=== PATIENT | female | born 1975 | race Caucasian/White ===

== ENCOUNTER → 2017-11-01 14:02 | Outpatient (CLI) | payer MEDICAID, SELFPAY ==
--- NOTE | 2017-11-01 14:05 | ECHOD_ITS ---
Reason For Study: SOB Procedure This was a 2D Doppler, Color Flow transthoracic echocardiogram. Exam performed in department. Left Ventricle Normal LV size. Left ventricular systolic function is normal. The estimated ejection fraction is 55 %. No evidence for diastolic dysfunction. No regional wall motion abnormalities noted. Right Ventricle Normal RV size. Normal systolic function. Atria Normal left atrium. Normal right atrium. Mitral Valve Normal mitral valve. Tricuspid Valve Normal tricuspid valve. Aortic Valve Normal aortic valve. Trisinus/trileaflet aortic valve. Pulmonic Valve Normal pulmonic valve. Great Vessels Normal aortic root. The pulmonary artery is normal size. Inferior vena cava collapse with respiration. Pericardium/Pleural No pericardial effusion. MMode/2D Measurements & Calculations LVIDd: 4.5 cm IVSd: 0.84 cm Ao root diam: 2.8 cm LVIDs: 3.0 cm LVPWd: 1.1 cm LA dimension: 3.2 cm RVDd: 2.9 cm FS: 32.4 % LAV(MOD-bp): 33.2 ml LA A4 area: 14.0 cm2 RA A4 area: 11.8 cm2 LAV(MOD-bp) Indexed: 18.4 ml/m2 LAV(MOD-sp2): 32.4 ml LAV(MOD-sp4): 33.9 ml Time Measurements MV dec time: 0.17 sec Doppler Measurements & Calculations MV E max chandra: 95.0 cm/sec Lat Peak E' Chandra: 13.7 cm/sec Med Peak E' Chandra: 9.2 cm/sec MV A max chandra: 74.3 cm/sec E/E' lat: 6.9 E/E' med: 10.4 MV E/A: 1.3 Ao V2 max: 130.1 cm/sec LV V1 max: 102.1 cm/sec PA V2 max: 76.1 cm/sec Ao max P.8 mmHg LV V1 max P.2 mmHg Interpretation Summary Normal LV size. Left ventricular systolic function is normal. The estimated ejection fraction is 55 %. No evidence for diastolic dysfunction. Structurally normal valves. Ordering Physician: JOHN Cross Referring Physician: JOHN Cross Performed By: Madison Christine, ACE, RVT
--- NOTE | 2017-11-01 14:47 | RAD_ITS ---
STUDY: X-RAY CHEST REASON FOR EXAM: Female, 41 years old. Cough, increased shortness of breath, right-sided chest pain. TECHNIQUE: PA and lateral views of the chest. COMPARISON: PA and lateral chest x-ray as well as CTA chest/thorax May 15, 2017. FINDINGS: The lungs are clear and expanded. Nodular density in the left midlung and stranding/hazy bibasilar densities on prior study have cleared. There is no demonstrated pleural abnormality. Normal size heart. Normal mediastinum and geneva. Normal visualized pulmonary arteries. Normal visualized aortic arch and descending thoracic aorta. There are stable minor degenerative changes of the lower thoracic spine. Normal visualized ribs, clavicles, and shoulders. Surgical clips of prior cholecystectomy again seen in the right upper quadrant of the abdomen. RAD/Chest PA and Lateral IMPRESSION: No acute pulmonary disease. Electronically Signed: Rick Price MD at 19:19 EST , Service support ,
[2017-11-01 16:16] LABS: Absolute Lymphocyte Count 2.39 X10^3/ul (0.83-4.51); Basophil# 0.04 X10^3/uL; Basophil% 0.5 % (0-1); Eosinophil# 0.47 X10^3/uL; Eosinophils% 5.5 % (0-5); Hematocrit 40.8 % (37-47); Hemoglobin 13.5 g/dl (12.0-15.0); Lymphocyte # 2.39 X10^3/ul (4.0); Lymphocyte % 27.9 % (19-41); Mean Corp Hgb Conc 33.1 g/gl (32-36); Mean Corpuscular Hgb 31.8 pg (27.0-32.0); Mean Platelet Vol. 9.7 fl (6.2-12.0); Monocyte# 0.64 X10^3/uL; Monocyte% 7.5 % (0-10); Neutrophil # 5.02 X10^3/uL (2.7-7.7); Neutrophil % 58.4 % (47-70); Platelet Count 330 K/mm3 (150-450); RBC Distribution Width CV 12.3 % (11.6-14.6); RBC Distribution Width SD 42.3 fl (35.1-43.9); Red Blood Count 4.25 M/mm3 (4.2-5.4); White Blood Count 8.6 K/mm3 (4.4-11.0)
[2017-11-01 16:17] LABS: POSITIVE COUNT NO; POSITIVE DIFFERENTIAL NO; POSITIVE MORPHOLOGY NO
[2017-11-01 16:39] LABS: Erythrocyte Sedimentation Rate 6 mm/hr (0-20)
[2017-11-01 17:14] LABS: ALB/GLOB Ratio 0.9 RATIO (0.9-2.4); AST(SGOT) 38 U/L (15-37); Alanine Aminotransfer ALT/SGPT 80 U/L (13-56); Albumin, Serum 3.1 g/dL (3.2-5.0); Alkaline Phosphatase 61 U/L (45-117); Anion Gap 9 (5-15); BUN 6 mg/dL (7-18); BUN/Creat Ratio 8.5 RATIO (10-20); CRP < 2.90 mg/L (0.0-3.0); Chloride 105 mmol/L (98-107); EST Glomerular Filtration Rate 97 mL/min (>60); Est Glom Filt Rate - Afr Amer 118 mL/min (>60); Globulin 3.5 g/dL (2.2-4.2); Glucose 93 mg/dL (74-106); Potassium 3.5 mmol/L (3.5-5.1); Protein, Total 6.6 g/dL (6.4-8.2); Rheumatoid Factor < 10.0 IU/mL (<15); Sodium Level 141 mmol/L (136-145); T4 Free Direct 0.92 ng/dL (0.76-1.46); Thyroid Stim Hormone (TSH) 1.77 uIU/mL (0.358-3.74)
== END ==
PROVIDERS: Family Provider Nurse Practitioner Family; PCP Nurse Practitioner Family; Visit Provider Nurse Practitioner Family
DX: R06.02 Shortness of breath (principal); M32.9 Systemic lupus erythematosus, unspecified; E04.9 Nontoxic goiter, unspecified
CPT/HCPCS: 36415; 71046; 80053; 84439; 84443; 85025; 85652; 86140; 86431; 93306

== ENCOUNTER → 2017-11-03 12:04 | Outpatient (CLI) | payer MEDICAID, SELFPAY ==
--- NOTE | 2017-11-03 12:07 | HPBI_ITS ---
MAMMOGRAPHY - BILATERAL SCREENING REASON FOR EXAM: Female, 41 years old. Routine annual screening examination. PERTINENT HISTORY: Non-contributory. TECHNIQUE: Digital bilateral breast britton (3D mammographic acquisition) in the CC and MLO projections. 2-D mediolateral oblique (MLO) and craniocaudad (CC) views of both breasts were obtained. CAD: Full Field Digital Mammography with Computer Added Detection was performed. COMPARISON: Comparison is made with prior outside examination dated October 17, 2012. FINDINGS: Breast Composition: There are scattered areas of fibroglandular density. There are no dominant masses or suspicious calcifications. No other significant abnormalities are identified. There has been no significant change since the prior study. HPBI/SCREENING MAMM (CAD), BILAT IMPRESSION: Stable bilateral screening mammogram. Yearly follow-up mammogram recommended. (A) ASSESSMENT CATEGORY: BIRADS Category 1: Negative. A letter regarding these results will be sent to the patient by the facility within 30 days. Approximately 10% of breast cancers are not detected by mammography. A normal mammogram should not delay biopsy of a clinically suspicious abnormality. [id number] Electronically Signed: Norman Vance MD at 9:53 EDT Tel [phone], Service support ,
== END ==
PROVIDERS: Family Provider Nurse Practitioner Family; PCP Nurse Practitioner Family; Visit Provider Nurse Practitioner Family
DX: Z12.31 Encounter for screening mammogram for malignant neoplasm of breast (principal)
CPT/HCPCS: 77063; 77067

== ENCOUNTER → 2017-12-07 08:29 | Outpatient (CLI) | payer MEDICAID, SELFPAY ==
--- NOTE | 2017-12-07 08:32 | RAD_ITS ---
STUDY: AIR-CONTRAST UPPER GI SERIES. REASON FOR EXAM: Female, 41 years old. Vomiting. History of gastroesophageal reflux. FLUOROSCOPY TIME (if supplied): (0:56) minutes/seconds TECHNIQUE: The patient ingested barium. Multiple image of the esophagus stomach and duodenum were obtained. COMPARISON: None. FINDINGS: The esophagus is unremarkable. There is no evidence of obstruction. There is no evidence of gastroesophageal reflux. The stomach and duodenum are unremarkable. RAD/Upper GI Series Only IMPRESSION: Unremarkable examination. Electronically Signed: Norman Vance MD at 7:47 EDT Tel [phone], Service support ,
== END ==
PROVIDERS: Family Provider Nurse Practitioner Family; PCP Nurse Practitioner Family; Visit Provider Nurse Practitioner Family
DX: K44.9 Diaphragmatic hernia without obstruction or gangrene (principal)
CPT/HCPCS: 74246

== ENCOUNTER → 2018-02-20 12:40 | Outpatient (CLI) | payer MEDICAID, SELFPAY ==
[2018-02-20 12:57] VITALS: PULSE 87; PULSE 88; PULSE 92; PULSE 93; PULSE 95; PULSE 96; PULSE 97; O2SAT 98; O2SAT 99
--- NOTE | 2018-02-21 11:31 | WT_ITS ---
PSN 6 Minute Walk Test - 6 Minute Walk Test 6 Minute Walk Test: 6 Minute Walk Test PSN:6-Minute Walk Test Start: 02/20/18 12: 57 Freq: Status: Active Protocol: RESP.6MINW Document 02/20/18 12:57 HG (Rec: 02/20/18 12:59 HG [id number]) 6 Minute Walk Test Date Performed 02/20/18 Time Performed 12:45 Height 5 ft 2 in Weight: 72.575 kg Weight in Pounds 160.[address]: Jaxson Bui Assistive device used: None Pre-test Oxygen Delivery Method Room Air Pulse Ox (%) 98 Pulse Rate (60-100 beats/min) 87 Dyspnea Nicole Scale (0-10) 2 Exertion Nicole Scale (6-20) 8 1st minute Oxygen Delivery Method Room Air Pulse Ox (%) 99 Pulse Rate (60-100 beats/min) 97 2nd minute Oxygen Delivery Method Room Air Pulse Ox (%) 99 Pulse Rate (60-100 beats/min) 92 3rd minute Oxygen Delivery Method Room Air Pulse Ox (%) 98 Pulse Rate (60-100 beats/min) 88 4th minute Oxygen Delivery Method Room Air Pulse Ox (%) 99 Pulse Rate (60-100 beats/min) 95 Number of Rests Taken 1 Reported Symptoms Increased Work of Breathing 5th minute Oxygen Delivery Method Room Air Pulse Ox (%) 99 Pulse Rate (60-100 beats/min) 93 6th minute Oxygen Delivery Method Room Air Pulse Ox (%) 98 Pulse Rate (60-100 beats/min) 96 Post-test Oxygen Delivery Method Room Air Pulse Ox (%) 99 Pulse Rate (60-100 beats/min) 87 Dyspnea Nicole Scale (0-10) 4 Exertion Nicole Scale (6-20) 13 Full Laps Walked 14 Partial Lap, Number of Tiles Walked 20 Total Distance Walked (ft) 846 - Interpretation Interpretation: The patient was able to ambulate 846 feet over the course of 6 minutes on room air with no assistive devices and one break. No significant desaturation or tachycardia was noted during this testing. These findings are consistent with a musculoskeletal limitation exercise tolerance. - Recommendations Recommendations: No supplemental oxygen is indicated at this time.
== END ==
PROVIDERS: Family Provider Nurse Practitioner Family; PCP Nurse Practitioner Family; Visit Provider Internal Medicine Critical Care Medicine
DX: J44.9 Chronic obstructive pulmonary disease, unspecified (principal); Z72.0 Tobacco use
CPT/HCPCS: 94618

== ENCOUNTER 2018-03-02 15:22 | Emergency (ER) | payer MEDICAID, SELFPAY ==
[2018-03-02 15:23] VITALS: BP 118/87; PULSE 90; RESP 16; TEMP 36.6; O2SAT 100; BMI 28.1
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
[2018-03-02] MEDS: Ondansetron ODT 4 MG Tablet PO (16:02)
[2018-03-02] MEDS: HYDROcodone Bitartrate/Apap 5/325 Tablet PO (16:02)
--- NOTE | 2018-03-02 16:20 | RAD_ITS ---
STUDY: X-RAY - RIGHT RADIUS AND ULNA REASON FOR EXAM: Female, 42 years old. Fall. TECHNIQUE: 2 view(s) of the forearm. COMPARISON: None. FINDINGS: There is no demonstrated soft tissue swelling. Normal visualized radius. Normal visualized ulna. There is no demonstrated acute fracture. RAD/Forearm 2 Views IMPRESSION: Normal x-ray examination of the radius and ulna. Electronically Signed: Wyatt Sterling MD at 16:33 EDT , Service support ,
[2018-03-02 17:34] VITALS: BP 121/81; PULSE 87; RESP 16; O2SAT 98
== END 2018-03-02 17:40 | disposition home or self-care (01) ==
PROVIDERS: Emergency Provider Emergency Medicine; Family Provider Nurse Practitioner Family; PCP Nurse Practitioner Family
DX: S06.0X1A Concussion with loss of consciousness of 30 minutes or less, initial encounter (principal); S60.221A Contusion of right hand, initial encounter; S80.01XA Contusion of right knee, initial encounter; V86.66XA Passenger of dirt bike or motor/cross bike injured in nontraffic accident, initial encounter; Y93.9 Activity, unspecified; Y92.9 Unspecified place or not applicable; Y99.9 Unspecified external cause status; R11.2 Nausea with vomiting, unspecified; Z79.899 Other long term (current) drug therapy
CPT/HCPCS: 70450; 73090; 73130; 73564; 99283

== ENCOUNTER → 2018-06-04 11:04 | Outpatient (CLI) | payer MEDICAID, SELFPAY ==
--- NOTE | 2018-06-04 14:16 | PFT ---
INTRODUCTION: The patient is a 42-year-old female that presents for pulmonary function studies secondary to a diagnosis of COPD. Respiratory therapy reports that the patient was unable to exhale for the full 6 seconds due to coughing. Bronchodilators were used during testing. INTERPRETATION: Forced expiration spirometry demonstrates the presence of a moderate large airways obstructive ventilatory defect. There was no significant response to aerosolized bronchodilators. Spirograms terminate prior to 6 seconds, likely underestimating FVC. Body plethysmography was performed and reveals a decreased TLC to 3.6 L, 81% of predicted, indicative of a mild restrictive ventilatory defect. The remainder of the lung volumes are symmetrically reduced. Diffusing capacity by single breath CO is mildly reduced at 63% of predicted. IMPRESSION: These pulmonary function studies demonstrate the presence of an irreversible moderate mixed ventilatory defect with an associated mild reduction in diffusing capacity. Results of pulmonary function testing should be viewed with caution, as the patient was unable to exhale for the full 6 seconds and experienced a great deal of coughing during testing, likely negatively influencing test results.
--- NOTE | 2018-06-04 14:20 | PFT_ITS ---
INTRODUCTION: The patient is a 42-year-old female that presents for pulmonary function studies secondary to a diagnosis of COPD. Respiratory therapy reports that the patient was unable to exhale for the full 6 seconds due to coughing. Bronchodilators were used during testing. INTERPRETATION: Forced expiration spirometry demonstrates the presence of a moderate large airw ays obstructive ventilatory defect. There was no significant response to aerosolized bronchodilators. Spirograms terminate prior to 6 seconds, likely underestimating FVC. Body plethysmography was performed and reveals a decreased TLC to 3.6 L, 81% of predicted, indicative of a mild restrictive ventilatory defect. The remainder of the lung volumes are symmetrically reduced. Diffusing capacity by single breath CO is mildly reduced at 63% of predicted. IMPRESSION: These pulmonary function studies demonstrate the presence of an irreversible moderate mixed ventilatory defect with an associated mild reduction in diffusing capacity. Results of pulmonary function testing should be viewed with caution, as the patient was unable to exhale for the full 6 seconds and experienced a great deal of coughing during testing, likely negatively influencing test results.
== END ==
PROVIDERS: Family Provider Nurse Practitioner Family; PCP Nurse Practitioner Family; Visit Provider Internal Medicine Critical Care Medicine
DX: J44.9 Chronic obstructive pulmonary disease, unspecified (principal); Z72.0 Tobacco use
CPT/HCPCS: 94060; 94726; 94729

== ENCOUNTER 2018-06-13 12:15 | Emergency (ER) | payer MEDICAID, SELFPAY ==
[2018-06-13 12:17] VITALS: BP 113/98; PULSE 90; RESP 18; TEMP 36.6; O2SAT 100; BMI 30.2
--- NOTE | 2018-06-13 12:35 | EKG12_ITS ---
Test Reason : CP Blood Pressure : / mmHG Vent. Rate : 083 BPM Atrial Rate : 083 BPM P-R Int : 122 ms QRS Dur : 086 ms QT Int : 406 ms P-R-T Axes : 061 060 035 degrees QTc Int : 477 ms Normal sinus rhythm Minimal voltage criteria for LVH, may be normal variant Borderline ECG Confirmed by IRIS VILLA, JELANI ([id number]), photo editor GUADALUPE GALINDO ([id number]) on 06/17/2018 12:41:13 PM Referred By: Jaxson Bui Confirmed By:JELANI SIMMONS MD
--- NOTE | 2018-06-13 12:35 | RAD_ITS ---
STUDY: X-RAY CHEST REASON FOR EXAM: Female, 42 years old. Chest tightness, COPD. TECHNIQUE: Single AP portable view of the chest. COMPARISON: PA and lateral chest x-ray November 01, 2017. FINDINGS: The lungs are clear and expanded. There is no demonstrated pleural abnormality. Normal size heart. Normal mediastinum and geneva. Normal visualized pulmonary arteries. Normal visualized aortic arch and descending thoracic aorta. Normal visualized thoracic spine. Normal visualized ribs, clavicles, and shoulders. Surgical clips consistent with prior cholecystectomy again seen in the medial right upper quadrant of the abdomen. RAD/Chest 1 View (Portable) IMPRESSION: No acute cardiopulmonary disease. Electronically Signed: Rick Price MD at 13:34 EDT , Service support ,
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
--- NOTE | 2018-06-13 12:36 | RAD_ITS ---
STUDY: X-RAY - RIGHT ANKLE REASON FOR EXAM: Female, 42 years old. Pain after fall last night. TECHNIQUE: 3 view(s) of the ankle. # of Images: 3 COMPARISON: 3 views of the right ankle October 03, 2014 FINDINGS: Normal visualized distal tibia. Previously noted transverse fracture of the distal fibular metaphysis is nonunited with mildly corticated margins and slight lateral displacement of the distal fracture fragment. Normal medial malleolus. Normal tibiotalar articulation and ankle mortise. Normal visualized talus and calcaneus. The visualized subtalar, talonavicular, calcaneocuboid and tarsal articulations are normal. There is no demonstrated fracture. The soft tissue structures are unremarkable. RAD/Ankle min 3 Views IMPRESSION: Chronic, incompletely united transverse fracture of the lateral malleolus, as noted. No demonstrated acute fracture. Electronically Signed: Rick Price MD at 13:33 EDT , Service support ,
--- NOTE | 2018-06-13 12:37 | ED.VISSUMM ---
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 She recently moved to the [facility] 3 months ago she is currently being seen the [facility] system by primary care services, she has not yet been referred to [facility] specialty care. She reports for the last 2 or 3 days she has had a constant sense of chest pressure that is not unusual for her last night as she was going up the stairs she tripped twisted her ankle and fell injuring her right ankle and hitting her left head she had no LOC she did not strike her chest. She has no history again of RI PE or DVT she is on no medications other than aspirin and the use of some type of powdered inhaler Physical Examination: [] Times are within normal range see those were salts she is resting comforting the bed she has a very mild discomfort to palpation of the left head the pupils are equal reactive the nose and throat cranial nerves and HEENT exam are otherwise unremarkable without trauma the neck is nontender the lungs are clear the heart tones are normal the abdomen is soft nontender upper lower extremity exam is unremarkable except for the right ankle with some very mild pain to palpation diffusely over the right ankle, right ankle shows no bony deformity or instability she is able dorsi and plantarflex the foot unremarkable skin is completely intact her back is unremarkable neurologically she is awake moving all 4 pulses are symmetric Test Results: [] Emergency Department Course and Treatment: [] The patient's EKG CBC chemistry chest x-ray are all unremarkable, head CT unremarkable, the right ankle x-ray shows what appears to be per radiology old fracture with some nonunion no acute injury, her d-dimer returned at 0.52 normal is 0.50 the d-dimer and all of her results with her we discussed the potential for PE the need for CTA to rule that out the life-threatening nature of DVT PE however she indicates she does not wish to have the CTA done as she feels this chest pain is very similar to what she has had in the past, we could not find her past cardiac stress test we did find a cardiac echo from 11/11, but again she indicates she remembers having a cardiac stress test recently possibly [place] or somewhere else she is not sure with IV medicine that showed no signs of ischemic heart disease Discussed inpatient versus outpatient management with her she does not wish to be admitted she is comfortable with discharge home, I have cautioned her one to follow-up with her [facility] physicians and subspecialists related to her chest pain to to consider seeing somebody from orthopedics at [facility] related to her ankle injury and to return for change in symptoms she agrees, she will continue use her asthma meds, she will be given Hulbert No. 4 tablets to use as a rescue med and return for change in symptoms Treatment Plan: [] Disposition: [] Home stable, patient declined admission Impression: [] Acute recurrent chest pain etiology unclear, right ankle injury with prior fracture, head injury This note was generated with mPortico dictation software. It may contain incorrect words, spelling, and punctuation that were not noted in review of the chart prior to signing ED Disposition - Plan for ED Patient: Chief Complaint: Chest Pain
[2018-06-13] MEDS: 0.9% Normal Saline 1,000 ML 150 ML IV (12:45)
[2018-06-13] MEDS: Morphine 4 MG/ML Syringe IV (12:45)
[2018-06-13] MEDS: Ondansetron 4 MG/2 ML Vial IV (12:45)
[2018-06-13] MEDS: Aspirin 81 MG TAB.CHEW 324 MG PO (12:45)
[2018-06-13 12:47] LABS: Absolute Lymphocyte Count 2.97 X10^3/ul (0.83-4.51); Absolute Neutrophil Count 5.2 X10^3/uL (2.0-7.7); Basophil# 0.06 X10^3/uL; Basophil% 0.6 % (0-1); Eosinophil# 0.32 X10^3/uL; Eosinophils% 3.5 % (0-5); Hematocrit 44.8 % (37-47); Hemoglobin 15.1 g/dl (12.0-15.0); Lymphocyte # 2.97 X10^3/ul (4.0); Lymphocyte % 32.1 % (19-41); Mean Corp Hgb Conc 33.7 g/gl (32-36); Mean Corpuscular Hgb 32.1 pg (27.0-32.0); Mean Corpuscular Volume 95.3 fL (81-99); Mean Platelet Vol. 9.7 fl (6.2-12.0); Monocyte# 0.71 X10^3/uL; Monocyte% 7.7 % (0-10); Neutrophil # 5.17 X10^3/uL (2.7-7.7); Neutrophil % 55.9 % (47-70); Platelet Count 399 K/mm3 (150-450); RBC Distribution Width CV 12.4 % (11.6-14.6); RBC Distribution Width SD 42.3 fl (35.1-43.9); White Blood Count 9.3 K/mm3 (4.4-11.0)
[2018-06-13 12:48] LABS: POSITIVE COUNT NO; POSITIVE DIFFERENTIAL NO; POSITIVE MORPHOLOGY NO
[2018-06-13 12:59] LABS: Anion Gap 6 (5-15); BUN 5 mg/dL (7-18); BUN/Creat Ratio 5.3 RATIO (10-20); Calcium,Total 8.7 mg/dL (8.5-10.1); Chloride 104 mmol/L (98-107); Creatinine, Serum 0.94 mg/dL (0.55-1.02); EST Glomerular Filtration Rate 70 mL/min (>60); Est Glom Filt Rate - Afr Amer 84 mL/min (>60); Estimated Creatinine Clearance 61.66 ml/min; Glucose 95 mg/dL (74-106); Potassium 3.4 mmol/L (3.5-5.1); Sodium Level 139 mmol/L (136-145)
[2018-06-13 13:02] LABS: D-Dimer Quantitative (DVT/PE) 0.52 FEU/ug/m (0.27-0.49)
--- NOTE | 2018-06-13 13:04 | ED.RN ---
received critical D-dimer 0.[address] June notified, no new orders.
[2018-06-13 13:23] LABS: BNP,B-Type NATRIURETIC PEPTIDE 6.2 pg/mL (0-100)
[2018-06-13 14:25] VITALS: BP 131/88; PULSE 82; RESP 18; O2SAT 100
--- NOTE | 2018-06-13 14:37 | ED.DEP ---
ED Disposition - Plan for ED Patient: Chief Complaint: Chest Pain Instructions: ED Chest Pain Atypical Unkn Cause, ED Fx Ankle Lateral Malleolus, ED Head Injury Closed Prescriptions: Hydrocodone Bitart/Apap 5-325 [Roxana 5MG-325MG] 1 tab PO Q4H PRN PRN 2 Days #4 tab PRN Reason: Pain Referrals: Preston Harper DO [Primary Care Provider] - Additional Instructions: Please follow-up with [facility] subspecialty for your chest pain, and other symptoms, consider seeing [facility] orthopedics for your right ankle injury
[2018-06-13 14:58] VITALS: BP 130/90; PULSE 80; RESP 18; O2SAT 99
== END 2018-06-13 14:59 | disposition home or self-care (01) ==
LOC: ED 12:48
PROVIDERS: Emergency Provider Emergency Medicine; Family Provider Pediatrics; PCP Pediatrics
DX: R07.9 Chest pain, unspecified (principal); S99.911A Unspecified injury of right ankle, initial encounter; S09.90XA Unspecified injury of head, initial encounter; G89.29 Other chronic pain; W01.10XA Fall on same level from slipping, tripping and stumbling with subsequent striking against unspecified object, initial encounter; X50.1XXA Overexertion from prolonged static or awkward postures, initial encounter; Y93.9 Activity, unspecified; Y92.9 Unspecified place or not applicable; Y99.9 Unspecified external cause status; M32.9 Systemic lupus erythematosus, unspecified; J44.9 Chronic obstructive pulmonary disease, unspecified; Z79.899 Other long term (current) drug therapy
CPT/HCPCS: 70450; 71045; 73610; 80048; 83880; 84484; 85025; 85379; 93005; 96361; 96374; 96375; 99285; J7030; A4216; J2405

== ENCOUNTER 2018-07-25 14:19 | Emergency (ER) | payer MEDICAID, SELFPAY ==
[2018-07-25 14:21] VITALS: BP 135/90; PULSE 93; RESP 18; TEMP 36.4; O2SAT 100; BMI 28.3
--- NOTE | 2018-07-25 14:51 | ED.DCSUM_ITS ---
- ER Visit Summary Date of Service: 07/25/18 Chief Complaint: Ear pain History of Present Illness: The patient is a 42 F with left ear pain. Patient says she has decreased hearing and drainage from the ear. Pain is severe. Never had this before. No other symptoms or complaints. Physical Examination: Afebrile and vital signs unremarkable. Patient has clear fluid from her left. I do not appreciate a perforation but there appears to be an effusion. No bleeding. Tragus nontender. No lymphadenopathy. HEENT exam otherwise normal. Skin normal. Test Results: None indicated Emergency Department Course and Treatment: She will be treated with azithromycin and a short course of [place]. I did review her prescription report. Follow-up with primary care. Treatment Plan: As above Disposition: Discharged Impression: 1. Left ear pain This note was generated with [employer] dictation software. It may contain incorrect words, spelling, and punctuation that were not noted in review of the chart prior to signing ED Disposition - Plan for ED Patient: Chief Complaint: Ear Problem Referrals: Isra Waldrop MD [Primary Care Provider] -
--- NOTE | 2018-07-25 14:53 | DCINST.ED_ITS ---
ED Disposition - Plan for ED Patient: Chief Complaint: Ear Problem Instructions: ED Rupture Eardrum Infec Prescriptions: Hydrocodone Bitart/Apap 5-325 [[place] 5MG-325MG] 1 tab PO Q6H PRN PRN 3 Days #10 tab PRN Reason: Pain Azithromycin [Zithromax Z-Geoff] 250 mg PO UD #1 box Referrals: Isra Waldrop MD [Primary Care Provider] -
[2018-07-25 15:25] VITALS: PULSE 89; RESP 16; O2SAT 96
--- OUTSIDE RECORDS SUMMARY | 2018-09-19 20:22 | XMS RPT_ITS ---
:1975 Author Organization OHIP Support Name Relationship Address Phone JENNIFER FRY Unavailable [address] + [place] [address] UE Unavailable Unavailable Unavailable JENNIFER FRY Unavailable [address] + [place] [address] UE Unavailable Unavailable Unavailable JENNIFER FRY Unavailable [address] + [place] [address] UE Unavailable Unavailable Unavailable FORTESSENCE JENNIFER Unavailable [address] + [place] [address] UE Unavailable Unavailable Unavailable UE Unavailable Unavailable Unavailable UE Unavailable Unavailable Unavailable MEENU MOTT Unavailable Unavailable + MEENU MOTT Unavailable Unavailable + MEENU MOTT Unavailable Unavailable + UE Unavailable Unavailable Unavailable S Unavailable Unavailable Unavailable S Unavailable Unavailable Unavailable MEENU MOTT Unavailable Unavailable + MEENU MOTT Unavailable Unavailable + MEENU MOTT Unavailable Unavailable + S Unavailable Unavailable Unavailable S Unavailable Unavailable Unavailable S Unavailable Unavailable Unavailable S Unavailable Unavailable Unavailable MEENU MOTT Unavailable [address] + [place] [address] S Unavailable Unavailable Unavailable MEENU MOTT Unavailable [address] + [place] [address] S Unavailable Unavailable Unavailable MEENU MOTT Unavailable [address] + [place] [address] S Unavailable Unavailable Unavailable MEENU MOTT Unavailable [address] + [place] [address] S Unavailable Unavailable Unavailable MEENU MOTT Unavailable Unavailable + MEENU MOTT Unavailable Unavailable + MEENU MOTT Unavailable Unavailable + Care Team Providers Name Role Phone JUANIS BELLA Attending Unavailable HELIO ROBIN Referring Unavailable HELIO ROBIN Attending Unavailable JUANIS BELLA Referring Unavailable CATHERINE SETH (ROB) Attending Unavailable CATHERINE SETH (ROB) Referring Unavailable FEDERICO ROCKY JIANG Attending Unavailable ROCKY CABALLERO CNP Primary Care Unavailable KEI FANG MD Attending Unavailable FEDERICOROCKY QUISPE CNP Primary Care Unavailable KEI FANG MD Attending Unavailable FEDERICOROCKY QUISPE CNP Primary Care Unavailable ROCKY CABALLERO Attending Unavailable Rocky Caballero LITHARGE SUPERVISOR-C Primary Care Unavailable Rocky Caballero LITHARGE SUPERVISOR-C Attending Unavailable Rocky Caballero LITHARGE SUPERVISOR-C Referring Unavailable Rocky Caballero LITHARGE SUPERVISOR-C Primary Care Unavailable Rocky Caballero LITHARGE SUPERVISOR-C Primary Care Unavailable Rocky Caballero LITHARGE SUPERVISOR-C Attending Unavailable ROCKY CABALLERO Referring Unavailable Rocky Caballero LITHARGE SUPERVISOR-C Attending Unavailable Rocky Caballero LITHARGE SUPERVISOR-C Referring Unavailable Rocky Caballero LITHARGE SUPERVISOR-C Primary Care Unavailable Omar Mi Attending Unavailable Rocky Caballero LITHARGE SUPERVISOR-C Referring Unavailable Jaxson Bui, D.OMassimo Attending Unavailable Rocky Caballero LITHARGE SUPERVISOR-C Referring Unavailable Jaxson Bui, D.OMassimo Attending Unavailable Jaxson Bui, D.OMassimo Referring Unavailable FedericoRocky frederick LITHARGE SUPERVISOR-C Primary Care Unavailable Jaxson Bui, D.OMassimo Attending Unavailable Jaxson Bui, D.OMassimo Referring Unavailable Rocky Caballero LITHARGE SUPERVISOR-C Primary Care Unavailable Jaxson Brown, D.OMassimo Attending Unavailable FedericoRocky frederick LITHARGE SUPERVISOR-C Primary Care Unavailable Negin Diaz Attending Unavailable Rocky Caballero LITHARGE SUPERVISOR-C Referring Unavailable Rocky Caballero LITHARGE SUPERVISOR-C Primary Care Unavailable Saad Zacarias Attending Unavailable Luis Fernando Pineda Attending Unavailable Jaxson Brown, D.O. Referring Unavailable Neptali June Attending Unavailable Preston Harper Primary Care Unavailable Jaxson Bui D.O. Attending Unavailable Jaxson uBi D.O. Referring Unavailable Max Barker Attending Unavailable Juanis Bella Primary Care Unavailable PROBLEMS PROBLEMS DATE TYPE CONDITION / CODE ATTENDING STATUS SOURCE 07/25/2018 Unknown H92.02 - OtalgiaMj Daniel Active [place] left ear / Community H92.02(ICD-10) Hospital Repository 07/04/2018 Active Contracture, right NA Active [facility] Main M24.541(ICD-10) [place] Repository 06/17/2018 Active Unknown / VETOVITZ, Active [facility] UNK(Unknown) CATHERINE (ROB) Clinic Main [place] Repository 06/13/2018 Unknown R52 - Pain, Concepciónмарина, Active [place] unspecified / [place] [facility] R52(ICD-10) Hospital Repository 06/18/2018 Unknown J44.9 - Chronic Jaxson Bui Active [place] obstructive D.O. Community pulmonary disease, Hospital unspecified / Repository J44.9(ICD-10) 04/26/2018 Active Pain in right hand NA Active [facility] / M79.641(ICD-10) Clinic Main [place] Repository 12/07/2017 Unknown K44.9 - Federico, Active [place] Diaphragmatic Rocky Monzon LITHARGE SUPERVISOR-C Community hernia without Hospital obstruction or Repository gangrene / K44.9(ICD-10) 11/29/2017 Unknown Z72.0 - Tobacco use Jaxson Bui Active [place] / Z72.0(ICD-10) D[facility] Community Hospital Repository 11/29/2017 Unknown G47.10 - Jaxson Bui, Active [place] Hypersomnia, D.O. Community unspecified / Hospital G47.10(ICD-10) Repository 11/29/2017 Unknown R93.8 - Abnormal Jaxson Bui Active [place] findings on D.O. Community diagnostic imaging Hospital of other specified Repository body structures / R93.8(ICD-10) 11/03/2017 Unknown Z12.31 - Encounter Federico, Active [place] for screening Rocky Monzon LITHARGE SUPERVISOR-C [facility] mammogram for Hospital malignant neoplasm Repository of breast / Z12.31(ICD-10) 11/03/2017 Unknown R06.02 - Shortness Federico, Active [place] of breath / Rocky Monzon LITHARGE SUPERVISOR-C [facility] R06.02(ICD-10) Hospital Repository 08/31/2017 Admitting Unspecified FEDERICO CABLEMAN, Active [facility] Diagnosis abdominal pain / ROCKY Monzon [facility] [place] R10.9(ICD-10) Repository PROCEDURES PROCEDURES No Procedure Records FoundRESULTS RESULTS EMERGENCY DEPARTMENT Observed: 07/25/2018 Status: F Source: [place] SUMMARY 3:55 PM [facility] REPOSITORY [facility] Medical Records Department [address] [place] [address] Emergency Department Summary 07/25/18 1449 MR#: [id number] Acct: [id number] Name: MEREDITH [place] Rep #: [id number] : 1975 42 From: Max Barker MD PCP: Juanis Bella MD Status: DEP ER - ER Visit Summary Date of Service: 07/25/18 Chief Complaint: Ear pain History of Present Illness: The patient is a 42 F with left ear pain. Patient says she has decreased hearing and drainage from the ear. Pain is severe. Never had this before. No other symptoms or complaints. Physical Examination: Afebrile and vital signs unremarkable. Patient has clear fluid from her left. I do not appreciate a perforation but there appears to be an effusion. No bleeding. Tragus nontender. No lymphadenopathy. HEENT exam otherwise normal. Skin normal. Test Results: None indicated Emergency Department Course and Treatment: She will be treated with azithromycin and a short course of [place]. I did review her prescription report. Follow- up with primary care. Treatment Plan: As above Disposition: Discharged Impression: 1. Left ear pain This note was generated with Innovega dictation software. It may contain incorrect words, spelling, and punctuation that were not noted in review of the chart prior to signing ED Disposition - Plan for ED Patient: Chief Complaint: Ear Problem Referrals: Juanis Bella MD [Primary Care Provider] - What to do if you have Problems For any increased pain, shortness of breath, bleeding, nausea or vomiting, chest pain, or any unexpected problems, contact your Primary Care Provider. Call [facility] ([phone]) or report to the closest Emergency Room. Call 911 if necessary. 07/25/18 6093 <Electronically signed by Max Barker MD> Date Max Bakrer MD Cosigner Signature (If Indicated): Date CC: Juanis Bella MD DISCHARGE INSTRUCTION Observed: 07/25/2018 Status: F Source: [place] 3:55 PM [facility] RE[facility]ITORY [facility] Medical Records Department [address] [place] [address] Discharge Instruction 07/25/18 1451 MR#: [id number] Acct: [id number] Name: MEREDITH [place] Rep #: [id number] : 1975 42 From: Max Barker MD PCP: Juanis Bella MD Status: DEP ER ED Disposition - Plan for ED Patient: Chief Complaint: Ear Problem Instructions: ED Rupture Eardrum Infec Prescriptions: Hydrocodone Bitart/Apap 5-325 [[place] 5MG-325MG] 1 tab PO Q6H PRN PRN 3 Days #10 tab PRN Reason: Pain Azithromycin [Zithromax Z-Geoff] 250 mg PO UD #1 box Referrals: Juanis Bella MD [Primary Care Provider] - What to do if you have Problems For any increased pain, shortness of breath, bleeding, nausea or vomiting, chest pain, or any unexpected problems, contact your Primary Care Provider. Call [facility] ([phone]) or report to the closest Emergency Room. Call 911 if necessary. 07/25/18 8264 <Electronically signed by Max Barker MD> Date Max Barker MD Cosigner Signature (If Indicated): Date CC: Juanis Bella MD MRI HAND WO MAAME Observed: 07/04/2018 Status: F Source: [facility] 10:40 AM [facility] [place] REPOSITORY * * *Final Report* * * DATE OF EXAM: Jul 04 2018 10:40AM [facility] 0201 - MRI HAND WO MAAME RT / PROCEDURE REASON: Contracture of joint of right hand * * * * Physician Interpretation * * * * MRI Right and without contrast INDICATION: Fall down the stairs in February with subsequent injury of the small finger. Since the injury she has not been able to fully extend the small finger at the PIP joint COMPARISON: Radiograph dated 04/26/2018 TECHNIQUE: Multiplanar PD, T1 and T2 weighted images. RESULT: The central slip of the extensor tendon appears thickened at the level of the MCP joint and not well seen at the level of the PIP joint related to tearing. The radial sided slip appears intact. Possible tearing involving the ulnar tendon slip. The flexor tendon appears intact. There is increased edema like marrow signal at the base of the PIP joint of the little finger, bone contusion. The remainder the muscles of the hand are normal in signal intensity and bulk. No other marrow signal abnormality. Fracture deformity of the fifth metacarpal. IMPRESSION: 1. Tearing of the central slip of the extensor mechanism of the little finger. 2. Bone contusion versus minimally impacted fracture at the base of the fifth proximal phalanx. Art Glass Setter: RILEY Transcribe Date/Time: Jul 04 2018 11:13A Dictated by : MAX BANDA MD This examination was interpreted and the report reviewed and electronically signed by: SAAD ESCOTO MD on Jul 04 2018 1:40PM EST [id number] PROGRESS Observed: 07/04/2018 Status: COMPLETED Source: [place] 10:21 AM [facility] REPOSITORY HNO ID: [id number] Author: Constanza () Harpal Morales Service: (none) Author Type: Vice President Of Operations Type: Progress Notes Filed: 07/04/2018 10:21 AM Note Text: Radiology Service Progress Note PATIENT NAME: Meredith [place] DATE OF SERVICE: July 04, 2018 TIME: 10:21 AM PATIENT IDENTITY VERIFICATION COMPLETED USING TWO (2) METHODS: Patient confirmed name verbally and Date of . PATIENT GENDER DATA: Female. status: : No status: NO. PATIENT RELEVANT IMPLANT DATA REVIEWED: Yes RADIOLOGY DEPARTMENT: MR; Exam(s) Completed: Upper MSK: Hand, right PERIPHERAL IV DATA: Not applicable SIGNED BY: RT Gabrielle July 04, 2018 10:21 AM PROGRESS Observed: 06/17/2018 Status: COMPLETED Source: [facility] 4:06 PM [facility] [place] REPOSITORY HNO ID: [id number] Author: Catherine Seth (Pa) Service: (none) Author Type: Physician Fuel Technician Type: Progress Notes Filed: 06/17/2018 4:15 PM Note Text: Catherine Seth PA-C Department of Orthopaedics Orthopaedics [address] [facility] [address] Dept: [phone] Dept June 17, 2018 CHIEF COMPLAINT: New Patient (right hand pain, xray [facility] 03-02-18, contracture right 5th finger) HPI: Ms. Meredith [place] is a 42 year old female. Patient presents with pain and deformity of her right pinky finger. The patient tells me that she fell down the stairs in February, she injured finger at that time but cannot recall the mechanism of injury. Since then she notes that the right pinky PIP joint has been very swollen and painful to the touch. Pain today is a 5 out of 10 sharp aching. Patient is unable to fully extend the finger at the PIP joint. The patient tells me that she had a right fifth metacarpal fracture about a year ago and had to have a subsequent surgery to remove a bone spur. The patient cannot recall the name of her surgeon. The patient was referred to occupational therapy who provided her with a splint, they did not feel comfortable proceeding with range of motion program advised her to follow up with orthopedics. She has been wearing the splint intermittently and taking 400 mg ibuprofen every 4 hours without relief. The patient is right-hand dominant, she is not currently working. 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 She is unable to flex or extend her DIP joint. We'll and order an MRI to assess her extensor tendons. In the meantime she was advised to continue splinting for comfort and also to continue with the ibuprofen as well as icing. FOLLOW UP INSTRUCTIONS: Discuss MRI results. Ms. Meredith [place] was advised as to contrast therapies and/or to take analgesics/anti-inflammatories as needed and all contraindications were reviewed. OBJECTIVE: Ms. Meredith [place] is a pleasant 42 year old in no apparent distress. Gen:BP 145/96[auto[ Pulse 87 Ht 5' 3 (1.60m) Wt 152 lb 6.4 oz (69.1kg) LMP 12/25/1993 BMI 27.00 kg/(m2). nl development, non obese, no deformities ENT: Normocephalic, normal hearing, moist mucosa CV: Pulses:Radial= 2+ and symmetric, capillary refill < 2 secs, no peripheral edema/varicosities Skin: no rash, bruising or lesions. Good turgor. Psych: cooperative and appropriate, alert and oriented x 3, good mood and affect. Musculoskeletal: Right pinky finger with swelling over the dorsum of the PIP joint. The MCP joint is held in extension, the PIP is held in flexion. The patient is able to gently flex at the MCP joint as well as extension at the PIP. The patient has no flexion or extension of the DIP joint. She has a palpable bony prominence at the fifth metacarpal. There are no palpable cords or nodules of the palm. There is no locking or catching at the A1 jono site. The patient is neurologically intact. IMAGING: IMPRESSION: 2 radiopaque densities in or on the soft tissues dorsal to the distal end of the proximal phalanx of fifth digit. ?There is also moderate soft tissue swelling in this area.. Art Glass Setter: RILEY ? Transcribe Date/Time: Apr ?2017 ?9:06A Dictated by : THA GRANADOS, DO This examination was interpreted and the report reviewed and electronically signed by: THA GRANADOS, DO on Apr ?9:08AM ?EST Results-Findings * * *Final Report* * * DATE OF EXAM: Apr 26 2018 ?1:21PM ? WRX ? 5346 ?- ?XR HAND 3V PA/LAT/OBL RT ?/ PROCEDURE REASON: Pain in right hand ?? ? * * * * Physician Interpretation * * * * ?Right hand HISTORY: ?42 years old Clinical information: Pain in right hand pain and swelling in right pinky for a couple weeks/no injuries TECHNIQUE: Images: ?XR HAND 3V PA/LAT/OBL RT Comparison: ?None. RESULT: Findings: There is moderate soft tissue swelling over the PIP joint of the fifth digit. ?2 radiopaque densities are noted and are on the soft tissues dorsal to the distal end of the proximal phalanx of the fifth digit. ?There is soft tissue swelling over the fifth digit most pronounced over the PIP joint. ?There is deformity of the distal end of the fifth metacarpal which appears to be due to an old healed fracture No fractures or dislocations are seen. Supporting Subjective Information Below: Past Medical History: PAST MEDICAL HISTORY Diagnosis Date - Bipolar disease, chronic (HCC) - COPD (chronic obstructive pulmonary disease) (HCC) - Fibromyalgia - Hiatal hernia - Lupus - Sleep apnea Past Surgical History: PAST SURGICAL HISTORY Procedure Laterality Date - LAPAROSCOPIC CHOLEYCYSTECTOMY 2003 Cholecystectomy, lap - LIGATE FALLOPIAN TUBE - PAST SURGICAL HISTORY OF Right 2017 ORIF right 5th [facility] fx, done in [place], [place] - REMOVAL OF OVARY(S) 1993 Oophorectomy- right for cancer - REMOVAL OF TONSILS,<12 Y/O Tonsillectomy Family History: FAMILY HISTORY Problem Relation Age of Onset - Arthritis Mother - Hypertension Mother - Diabetes Father - Hypertension Father - Cancer Father stomach - Ischemic Heart Disease Father - Cancer Sister unsure of site - Cancer Sister unsure of site - Ischemic Heart Disease Maternal Grandfather - Ischemic Heart Disease Paternal Grandfather - Breast Cancer Maternal Grandmother 40 Social History:Social History Marital status: Single Spouse name: Years of education: Number of children: Social History Main Topics Smoking status: Current Every Day Smoker Packs/day: 0.25 Years: 2.00 Types: Cigarettes Last attempt to quit: 04/27/2010 Smokeless tobacco: Never Used Comment: Down to 4 cigarettes per day Alcohol use: Yes Comment: occ wine, states has not drank for over a year on 04-26-18 Drug use: No Sexual activity: Yes Partners with: Male control/protection: Tubal Ligation Medications: Current Outpatient Prescriptions: aspirin, enteric coated (ASPIRIN, ENTERIC COATED) 81 mg EC tablet Take 81 mg by mouth once daily. ibuprofen (MOTRIN) 400 mg tablet Take 400 mg by mouth. risperiDONE (RISPERDAL) 1 mg tablet Take 1 mg by mouth three times daily. tiotropium-olodaterol 2.5-2.5 mcg/actuation mist Inhale 2 Puffs as instructed as needed. SPIRIVA RESPIMAT 2.5 mcg/actuation inhaler INHALE 2 (TWO) puffs BY MOUTH EVERY DAY albuterol HFA (VENTOLIN HFA) 90 mcg/actuation inhaler Inhale 2 Puffs as instructed every 4 hours as needed for Wheezing/Shortness of Breath. cyclobenzaprine (FLEXERIL) 10 mg tablet Take 10 mg by mouth three times daily as needed. No current facility-administered medications for this visit. Allergies: Naproxen; [place] [Hydrocodone-Acetaminophen]; Gabapentin; Morphine; Penicillin G; Tramadol ROS: General (negative for fatigue, malaise, weight loss/gain) HEENT (negative for headache, earache, recent vision changes, sinus pain, sore throat) Respiratory (no recent shortness of breath, hemoptysis) CV (negative for chest tightness, palpitations) Musculoskeletal (see HPI) Psych (no depression, anxiety) This note was partially generated using Innovega voice recognition system, and there may be some incorrect words, spellings, and punctuation that were not noted in checking the note before saving. Catherine Seth PA-C PROGRESS Observed: 06/17/2018 Status: COMPLETED Source: [facility] 2:23 PM [facility] [place] REPOSITORY HNO ID: [id number] Author: Joann Cain RN Service: (none) Author Type: (none) Type: Progress Notes Filed: 06/17/2018 4:15 PM Note Text: AMB ROOMING INTAKE FLOWSHEET DATA Risk Screening Do you have concerns about personal safety or safety in the home?: No Pain Pain Score: 5/10 Pain Location: (right 5th finger) Description: Aching, Sharp Duration Amount of Time: 3 Duration Units: Months Frequency: Continuous Intervention: Heat, Cold, Splinting, Therapeutic techniques-CPRP Patient presents with: New Patient: right hand pain, xray [facility] 03-02-18, contracture right 5th finger Pt. presents with friend, Jennifer. She states she fell down stairs in February and was seen in [facility] ER. She was told no fx. She f/u with DD. He sent her to OT. She is still painful. She has been taking ibuprofen 400 mg every 4 hours without relief. She is right hand dominant. She is not employed outside the home. Pt. has elevated BP after recheck and instructed to have recheck within next few weeks with PCP, since she has no dx. Instructed that she really needs to stop smoking and effect it has on O2 levels and vessel constriction. Pt. verbalizes understanding. CNOV Observed: 06/17/2018 Status: COMPLETED Source: [facility] 2:10 PM [facility] REPOSITORY Office Visit (ORTHWS) MEREDITH [place] ([id number]) 1975 F Date Time Provider Department 06/17/18 2:10 PM CATHERINE SETH) DOC During your visit today, we recorded the following information about you: Pulse Blood pressure Weight Height 87/minute 145/96 69.1 kg 1.6 m Last Period 12/25/1993 Joann Cain RN 06/17/2018 4:15 PM Signed AMB ROOMING INTAKE FLOWSHEET DATA Risk Screening Do you have concerns about personal safety or safety in the home?: No Pain Pain Score: 5/10 Pain Location: (right 5th finger) Description: Aching, Sharp Duration Amount of Time: 3 Duration Units: Months Frequency: Continuous Intervention: Heat, Cold, Splinting, Therapeutic techniques-CPRP Patient presents with: New Patient: right hand pain, xray [facility] 03-02-18, contracture right 5th finger Pt. presents with friend, Jennifer. She states she fell down stairs in February and was seen in [facility] ER. She was told no fx. She f/u with DD. He sent her to OT. She is still painful. She has been taking ibuprofen 400 mg every 4 hours without relief. She is right hand dominant. She is not employed outside the home. Pt. has elevated BP after recheck and instructed to have recheck within next few weeks with PCP, since she has no dx. Instructed that she really needs to stop smoking and effect it has on O2 levels and vessel constriction. Pt. verbalizes understanding. Catherine Seth PA-C 06/17/2018 4:15 PM Signed Catherine Seth PA-C Department of Orthopaedics Orthopaedics [address] [place] [address] Dept: [phone] Dept June 17, 2018 CHIEF COMPLAINT: New Patient (right hand pain, xray [facility] 03-02-18, contracture right 5th finger) HPI: Ms. Meredith [place] is a 42 year old female. Patient presents with pain and deformity of her right pinky finger. The patient tells me that she fell down the stairs in February, she injured finger at that time but cannot recall the mechanism of injury. Since then she notes that the right pinky PIP joint has been very swollen and painful to the touch. Pain today is a 5 out of 10 sharp aching. Patient is unable to fully extend the finger at the PIP joint. The patient tells me that she had a right fifth metacarpal fracture about a year ago and had to have a subsequent surgery to remove a bone spur. The patient cannot recall the name of her surgeon. The patient was referred to occupational therapy who provided her with a splint, they did not feel comfortable proceeding with range of motion program advised her to follow up with orthopedics. She has been wearing the splint intermittently and taking 400 mg ibuprofen every 4 hours without relief. The patient is right-hand dominant, she is not currently working. 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 She is unable to flex or extend her DIP joint. We'll and order an MRI to assess her extensor tendons. In the meantime she was advised to continue splinting for comfort and also to continue with the ibuprofen as well as icing. FOLLOW UP INSTRUCTIONS: Discuss MRI results. Ms. Meredith Crum was advised as to contrast therapies and/or to take analgesics/anti-inflammatories as needed and all contraindications were reviewed. OBJECTIVE: Ms. Meredith Crum is a pleasant 42 year old in no apparent distress. Gen:BP 145/96[auto[ Pulse 87 Ht 5' 3 (1.60m) Wt 152 lb 6.4 oz (69.1kg) LMP 12/25/1993 BMI 27.00 kg/(m2). nl development, non obese, no deformities ENT: Normocephalic, normal hearing, moist mucosa CV: Pulses:Radial= 2+ and symmetric, capillary refill < 2 secs, no peripheral edema/varicosities Skin: no rash, bruising or lesions. Good turgor. Psych: cooperative and appropriate, alert and oriented x 3, good mood and affect. Musculoskeletal: Right pinky finger with swelling over the dorsum of the PIP joint. The MCP joint is held in extension, the PIP is held in flexion. The patient is able to gently flex at the MCP joint as well as extension at the PIP. The patient has no flexion or extension of the DIP joint. She has a palpable bony prominence at the fifth metacarpal. There are no palpable cords or nodules of the palm. There is no locking or catching at the A1 jono site. The patient is neurologically intact. IMAGING: IMPRESSION: 2 radiopaque densities in or on the soft tissues dorsal to the distal end of the proximal phalanx of fifth digit. ?There is also moderate soft tissue swelling in this area.. Art Glass Setter: RILEY ? Transcribe Date/Time: Apr ?9:06A Dictated by : THA GRANADOS, DO This examination was interpreted and the report reviewed and electronically signed by: THA GRANADOS, DO on Apr ?9:08AM ?EST Results-Findings * * *Final Report* * * DATE OF EXAM: Apr 26 2018 ?1:21PM ? WRX ? 5346 ?- ?XR HAND 3V PA/LAT/OBL RT ?/ PROCEDURE REASON: Pain in right hand ?? ? * * * * Physician Interpretation * * * * ?Right hand HISTORY: ?42 years old Clinical information: Pain in right hand pain and swelling in right pinky for a couple weeks/no injuries TECHNIQUE: Images: ?XR HAND 3V PA/LAT/OBL RT Comparison: ?None. RESULT: Findings: There is moderate soft tissue swelling over the PIP joint of the fifth digit. ?2 radiopaque densities are noted and are on the soft tissues dorsal to the distal end of the proximal phalanx of the fifth digit. ?There is soft tissue swelling over the fifth digit most pronounced over the PIP joint. ?There is deformity of the distal end of the fifth metacarpal which appears to be due to an old healed fracture No fractures or dislocations are seen. Supporting Subjective Information Below: Past Medical History: PAST MEDICAL HISTORY Diagnosis Date - Bipolar disease, chronic (HCC) - COPD (chronic obstructive pulmonary disease) (HCC) - Fibromyalgia - Hiatal hernia - Lupus - Sleep apnea Past Surgical History: PAST SURGICAL HISTORY Procedure Laterality Date - LAPAROSCOPIC CHOLEYCYSTECTOMY 2003 Cholecystectomy, lap - LIGATE FALLOPIAN TUBE - PAST SURGICAL HISTORY OF Right 2017 ORIF right 5th MC fx, done in [place], [place] - REMOVAL OF OVARY(S) 1993 Oophorectomy- right for cancer - REMOVAL OF TONSILS,<12 Y/O Tonsillectomy Family History: FAMILY HISTORY Problem Relation Age of Onset - Arthritis Mother - Hypertension Mother - Diabetes Father - Hypertension Father - Cancer Father stomach - Ischemic Heart Disease Father - Cancer Sister unsure of site - Cancer Sister unsure of site - Ischemic Heart Disease Maternal Grandfather - Ischemic Heart Disease Paternal Grandfather - Breast Cancer Maternal Grandmother 40 Social History:Social History Marital status: Single Spouse name: Years of education: Number of children: Social History Main Topics Smoking status: Current Every Day Smoker Packs/day: 0.25 Years: 2.00 Types: Cigarettes Last attempt to quit: 04/27/2010 Smokeless tobacco: Never Used Comment: Down to 4 cigarettes per day Alcohol use: Yes Comment: occ wine, states has not drank for over a year on 04-26-18 Drug use: No Sexual activity: Yes Partners with: Male control/protection: Tubal Ligation Medications: Current Outpatient Prescriptions: aspirin, enteric coated (ASPIRIN, ENTERIC COATED) 81 mg EC tablet Take 81 mg by mouth once daily. ibuprofen (MOTRIN) 400 mg tablet Take 400 mg by mouth. risperiDONE (RISPERDAL) 1 mg tablet Take 1 mg by mouth three times daily. tiotropium-olodaterol 2.5-2.5 mcg/actuation mist Inhale 2 Puffs as instructed as needed. SPIRIVA RESPIMAT 2.5 mcg/actuation inhaler INHALE 2 (TWO) puffs BY MOUTH EVERY DAY albuterol HFA (VENTOLIN HFA) 90 mcg/actuation inhaler Inhale 2 Puffs as instructed every 4 hours as needed for Wheezing/Shortness of Breath. cyclobenzaprine (FLEXERIL) 10 mg tablet Take 10 mg by mouth three times daily as needed. No current facility-administered medications for this visit. Allergies: Naproxen; [place] [Hydrocodone-Acetaminophen]; Gabapentin; Morphine; Penicillin G; Tramadol ROS: General (negative for fatigue, malaise, weight loss/gain) HEENT (negative for headache, earache, recent vision changes, sinus pain, sore throat) Respiratory (no recent shortness of breath, hemoptysis) CV (negative for chest tightness, palpitations) Musculoskeletal (see HPI) Psych (no depression, anxiety) This note was partially generated using Innovega voice recognition system, and there may be some incorrect words, spellings, and punctuation that were not noted in checking the note before saving. Catherine Seth PA-C Referring Provider: SELF [[id number]] Allergies As of Date: 06/17/2018 Noted Allergy Reaction NAPROXEN 04/08/2018 8 - GI Upset NORCO (HYDROCODONE-ACETAMINOPHEN) 04/08/2018 8 - GI Upset GABAPENTIN 03/02/2018 12 - Shortness of Breath MORPHINE 05/06/2013 14 - Other: See Comments Comments: Chest pain PENICILLIN G 09/12/2010 2 - Rash TRAMADOL 01/31/2017 2 - Rash Date Reviewed: 06/17/2018 Reviewed by: Catherine Seth (Pa) - Fully Assessed Reason for Visit: New Patient [172] Cmt: right hand pain, xray [facility] 7-7-18, contracture right 5th finger Primary Visit Diagnosis:Pain of finger of right hand [M79.644] Other Visit Diagnosis: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 RISPERIDONE 1 MG TABLET Take 1 mg by mouth three time* TIOTROPIUM 2.5 MCG-OLODATEROL* Inhale 2 Puffs as instructed * SPIRIVA RESPIMAT 2.5 MCG/ACTU* INHALE 2 (TWO) puffs BY MOUTH* ALBUTEROL SULFATE HFA 90 MCG/* Inhale 2 Puffs as instructed * CYCLOBENZAPRINE 10 MG TABLET Take 10 mg by mouth three jaleel* Problem List As Of Date 06/17/2018 Noted Resolved Lupus [L93.0] Fibromyalgia [M79.7] Abnormal weight gain [R63.5] INVALID FOR* Lumbago [M54.5] INVALID FOR* Cervicalgia [M54.2] INVALID FOR* Glucose found in urine on examination [R81] INVALID FOR* Acute right-sided low back pain [M54.5] INVALID FOR* History of kidney stones [Z87.442] INVALID FOR* Encounter Status:Closed by CATHERINE SETH PA-C on 06/17/18 12 LEAD ELECTROCARDIOGRAM Observed: 06/17/2018 Status: F Source: [place] 12:41 PM [facility] RE[facility] Cardiovascular Services [address] [place] [address] 12 Lead EKG 06/13/18 1227 MR#: [id number] Acct: [id number] Name: MEREDITH CRUM Rep #: [id number] : 1975 42 From: Candelario Simmons MD Attending Dr: Status: DEP ER Ordering Dr: Neptali June MD Date: 06/13/18 Location: ED Sex: F C Admitted: Test Reason : CP Blood Pressure : / mmHG Vent. Rate : 083 BPM Atrial Rate : 083 BPM P-R Int : 122 ms QRS Dur : 086 ms QT Int : 406 ms P-R-T Axes : 061 060 035 degrees QTc Int : 477 ms Normal sinus rhythm Minimal voltage criteria for LVH, may be normal variant Borderline ECG Confirmed by IRIS VILLA, CANDELARIO ([id number]), editor farm journal GUADALUPE GALINDO ([id number]) on 06/17/2018 12:41:13 PM Referred By: Jaxson Bui Confirmed By:CANDELARIO SIMMONS MD 06/17/18 1241 Date Candelario Simmons MD CC: MD Nely June; Preston Harper DO Signed EMERGENCY DEPARTMENT Observed: 06/13/2018 Status: F Source: [place] SUMMARY 5:02 PM [facility] Medical Records Department [address] [place] [address] Emergency Department Summary 06/13/18 1237 MR#: [id number] Acct: [id number] Name: MEREDITH CRUM Rep #: [id number] : 1975 42 From: Neptali June MD PCP: Preston Harper DO Status: DEP ER - ER Visit Summary Date of Service: 06/13/18 Chief Complaint: [] Chest pain for days, fall left head right ankle pain History of Present Illness: The patient is a 42 F [] she is a long history of chronic chest pain she had exact evaluation by what sounds like multiple pipe fitter soft copper including some and [place] possibly some in [place], she also indicates she has COPD and lupus that all these are stable, she indicates she has a history of prior cardiac testing and stress testing somewhere that was negative she has had cardiac echoes that were negative except showing some of the blood vessels that go to her lungs are narrow she is never been told she has CAD [place] PE or DVT. She recently moved to the [facility] 3 months ago she is currently being seen the [facility] system by primary care services, she has not yet been referred to [facility] specialty care. She reports for the last 2 or 3 days she has had a constant sense of chest pressure that is not unusual for her last night as she was going up the stairs she tripped twisted her ankle and fell injuring her right ankle and hitting her left head she had no LOC she did not strike her chest. She has no history again of [place] PE or DVT she is on no medications other than aspirin and the use of some type of powdered inhaler Physical Examination: [] Times are within normal range see those were salts she is resting comforting the bed she has a very mild discomfort to palpation of the left head the pupils are equal reactive the nose and throat cranial nerves and HEENT exam are otherwise unremarkable without trauma the neck is nontender the lungs are clear the heart tones are normal the abdomen is soft nontender upper lower extremity exam is unremarkable except for the right ankle with some very mild pain to palpation diffusely over the right ankle, right ankle shows no bony deformity or instability she is able dorsi and plantarflex the foot unremarkable skin is completely intact her back is unremarkable neurologically she is awake moving all 4 pulses are symmetric Test Results: [] Emergency Department Course and Treatment: [] The patient's EKG CBC chemistry chest x-ray are all unremarkable, head CT unremarkable, the right ankle x- ray shows what appears to be per radiology old fracture with some nonunion no acute injury, her d-dimer returned at 0.52 normal is 0.50 the d-dimer and all of her results with her we discussed the potential for PE the need for CTA to rule that out the life-threatening nature of DVT PE however she indicates she does not wish to have the CTA done as she feels this chest pain is very similar to what she has had in the past, we could not find her past cardiac stress test we did find a cardiac echo from 11/11, but again she indicates she remembers having a cardiac stress test recently possibly [place] or somewhere else she is not sure with IV medicine that showed no signs of ischemic heart disease Discussed inpatient versus outpatient management with her she does not wish to be admitted she is comfortable with discharge home, I have cautioned her one to follow-up with her [facility] physicians and subspecialists related to her chest pain to to consider seeing somebody from orthopedics at [facility] related to her ankle injury and to return for change in symptoms she agrees, she will continue use her asthma meds, she will be given [place] No. 4 tablets to use as a rescue med and return for change in symptoms Treatment Plan: [] Disposition: [] Home stable, patient declined admission Impression: [] Acute recurrent chest pain etiology unclear, right ankle injury with prior fracture, head injury This note was generated with Innovega dictation software. It may contain incorrect words, spelling, and punctuation that were not noted in review of the chart prior to signing ED Disposition - Plan for ED Patient: Chief Complaint: Chest Pain What to do if you have Problems For any increased pain, shortness of breath, bleeding, nausea or vomiting, chest pain, or any unexpected problems, contact your Primary Care Provider. Call [facility] ([phone]) or report to the closest Emergency Room. Call 911 if necessary. 06/13/18 6892 <Electronically signed by Neptali June MD> Date Neptali June MD Cosigner Signature (If Indicated): Date _ CC: Preston Harper DO DISCHARGE INSTRUCTION Observed: 06/13/2018 Status: F Source: [place] 2:39 PM [facility] Medical Records Department [address] [place] [address] Discharge Instruction 06/13/18 1437 MR#: [id number] Acct: [id number] Name: MEREDITH CRUM Rep #: [id number] : 1975 42 From: Neptali June MD PCP: Preston Harper DO Status: REG ER ED Disposition - Plan for ED Patient: Chief Complaint: Chest Pain Instructions: ED Chest Pain Atypical Unkn Cause, ED Fx Ankle Lateral Malleolus, ED Head Injury Closed Prescriptions: Hydrocodone Bitart/Apap 5-325 [[place] 5MG-325MG] 1 tab PO Q4H PRN PRN 2 Days #4 tab PRN Reason: Pain Referrals: Preston Harper DO [Primary Care Provider] - Additional Instructions: Please follow-up with [facility] subspecialty for your chest pain, and other symptoms, consider seeing [facility] orthopedics for your right ankle injury What to do if you have Problems For any increased pain, shortness of breath, bleeding, nausea or vomiting, chest pain, or any unexpected problems, contact your Primary Care Provider. Call [facility] ([phone]) or report to the closest Emergency Room. Call 911 if necessary. 06/13/18 1439 <Electronically signed by Neptali June MD> Date Neptali Fuchsigner Signature (If Indicated): Date CC: Preston Harper DO ANKLE MIN 3 VIEWS Observed: 06/13/2018 Status: F Source: [place] 12:37 PM [facility] Imaging Services [address] [place] [address] Ankle min 3 Views MR#: [id number] Acct: [id number] Name: MEREDITH [place] Rep #: [id number] : 1975 F 42 From: Elijah Price MD PCP: Preston Harper DO Status: REG ER Study: Ankle min 3 Views Date of Exam: 06/13/18 Exam# [id number] Ordering Dr: Neptali June MD STUDY: X-RAY - RIGHT ANKLE REASON FOR EXAM: Female, 42 years old. Pain after fall last night. TECHNIQUE: 3 view(s) of the ankle. # of Images: 3 COMPARISON: 3 views of the right ankle October 03, 2014 FINDINGS: Normal visualized distal tibia. Previously noted transverse fracture of the distal fibular metaphysis is nonunited with mildly corticated margins and slight lateral displacement of the distal fracture fragment. Normal medial malleolus. Normal tibiotalar articulation and ankle mortise. Normal visualized talus and calcaneus. The visualized subtalar, talonavicular, calcaneocuboid and tarsal articulations are normal. There is no demonstrated fracture. The soft tissue structures are unremarkable. RAD/Ankle min 3 Views IMPRESSION: Chronic, incompletely united transverse fracture of the lateral malleolus, as noted. No demonstrated acute fracture. Electronically Signed: Rick Price MD at 13:33 EDT , Service support , CC: MD Nely June; Preston Harper DO Art Glass Setter: Signed CHEST 1 VIEW Observed: 06/13/2018 Status: F Source: [place] (PORTABLE) 12:37 PM [facility] REPOSITORY [facility] Imaging Services [address] [place] [address] Chest 1 View (Portable) MR#: [id number] Acct: [id number] Name: MEREDITH CRUM Rep #: [id number] : 1975 F 42 From: Elijah Price MD PCP: Preston Harper DO Status: REG ER Study: Chest 1 View (Portable) Date of Exam: 06/13/18 Exam# [id number] Ordering Dr: Neptali June MD STUDY: X-RAY CHEST REASON FOR EXAM: Female, 42 years old. Chest tightness, COPD. TECHNIQUE: Single AP portable view of the chest. COMPARISON: PA and lateral chest x-ray November 01, 2017. FINDINGS: The lungs are clear and expanded. There is no demonstrated pleural abnormality. Normal size heart. Normal mediastinum and geneva. Normal visualized pulmonary arteries. Normal visualized aortic arch and descending thoracic aorta. Normal visualized thoracic spine. Normal visualized ribs, clavicles, and shoulders. Surgical clips consistent with prior cholecystectomy again seen in the medial right upper quadrant of the abdomen. RAD/Chest 1 View (Portable) IMPRESSION: No acute cardiopulmonary disease. Electronically Signed: Rick Price MD at 13:34 EDT , Service support , CC: MD Nely June; Preston Harper DO Art Glass Setter: Signed BRAIN/HEAD WITHOUT Observed: 06/13/2018 Status: F Source: [place] CONTRAST 12:37 PM [facility] REPOSITORY [facility] Imaging Services [address] [place] [address] Brain/Head without Contrast MR#: [id number] Acct: [id number] Name: MEREDITH CRUM Rep #: [id number] : 1975 F 42 From: Elijah Price MD PCP: Preston Harper DO Status: REG ER Study: Brain/Head without Contrast Date of Exam: 06/13/18 Exam# [id number] Ordering Dr: Neptali June MD STUDY: CT BRAIN WITHOUT CONTRAST REASON FOR EXAM: Female, 42 years old. Trauma. RADIATION DOSAGE (If Supplied By Facility): CTDIvol = ( 44.99 ) mGy, DLP = ( 748.30 ) mGycm TECHNIQUE: Transaxial CT imaging of the brain was performed without administration of intravenous contrast material. # of Images: 225 Individualized dose optimization techniques were used for this CT. COMPARISON: Noncontrast CT brain March 02, 2018. FINDINGS: Normal soft tissue structures. Normal calvarium. Normal size ventricles and extra-axial spaces for the patient's age. Normal white matter tracts of the cerebral hemispheres. Normal basal ganglia and thalami. Normal brainstem. Normal cerebellum. There is no intracranial hemorrhage. There are no findings of an acute ischemic infarction. Normal visualized paranasal sinuses. CT/Brain/Head without Contrast IMPRESSION: Normal unenhanced CT scan of the brain. Electronically Signed: Rick Price MD at 13:36 EDT , Service support , CC: MD Nely June; Preston Harper DO Art Glass Setter: Signed CBC W/DIFF, AUTOMATED Collected: 06/13/2018 Status: F Source: [place] 12:28 PM [facility] TYPE CODE TESTS RESULT OUT OF RANGE REFERENCE UNITS LAB L100.1000 4.4-11.0 K/mm3 Normal WBC 9.3 LAB L100.1200 4.2-5.4 M/mm3 Normal RBC 4.70 LAB L100.1300 12.0-15.0 g/dl High HGB 15.1 LAB L100.1400 37-47 % Normal HCT 44.8 LAB L100.1500 81-99 fL Normal MCV 95.3 LAB L100.1600 27.0-32.0 pg High MCH 32.1 LAB L100.1700 32-36 g/gl Normal MCHC 33.7 LAB L100.1810 11.6-14.6 % Normal RDW CV 12.4 LAB L100.1820 35.1-43.9 fl Normal RDW SD 42.3 LAB L100.1900 150-450 K/mm3 Normal PLT 399 LAB L100.2000 6.2-12.0 fl Normal MPV 9.7 LAB L100.2100 47-70 % Normal NEUT% 55.9 LAB L100.2200 19-41 % Normal LY% 32.1 LAB L100.2300 0-10 % Normal MONO% 7.7 LAB L100.2400 0-5 % Normal EO% 3.5 LAB L100.2500 0-1 % Normal BASO% 0.6 LAB L100.2550 0.0-0.9 % Normal IM GRAN % 0.200 Result Comment: IG% - Immature Granulocytes (promyelocytes, myelocytes and metamyelocytes) > 1% indicates that a LEFT SHIFT is Present. LAB L100.2620 2.0-7.7 X10 3/uL Normal Absolute Neut 5.2 LAB L100.2720 0.83-4.51 X10 3/ul Normal Absolute Lymph 2.97 Performed By: #### L100.0100 #### [facility] [address] [place], [place], [address] BASIC METABOLIC Collected: 06/13/2018 Status: F Source: [place] PROFILE ([facility]) 12:28 PM [facility] TYPE CODE TESTS RESULT OUT OF RANGE REFERENCE UNITS LAB L501.0100 74-106 mg/dL Normal GLU 95 Result Comment: Please note revised GLUCOSE reference range effective 2017. LAB L501.1000 7-18 mg/dL Low BUN 5 LAB L501.1100 0.55-1.02 mg/dL Normal CREAT,SERUM 0.94 Result Comment: The validity of the calculated GFR AND GFRAA in patients over 70 years has not been determined. Clinical correlation is essential. LAB L501.1110 >60 mL/min Normal EST GFR 70 Result Comment: Non- GFR Calc LAB L501.1115 >60 mL/min Normal EST GFR - AA 84 Result Comment: GFR Calc LAB L501.1255 ml/min Normal Estimated CRCL 61.66 LAB L501.1300 10-20 RATIO Low BUN/CRE 5.3 LAB L501.2200 8.5-10 mg/dL Normal .1 CA 8.7 LAB L501.5300 136-14 mmol/L Normal 5 NA 139 LAB L501.5600 3.5-5. mmol/L Low 1 K 3.4 Result Comment: Slight Hemolysis, Result may be falsely increased. LAB L501.5900 98-107 mmol/L Normal CL 104 LAB L501.6100 21.0-32.0 mmol/L Normal CO2 29.0 LAB L501.6200 5-15 Normal 6 GAP Performed By: #### L500.2500, L501.4010 #### [facility] [address] [facility] [place], [place], [id number] TROPONIN-I Collected: 06/13/2018 Status: F Source: [place] 12:28 PM [facility] TYPE CODE TESTS RESULT OUT OF RANGE REFERENCE UNITS LAB L501.4010 <0.045 ng/mL Normal < 0.015 TROPONIN-I Result Comment: TROPONIN-I EXPECTED VALUES <0.045 Negative 0.045 - 0.590 Consistent with Cardiac Damage > OR = 0.600 Critical Value Not every elevated troponin is indicative of [place]. These values should be used with clinical judgement in examining the patient's clinical picture for diagnosis. To establish a diagnosis of [place] versus myocardial injury, there must be a demonstrated rise and/or fall in the troponin values, in addition to ischemic symptoms, EKG changes, new regional wall motion abnormality, and/or angiographical evidence. PLEASE NOTE: REFERENCE RANGES EDITED 18 Performed By: #### L500.2500, L501.4010 #### [facility] [address] [place], [address] D-DIMER QUANTITATIVE Collected: 06/13/2018 Status: F Source: [place] (DVT/PE) 12:28 PM [facility] TYPE CODE TESTS RESULT OUT OF RANGE REFERENCE UNITS LAB L300.8000 0.27-0.49 FEU/ug/m High alert D-DIMER 0.52 QUANT Result Comment: D-Dimer ELEVATED (>0.49): Additional studies and clinical assessments are indicated to conclude diagnosis of: Deep Vein Thrombosis (DVT) or Pulmonary Embolism (PE) CRITICAL VALUE VERIFIED. CALLED TO JOSE ANTONIO SZYMANSKI 06/13/18 1302 Tha Rao. RESULTS READ BACK BY JOSE ANTONIO . Performed By: #### L300.8000 #### [facility] [address] [place], [address] BNP,B-TYPE NATRIURETIC Collected: 06/13/2018 Status: F Source: [place] PEPTIDE 12:28 PM [facility] TYPE CODE TESTS RESULT OUT OF RANGE REFERENCE UNITS LAB L503.6620 0-100 pg/mL Normal B-TYPE 6.2 PROSPER PEP Performed By: #### L503.6620 #### [facility] [address] [facility], [address] PULMONARY FUNCTION Observed: 06/04/2018 Status: F Source: [place] TEST 2:20 PM [facility] Pulmonary Services/Neurology [address] [place] [address] MR#: [id number] Acct: [id number] Name: GREGORYMEREDITH Portillo Debi Rep #: [id number] : 1975 42 From: Jaxson Bui DO Referring Dr: Jaxson Bui D.O. Status: REG CLI Ordering Dr: Date: Location: [facility] Sex: F C INTRODUCTION: The patient is a 42-year-old female that presents for pulmonary function studies secondary to a diagnosis of COPD. Respiratory therapy reports that the patient was unable to exhale for the full 6 seconds due to coughing. Bronchodilators were used during testing. INTERPRETATION: Forced expiration spirometry demonstrates the presence of a moderate large airways obstructive ventilatory defect. There was no significant response to aerosolized bronchodilators. Spirograms terminate prior to 6 seconds, likely underestimating FVC. Body plethysmography was performed and reveals a decreased TLC to 3.6 L, 81% of predicted, indicative of a mild restrictive ventilatory defect. The remainder of the lung volumes are symmetrically reduced. Diffusing capacity by single breath CO is mildly reduced at 63% of predicted. IMPRESSION: These pulmonary function studies demonstrate the presence of an irreversible moderate mixed ventilatory defect with an associated mild reduction in diffusing capacity. Results of pulmonary function testing should be viewed with caution, as the patient was unable to exhale for the full 6 seconds and experienced a great deal of coughing during testing, likely negatively influencing test results. 06/04/181419 <Electronically signed by Jaxson Bui DO> Date Jaxson Bui DO CC: JOHN Caballero; Jaxson Bui D.O. Date Dictated: 06/04/181415 Date Transcribed: 06/04/181415 Art Glass Setter: JOHNNY Signed CNCO Observed: 05/30/2018 Status: COMPLETED Source: [facility] 12:00 AM [facility] REPOSITORY Letter Text Department of Family Medicine [address] [address] 05/30/[address] [facility] [address] [phone] Dear Meredith, According to our records, you have missed a scheduled appointment with Juanis Bella MD on 05/30/18 at 10:40 am. In the future, if you find that you will not be able to keep a scheduled appointment, please call at least 24 hours in advance to cancel the appointment. The time can then be scheduled with another patient. This is your second notice. If you have questions about the [facility]'s Appointment Cancellation Policy, please call me at [phone]. We appreciate your confidence in choosing the [facility] [place] Family Medicine Department for your medical care and we look forward to seeing you at your next appointment. CC #: [id number] Sincerely, Department of Family Medicine [facility] PROGRESS Observed: 05/28/2018 Status: COMPLETED Source: [facility] 2:22 PM [facility] [place] REPOSITORY HNO ID: [id number] Author: Mariaa Arcos Ma Service: (none) Author Type: (none) Type: Progress Notes Filed: 05/29/2018 1:52 PM Note Text: Patient was a no show for appointment today. [facility] letter # 1 mailed to patient. LEAH Observed: 05/27/2018 Status: COMPLETED Source: [facility] 2:10 PM [facility] REPOSITORY Office Visit (ORTHWS) MEREDITH CRUM ([id number]) 1975 F Date Time Provider Department 05/27/18 2:10 PM CATHERINE SETH (ROB) ORTHWS During your visit today, we recorded the following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 Pulses Pulse: Yes Pedal pulses present: Extremities Extremities: No clubbing, No cyanosis, No edema Neuro Neurologic: Yes conversant, Yes no focal neuro deficits, Yes cooperative Lymph Lymphatic: No lymphadenopathy Psych Appearance: Positive grossly normal Mental Status: Positive mental status grossly normal Mood: Positive congruent mood Affect: Positive normal affect Pulmonary Procedure Smoking Cessation Education: Yes 3-10 minutes Coding Level of Care Code Off vis,new,level 4 Diagnoses COPD (chronic obstructive pulmonary disease) J44.9 Continuous tobacco abuse Z72.[address] R93.8 Hypersomnia G47.10 11/29/17 1352 <Electronically signed by Jaxson Bui DO> Date Jaxson Bui DO Cosigner Signature: Date (if applicable) CC: LITHARGE SUPERVISOR-C Rocky Caballero SCREENING MAMM (CAD), Observed: 11/03/2017 Status: F Source: [facility] 12:07 PM [facility] Imaging Services [address] [place] [address] SCREENING MAMM (CAD), [facility] MR#: [id number] Acct: [id number] Name: MEREDITH CRUM Debi Rep #: [id number] : 1975 F 41 From: Norman Vance MD PCP: JOHN Cross Status: REG CLI Study: SCREENING MAMM (CAD), BIL Date of Exam: 11/03/17 Exam# [id number] Ordering Dr: Rocky Caballero NP-Larry MAMMOGRAPHY - BILATERAL SCREENING REASON FOR EXAM: Female, 41 years old. Routine annual screening examination. PERTINENT HISTORY: Non-contributory. TECHNIQUE: Digital bilateral breast britton (3D mammographic acquisition) in the CC and MLO projections. 2-D mediolateral oblique (MLO) and craniocaudad (CC) views of both breasts were obtained. CAD: Full Field Digital Mammography with Computer Added Detection was performed. COMPARISON: Comparison is made with prior outside examination dated October 17, 2012. FINDINGS: Breast Composition: There are scattered areas of fibroglandular density. There are no dominant masses or suspicious calcifications. No other significant abnormalities are identified. There has been no significant change since the prior study. HPBI/SCREENING MAMM (CAD), BILAT IMPRESSION: Stable bilateral screening mammogram. Yearly follow-up mammogram recommended. (A) ASSESSMENT CATEGORY: BIRADS Category 1: Negative. A letter regarding these results will be sent to the patient by the facility within 30 days. Approximately 10% of breast cancers are not detected by mammography. A normal mammogram should not delay biopsy of a clinically suspicious abnormality. [id number] Electronically Signed: Norman Vance MD at 9:53 EDT Tel [phone], Service support , CC: JOHN Caballero Art Glass Setter: Signed ECHOCARDIOGRAM COMPLETE Observed: 11/01/2017 Status: F Source: [place] 3:48 PM [facility] RE[facility] Cardiovascular Services [address] [place] [address] Echo Complete 11/01/17 1410 MR#: [id number] Acct: [id number] Name: MEREDITH CRUM Rep #: [id number] : 1975 41 From: Omar Mi MD Attending Dr: JOHN Cross Status: REG CLI Ordering Dr: Rocky Caballero Date: 11/01/17 Location: [facility] Sex: F C Admitted: Reason For Study: SOB Procedure This was a 2D Doppler, Color Flow transthoracic echocardiogram. Exam performed in department. Left Ventricle Normal LV size. Left ventricular systolic function is normal. The estimated ejection fraction is 55 %. No evidence for diastolic dysfunction. No regional wall motion abnormalities noted. Right Ventricle Normal RV size. Normal systolic function. Atria Normal left atrium. Normal right atrium. Mitral Valve Normal mitral valve. Tricuspid Valve Normal tricuspid valve. Aortic Valve Normal aortic valve. Trisinus/trileaflet aortic valve. Pulmonic Valve Normal pulmonic valve. Great Vessels Normal aortic root. The pulmonary artery is normal size. Inferior vena cava collapse with respiration. Pericardium/Pleural No pericardial effusion. MMode/2D Measurements AND Calculations LVIDd: 4.5 cm IVSd: 0.84 cm Ao root diam: 2.8 cm LVIDs: 3.0 cm LVPWd: 1.1 cm LA dimension: 3.2 cm RVDd: 2.9 cm FS: 32.4 % LAV(MOD-bp): 33.2 ml LA A4 area: 14.0 cm2 RA A4 area: 11.8 cm2 LAV(MOD-bp) Indexed: 18.4 ml/m2 LAV(MOD-sp2): 32.4 ml LAV(MOD-sp4): 33.9 ml Time Measurements MV dec time: 0.17 sec Doppler Measurements AND Calculations MV E max wilber: 95.0 cm/sec Lat Peak E' Wilber: 13.7 cm/sec Med Peak E' Wilber: 9.2 cm/sec MV A max wilber: 74.3 cm/sec E/E' lat: 6.9 E/E' med: 10.4 MV E/A: 1.3 Ao V2 max: 130.1 cm/sec LV V1 max: 102.1 cm/sec PA V2 max: 76.1 cm/sec Ao max P.8 mmHg LV V1 max P.2 mmHg Interpretation Summary Normal LV size. Left ventricular systolic function is normal. The estimated ejection fraction is 55 %. No evidence for diastolic dysfunction. Structurally normal valves. Ordering Physician: JOHN Cross Referring Physician: JOHN Cross Performed By: Madison Christine, ACE, RVT 11/01/17 1548 Date Omar Mi MD CC: JOHN Caballero Date Dictated: 11/01/17 1410 Date Transcribed: 11/01/17 1548 Art Glass Setter: Signed CBC W/DIFF, AUTOMATED Collected: 11/01/2017 Status: F Source: [place] 3:21 PM [facility] Order Comment: FAX RESULTS TO [id number] [place] TYPE CODE TESTS RESULT OUT OF RANGE REFERENCE UNITS LAB L100.1000 4.4-11.0 K/mm3 Normal WBC 8.6 LAB L100.1200 4.2-5.4 M/mm3 Normal RBC 4.25 LAB L100.1300 12.0-15.0 g/dl Normal HGB 13.5 LAB L100.1400 37-47 % Normal HCT 40.8 LAB L100.1500 81-99 fL Normal MCV 96.0 LAB L100.1600 27.0-32.0 pg Normal MCH 31.8 LAB L100.1700 32-36 g/gl Normal MCHC 33.1 LAB L100.1810 11.6-14.6 % Normal RDW CV 12.3 LAB L100.1820 35.1-43.9 fl Normal RDW SD 42.3 LAB L100.1900 150-450 K/mm3 Normal PLT 330 LAB L100.2000 6.2-12.0 fl Normal MPV 9.7 LAB L100.2100 47-70 % Normal NEUT% 58.4 LAB L100.2200 19-41 % Normal LY% 27.9 LAB L100.2300 0-10 % Normal MONO% 7.5 LAB L100.2400 0-5 % High EO% 5.5 LAB L100.2500 0-1 % Normal BASO% 0.5 LAB L100.2550 0.0-0.9 % Normal IM GRAN % 0.200 Result Comment: IG% - Immature Granulocytes (promyelocytes, myelocytes and metamyelocytes) > 1% indicates that a LEFT SHIFT is Present. LAB L100.2620 2.0-7.7 X10 3/uL Normal Absolute Neut 5.0 LAB L100.2720 0.83-4.51 X10 3/ul Normal Absolute Lymph 2.39 Performed By: #### L100.0100, L101.9900 #### [facility] [address] [place], [place], [id number] ERYTHROCYTE SED RATE Collected: 11/01/2017 Status: F Source: [place] 3:21 PM [facility] Order Comment: FAX RESULTS TO [id number] [place] TYPE CODE TESTS RESULT OUT OF RANGE REFERENCE UNITS LAB L102.0000 0-20 mm/hr Normal SED RATE 6 Performed By: #### L100.0100, L101.9900 #### [facility] [address] [facility] [place], [place], [address] COMPREHENSIVE METABOLIC Collected: 11/01/2017 Status: F Source: [facility] 3:21 PM [facility] Order Comment: FAX RESULTS TO [id number] [place] TYPE CODE TESTS RESULT OUT OF RANGE REFERENCE UNITS LAB L501.0100 74-106 mg/dL Normal GLU 93 Result Comment: Please note revised GLUCOSE reference range effective 2017. LAB L501.1000 7-18 mg/dL Low BUN 6 LAB L501.1100 0.55-1.02 mg/dL Normal CREAT,SERUM 0.70 Result Comment: The validity of the calculated GFR AND GFRAA in patients over 70 years has not been determined. Clinical correlation is essential. LAB L501.1110 >60 mL/min Normal EST GFR 97 Result Comment: Non- GFR Calc LAB L501.1115 >60 mL/min Normal EST GFR - AA 118 Result Comment: GFR Calc LAB L501.1300 10-20 RATIO Low BUN/CRE 8.5 LAB L501.1500 6.4-8.2 g/dL Normal T PROT 6.6 LAB L501.1800 3.2-5.0 g/dL Low ALB 3.1 LAB L501.1950 2.2-4.2 g/dL Normal GLOB 3.5 LAB L501.2000 0.9-2.4 RATIO Normal A/G 0.9 LAB L501.2200 8.5-10.1 mg/dL Low CA 8.0 LAB L501.4100 15-37 U/L High AST 38 LAB L501.4305 45-117 U/L Normal ALK P 61 LAB L501.4405 13-56 U/L High ALT 80 Result Comment: Please note revised ALT reference range effective 2017. LAB L501.4600 0.20-1.00 mg/dL Normal T BILI 0.30 LAB L501.5300 136-145 mmol/L Normal NA 141 LAB L501.5600 3.5-5.1 mmol/L Normal K 3.5 LAB L501.5900 98-107 mmol/L Normal CL 105 LAB L501.6100 21.0-32.0 mmol/L Normal CO2 27.0 LAB L501.6200 5-15 Normal GAP 9 Performed By: #### L500.4050, L501.6710, L501.9520, L505.7010, L506.0400 #### [facility] [address] [place], [place], [address] CRP Collected: 11/01/2017 Status: F Source: [place] 3:21 PM [facility] Order Comment: FAX RESULTS TO [id number] [facility] TYPE CODE TESTS RESULT OUT OF RANGE REFERENCE UNITS LAB L501.6710 0.0-3.0 mg/L Normal < 2.90 C-REACTIVE PROT Result Comment: C-Reactive Protein (CRP) provides useful information for the diagnosis, therapy and monitoring of inflammatory processes and associated diseases. For the evaluation of Relative Risk for Cardiovascular Disease, a High Sensitivity CRP (HSCRP) should be ordered. Performed By: #### L500.4050, L501.6710, L501.9520, L505.7010, L506.0400 #### [facility] [address] [place], [place], [address] THYROID STIM HORMONE Collected: 11/01/2017 Status: F Source: [place] ([facility]) 3:21 PM [facility] Order Comment: FAX RESULTS TO [id number] [facility] TYPE CODE TESTS RESULT OUT OF RANGE REFERENCE UNITS LAB L501.9520 0.358-3.74 uIU/mL Normal TSH 1.77 Performed By: #### L500.4050, L501.6710, L501.9520, L505.7010, L506.0400 #### [facility] [address] [place], [place], [address] RHEUMATOID FACTOR Collected: 11/01/2017 Status: F Source: [place] 3:21 PM [facility] Order Comment: FAX RESULTS TO [id number] [facility] TYPE CODE TESTS RESULT OUT OF RANGE REFERENCE UNITS LAB L505.7010 <15 IU/mL Normal RHEUMATOID FAC < 10.0 Performed By: #### L500.4050, L501.6710, L501.9520, L505.7010, L506.0400 #### [facility] [address] [place], [place], [address] T4 FREE DIRECT Collected: 11/01/2017 Status: F Source: [place] 3:21 PM [facility] Order Comment: FAX RESULTS TO [id number] [place] TYPE CODE TESTS RESULT OUT OF RANGE REFERENCE UNITS LAB L506.0400 0.76-1.46 ng/dL Normal T4 FREE 0.92 DIRECT Performed By: #### L500.4050, L501.6710, L501.9520, L505.7010, L506.0400 #### [facility] [address] [place], [address] CHEST PA AND LATERAL Observed: 11/01/2017 Status: F Source: [place] 2:47 PM [facility] REPOSITORY [facility] Imaging Services [address] [place] [address] Chest PA and Lateral MR#: [id number] Acct: [id number] Name: MEREDITH CRUM Rep #: [id number] : 1975 F 41 From: Elijah Price MD PCP: JOHN Cross Status: REG CLI Study: Chest PA and Lateral Date of Exam: 11/01/17 Exam# [id number] Ordering Dr: Rocky Caballero STUDY: X-RAY CHEST REASON FOR EXAM: Female, 41 years old. Cough, increased shortness of breath, right-sided chest pain. TECHNIQUE: PA and lateral views of the chest. COMPARISON: PA and lateral chest x-ray as well as CTA chest/thorax May 15, 2017. FINDINGS: The lungs are clear and expanded. Nodular density in the left midlung and stranding/hazy bibasilar densities on prior study have cleared. There is no demonstrated pleural abnormality. Normal size heart. Normal mediastinum and geneva. Normal visualized pulmonary arteries. Normal visualized aortic arch and descending thoracic aorta. There are stable minor degenerative changes of the lower thoracic spine. Normal visualized ribs, clavicles, and shoulders. Surgical clips of prior cholecystectomy again seen in the right upper quadrant of the abdomen. RAD/Chest PA and Lateral IMPRESSION: No acute pulmonary disease. Electronically Signed: Rick Price MD at 19:19 EST , Service support , CC: LITHARGE SUPERVISOR-C Rocky Caballero Art Glass Setter: Signed Observed: 08/31/2017 Status: F Source: [facility] 2:15 PM FOUNDATION REPOSITORY . MICRO - Microbiology PROCEDURE: Urine Culture [*1] SOURCE: Urine BODY SITE: COLLECTED DATE/TIME: 08/31/2017 14:15 EST RECEIVED DATE/TIME: 09/01/2017 19:30 EST START DATE/TIME: 09/01/2017 19:30 EST FREE TEXT SOURCE: FINAL REPORTS Final Report [] Verified Date/Time/Personnel: 09/03/2017 07:39 EST 40,000 organisms per mL Mixed without predominant isolate(s). Sensitivity Testing not indicated. Probably contamination. Repeat culture suggested. PRELIMINARY REPORTS Preliminary Report [] Verified Date/Time/Personnel: 09/02/2017 07:33 EST No growth to date Performing Locations *1: This test was performed at: [facility], [address] [place] [address], [facility] , [facility] Performed By: #### CUR #### [place] [address] ALLERGIES ALLERGIES DATE TYPE / CODE NAME / CODE REACTION SEVERITY SOURCE 07/25/2018 Drug Penicillins/F0010 Hives Unknown [place] Allergy/416 [address]2730(RXNORM) Community 110417([facility] ED CT) Repository 07/25/2018 Drug tramadol/[id number] Itching Unknown [place] Allergy/416 80(RXNORM) Community 946954([facility] ED CT) Repository 07/25/2018 Drug gabapentin/M63106 Shortness of Unknown [place] Allergy/416 4415(RXNORM) breath Community 184920([facility] ED CT) Repository 04/08/2018 DRUG NAPROXEN GI UPSET High [facility] INGREDI/[address] [place] 649876(SNOM Repository ED CT) 04/08/2018 DRUG/798133 HYDROCODONE-ACETA GI UPSET High [facility] 003(SNOMED MINOPHEN [place] CT) Repository 03/02/2018 DRUG GABAPENTIN SHORTNESS OF [facility] INGREDI/[address] [place] 182113(SNOM Repository ED CT) 01/31/2017 DRUG TRAMADOL RASH Low [facility] INGREDI/[address] [place] 512207(SNOM Repository ED CT) 05/06/2013 DRUG MORPHINE OTHER: SEE C [address] 335074(SNOM Repository ED CT) 09/12/2010 DRUG PENICILLIN G RASH [address] 464254(SNOM Repository ED CT) ENCOUNTERS ENCOUNTERS ADMIT/DISCHARGE ACCOUNT NUMBER ADMITTING ENCOUNTER LOCATION SOURCE CLASS 07/25/2018/07/25/20 [id number] Emergency [address] ding:ED Repository 07/04/2018/07/04/20 [id number] Ambulatory [address] Repository 06/17/2018/06/18/20 [id number] Ambulatory [address] Repository 06/13/2018/06/13/20 [id number] Emergency [address] ding:ED Repository 06/04/[id number] [facility] ding:PSN Repository 06/04/2018 [id number] Ambulatory BMSBuilding: [facility] Repository 04/26/2018/04/26/20 [id number] Ambulatory [address] Repository 04/26/2018/04/26/20 [id number] Ambulatory [address] Repository 04/08/2018/04/10/20 [id number] Ambulatory [address] Repository 03/20/[id number] [facility] ding:SL Repository 03/02/2018/03/02/20 [id number] Emergency [address] ding:ED Repository 02/22/2018/02/23/20 [id number] Ambulatory [address] ding:[facility] Repository 02/21/2018 [id number] Ambulatory BMSBuilding: [facility] Repository 02/20/[id number] [facility] ding:PSN Repository 01/16/2018 [id number] Ambulatory BMSBuilding: [facility] Repository 01/07/2018 [id number] Ambulatory BBuilding:Critical access hospital Repository 12/07/[id number] [facility] ding:RAD Repository 11/29/2017/11/30/19 [id number] Ambulatory BMSBuilding: [place] 18 BMS.[facility] Repository 11/03/[id number] [facility] ding:BI Repository 11/01/[id number] [facility] ding:CVS Repository 11/01/2017 [id number] Ambulatory BMSBuilding: [facility] Repository 09/03/[id number] [facility] ding:LAB.FUT Repository URE 08/31/2017/09/04/19 [id number] Ambulatory [address] ding:DROP [facility] Repository PAYERS PAYERS ENCOUNTER GUARANTOR PAYER SUBSCRIBER SOURCE 07/25/2018 MEREDITH Carrera Primary MEREDITH Debi [place] [id number] Insurance:CARESOURCEP POLENDOB: [facility] Number: [id number], [place] [id number] Repository [address]Our: ([phone]) Date:2018-07-25P O [phone] () [address]ATTN: [place] [address]YS: 07/25/2018 Secondary NOT GIVENUNK [place] Insurance:SELF PAY [facility] Number: Effective Repository Date:2018-07-25 06/13/2018 MEREDITH Debi Primary MEREDITH [place] [id number] E Insurance:CARESOURCEP POLENDOB: [facility] Number: [id number], [place] [id number] Repository [address]Avj: ([phone]) Date:2018-06-13P O [phone] () [address]ATTN: [place] [address]RR: 06/13/2018 Secondary NOT GIVENUNK [place] Insurance:SELF PAY [facility] Number: Effective Repository Date:2018-06-13 06/04/2018 MEREDITH Carrera Primary MEREDITH Debi [place] [id number] E Insurance:CARESOURCEP [facility] Number: [id number], [place] [id number] Repository [address]Bij: (330) Date:2017-11-29 O [phone] () [address]ATTN: [place] [address]IV: 06/04/2018 Secondary NOT GIVENUNK [place] Insurance:SELF PAY [facility] Number: Effective Repository Date:2017-11-29 06/04/2018 MEREDITH Carrera Primary MEREDITH Arreagaoster [id number] E Insurance:CARESOURCEP POLENDOB: [facility] TRINY el[place] Number: [id number], [place] [id number] Repository [address]Jtk: (330) Date:2017-11-29 O [phone] () [address]ATTN: [place] [address]FK: 06/04/2018 Secondary NOT GIVENUNK [place] Insurance:SELF PAY [facility] Number: Effective Repository Date:2018-06-04 03/20/2018 MEREDITH Carrera Primary MEREDITH Arreagaoster [id number] E Insurance:CARESOURCEP POLENDOB: [facility] TRINY elena Number: [id number], [place] [id number] Repository [address]Jvq: (330) Date:2017-11-29 O [phone] () [address]ATTN: [place] [address]HO: 03/20/2018 Secondary NOT GIVENUNK [place] Insurance:SELF PAY [facility] Number: Effective Repository Date:2017-11-29 03/02/2018 MEREDITH Carrera Primary MEREDITH [place] [id number] E Insurance:CARESOURCEP POLENDOB: [facility] TRINY elena Number: [id number], [place] [id number] Repository [address]Dgm: (330) Date:2018-03-02 O [phone] () [address]ATTN: [place] [address]WM: 03/02/2018 Secondary NOT GIVENUNK [place] Insurance:SELF PAY [facility] Number: Effective Repository Date:2018-03-02 02/22/2018 MEREDITH Carrera Primary MEREDITH Carrera [facility] POLENDOB: Insurance:CARESOURCE POLENDOB: Foundation E MEDICAIDPolicy [id number] [facility] Number: [place], [place] [id number] [place], [place] [address]Nsg: ([phone]) Date:2018-01-10Tel: () [phone] Name:ROSALIOO Haley ()Tel: [phone], [place] [phone] () [address]BS: 02/21/2018 MEREDITH Carrera Primary MEREDITH Arreagaoster [id number] E Insurance:CARESOURCEP POLENDOB: [facility] Number: [id number], [place] [id number] Repository [address]Ace: (330) Date:2017-11-29 O [phone] () [address]ATTN: [place] [address]CP: 02/21/2018 Secondary NOT GIVENUNK [place] Insurance:SELF PAY [facility] Number: Effective Repository Date:2018-02-21 02/20/2018 MEREDITH Carrera Primary MEREDITH [place] [id number] E Insurance:CARESOURCEP POLENDOB: [facility] Number: [id number], [place] [id number] Repository [address]Atp: (330) Date:2017-11-29 O [phone] () [address]ATTN: [place] [address]IX: 02/20/2018 Secondary NOT GIVENUNK [place] Insurance:SELF PAY [facility] Number: Effective Repository Date:2017-11-29 01/16/2018 MEREDITH Carrera Primary MEREDITH Arreagaoster [id number] E Insurance:CARESOURCEP POLENDOB: Community [facility]Y [facility] Number: [id number], [place] [id number] Repository [address]Eqh: (330) Date:2017-11-29 O [phone] () [address]ATTN: [place] [address]FR: 01/16/2018 Secondary NOT GIVENUNK [place] Insurance:SELF PAY [facility] Number: Effective Repository Date:2017-12-27 01/07/2018 MEREDITH Carrera Primary MEREDITH Carrera [facility] POLENDOB: Insurance:CARESOURCE POLENDOB: [facility] E MEDICAIDPolicy [id number] [place] [address] Number: [place], [place] [id number] [place], [place] [address]Zhr: (330) Date:2018-01-02 [phone]: (HP) [phone] [phone] Name:[address] ()Tel: [phone], [place] [address] () [address]AD: 12/07/2017 MEREDITH Carrera Primary MEREDITH [place] [id number] Insurance:CARESOURCEP POLENDOB: Formerly [facility], [facility] Number: [id number], [place] [id number] Repository 686[address]Mfj: ([phone]) Date:2017-11-13 O [phone] () [address]ATTN: [place] [address]DX: 12/07/2017 Secondary NOT GIVENUNK [place] Insurance:SELF PAY [facility] Number: Effective Repository Date:2017-11-13 11/29/2017 MEREDITH Carrera Primary MEREDITH Mosqeuda [id number] E Insurance:CARESOURCEP POLENDOB: Formerly [facility], [facility] Number: [id number], [place] [id number] Repository 167[address]Rxv: [phone]) Date:2017-11-27P O [phone] () [address]ATTN: [place] [address]TF: 11/29/2017 Secondary NOT GIVENUNK [place] Insurance:SELF PAY [facility] Number: Effective Repository Date:2017-11-29 11/03/2017 MEREDITH Carrera Primary MEREDITH Mosqueda [id number] E Insurance:CARESOURCEP POLENDOB: Community TRINY [place] Number: [id number], [place] [id number] Repository 269[address]Ebl: [phone]) Date:2017-08-31P O [phone] () [address]ATTN: [place] [address]LC: 11/03/2017 Secondary NOT GIVENUNK [place] Insurance:SELF PAY [facility] Number: Effective Repository Date:2017-08-31 11/01/2017 MEREDITH Carrera Primary MEREDITH Mosqueda [id number] E Insurance:CARESOURCEP POLENDOB: Formerly [facility], [facility] TRINY [place] Number: [id number], [place] [id number] Repository [address]Chq: [phone]) Date:2017-09-28P O [phone] () [address]ATTN: [place] [address]UY: 11/01/2017 Secondary NOT GIVENUNK [place] Insurance:SELF PAY [facility] Number: Effective Repository Date:2017-09-28 11/01/2017 MEREDITH Carrera Primary MEREDITH Mosqueda [id number] E Insurance:CARESOURCEP POLENDOB: Formerly [facility], [facility] TRINY [place]ena Number: [id number], [place] [id number] Repository [address]Ngt: [phone]) Date:2017-09-28P O [phone] () [address]ATTN: [place] [address]MS: 11/01/2017 Secondary NOT GIVENUNK [place] Insurance:SELF PAY [facility] Number: Effective Repository Date:2017-11-01 09/03/2017 Meredith [id number] Primary NOT GIVENUNK [place] Insurance:CARESOURCEP [facility] Number: [facility] [id number]: [phone]) Effective Repository [phone] () Date:2017-09-03 Sasha SOTO 8730ATTN: [place] [address]KR: 09/03/2017 Secondary NOT GIVENUNK [place] Insurance:SELF PAY [facility] Number: Effective Repository Date:2017-09-03 08/31/2017 MEREDITH Carrera Primary MEREDITH Carrera [facility] POLENDOB: Insurance:CARESOURCE POLENDOB: [facility] [id number] E MEDICAIDPolicy [id number] Repository [place] Number: [place] [id number] [place], [place] [address]Ehw: [phone]) Date:2017-08-31 [phone]: () [id number] [phone] Name:KATINA Soto ()Tel: 000) [address], [place] [phone] () [address]ZA:
== END 2018-07-25 15:26 | disposition home or self-care (01) ==
LOC: ED 14:48
PROVIDERS: Emergency Provider Emergency Medicine; Family Provider Family Medicine; PCP Family Medicine
DX: H92.02 Otalgia, left ear (principal); H91.92 Unspecified hearing loss, left ear; M32.9 Systemic lupus erythematosus, unspecified; J44.9 Chronic obstructive pulmonary disease, unspecified; Z72.0 Tobacco use; Z79.899 Other long term (current) drug therapy
CPT/HCPCS: 99282

== ENCOUNTER 2018-09-08 16:47 | Emergency (ER) | payer MEDICAID, SELFPAY ==
[2018-09-08 16:49] VITALS: BP 132/95; PULSE 90; RESP 16; TEMP 36.2; O2SAT 100; BMI 27.4
--- NOTE | 2018-09-08 17:17 | CT_ITS ---
STUDY: CT BRAIN WITHOUT CONTRAST REASON FOR EXAM: Female, 42 years old. Trauma, fell up steps, small laceration to frontal area in hairline, dizziness and sleepy since fall. Hx ovarian cancer,. RADIATION DOSAGE (If Supplied By Facility): CTDIvol = ( 44.99 ) mGy, DLP = ( 728.62 ) mGycm TECHNIQUE: Transaxial CT imaging of the brain was performed without administration of intravenous contrast material. Individualized dose optimization techniques were used for this CT. COMPARISON: June 13, 2018 FINDINGS: Diffuse soft tissue air below the scalp. No fracture of the calvarium. Normal size ventricles and extra-axial spaces for the patient's age. Normal white matter tracts of the cerebral hemispheres. Normal basal ganglia and thalami. Normal brainstem. Normal cerebellum. There is no intracranial hemorrhage. There are no findings of an acute ischemic infarction. Normal visualized paranasal sinuses. CT/Brain/Head without Contrast IMPRESSION: Normal unenhanced CT scan of the brain. Diffuse soft tissue air below the scalp. No fracture of the calvarium. Electronically Signed: Roger Cota MD at 18:35 EST , Service support ,
--- NOTE | 2018-09-08 17:17 | CT_ITS ---
STUDY: CT CERVICAL SPINE WITHOUT CONTRAST REASON FOR EXAM: Female, 42 years old. Trauma, fell up steps, small laceration to frontal area in hairline, dizziness and sleepy since fall. Hx ovarian cancer,. RADIATION DOSAGE (If Supplied By Facility): CTDIvol = ( 17.18 ) mGy, DLP = ( 316.84 ) mGycm TECHNIQUE: High resolution transaxial imaging was performed without contrast material. Sagittal and coronal images were reconstructed. Individualized dose optimization techniques were used for this CT. COMPARISON: None FINDINGS: Normal craniovertebral junction. Normal anterior atlantoaxial articulation. There is either an os odontoideum or a nonunion fracture of the tip of the odontoid-this would be old. Normal cervical lordosis. Normal vertebral bodies and posterior osseous elements. C2-3: Normal endplates. Normal disc height and morphology. Normal central canal and intervertebral neuroforamina. C3-4: Normal endplates. Normal disc height and morphology. Normal central canal and intervertebral neuroforamina. C4-5: There is endplate spondylosis of the vertebral body. Loss of intervertebral disc height. No spinal stenosis or neural foraminal stenosis. C5-6: There is endplate spondylosis of the vertebral body. Loss of intervertebral disc height. No spinal stenosis or neural foraminal stenosis. C6-7: Normal endplates. Normal disc height and morphology. Normal central canal and intervertebral neuroforamina. C7-T1: Normal endplates. Normal disc height and morphology. Normal central canal and intervertebral neuroforamina. Normal visualized soft tissue structures. CT/Spine Cervical without Contras IMPRESSION: Degenerative findings at C4-5 and C5-6. Electronically Signed: Roger Cota MD at 18:37 EST , Service support ,
--- NOTE | 2018-09-08 17:21 | ED.DCSUM_ITS ---
- ER Visit Summary Date of Service: 09/08/18 Chief Complaint: Fall History of Present Illness: The patient is a 42 F presenting after fall. Patient states that she was walking up her steps when she tripped over her dog. She fell approximately 10 steps. She did not lose consciousness. She states she has been dizzy since the fall. She states she also feels sleepy but this is not unusual for her with her sleep apnea. Last tetanus is unknown. She has a laceration to her scalp. No other injuries. Physical Examination: Vitals are stable. Patient is afebrile. Alert no acute distress. HEENT exam 3 cm frontal scalp laceration Neck mild diffuse tenderness with no step-off Lungs are clear and equal bilaterally. Heart is regular rate and rhythm. Abdomen is soft nontender nondistended. Extremities left lateral foot abrasion with no tenderness Skin is warm and dry. No focal neurologic deficit. Remainder of exam is unremarkable. Emergency Department Course and Treatment: Patient was given tetanus IM. CT head shows normal unenhanced CT scan of the brain. Diffuse soft tissue air below the scalp. No fracture of the calvarium. CT cervical spine shows degenerative findings at C4-5 and C5-6. Laceration was repaired under sterile conditions. Irrigated with saline. Anesthetized with lidocaine. 4, 4-0 simple sutures were placed. Patient tolerated this well. Advised wound care instructions. Advised to follow-up with primary care physician. Advised return to ED if worsening complaints. Disposition: Discharge home Impression: Closed head injury, scalp laceration, laceration repair This note was generated with [employer] dictation software. It may contain incorrect words, spelling, and punctuation that were not noted in review of the chart prior to signing ED Disposition - Plan for ED Patient: Chief Complaint: Laceration Referrals: Isra Waldrop MD [Primary Care Provider] -
[2018-09-08] MEDS: Diphth,Pertuss(Acell),Tet Vac 0.5 ML Vial IM (17:23)
--- NOTE | 2018-09-08 17:37 | ED.RN ---
INFORMED ASSISTANT CHIEF ENGINEER OF PT ANSWER OF NOT FEELING SAFE AT HOME.
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
[2018-09-08 18:26] VITALS: BP 133/99; PULSE 87; RESP 16; O2SAT 96
--- NOTE | 2018-09-08 19:54 | ED.DEP ---
ED Disposition - Plan for ED Patient: Chief Complaint: Laceration Instructions: ED Laceration Scalp Stitch Or Stap, ED Head Injury Closed Referrals: Isra Waldrop MD [Primary Care Provider] -
[2018-09-08 20:02] VITALS: BP 135/110; PULSE 88; RESP 16; O2SAT 99
== END 2018-09-08 20:04 | disposition home or self-care (01) ==
PROVIDERS: Emergency Provider Emergency Medicine; Family Provider Family Medicine; PCP Family Medicine
DX: S01.01XA Laceration without foreign body of scalp, initial encounter (principal); S90.812A Abrasion, left foot, initial encounter; W10.9XXA Fall (on) (from) unspecified stairs and steps, initial encounter; Y93.K1 Activity, walking an animal; Y92.9 Unspecified place or not applicable; Y99.9 Unspecified external cause status; Z23 Encounter for immunization; M32.9 Systemic lupus erythematosus, unspecified; J44.9 Chronic obstructive pulmonary disease, unspecified; I10 Essential (primary) hypertension; G47.33 Obstructive sleep apnea (adult) (pediatric); Z72.0 Tobacco use; Z79.899 Other long term (current) drug therapy
CPT/HCPCS: 12002; 70450; 72125; 90715; 99283; A4216

== ENCOUNTER 2018-12-03 16:18 | Emergency (ER) | payer MEDICAID, SELFPAY ==
[2018-12-03 16:18] VITALS: BP 114/80; PULSE 89; RESP 16; TEMP 36.3; O2SAT 100; BMI 25.3
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
[2018-12-03] MEDS: HYDROcodone Bitartrate/Apap 5/325 Tablet PO (16:40)
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
== END 2018-12-03 18:31 | disposition home or self-care (01) ==
PROVIDERS: Emergency Provider Emergency Medicine; Family Provider Family Medicine; PCP Family Medicine
DX: S82.832A Other fracture of upper and lower end of left fibula, initial encounter for closed fracture (principal); S16.1XXA Strain of muscle, fascia and tendon at neck level, initial encounter; S39.012A Strain of muscle, fascia and tendon of lower back, initial encounter; Y04.8XXA Assault by other bodily force, initial encounter; Y93.9 Activity, unspecified; Y92.9 Unspecified place or not applicable; Y99.9 Unspecified external cause status; M32.9 Systemic lupus erythematosus, unspecified; J44.9 Chronic obstructive pulmonary disease, unspecified; M79.7 Fibromyalgia; F17.210 Nicotine dependence, cigarettes, uncomplicated; Z79.899 Other long term (current) drug therapy
CPT/HCPCS: 29515; 73590; 99283

== ENCOUNTER 2018-12-17 08:32 | Day surgery (SDC) | payer MEDICAID, SELFPAY ==
--- NOTE | 2018-12-13 14:19 | EKG12_ITS ---
Test Reason : PRE OP Blood Pressure : / mmHG Vent. Rate : 079 BPM Atrial Rate : 079 BPM P-R Int : 124 ms QRS Dur : 090 ms QT Int : 408 ms P-R-T Axes : 058 072 034 degrees QTc Int : 467 ms Normal sinus rhythm with sinus arrhythmia Nonspecific ST abnormality Abnormal ECG Confirmed by IRIS VILLA, JELANI ([id number]), department editor AMBROSIO BANDA ([id number]) on 12/16/2018 10:33:45 AM Referred By: Ellen Shukla Confirmed By:JELANI SIMMONS MD
--- NOTE | 2018-12-13 14:33 | RAD_ITS ---
STUDY: X-RAY CHEST REASON FOR EXAM: Female, 42 years old. Pre-op. TECHNIQUE: PA and lateral views of the chest. COMPARISON: June 13, 2018 FINDINGS: The lungs are clear and expanded. There is no demonstrated pleural abnormality. Normal size heart. Normal mediastinum and [place]. Normal visualized pulmonary arteries. Normal visualized aortic arch and descending thoracic aorta. Normal visualized thoracic spine. Normal visualized ribs, clavicles, and shoulders. There are surgical clips within the right upper quadrant of the abdomen consistent with prior cholecystectomy. RAD/Chest PA and Lateral IMPRESSION: No acute cardiopulmonary process. Electronically Signed: Linn Malone MD at 22:42 EDT Tel , Service support ,
[2018-12-13 15:24] LABS: Absolute Lymphocyte Count 3.21 X10^3/ul (0.83-4.51); Absolute Neutrophil Count 4.2 X10^3/uL (2.0-7.7); Basophil# 0.06 X10^3/uL; Basophil% 0.7 % (0-1); Eosinophil# 0.31 X10^3/uL; Eosinophils% 3.7 % (0-5); Hematocrit 44.8 % (37-47); Hemoglobin 14.8 g/dl (12.0-15.0); Lymphocyte # 3.21 X10^3/ul (4.0); Lymphocyte % 38.8 % (19-41); Mean Corpuscular Hgb 31.1 pg (27.0-32.0); Mean Corpuscular Volume 94.1 fL (81-99); Monocyte# 0.51 X10^3/uL; Monocyte% 6.2 % (0-10); Neutrophil # 4.16 X10^3/uL (2.7-7.7); Neutrophil % 50.4 % (47-70); Platelet Count 333 K/mm3 (150-450); RBC Distribution Width CV 12.8 % (11.6-14.6); RBC Distribution Width SD 43.9 fl (35.1-43.9); Red Blood Count 4.76 M/mm3 (4.2-5.4); White Blood Count 8.3 K/mm3 (4.4-11.0)
[2018-12-13 15:26] LABS: POSITIVE COUNT NO; POSITIVE DIFFERENTIAL NO; POSITIVE MORPHOLOGY NO
[2018-12-13 15:58] LABS: Anion Gap 6 (5-15); BUN 7 mg/dL (7-18); BUN/Creat Ratio 9.7 RATIO (10-20); Calcium,Total 8.7 mg/dL (8.5-10.1); Chloride 108 mmol/L (98-107); Creatinine, Serum 0.72 mg/dL (0.55-1.02); EST Glomerular Filtration Rate 94 mL/min (>60); Est Glom Filt Rate - Afr Amer 114 mL/min (>60); Glucose 93 mg/dL (74-106); Potassium 3.3 mmol/L (3.5-5.1); Sodium Level 139 mmol/L (136-145)
[2018-12-17] VITALS (7 sets, daily range): BP systolic 83–130; BP diastolic 56–87; PULSE 62–85; RESP 16–18; TEMP 36.2–36.9; O2SAT 94–100; BMI 26.4
--- NOTE | 2018-12-17 11:00 | RAD_ITS ---
STUDY: X-RAY - LEFT ANKLE REASON FOR EXAM: Female, 43 years old. Fracture TECHNIQUE: 2 view(s) of the ankle. COMPARISON: 12/03/2018 FINDINGS: 8 fluoroscopic images from an intraoperative procedure of the left ankle are presented. Images demonstrate hardware in the lateral malleolus and the distal tibiofibular articulation with normal alignment. Normally aligned lateral malleolus fracture. RAD/Ankle min 3 Views IMPRESSION: Operative changes as described. Electronically Signed: Carl Brewer MD at 13:37 EDT Tel , Service support ,
--- NOTE | 2018-12-17 12:48 | PCM.DC.ORTHO ---
Discharge Activity: May Not Drive, May not drive while taking narcotic pain medications., May Not Shower, Use Walker, Use Crutches Ice area for (Minutes): 20 - apply ice behind left knee 20 minutes of each hour while awake Weight Bearing Status: No weight bearing Keep extremity elevated above heart level: Operative Extremity Call your doctor if your incision/area has: Sudden Increased Bleeding Call your doctor if you observe: Fever of 101 or Higher, Shortness of breath, Dizziness, Chest pain, Increased palpitations (irregular heartbeat), Calf discomfort, Uncontrolled pain Cleanse incision/area with: Keep Dressing Clean & Dry Allergies/Adverse Reactions: Allergies Penicillins Allergy (Verified 12/17/18 08:47) Hives tramadol Adverse Reaction (Verified 12/17/18 08:47) Itching Medications to take at Discharge pantoprazole 40 mg tablet,delayed release 40 mg PO QHS 11/28/17 Albuterol Sulfate [Ventolin Hfa] 2 puff INHALATION Q4H PRN 12/03/18 Tiotropium Br/Olodaterol HCl [Stiolto Respimat Inhal [place]] 2 puff INHALATION Q24H 12/03/18 Oxycodone [Oxyir] 5 mg PO Q6H PRN PRN 7 Days #30 tab 12/17/18 The following prescriptions were given: Oxycodone [Oxyir] 5 mg PO Q6H PRN PRN 7 Days #30 tab PRN Reason: Pain Primary Care Physician: Isra Waldrop MD [Primary Care Provider] - Test Results: Test results from this visit will be discussed in further detail at your follow-up appointment, if applicable. Please Follow Up With: Ellen Shukla DPM When: Please follow up next week at your previously scheduled post operative appt Proposed Discharge Date: 12/17/18
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
--- NOTE | 2018-12-17 13:30 | RAD_ITS ---
STUDY: X-RAY - LEFT ANKLE REASON FOR EXAM: Female, 43 years old. Status post ORIF of distal fibula TECHNIQUE: 3 view(s) of the ankle. COMPARISON: Intraoperative study of this date FINDINGS: There is demonstrated interval fixation with plate and multiple screws of oblique distal fibular shaft fracture. Fracture appears in excellent alignment. There is also demonstrated syndesmotic fixation with single screw. Normal medial and lateral malleoli. Normal tibiotalar articulation and ankle mortise. Normal visualized talus and calcaneus. The visualized subtalar, talonavicular, calcaneocuboid and tarsal articulations are normal. The soft tissue structures are unremarkable. RAD/Ankle min 3 Views IMPRESSION: Internal fixation with plate and multiple screws of oblique fracture of the distal fibular shaft. Fracture appears in excellent alignment. There is syndesmotic fixation with single screw. Electronically Signed: Tom Guevara MD at 17:34 EDT , Service support ,
== END 2018-12-17 14:52 | disposition home or self-care (01) ==
LOC: SDC 08:34 → AC 08:34
PROVIDERS: Family Provider Family Medicine; PCP Family Medicine; Referring Provider Podiatrist Foot & Ankle Surgery; Visit Provider Podiatrist Foot & Ankle Surgery
PROC: (CPT 27792; principal; 2018-12-17 10:15)
DX: S82.832A Other fracture of upper and lower end of left fibula, initial encounter for closed fracture (principal); X58.XXXA Exposure to other specified factors, initial encounter; Y93.9 Activity, unspecified; Y92.9 Unspecified place or not applicable; Y99.9 Unspecified external cause status; M32.9 Systemic lupus erythematosus, unspecified; M06.9 Rheumatoid arthritis, unspecified; M79.7 Fibromyalgia; J44.9 Chronic obstructive pulmonary disease, unspecified; F20.0 Paranoid schizophrenia; G47.33 Obstructive sleep apnea (adult) (pediatric); K21.9 Gastro-esophageal reflux disease without esophagitis; F32.9 Major depressive disorder, single episode, unspecified; F41.9 Anxiety disorder, unspecified; F17.210 Nicotine dependence, cigarettes, uncomplicated; Z79.82 Long term (current) use of aspirin; Z79.899 Other long term (current) drug therapy
CPT/HCPCS: 27792; 27829; 36415; 71046; 73610; 76000; 80048; 85025; 93005; C1713; J7120; J2405

== ENCOUNTER 2019-04-30 04:21 | Emergency (ER) | payer MEDICAID, SELFPAY ==
[2018-12-17 08:55] VITALS: BMI 26.4
[2019-04-30 04:22] VITALS: BP 143/79; PULSE 95; RESP 15; TEMP 36.7; O2SAT 97; BMI 25.8
[2019-04-30 04:29] VITALS: BP 143/79; PULSE 95; RESP 16; TEMP 36.7; O2SAT 97
--- NOTE | 2019-04-30 04:38 | CT_ITS ---
STUDY: CT ABDOMEN AND PELVIS WITHOUT CONTRAST REASON FOR EXAM: Female, 43 years old. Flank pain RADIATION DOSAGE (If Supplied By Facility): CTDIvol = ( 6.31 ) mGy, DLP = ( 302.88 ) mGycm TECHNIQUE: Transaxial images were obtained from the dome of the diaphragm to the symphysis pubis without oral contrast, and without intravenous contrast. Sagittal and coronal images were reconstructed. Individualized dose optimization techniques were used for this CT. COMPARISON: None. FINDINGS: The visualized lung bases are unremarkable. The visualized portions of the heart are within normal limits. Normal liver. There are surgical clips in the gallbladder fossa consistent with a prior cholecystectomy. Normal spleen. Normal pancreas. Normal bilateral adrenal glands. 2 stones are seen in the right kidney measuring 3 mm and 7 mm there is no hydronephrosis. Normal left kidney. Normal visualized stomach. Normal small intestine. Normal colon. The appendix is visualized and appears normal. Normal abdominal aorta. Normal inferior vena cava. Normal retroperitoneum. Normal urinary bladder. Normal abdominal wall. Normal osseous structures. CT/Abdomen/Pelvis without Cont IMPRESSION: 2 stones are seen in the right kidney measuring 3 mm and 7 mm there is no hydronephrosis. Electronically Signed: Meg Farris, at 5:22 EDT Tel , Service support ,
--- NOTE | 2019-04-30 04:38 | ED.DCSUM_ITS ---
History of Present Illness Chief Complaint: Flank Pain Narrative: Patient is a 43-year-old female who presents with lower back pain. It is worse on the left but is all the way across her lower back. This is been present for a few days. It is intermittent and waxes and wanes but is more severe this morning. She denies fevers nausea vomiting diarrhea. She does complain of urinary frequency and urgency. Pain radiates around to the lower abdomen. She does have a prior history of kidney stones. Past Medical History - Allergies and Home Meds Allergies/Adverse Reactions: Allergies Penicillins Allergy (Verified 12/17/18 08:47) Hives tramadol Adverse Reaction (Verified 12/17/18 08:47) Itching Primary Care Physician: Isra Waldrop MD [Primary Care Provider] - Past Medical History: - - Fibromyalgia, lupus, kidney stones Surgical History: cholecystectomy Smoking Status: Current every day smoker Review of Systems All systems negative except as indicated General: Denies: Fever Cardiovascular: Denies: Chest pain Respiratory: Denies: Dyspnea Gastrointestinal: Denies: Nausea, Vomiting, Diarrhea Genitourinary: Reports: Frequency Skin: Denies: Rash Neurological: Denies: Headache Physical Exam Vital Signs/Narrative: Vital Signs Temp Pulse Resp BP Pulse Ox 04/30/19 04:29 98.0 F 95 16 143/79 H 97 04/30/19 04:22 98.0 F 95 15 143/79 H 97 General: Well nourished Head: Normocephalic Eyes: EOMI ENT: Moist mucous membranes Neck: Supple Cardiovascular: Regular rate, Regular rhythm Respiratory: No distress, CTA bilaterally Abdomen: Soft, Tender - Lower abdominal tenderness without guarding without rebound Back: CVA tenderness - Bilaterally, worse on left Skin: Normal color Neurological: Alert Psychological: Normal affect Diagnostic/Tx/Re-eval 04/30/19 04:38 Abdomen/Pelvis without Cont [CT] Stat Laboratory Results 04/30/19 04/30/19 04/30/19 04:35 04:45 04:45 WBC 9.3 RBC 4.31 Hgb 13.6 Hct 40.0 MCV 92.8 MCH 31.6 MCHC 34.0 RDW Std Deviation 41.3 RDW Coeff of Kemar 11.9 Plt Count 293 MPV 9.2 Immature Gran % (Auto) 0.200 Neut % (Auto) 55.6 Lymph % (Auto) 33.9 [place] % (Auto) 7.6 Eos % (Auto) 2.3 Baso % (Auto) 0.4 Absolute Neuts (auto) 5.2 Absolute Lymphs (auto) 3.16 Nucleated RBC % 0 Sodium 142 Potassium 3.2 L Chloride 110 H Carbon Dioxide 24.0 Anion Gap 8 BUN 8 Creatinine 0.85 Estim Creat Clear Calc 67.50 Est GFR (MDRD) Af Amer 94 Est GFR (MDRD) Non-Af 77 BUN/Creatinine Ratio 9.4 L Glucose 133 H Calcium 8.7 Total Bilirubin 0.70 AST 22 ALT 39 Alkaline Phosphatase 56 Total Protein 7.1 Albumin 3.6 Globulin 3.5 Albumin/Globulin Ratio 1.0 Lipase 58 L Urine Color Yellow Urine Clarity Cloudy Urine pH 6.5 Ur Specific [place] 1.020 Urine Protein 30 H Urine Glucose (UA) Normal Urine Ketones 5 H Urine Occult Blood 250 H Urine Nitrite Negative Urine Bilirubin 1 H Urine Urobilinogen 8 H Ur Leukocyte Esterase 100 H Urine RBC 10-25 SEEN Urine WBC 5-10 SEEN Ur Squamous Epith Cells 10-25 SEEN Urine Bacteria 2+ Urine Mucus 1+ - Medical Decision Making Laboratory studies as above. CT of the abdomen and pelvis shows 2 stones in the right kidney measuring 3 mm and 7 mm, no hydronephrosis, no ureteral calculus was commented on. Urinalysis does show leukocyte esterase, RBCs, WBCs and emanuel teria however it is contaminated. Given her lower urinary symptoms so we will treat for possible infectious process. Recently passed calculus would also be on the differential. She was advised on supportive care. She was given a prescription for Bactrim and Pyridium. She was advised to follow-up as an outpatient but does understand to return for new or worsening symptoms. All questions answered at bedside and patient was discharged. ED Disposition - Plan for ED Patient: Disposition: Psych[facility] Hospital or Unit Diagnosis: UTI (urinary tract infection), Flank pain Instructions: FLANK PAIN, Uncertain Cause, Understanding Urinary Tract Infections (UTIs) Prescriptions: Smz/Tmp Ds [Bactrim Ds] 1 tab PO BID #14 tab Prescription Printed Phenazopyridine HCl [Pyridium] 200 mg PO TID #6 tab Prescription Printed Referrals: Isra Waldrop MD [Primary Care Provider] -
[2019-04-30] MEDS: 0.9% Normal Saline 1,000 ML 1000 ML IV (04:51)
[2019-04-30 04:52] LABS: Absolute Lymphocyte Count 3.16 X10^3/uL (0.83-4.51); Absolute Neutrophil Count 5.2 X10^3/uL (2.0-7.7); Basophil# 0.04 X10^3/uL; Basophil% 0.4 % (0-1); Eosinophil# 0.21 X10^3/uL; Eosinophils% 2.3 % (0-5); Hemoglobin 13.6 g/dL (12.0-15.0); Lymphocyte # 3.16 X10^3/ul (4.0); Lymphocyte % 33.9 % (19-41); Mean Corpuscular Hgb 31.6 pg (27.0-32.0); Mean Corpuscular Volume 92.8 fL (81-99); Mean Platelet Vol. 9.2 fl (6.2-12.0); Monocyte# 0.71 X10^3/uL; Monocyte% 7.6 % (0-10); NRBC Flagged by Analyzer 0 % (0-5); Neutrophil # 5.18 X10^3/uL (2.7-7.7); Neutrophil % 55.6 % (47-70); Platelet Count 293 K/mm3 (150-450); RBC Distribution Width CV 11.9 % (11.6-14.6); RBC Distribution Width SD 41.3 fl (35.1-43.9); Red Blood Count 4.31 M/mm3 (4.2-5.4); White Blood Count 9.3 K/mm3 (4.4-11.0)
[2019-04-30] MEDS: Ketorolac 30 MG/ML Syringe IV (04:52)
[2019-04-30] MEDS: Ondansetron 4 MG/2 ML Vial IV (04:52)
[2019-04-30 05:04] LABS: Color, Urine Yellow (Yellow); Glucose, Dipstick Normal (Normal); Ketone-Dipstick 5 mg/dl (Negative); Leukocyte Esterase-Dipstick 100 /ul (Negative); Nitrite-Dipstick Negative (Negative); Occult Blood-Urine 250 /ul (Negative); Protein-Dipstick 30 mg/dl (Negative); Urine Clarity Cloudy (Clear); Urine Urobilinogen 8 mg/dl (Normal); Urine pH 6.5 (5.0 - 8.0)
[2019-04-30 05:05] LABS: Urine Bilirubin Dipstick 1 mg/dL (Negative)
[2019-04-30 05:12] LABS: Bacteria 2+ /hpf (None Seen); Mucous, Urine 1+ /hpf (<or=2+); Red Blood Cells-Urine 10-25 SEEN /hpf (0-5); Squamous Epithelial Cells - UA 10-25 SEEN /hpf (5-10); White Blood Cells 5-10 SEEN /hpf (0-5)
[2019-04-30 05:14] LABS: AST(SGOT) 22 U/L (15-37); Alanine Aminotransfer ALT/SGPT 39 U/L (13-56); Albumin, Serum 3.6 g/dL (3.2-5.0); Alkaline Phosphatase 56 U/L (45-117); Anion Gap 8 (5-15); BUN 8 mg/dL (7-18); BUN/Creat Ratio 9.4 RATIO (10-20); Calcium,Total 8.7 mg/dL (8.5-10.1); Chloride 110 mmol/L (98-107); Creatinine, Serum 0.85 mg/dL (0.55-1.02); EST Glomerular Filtration Rate 77 mL/min (>60); Est Glom Filt Rate - Afr Amer 94 mL/min (>60); Globulin 3.5 g/dL (2.2-4.2); Glucose 133 mg/dL (74-106); Lipase 58 U/L (73-393); Potassium 3.2 mmol/L (3.5-5.1); Protein, Total 7.1 g/dL (6.4-8.2); Sodium Level 142 mmol/L (136-145)
[2019-04-30 05:43] VITALS: BP 140/80; PULSE 88; RESP 16; O2SAT 96
== END 2019-04-30 05:49 ==
PROVIDERS: Emergency Provider Emergency Medicine; Family Provider Family Medicine; PCP Family Medicine
DX: N39.0 Urinary tract infection, site not specified (principal); F17.200 Nicotine dependence, unspecified, uncomplicated; Z87.442 Personal history of urinary calculi; Z88.0 Allergy status to penicillin; Z88.8 Allergy status to other drugs, medicaments and biological substances; Z90.49 Acquired absence of other specified parts of digestive tract; Z79.899 Other long term (current) drug therapy
CPT/HCPCS: 74176; 80053; 81001; 83690; 85025; 87086; 87088; 96361; 96374; 96375; 99283; J7030; A4216; J2405

== ENCOUNTER 2019-07-18 10:00 | Emergency (ER) | payer MEDICAID, SELFPAY ==
[2019-07-18 10:01] VITALS: BP 122/78; PULSE 69; RESP 12; TEMP 36.7; O2SAT 99; BMI 27.7
--- NOTE | 2019-07-18 10:04 | ED.RN ---
PT BROUGHT IN BY ONE-EIGHTY.
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
[2019-07-18] MEDS: Ondansetron 4 MG/2 ML Vial IV (10:51)
[2019-07-18] MEDS: Morphine 2 MG/ML Syringe IV (10:52)
[2019-07-18 11:46] VITALS: BP 108/63; PULSE 79; RESP 15; O2SAT 99
== END 2019-07-18 11:47 | disposition home or self-care (01) ==
LOC: ED 10:20
PROVIDERS: Emergency Provider Emergency Medicine; Family Provider Family Medicine; PCP Family Medicine
DX: S06.0X9A Concussion with loss of consciousness of unspecified duration, initial encounter (principal); H11.30 Conjunctival hemorrhage, unspecified eye; T14.8XXA Other injury of unspecified body region, initial encounter; Y04.2XXA Assault by strike against or bumped into by another person, initial encounter; Y93.9 Activity, unspecified; Y92.9 Unspecified place or not applicable; Y99.9 Unspecified external cause status; M32.9 Systemic lupus erythematosus, unspecified; J44.9 Chronic obstructive pulmonary disease, unspecified; K44.9 Diaphragmatic hernia without obstruction or gangrene; M79.7 Fibromyalgia; F32.9 Major depressive disorder, single episode, unspecified; F17.200 Nicotine dependence, unspecified, uncomplicated; Z88.0 Allergy status to penicillin; Z88.8 Allergy status to other drugs, medicaments and biological substances; Z88.5 Allergy status to narcotic agent; Z90.49 Acquired absence of other specified parts of digestive tract
CPT/HCPCS: 70450; 96374; 96375; 99285; A4216; J2405

== ENCOUNTER 2019-08-14 16:28 | Emergency (ER) | payer MEDICAID, SELFPAY ==
[2019-08-14 16:29] VITALS: BP 115/72; PULSE 70; RESP 18; TEMP 36.6; BMI 26.8
--- NOTE | 2019-08-14 16:46 | CT_ITS ---
STUDY: CT ABDOMEN AND PELVIS WITH CONTRAST REASON FOR EXAM: Female, 43 years old. Left lower quadrant pain, history of ovarian cancer RADIATION DOSAGE (If Supplied By Facility): CTDIvol = ( 12.09 ) mGy, DLP = ( 395.48 ) mGycm TECHNIQUE: Transaxial images were obtained from the dome of the diaphragm to the symphysis pubis without oral contrast. Oral and amp;amp; IV Gastrografin and amp;amp; 100mL Isovue-370 was administered. Sagittal and coronal images were reconstructed. Individualized dose optimization techniques were used for this CT. COMPARISON: 04/30/2019 FINDINGS: The visualized lung bases are unremarkable. The visualized portions of the heart are within normal limits. Normal liver. There are surgical clips in the gallbladder fossa consistent with a prior cholecystectomy. Normal spleen. Normal pancreas. Normal bilateral adrenal glands. There are simple appearing bilateral renal cysts. Small renal calculi in the right kidney are stable. No hydronephrosis. Normal visualized stomach. Normal small intestine. Normal colon. The appendix is visualized and appears normal. Normal abdominal aorta. Normal inferior vena cava. Normal retroperitoneum. Normal urinary bladder. There is mild endometrial fluid thickening of the uterine fundus as seen on ultrasound earlier today. Normal abdominal wall. Normal osseous structures. CT/Abdomen/Pelvis WITH Contrast IMPRESSION: 1. Stable nonobstructing right renal calculi. 2. Simple appearing bilateral renal cysts. 3. Minimal fluid of the upper endometrial canal as seen on ultrasound from earlier today. Electronically Signed: Louis Dixon MD (Brooks) at 18:51 EST , Service support ,
--- NOTE | 2019-08-14 16:47 | US_ITS ---
STUDY: ULTRASOUND OF THE FEMALE PELVIS - COMPLETE REASON FOR EXAM: Female, 43 years old. Left lower quadrant pelvic pain today LMP: Amenorrhea TECHNIQUE: Transvaginal TECHNICAL QUALITY: Adequate. COMPARISON: None. FINDINGS: The uterus is anteverted and is in a midline position. The uterus measures 7.1 x 4.8 x 3.5 cm. There is a Nabothian cyst of the cervix. The endometrium measures 5.0 mm in thickness, and is heterogeneous and partially fluid-filled. There is no demonstrated endometrial mass. There is no demonstrated myometrial mass. I.U.D. - The patient does not have an I.U.D. The right ovary is non-visualized. The left ovary is visualized. The left ovary measures 3.7 x 2.7 x 1.8 cm. There are multiple follicles of the left ovary without a dominant cyst. There is no visualized left adnexal mass or complex lesion. There is normal arterial and normal venous vascularity. There is no fluid in the cul-de-sac. US/Transvaginal Non- IMPRESSION: 1. No pelvic mass or free fluid. 2. Heterogeneous endometrial complex, partially fluid-filled. Electronically Signed: Louis Dixon MD (Brooks) at 17:55 EST , Service support ,
--- NOTE | 2019-08-14 16:49 | ED.VISSUMM ---
- ER Visit Summary Date of Service: 08/14/19 Chief Complaint: Abdominal quinn History of Present Illness: The patient is a 43 F presenting with abdominal pain. She states this started today. She complains of left lower quadrant abdominal pain. She has associated nausea and vomiting. She denies diarrhea. Her last bowel movement was 2 days ago. She denies blood in her stool. She states her urine was orange in color today. She denies fever. She has history of previous cholecystectomy and right ovary removal. Denies other complaints. Physical Examination: Vitals are stable. Patient is afebrile. Alert no acute distress. HEENT exam is unremarkable. Neck is supple. Lungs are clear and equal bilaterally. Heart is regular rate and rhythm. Abdomen is soft left lower quadrant tenderness with no rebound or guarding Extremities are unremarkable. Skin is warm and dry. No focal neurologic deficit. Remainder of exam is unremarkable. Emergency Department Course and Treatment: Patient was given morphine, Zofran IV. CBC, chemistries unremarkable. Total bili 0.2. ALT 109. AST 62. Lipase is normal. hCG negative. Urinalysis shows 0-5 white blood cells, 0 red blood cells, 10-25 epithelial cells. Pelvic ultrasound shows no pelvic mass or free fluid. Heterogeneous endometrial complex, partially fluid-filled. CT abdomen pelvis shows stable nonobstructing right renal calculi. Simple appearing bilateral renal cysts. Minimal fluid of the upper endometrial canal as seen on ultrasound from earlier today. On reevaluation, patient is resting comfortably. She was advised of her ALT, AST results and ultrasound and CT findings. She will follow-up with her primary care physician. She is given prescription for Bentyl and Zofran. Advised return to ED for worsening complaints. Disposition: Discharge home Impression: Abdominal pain This note was generated with [employer] dictation software. It may contain incorrect words, spelling, and punctuation that were not noted in review of the chart prior to signing ED Disposition - Plan for ED Patient: Instructions: ABDOMINAL PAIN, Unknown Cause, (Female) Prescriptions: Dicyclomine HCl [Bentyl] 20 mg PO TIDAC #20 cap Prescription Printed Ondansetron [Zofran Odt] 4 mg PO Q8H PRN PRN #10 tab PRN Reason: Nausea Prescription Printed Referrals: Isra Waldrop MD [Primary Care Provider] -
[2019-08-14] MEDS: Morphine 4 MG/ML Syringe IV (17:01)
[2019-08-14] MEDS: Ondansetron 4 MG/2 ML Vial IV (17:01)
[2019-08-14] MEDS: 0.9% Normal Saline 1,000 ML 1000 ML IV (17:03)
[2019-08-14 17:07] LABS: Absolute Lymphocyte Count 2.02 X10^3/uL (0.83-4.51); Absolute Neutrophil Count 5.8 X10^3/uL (2.0-7.7); Basophil# 0.04 X10^3/uL; Basophil% 0.4 % (0-1); Eosinophils% 3.4 % (0-5); Hemoglobin 13.8 g/dL (12.0-15.0); Lymphocyte # 2.02 X10^3/ul (4.0); Lymphocyte % 22.6 % (19-41); Mean Corp Hgb Conc 33.7 g/dL (32-36); Mean Corpuscular Hgb 32.2 pg (27.0-32.0); Mean Corpuscular Volume 95.6 fL (81-99); Mean Platelet Vol. 9.7 fl (6.2-12.0); Monocyte# 0.76 X10^3/uL; Monocyte% 8.5 % (0-10); NRBC Flagged by Analyzer 0 % (0-5); Neutrophil # 5.77 X10^3/uL (2.7-7.7); Neutrophil % 64.7 % (47-70); Platelet Count 327 K/mm3 (150-450); RBC Distribution Width CV 12.2 % (11.6-14.6); RBC Distribution Width SD 42.2 fl (35.1-43.9); Red Blood Count 4.29 M/mm3 (4.2-5.4); White Blood Count 8.9 K/mm3 (4.4-11.0)
[2019-08-14 17:21] LABS: Internal QC Validated? YES +Cl - CLEAR BKGD; Pregnancy, Serum, hCG Quali. NEGATIVE Negative
[2019-08-14 17:23] LABS: AST(SGOT) 62 U/L (15-37); Alanine Aminotransfer ALT/SGPT 109 U/L (13-56); Albumin, Serum 3.2 g/dL (3.2-5.0); Alkaline Phosphatase 53 U/L (45-117); Anion Gap 7 (5-15); BUN 8 mg/dL (7-18); Calcium,Total 8.4 mg/dL (8.5-10.1); Chloride 108 mmol/L (98-107); Creatinine, Serum 0.89 mg/dL (0.55-1.02); EST Glomerular Filtration Rate 73 mL/min (>60); Est Glom Filt Rate - Afr Amer 89 mL/min (>60); Estimated Creatinine Clearance 64.46 ml/min; Globulin 3.2 g/dL (2.2-4.2); Glucose 103 mg/dL (74-106); Lipase 86 U/L (73-393); Potassium 3.8 mmol/L (3.5-5.1); Protein, Total 6.4 g/dL (6.4-8.2); Sodium Level 143 mmol/L (136-145)
[2019-08-14 17:24] LABS: Mucous, Urine 0 SEEN /hpf (<or=2+); Red Blood Cells-Urine 0 SEEN /hpf (0-5)
[2019-08-14 17:36] LABS: Color, Urine Amber (Yellow); Glucose, Dipstick Normal (Normal); Ketone-Dipstick 5 mg/dl (Negative); Leukocyte Esterase-Dipstick 25 /ul (Negative); Nitrite-Dipstick Positive (Negative); Occult Blood-Urine Negative /ul (Negative); Protein-Dipstick 15 mg/dl (Negative); Specific Gravity, Urine 1.015 (1.002-1.030); Urine Clarity Cloudy (Clear); Urine Urobilinogen 12 mg/dl (Normal)
[2019-08-14 17:40] LABS: Urine Bilirubin Dipstick 6 mg/dL (Negative)
[2019-08-14 17:48] LABS: Amorphous Sediment 1+; Bacteria 1+ /hpf (None Seen); Squamous Epithelial Cells - UA 10-25 SEEN /hpf (5-10); White Blood Cells 0-5 SEEN /hpf (0-5)
--- NOTE | 2019-08-14 19:15 | ED.DEP ---
ED Disposition - Plan for ED Patient: Instructions: ABDOMINAL PAIN, Unknown Cause, (Female) Prescriptions: Dicyclomine HCl [Bentyl] 20 mg PO TIDAC #20 capsule Ondansetron [Zofran Odt] 4 mg PO Q8H PRN PRN #10 tablet PRN Reason: Nausea Referrals: Isra Waldrop MD [Primary Care Provider] -
[2019-08-14 19:31] VITALS: BP 121/78; PULSE 73; PULSE 76; RESP 17; O2SAT 100
== END 2019-08-14 19:34 | disposition home or self-care (01) ==
LOC: ED 17:00
PROVIDERS: Emergency Provider Emergency Medicine; Family Provider Family Medicine; PCP Family Medicine
DX: R10.32 Left lower quadrant pain (principal); R11.2 Nausea with vomiting, unspecified; R82.998 Other abnormal findings in urine; R05 Cough; N28.1 Cyst of kidney, acquired; N20.0 Calculus of kidney; M79.7 Fibromyalgia; J44.9 Chronic obstructive pulmonary disease, unspecified; Z90.49 Acquired absence of other specified parts of digestive tract; Z79.899 Other long term (current) drug therapy; Z72.0 Tobacco use
CPT/HCPCS: 74177; 76830; 80053; 81001; 83690; 84703; 85025; 93976; 96361; 96374; 96375; 99283; Q9967; A4216; J2405

== ENCOUNTER 2019-08-31 18:53 | Emergency (ER) | payer MEDICAID, SELFPAY ==
[2019-08-31 18:54] VITALS: BP 136/94; PULSE 75; RESP 16; TEMP 36.1; O2SAT 98; BMI 25.0
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
--- NOTE | 2019-08-31 19:24 | ED.DEP ---
ED Disposition - Plan for ED Patient: Disposition: Home or Assisted Living Instructions: Cellulitis Prescriptions: Cephalexin [Keflex] 500 mg PO Q6 #40 cap Prescription Printed Referrals: Isra Waldrop MD [Primary Care Provider] - 1 Week if not improving Additional Instructions: Antibiotic should progressively resolve the infection of the wound is looking worse follow-up with primary care physician or return to the ER.
[2019-08-31] MEDS: Cephalexin 250 MG Capsule 500 MG PO (19:28)
== END 2019-08-31 19:30 | disposition home or self-care (01) ==
PROVIDERS: Emergency Provider Emergency Medicine; Family Provider Family Medicine; PCP Family Medicine
DX: S01.102D Unspecified open wound of left eyelid and periocular area, subsequent encounter (principal); L08.9 Local infection of the skin and subcutaneous tissue, unspecified; Y09 Assault by unspecified means; R11.10 Vomiting, unspecified; M32.9 Systemic lupus erythematosus, unspecified; J44.9 Chronic obstructive pulmonary disease, unspecified; M79.7 Fibromyalgia; Z72.0 Tobacco use; Z87.442 Personal history of urinary calculi
CPT/HCPCS: 99283

== ENCOUNTER 2019-12-21 07:23 | Emergency (ER) | payer MEDICAID, SELFPAY ==
[2019-12-21 07:24] VITALS: BP 136/84; PULSE 70; RESP 17; TEMP 37.3; O2SAT 99; BMI 26.2
--- NOTE | 2019-12-21 07:36 | ED.VISSUMM ---
- ER Visit Summary Date of Service: 12/21/19 Chief Complaint: Left upper last molar dental pain History of Present Illness: The patient is a 44 F history of lupus, fibromyalgia, depression and prior kidney stones. He states for 2 weeks her left upper tooth has been painful. She was chewing the other day part of the tooth broke off and she thinks she had puslike discharge. She denies any facial swelling. Currently does not have a dentist. Physical Examination: Middle-aged female no acute distress vital signs are stable and afebrile. H EENT exam unremarkable. No facial swelling. Her mouth the mucosa is unremarkable. Her left upper molar is decaying. There is a cavity. The tooth is coming apart. There is also other areas of cavities. There is multiple missing teeth. There is no gingival swelling. No abscess. No trismus. No trouble swallowing or breathing. Floor the mouth is unremarkable. There is no facial swelling. No lymphadenopathy. Test Results: none Emergency Department Course and Treatment: Dental follow up. Treatment Plan: Clindamycin QID. Tylenol and motrin for pain. Dental follow up. Disposition: dc Impression: Dental pain and dental decay Cavities This note was generated with [employer] dictation software. It may contain incorrect words, spelling, and punctuation that were not noted in review of the chart prior to signing ED Disposition - Plan for ED Patient: Disposition: Home or Assisted Living Instructions: ED Tooth Pain, ED CAVITY Dental Prescriptions: Clindamycin [Cleocin] 150 mg PO 4X/DAY #30 cap Prescription Printed Referrals: Isra Waldrop MD [Primary Care Provider] - As Needed Additional Instructions: Follow up with a local dentist. Alternate motrin and tylenol for pain.
--- NOTE | 2019-12-21 07:40 | ED.DEP ---
ED Disposition - Plan for ED Patient: Disposition: Home or Assisted Living Instructions: ED CAVITY Dental, ED Tooth Pain Prescriptions: Clindamycin [Cleocin] 150 mg PO 4X/DAY #30 cap Prescription Printed Referrals: Isra Waldrop MD [Primary Care Provider] - As Needed Additional Instructions: Follow up with a local dentist. Alternate motrin and tylenol for pain.
== END 2019-12-21 07:51 | disposition home or self-care (01) ==
LOC: ED 07:48
PROVIDERS: Emergency Provider Emergency Medicine; PCP Family Medicine
DX: K02.9 Dental caries, unspecified (principal); S02.5XXA Fracture of tooth (traumatic), initial encounter for closed fracture; X58.XXXA Exposure to other specified factors, initial encounter; Y93.9 Activity, unspecified; Y92.9 Unspecified place or not applicable; Y99.9 Unspecified external cause status; J44.9 Chronic obstructive pulmonary disease, unspecified; M32.9 Systemic lupus erythematosus, unspecified; M79.7 Fibromyalgia; F32.9 Major depressive disorder, single episode, unspecified; Z72.0 Tobacco use; Z87.442 Personal history of urinary calculi
CPT/HCPCS: 99282

== ENCOUNTER 2020-05-29 04:23 | Emergency (ER) | payer MEDICARE, MEDICAID, SELFPAY ==
[2020-05-29 04:24] VITALS: BP 125/75; PULSE 105; RESP 18; TEMP 35.8; O2SAT 99; BMI 32.8
--- NOTE | 2020-05-29 04:35 | ED.RN ---
CALLED FOR EKG, PULLED OLD EKGS FOR
--- NOTE | 2020-05-29 05:06 | EKG12_ITS ---
Test Reason : CP/BACK PAIN Blood Pressure : / mmHG Vent. Rate : 097 BPM Atrial Rate : 097 BPM P-R Int : 124 ms QRS Dur : 086 ms QT Int : 378 ms P-R-T Axes : 043 053 019 degrees QTc Int : 480 ms Normal sinus rhythm Prolonged QT Abnormal ECG Confirmed by CHUCK VILLA, ROBLES ([id number]), newspaper managing editor AMBROSIO BANDA ([id number]) on 06/02/2020 9:50:27 AM Referred By: BB Confirmed By:ROBLES WOODS MD
--- NOTE | 2020-05-29 05:10 | ED.VIS.CHEST ---
History of Present Illness Chief Complaint: Chest Pain Informant: Patient Onset: Hours - 1-2 Activity at onset: Sleep - woke her up Timing: Continuous Quality: Dull - and burning Location: - - epigastric and into left inframammary area Current Severity: Moderate Maximum Severity: Moderate Worsened By: Nothing. Not Worsened By: Breathing Relieved By: Nothing - tried taking tums but vomited them up immediately Associated Symptoms: Vomiting, Dyspnea - A little, but I have COPD, Cough - Chronic nonproductive, unchanged. Negative for: Fever, Lightheadedness, Palpitations Narrative: Patient presenting with lower chest discomfort, in addition to 1 to 2 days of pain in her low back that radiates down both legs into both posterior thighs/hamstrings. No numbness or tingling. No bowel or bladder dysfunction this morning or saddle anesthesia. Denies any injury or known history of back problems states she has a history of fibromyalgia and deals with pain frequently. She also has a history of a hiatal hernia and states I stopped seeing doctors and taking medicines for all of these things, I prefer to do it all myself. Also states for the past 4 days she has been wheezing more, coughing more, and is out of her inhalers including her rescue inhaler. She denies any fevers or chills or hemoptysis. No calf pain or swelling, recent immobilization/hospitalization/surgery, or history of DVT/PE. - Past Medical History (1) COPD (chronic obstructive pulmonary disease) Status: Chronic (2) Depression Status: Chronic (3) Fibromyalgia Status: Chronic (4) Hiatal hernia Status: Chronic (5) SLE (systemic lupus erythematosus) Status: Chronic Past Medical History - Allergies and Home Meds Allergies/Adverse Reactions: Allergies Penicillins Allergy (Verified 05/29/20 04:31) Hives tramadol Adverse Reaction (Verified 05/29/20 04:31) Itching Primary Care Physician: Isra Waldrop MD [Primary Care Provider] - Surgical History: cholecystectomy, - - D&C, LEEP procedure Smoking Status: Current every day smoker Review of Systems General: Denies: Chills, Fever, Sweats Eyes: Denies: Visual changes - bilaterally, Diplopia ENT: Denies: Bilateral ear pain, Rhinorrhea, Sore throat Cardiovascular: Reports: Chest pain. Denies: Palpitations Respiratory: Reports: Dyspnea, Cough, Dyspnea on exertion. Denies: Sputum, Orthopnea Gastrointestinal: Reports: Nausea, Vomiting. Denies: Abdominal pain, Diarrhea, Melena, Hematochezia Genitourinary: Denies: Dysuria, Hematuria, Frequency Musculoskeletal: Reports: Back pain, Extremity Pain - BLE. see HPI.. Denies: Neck pain, Swelling Skin: Denies: Rash, Wounds Neurological: Denies: Headache, Weakness, Numbness Physical Exam Vital Signs/Narrative: Vital Signs Temp Pulse Resp BP Pulse Ox 05/29/20 04:24 96.5 F L 105 H 18 125/75 H 99 Inital Vital Signs reviewed: Yes General: Well nourished, Well developed, No Acute Distress Head: Normocephalic, Atraumatic Eyes: Perrl, EOMI ENT: Moist mucous membranes, No rhinorrhea Neck: Supple, Nontender Cardiovascular: Regular rate, Regular rhythm, No murmurs Respiratory: No distress, CTA bilaterally, Chest nontender Abdomen: Soft, Nondistended, Normal bowel sounds, Tender - Mild epigastric and left upper quadrant and left subcostal area. Otherwise nontender.. Negative for: Guarding, Rebound tenderness Back: Normal Inspection, - - Tender bilateral paraspinal musculature lumbosacral. Negative straight leg raises bilaterally, increased back pain only, no radicular symptoms.. Negative for: CVA tenderness, Spinal tenderness Extremities: Nontender, No edema. Negative for: Calf Tenderness Skin: Normal color, No rash, No Trauma Neurological: Alert, Oriented x3, Cranial nerves II-XII grossly intact, Normal Strength, Normal Sensation, Normal DTR - Including no clonus Psychological: Normal affect, Normal Mood Diagnostic/Tx/Re-eval Impressions Chest X-Ray 05/29/20 05:30 IMPRESSION: Normal x-ray examination of the chest. Electronically Signed: Weaver Kaleigh, at 5:57 EDT Tel , Service support , 05/29/20 05:30 Chest 1 View (Portable) [RAD] Stat Laboratory Results 05/29/20 05/29/20 05:20 05:20 WBC 16.9 H RBC 4.05 L Hgb 13.1 Hct 39.1 MCV 96.5 MCH 32.3 H MCHC 33.5 RDW Std Deviation 45.5 H RDW Coeff of Kemar 13.0 Plt Count 278 MPV 9.6 Immature Gran % (Auto) 0.500 Neut % (Auto) 85.2 H Lymph % (Auto) 7.8 L Lyman % (Auto) 5.5 Eos % (Auto) 0.8 Baso % (Auto) 0.2 Absolute Neuts (auto) 14.4 H Absolute Lymphs (auto) 1.31 Nucleated RBC % 0 Sodium 136 Potassium 3.9 Chloride 105 Carbon Dioxide 26.0 Anion Gap 5 BUN 15 Creatinine 0.90 Estim Creat Clear Calc 60.19 Est GFR (MDRD) Af Amer 87 Est GFR (MDRD) Non-Af 72 BUN/Creatinine Ratio 16.6 Glucose 116 H Calcium 8.6 Troponin I < 0.015 - Rhythm Strip Rhythm Strip: Sinus Rhythm Rate: 97 Ectopy: None - EKG Initial EKG Interpretation: Sinus Rhythm, No Acute Injury Pattern, - - Mildly prolonged QTC; otherwise normal EKG Prior: Unchanged Treatment: GI Cocktail Repeat Eval: Pain Free MURALI Risk: No Positive MURALI Elements Score: 0 - Medical Decision Making Aside from a leukocytosis, the patient's work-up is normal here. She does not require breathing treatment right now, but she has had symptoms of COPD exacerbation for the last 4 days or so. She was given IV fluids, Zofran, Toradol, and a GI cocktail which resolved her chest pain. Her back pain was improved after the Toradol. She is not having signs and symptoms currently of cauda equina syndrome. She also has a dental carry that has been bothering her, antibiotics are reasonable in case there is a dental infection there, in addition to her COPD. She is reassured, and comfortable being discharged home with prescriptions for omeprazole, doxycycline, albuterol inhaler, and a short course of prednisone. ED Disposition - Plan for ED Patient: Disposition: Home or Assisted Living Diagnosis: Chest pain, non-cardiac, COPD exacerbation, Low back pain, Hiatal hernia Instructions: ED Chest Pain NonCardiac, ED Hiatal Hernia Prescriptions: Prednisone [Deltasone] 40 mg PO DAILY #10 tab Transmission Status: Pending to [facility] #30 Doxycycline 100 mg PO BID #20 cap Transmission Status: Pending to [facility] #30 Omeprazole 1 cap PO DAILY #30 capsule. Transmission Status: Pending to [facility] #30 Albuterol Inhaler [Ventolin Hfa] 1 - 2 puff INHALATION Q4H PRN PRN #1 inhaler PRN Reason: Wheezing Transmission Status: Pending to [facility] #30 Referrals: Isra Waldrop MD [Primary Care Provider] - 3-5 Days
[2020-05-29] MEDS: Mag Hydrox/Al Hydrox/Simeth 30 ML UDC PO (05:20)
[2020-05-29] MEDS: Ondansetron 4 MG/2 ML Vial IV (05:20)
[2020-05-29] MEDS: Ketorolac 30 MG/ML Syringe IV (05:20)
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
[2020-05-29 05:37] LABS: Absolute Lymphocyte Count 1.31 X10^3/uL (0.83-4.51); Absolute Neutrophil Count 14.4 X10^3/uL (2.0-7.7); Basophil# 0.04 X10^3/uL; Basophil% 0.2 % (0-1); Eosinophil# 0.13 X10^3/uL; Eosinophils% 0.8 % (0-5); Hematocrit 39.1 % (37-47); Hemoglobin 13.1 g/dL (12.0-15.0); Lymphocyte # 1.31 X10^3/ul (4.0); Lymphocyte % 7.8 % (19-41); Mean Corp Hgb Conc 33.5 g/dL (32-36); Mean Corpuscular Hgb 32.3 pg (27.0-32.0); Mean Corpuscular Volume 96.5 fL (81-99); Mean Platelet Vol. 9.6 fl (6.2-12.0); Monocyte# 0.92 X10^3/uL; Monocyte% 5.5 % (0-10); NRBC Flagged by Analyzer 0 % (0-5); Neutrophil # 14.37 X10^3/uL (2.7-7.7); Neutrophil % 85.2 % (47-70); Platelet Count 278 K/mm3 (150-450); RBC Distribution Width SD 45.5 fl (35.1-43.9); Red Blood Count 4.05 M/mm3 (4.2-5.4); White Blood Count 16.9 K/mm3 (4.4-11.0)
[2020-05-29 05:47] VITALS: BP 125/93; PULSE 97; RESP 22; O2SAT 100
[2020-05-29 05:59] LABS: Anion Gap 5 (5-15); BUN 15 mg/dL (7-18); BUN/Creat Ratio 16.6 RATIO (10-20); Calcium,Total 8.6 mg/dL (8.5-10.1); Chloride 105 mmol/L (98-107); EST Glomerular Filtration Rate 72 mL/min (>60); Est Glom Filt Rate - Afr Amer 87 mL/min (>60); Estimated Creatinine Clearance 60.19 ml/min; Glucose 116 mg/dL (74-106); Potassium 3.9 mmol/L (3.5-5.1); Sodium Level 136 mmol/L (136-145)
[2020-05-29 06:37] VITALS: BP 148/72; PULSE 80; RESP 16; O2SAT 98
== END 2020-05-29 06:37 | disposition home or self-care (01) ==
PROVIDERS: Emergency Provider Emergency Medicine; PCP Family Medicine
DX: R07.89 Other chest pain (principal); J44.1 Chronic obstructive pulmonary disease with (acute) exacerbation; K44.9 Diaphragmatic hernia without obstruction or gangrene; M32.9 Systemic lupus erythematosus, unspecified; M79.7 Fibromyalgia; M54.5 Low back pain; F32.9 Major depressive disorder, single episode, unspecified; Z79.899 Other long term (current) drug therapy; F17.200 Nicotine dependence, unspecified, uncomplicated
CPT/HCPCS: 71045; 80048; 84484; 85025; 93005; 96374; 96375; 99284; A4216; J2405

== ENCOUNTER 2020-09-13 11:24 | Emergency (ER) | payer MEDICARE, MEDICAID, SELFPAY ==
[2020-09-13 11:25] VITALS: BP 115/78; PULSE 102; RESP 18; TEMP 36.3; O2SAT 97; BMI 35.6
--- NOTE | 2020-09-13 11:38 | CT_ITS ---
STUDY: CT ABDOMEN AND PELVIS WITHOUT CONTRAST REASON FOR EXAM: Female, 44 years old. BACK PAIN, INCREASED URINATION X 4 DAYS -- RIGHT OVARIAN CA -- SURG-GB,RIGHT OOPHRECTOMY,TUBAL,LEEP RADIATION DOSAGE (If Supplied By Facility): CTDIvol = ( 11.41 ) mGy, DLP = ( 610.15 ) mGycm TECHNIQUE: Transaxial images were obtained from the dome of the diaphragm to the symphysis pubis without oral contrast, and without intravenous contrast. Sagittal and coronal images were reconstructed. Individualized dose optimization techniques were used for this CT. COMPARISON: Comparison is made with prior study dated 08/14/2019. FINDINGS: Mild increased markings at the lung bases suggestive of bibasilar atelectasis. The visualized portions of the heart are within normal limits. Normal liver. There are surgical clips in the gallbladder fossa consistent with a prior cholecystectomy. Normal spleen. Normal pancreas. Normal bilateral adrenal glands. There are 2 adjacent small nonobstructive right intrarenal renal calculi in the midpole of the right kidney. Normal left kidney. Normal visualized stomach. Normal small intestine. Normal colon. The appendix is visualized and appears normal. There is scattered atherosclerotic calcification of the abdominal aorta, without a demonstrated aneurysm. Normal inferior vena cava. Normal retroperitoneum. Normal urinary bladder. There is a 2.8 cm x 3.2 cm cyst in the left ovary. Normal abdominal wall. Normal osseous structures. CT/Abdomen/Pelvis without Cont IMPRESSION: Stable nonobstructive right intrarenal calculi. 2.8 cm x 3.2 cm cyst in the left ovary. Status post cholecystectomy. Electronically Signed: Norman Vance MD at 13:02 EST , Service support ,
[2020-09-13] MEDS: 0.9% Normal Saline 1,000 ML 250 ML IV (12:06)
[2020-09-13] MEDS: Ketorolac 15 MG/ML Vial IV (12:07)
[2020-09-13] MEDS: Ondansetron 4 MG/2 ML Vial IV (12:08)
[2020-09-13 12:23] LABS: Mucous, Urine 0 SEEN /hpf (<or=2+); Red Blood Cells-Urine 0 SEEN /hpf (0-5)
[2020-09-13 12:28] LABS: Absolute Lymphocyte Count 2.07 X10^3/uL (0.83-4.51); Basophil# 0.05 X10^3/uL; Basophil% 0.7 % (0-1); Eosinophil# 0.34 X10^3/uL; Eosinophils% 4.8 % (0-5); Hematocrit 41.4 % (37-47); Hemoglobin 13.8 g/dL (12.0-15.0); Lymphocyte # 2.07 X10^3/ul (4.0); Mean Corp Hgb Conc 33.3 g/dL (32-36); Mean Corpuscular Hgb 31.6 pg (27.0-32.0); Mean Corpuscular Volume 94.7 fL (81-99); Mean Platelet Vol. 9.9 fl (6.2-12.0); Monocyte# 0.63 X10^3/uL; Monocyte% 8.8 % (0-10); NRBC Flagged by Analyzer 0 % (0-5); Neutrophil # 4.04 X10^3/uL (2.7-7.7); Neutrophil % 56.4 % (47-70); Platelet Count 276 K/mm3 (150-450); RBC Distribution Width CV 11.9 % (11.6-14.6); Red Blood Count 4.37 M/mm3 (4.2-5.4); White Blood Count 7.2 K/mm3 (4.4-11.0)
[2020-09-13 12:34] LABS: Color, Urine Yellow (Yellow); Glucose, Dipstick Normal (Normal); Ketone-Dipstick Negative (Negative); Leukocyte Esterase-Dipstick 25 /ul (Negative); Nitrite-Dipstick Negative (Negative); Occult Blood-Urine Negative /ul (Negative); Protein-Dipstick Negative (Negative); Specific Gravity, Urine 1.015 (1.002-1.030); Urine Bilirubin Dipstick Negative (Negative); Urine Clarity Cloudy (Clear); Urine Urobilinogen Normal (Normal)
[2020-09-13 12:43] LABS: Anion Gap 4 (5-15); BUN 12 mg/dL (7-18); BUN/Creat Ratio 14.4 RATIO (10-20); Calcium,Total 8.7 mg/dL (8.5-10.1); Chloride 108 mmol/L (98-107); Creatinine, Serum 0.83 mg/dL (0.55-1.02); EST Glomerular Filtration Rate 79 mL/min (>60); Est Glom Filt Rate - Afr Amer 95 mL/min (>60); Estimated Creatinine Clearance 68.41 ml/min; Glucose 100 mg/dL (74-106); Potassium 4.4 mmol/L (3.5-5.1); Sodium Level 140 mmol/L (136-145)
[2020-09-13 12:47] LABS: Bacteria 2+ /hpf (None Seen); Squamous Epithelial Cells - UA 25-50 SEEN /hpf (5-10); White Blood Cells 0-5 SEEN /hpf (0-5)
[2020-09-13 12:48] LABS: Trichomonas 0-5 SEEN /hpf (None Seen)
--- NOTE | 2020-09-13 13:25 | ED.VIS.FEGU ---
History of Present Illness Chief Complaint: Complaint Informant: Patient Narrative: Patient presenting for evaluation secondary to flank pain. Patient reports that she has had right-sided flank pain over the course of about the last 4 days. Patient states that she had a kidney stone in the distant past, this feels somewhat similar but that pain was worse. Patient reports she is having urinary symptoms associated with this. Associated with dysuria and difficulty emptying as well as a burning type sensation. She denies any blood. She denies any fevers. She does have some mild nausea associated with this. Review of systems otherwise negative. Past Medical History - Allergies and Home Meds Allergies/Adverse Reactions: Allergies Penicillins Allergy (Verified 09/13/20 11:27) Hives tramadol Adverse Reaction (Verified 09/13/20 11:27) Itching Primary Care Physician: Isra Waldrop MD [Primary Care Provider] - Prior records reviewed: Yes Past Medical History: - - Past history of kidney stones Surgical History: cholecystectomy, - - D&C, LEEP procedure Smoking Status: Current every day smoker Alcohol: None Drugs: None Review of Systems All systems negative except as indicated General: Denies: Chills, Fever, Sweats Eyes: Denies: Visual changes - bilaterally, Diplopia ENT: Denies: Rhinorrhea, Sore throat Cardiovascular: Denies: Chest pain, Palpitations Respiratory: Denies: Dyspnea, Cough, Dyspnea on exertion Gastrointestinal: Denies: Abdominal pain, Nausea, Vomiting, Diarrhea, Melena, Hematochezia Genitourinary: Reports: Dysuria, - - Flank pain Musculoskeletal: Denies: Back pain, Extremity Pain Skin: Denies: Rash, Wounds Neurological: Denies: Headache, Weakness, Numbness Physical Exam Vital Signs/Narrative: Vital Signs Temp Pulse Resp BP Pulse Ox 09/13/20 11:25 97.4 F L 102 H 18 115/78 97 Inital Vital Signs reviewed: Yes General: Well nourished, Well developed Head: Normocephalic, Atraumatic Eyes: Perrl, EOMI ENT: Moist mucous membranes, No rhinorrhea Neck: Supple, Nontender Cardiovascular: Regular rate, Regular rhythm, No murmurs Respiratory: No distress, CTA bilaterally, Chest nontender Abdomen: Soft, Nontender, Nondistended, Normal bowel sounds, - - Right CVA tenderness to percussion no evidence of overlying vesicular rash : Speculum exam: Normal external genitalia, No vaginal lesions, No vaginal discharge, No blood in vault, No active bleeding Bimanual exam: No cervical motion tenderness, Os closed, Normal size uterus, Nontender uterus Back: Nontender, Normal Inspection Extremities: Nontender, No edema Skin: Normal color, No rash Neurological: Alert, Oriented x3, Cranial nerves II-XII grossly intact, Normal Strength, Normal Sensation Psychological: Normal affect Diagnostic/Tx/Re-eval Clinical Impression(s) from Imaging Studies Abdomen/Pelvis CT 09/13/20 11:38 IMPRESSION: Stable nonobstructive right intrarenal calculi. 2.8 cm x 3.2 cm cyst in the left ovary. Status post cholecystectomy. Electronically Signed: Norman Vance MD at 13:02 EST , Service support , Laboratory Data 09/13/20 09/13/20 09/13/20 12:15 12:15 12:15 WBC 7.2 RBC 4.37 Hgb 13.8 Hct 41.4 MCV 94.7 MCH 31.6 MCHC 33.3 RDW Std Deviation 42.0 RDW Coeff of Kemar 11.9 Plt Count 276 MPV 9.9 Immature Gran % (Auto) 0.300 Neut % (Auto) 56.4 Lymph % (Auto) 29.0 [place] % (Auto) 8.8 Eos % (Auto) 4.8 Baso % (Auto) 0.7 Absolute Neuts (auto) 4.0 Absolute Lymphs (auto) 2.07 Nucleated RBC % 0 Sodium 140 Potassium 4.4 Chloride 108 H Carbon Dioxide 28.0 Anion Gap 4 L BUN 12 Creatinine 0.83 Estim Creat Clear Calc 68.41 Est GFR (MDRD) Af Amer 95 Est GFR (MDRD) Non-Af 79 BUN/Creatinine Ratio 14.4 Glucose 100 Calcium 8.7 Urine Color Yellow Urine Clarity Cloudy Urine pH 7.0 Ur Specific Perkins 1.015 Urine Protein Negative Urine Glucose (UA) Normal Urine Ketones Negative Urine Occult Blood Negative Urine Nitrite Negative Urine Bilirubin Negative Urine Urobilinogen Normal Ur Leukocyte Esterase 25 H Urine RBC 0 SEEN Urine WBC 0-5 SEEN Ur Squamous Epith Cells 25-50 SEEN Urine Bacteria 2+ Urine Mucus 0 SEEN Urine Trichomonas 0-5 SEEN - Medical Decision/Diagnostic Studies Patient presented with flank pain. Patient was given Toradol for treatment of her symptoms, she was given IV fluid and Zofran. CBC chemistry unremarkable. Urinalysis albeit contaminated does show some bacteria. CT does not show obstructive uropathy or acute process. Does show a intrarenal renal stone. Given the patient's symptomatology, I will treat her for the possibility of urinary tract infection. Patient be given Keflex and Pyridium. She is instructed to follow-up with primary care. She understands signs and symptoms which to return. ED Disposition - Plan for ED Patient: Disposition: Home or Assisted Living Diagnosis: Flank pain, UTI (urinary tract infection) Instructions: ED Urinary Tract Infections in Women Prescriptions: Cephalexin [Keflex] 500 mg PO Q12 #14 cap Prescription Printed Phenazopyridine HCl [Pyridium] 200 mg PO BID PRN PRN #10 tab PRN Reason: Pain Prescription Printed Referrals: Isra Waldrop MD [Primary Care Provider] - 3-5 Days
[2020-09-13] MEDS: Cephalexin 250 MG Capsule 500 MG PO (14:02)
[2020-09-13] MEDS: Phenazopyridine 95 MG Tablet 190 MG PO (14:03)
[2020-09-13 14:08] VITALS: BP 114/82; PULSE 76
== END 2020-09-13 14:08 | disposition home or self-care (01) ==
PROVIDERS: Emergency Provider Emergency Medicine; PCP Family Medicine
DX: N39.0 Urinary tract infection, site not specified (principal); N20.0 Calculus of kidney; F17.200 Nicotine dependence, unspecified, uncomplicated; Z79.899 Other long term (current) drug therapy; Z87.442 Personal history of urinary calculi
CPT/HCPCS: 74176; 80048; 81001; 85025; 96361; 96374; 96375; 99284; J7030; A4216; J2405

== ENCOUNTER 2020-11-28 11:15 | Emergency (ER) | payer MEDICARE, MEDICAID, SELFPAY ==
[2020-11-28] VITALS (7 sets, daily range): BP systolic 113–146; BP diastolic 76–98; PULSE 84–97; RESP 20–35; TEMP 35.9–36.9; O2SAT 97–100; BMI 32.2
--- NOTE | 2020-11-28 11:48 | EKG12_ITS ---
Test Reason : CP/SOB Blood Pressure : / mmHG Vent. Rate : 088 BPM Atrial Rate : 088 BPM P-R Int : 118 ms QRS Dur : 084 ms QT Int : 372 ms P-R-T Axes : 036 065 025 degrees QTc Int : 450 ms Normal sinus rhythm Nonspecific ST and T wave abnormality Abnormal ECG Confirmed by CHUCK VILLA, ROBLES ([id number]), assistant film editor CHUCKY ALVARADO ([id number]) on 12/01/2020 7:51:19 AM Referred By: TEVIN/LARISSA Confirmed By:ROBLES WOODS MD
--- NOTE | 2020-11-28 11:48 | ED.DCSUM_ITS ---
History of Present Illness Chief Complaint: Shortness of Breath Informant: Patient Narrative: 44-year-old female presenting with shortness of breath for the past 3 days. She states she has had a mild cough that is nonproductive. She denies fever, chills, body aches, change in taste or smell. She has not been vaccinated for COVID-19. Patient states that she does smoke cigarettes. She has not had to be hospitalized for COPD in the past. No previous intubation as well. Patient states that she has tightness across her chest which it feels like a COPD exacerbation. She has had this tightness constantly for 48 hours. - Past Medical History (1) COPD (chronic obstructive pulmonary disease) Status: Chronic (2) Depression Status: Chronic (3) Fibromyalgia Status: Chronic (4) SLE (systemic lupus erythematosus) Status: Chronic Past Medical History - Allergies and Home Meds Allergies/Adverse Reactions: Allergies Penicillins Allergy (Verified 09/13/20 11:27) Hives tramadol Adverse Reaction (Verified 09/13/20 11:27) Itching Primary Care Physician: Isra Waldrop MD [Primary Care Provider] - Prior records reviewed: Yes Past Medical History: - - Reviewed in problem list Surgical History: cholecystectomy, - - D&C, LEEP procedure Lives: Alone Smoking Status: Current every day smoker Alcohol: Rare Drugs: None Review of Systems General: Denies: Chills, Fever, Sweats Eyes: Denies: Visual changes - bilaterally, Diplopia ENT: Denies: Rhinorrhea, Sore throat Cardiovascular: Reports: Chest pain. Denies: Palpitations, Heart racing Respiratory: Reports: Dyspnea, Cough. Denies: Sputum Gastrointestinal: Denies: Abdominal pain, Nausea, Vomiting, Diarrhea, Melena, Hematochezia Genitourinary: Denies: Dysuria, Hematuria, Frequency Musculoskeletal: Denies: Back pain, Extremity Pain Skin: Denies: Rash, Wounds Neurological: Denies: Headache, Weakness, Numbness Psych: Denies: Depression, Anxiety Endocrine: Denies: Polyuria, Polydipsia Physical Exam Vital Signs/Narrative: Vital Signs Temp Pulse Resp BP Pulse Ox 11/28/20 11:28 98.4 F 87 31 H 136/92 H 99 11/28/20 11:16 96.7 F L 97 22 H 128/89 H 98 Inital Vital Signs reviewed: Yes General: Obese, No Acute Distress Head: Normocephalic, Atraumatic Eyes: Perrl, EOMI ENT: Moist mucous membranes, No rhinorrhea Cardiovascular: Regular rate, Regular rhythm Respiratory: Wheezing, - - Tachypneic however patient is not using accessory muscles. She is a not in respiratory distress. Extremities: Nontender, No edema Skin: Normal color, No rash Neurological: Alert, Oriented x3, Cranial nerves II-XII grossly intact Psychological: Normal affect, Normal Mood Diagnostic/Tx/Re-eval Clinical Impression(s) from Imaging Studies Chest X-Ray 11/28/20 11:48 IMPRESSION: Normal x-ray examination of the chest. Electronically Signed: Wyatt Sterling MD at 12:50 EDT , Service support , Laboratory Data 11/28/20 11/28/20 11/28/20 11:40 11:40 11:40 WBC 10.1 RBC 4.67 Hgb 14.5 Hct 41.4 MCV 88.7 MCH 31.0 MCHC 35.0 RDW Std Deviation 39.2 RDW Coeff of Kemar 12.2 Plt Count 389 MPV 9.2 Immature Gran % (Auto) 0.400 Neut % (Auto) 58.1 Lymph % (Auto) 30.3 [place] % (Auto) 8.4 Eos % (Auto) 2.3 Baso % (Auto) 0.5 Absolute Neuts (auto) 5.9 Absolute Lymphs (auto) 3.07 Nucleated RBC % 0 D-Dimer Quant (PE/DVT) 0.40 Sodium 137 Potassium 3.1 L Chloride 107 Carbon Dioxide 19.0 L Anion Gap 11 BUN 10 Creatinine 1.00 Estim Creat Clear Calc 56.78 Est GFR (MDRD) Af Amer 77 Est GFR (MDRD) Non-Af 64 BUN/Creatinine Ratio 10.0 Glucose 121 H Calcium 9.0 Total Bilirubin 1.30 H AST 21 ALT 36 Alkaline Phosphatase 80 Troponin I < 0.015 Total Protein 7.6 Albumin 3.5 Globulin 4.1 Albumin/Globulin Ratio 0.9 - Medical Decision Making 44-year-old female presenting with shortness of breath and chest tightness which is consistent with her previous COPD. She is not requiring oxygen. She is wheezing on initial examination. Patient states her chest tightness has been constant for 2 days. EKG performed on arrival and interpreted by myself shows a sinus rhythm at [address] changes. Patient's chest x-ray is interpreted by myself shows no acute cardiopulmonary process. Radiology does agree. Lab work is unremarkable with exception of some mild hypokalemia. Troponin is negative. Given that she has had 2 constant days of tightness and a negative troponin I do not believe she needs a delta troponin. D-dimer is negative. Potassium was replaced with 40 mEq of same citrate. Patient reevaluated and feels well enough to be discharged home. To be started on a prednisone burst. She states she has an albuterol inhaler. She is given return precautions. Impression: 1. COPD exacerbation 2. Chest tightness ED Disposition - Plan for ED Patient: Disposition: Home or Assisted Living Instructions: ED COPD Flare Prescriptions: predniSONE tablet 60 mg PO DAILY #15 tab Transmission Status: Received by MD [employer] #[id number] Referrals: Isra Waldrop MD [Primary Care Provider] -
--- NOTE | 2020-11-28 11:48 | RAD_ITS ---
STUDY: X-RAY CHEST REASON FOR EXAM: Female, 44 years old. sob TECHNIQUE: Single AP portable view of the chest. COMPARISON: 05/29/2020. FINDINGS: The lungs are clear and expanded. There is no demonstrated pleural abnormality. Normal size heart. Normal mediastinum and geneva. Normal visualized pulmonary arteries. Normal visualized aortic arch and descending thoracic aorta. Normal visualized thoracic spine. Normal visualized ribs, clavicles, and shoulders. There is no demonstrated abnormality of the visualized soft tissue structures of the upper abdomen. RAD/Chest 1 View (Portable) IMPRESSION: Normal x-ray examination of the chest. Electronically Signed: Wyatt Sterling MD at 12:50 EDT , Service support ,
[2020-11-28 11:56] LABS: Absolute Lymphocyte Count 3.07 X10^3/uL (0.83-4.51); Absolute Neutrophil Count 5.9 X10^3/uL (2.0-7.7); Basophil# 0.05 X10^3/uL; Basophil% 0.5 % (0-1); Eosinophil# 0.23 X10^3/uL; Eosinophils% 2.3 % (0-5); Hematocrit 41.4 % (37-47); Hemoglobin 14.5 g/dL (12.0-15.0); Lymphocyte # 3.07 X10^3/ul (4.0); Lymphocyte % 30.3 % (19-41); Mean Corpuscular Volume 88.7 fL (81-99); Mean Platelet Vol. 9.2 fl (6.2-12.0); Monocyte# 0.85 X10^3/uL; Monocyte% 8.4 % (0-10); NRBC Flagged by Analyzer 0 % (0-5); Neutrophil % 58.1 % (47-70); Platelet Count 389 K/mm3 (150-450); RBC Distribution Width CV 12.2 % (11.6-14.6); RBC Distribution Width SD 39.2 fl (35.1-43.9); Red Blood Count 4.67 M/mm3 (4.2-5.4); White Blood Count 10.1 K/mm3 (4.4-11.0)
[2020-11-28] MEDS: Ipratropium/Albuterol Sulfate 3 ML AMPUL.NEB INHALATION (12:02)
[2020-11-28] MEDS: Albuterol 2.5 MG/3 ML VIAL.NEB. INHALATION (12:02)
[2020-11-28] MEDS: MethylPREDNISolone 125 MG/2 ML Vial IV (12:08)
[2020-11-28 12:10] LABS: ALB/GLOB Ratio 0.9 RATIO (0.9-2.4); AST(SGOT) 21 U/L (15-37); Alanine Aminotransfer ALT/SGPT 36 U/L (13-56); Albumin, Serum 3.5 g/dL (3.2-5.0); Alkaline Phosphatase 80 U/L (45-117); Anion Gap 11 (5-15); BUN 10 mg/dL (7-18); Chloride 107 mmol/L (98-107); EST Glomerular Filtration Rate 64 mL/min (>60); Est Glom Filt Rate - Afr Amer 77 mL/min (>60); Estimated Creatinine Clearance 56.78 ml/min; Globulin 4.1 g/dL (2.2-4.2); Glucose 121 mg/dL (74-106); Potassium 3.1 mmol/L (3.5-5.1); Protein, Total 7.6 g/dL (6.4-8.2); Sodium Level 137 mmol/L (136-145)
[2020-11-28] MEDS: Potassium Chloride Oral Tablet 20 MEQ 40 MEQ PO (13:12)
--- NOTE | 2020-11-28 13:25 | ED.RN ---
THIS NURSE REVIEWED D/C INSTRUCTIONS WITH PT. PT VERBALIZED UNDERSTANDING OF INSTRUCTIONS. IV D/C. IV CATHETER INTACT. PT TOLERATED WELL. PT DENIES FURTHER NEEDS OR QUESTIONS AT THIS TIME.
== END 2020-11-28 13:26 | disposition home or self-care (01) ==
PROVIDERS: Emergency Provider Student in an Organized Health Care Education/Training Program; PCP Family Medicine
DX: J44.1 Chronic obstructive pulmonary disease with (acute) exacerbation (principal); E87.6 Hypokalemia; M32.9 Systemic lupus erythematosus, unspecified; M79.7 Fibromyalgia; F32.9 Major depressive disorder, single episode, unspecified; F17.210 Nicotine dependence, cigarettes, uncomplicated; E66.9 Obesity, unspecified; Z79.899 Other long term (current) drug therapy
CPT/HCPCS: 71045; 80053; 84484; 85025; 85379; 87426; 93005; 94640; 96374; 99251; 99285; A4216; G0463

== ENCOUNTER 2021-05-27 13:51 | Emergency (ER) | payer MEDICARE, MEDICAID, SELFPAY ==
[2021-05-27 13:53] VITALS: BP 118/90; PULSE 93; RESP 40; TEMP 36.4; O2SAT 95; BMI 37.1
--- NOTE | 2021-05-27 14:02 | EKG12_ITS ---
Test Reason : CHEST PIN Blood Pressure : / mmHG Vent. Rate : 097 BPM Atrial Rate : 097 BPM P-R Int : 120 ms QRS Dur : 088 ms QT Int : 388 ms P-R-T Axes : 046 054 001 degrees QTc Int : 492 ms Sinus rhythm with Fusion complexes Abnormal ECG Confirmed by CHUCK VILLA, ROBLES ([id number]), primer expeditor and drier AMBROSIO BANDA ([id number]) on 06/07/2021 10:20:02 AM Referred By: JOSEPHINE Confirmed By:ROBLES WOODS MD
--- NOTE | 2021-05-27 14:22 | EKG12_ITS ---
Test Reason : CHEST PIN Blood Pressure : / mmHG Vent. Rate : 071 BPM Atrial Rate : 071 BPM P-R Int : 112 ms QRS Dur : 090 ms QT Int : 392 ms P-R-T Axes : 027 062 014 degrees QTc Int : 425 ms Normal sinus rhythm with sinus arrhythmia Nonspecific ST abnormality Abnormal ECG Confirmed by IRIS VILLA, JELANI ([id number]), newspaper editor managing AMBROSIO BANDA ([id number]) on 05/30/2021 1:11:15 PM Referred By: JOSEPHINE Confirmed By:JELANI SIMMONS MD
--- NOTE | 2021-05-27 14:22 | RAD_ITS ---
STUDY: X-RAY CHEST REASON FOR EXAM: Female, 45 years old. Chest pain, cough and headaches. TECHNIQUE: Single AP portable view of the chest. COMPARISON: Comparison is made with prior study dated 11/28/2020. FINDINGS: Mild bibasilar patchy infiltrates. There is no demonstrated pleural abnormality. Normal size heart. Normal mediastinum and geneva. Normal visualized pulmonary arteries. Normal visualized aortic arch and descending thoracic aorta. Normal visualized thoracic spine. Normal visualized ribs, clavicles, and shoulders. There is no demonstrated abnormality of the visualized soft tissue structures of the upper abdomen. RAD/Chest 1 View (Portable) IMPRESSION: Mild bibasilar patchy infiltrates slightly worse on the left side. Electronically Signed: Norman Vance MD at 14:38 EDT , Service support ,
[2021-05-27 14:36] LABS: Absolute Lymphocyte Count 1.93 X10^3/uL (0.83-4.51); Absolute Neutrophil Count 10.3 X10^3/uL (2.0-7.7); Basophil# 0.05 X10^3/uL; Basophil% 0.4 % (0-1); Eosinophil# 0.21 X10^3/uL; Eosinophils% 1.6 % (0-5); Hematocrit 43.1 % (37-47); Hemoglobin 14.9 g/dL (12.0-15.0); Lymphocyte # 1.93 X10^3/ul (0.83-4.51); Lymphocyte % 14.7 % (19-41); Mean Corp Hgb Conc 34.6 g/dL (32-36); Mean Corpuscular Volume 89.6 fL (81-99); Mean Platelet Vol. 10.2 fl (6.2-12.0); Monocyte# 0.62 X10^3/uL; Monocyte% 4.7 % (0-10); NRBC Flagged by Analyzer 0 % (0-5); Neutrophil % 78.1 % (47-70); Platelet Count 350 K/mm3 (150-450); RBC Distribution Width CV 11.7 % (11.6-14.6); RBC Distribution Width SD 38.5 fl (35.1-43.9); Red Blood Count 4.81 M/mm3 (4.2-5.4); White Blood Count 13.2 K/mm3 (4.4-11.0)
[2021-05-27 14:48] LABS: Anion Gap 11 (5-15); BUN 7 mg/dL (7-18); BUN/Creat Ratio 7.3 RATIO (10-20); Calcium,Total 9.2 mg/dL (8.5-10.1); Chloride 105 mmol/L (98-107); Creatinine, Serum 0.96 mg/dL (0.55-1.02); EST Glomerular Filtration Rate 67 mL/min (>60); Est Glom Filt Rate - Afr Amer 81 mL/min (>60); Estimated Creatinine Clearance 58.53 ml/min; Glucose 120 mg/dL (74-106); Potassium 3.2 mmol/L (3.5-5.1); Sodium Level 137 mmol/L (136-145); Troponin-I HS 6 pg/mL (3.0-54.0)
== END 2021-05-27 15:50 | disposition left against medical advice (07) ==
LOC: ED 16:47
PROVIDERS: PCP Family Medicine
DX: R06.02 Shortness of breath (principal); Z20.822 Contact with and (suspected) exposure to COVID-19; Z53.21 Procedure and treatment not carried out due to patient leaving prior to being seen by health care provider
CPT/HCPCS: 71045; 80048; 84484; 85025; 87426; 93005

== ENCOUNTER 2021-08-30 01:30 | Emergency (ER) | payer MEDICARE, MEDICAID, SELFPAY ==
[2021-08-30 01:31] VITALS: BP 105/80; PULSE 74; RESP 16; TEMP 36.8; O2SAT 86; BMI 36.4
[2021-08-30 01:36] VITALS: O2SAT 97
[2021-08-30 01:40] VITALS: O2SAT 97
--- NOTE | 2021-08-30 02:24 | EDS_ITS ---
HPI History of Present Illness Chief Complaint: Fall Narrative Narrative: Patient is a 45-year-old female who states that 2 days ago she stood up from bed and was reaching towards the desk where a phone was ringing. She states she lost her balance and fell and struck the right side of her face/head on a chair as she fell. She denies any loss of conscious or blood thinner use. She states that she has been feeling normal without headache or change in vision. She denies any nausea or vomiting associated with this. She states that the area is bruised and swollen and family was concerned and therefore told her to go to the hospital to be checked out [facility] Medical History (Updated 08/30/21 @ 02:[address] Garrett Kumar DO) Continuous tobacco abuse COPD (chronic obstructive pulmonary disease) Depression Fibromyalgia Hiatal hernia Shortness of breath SLE (systemic lupus erythematosus) Home Medications albuterol sulfate 1 - 2 puff INHALATION Q4H PRN PRN #1 inhaler 05/29/20 [Rx Last Taken Unknown] omeprazole 1 cap PO DAILY #30 capsule. 05/29/20 [Rx Last Taken Unknown] prazosin [Minipress] 1 mg PO QHS 05/29/20 [History Last Taken Unknown] risperidone 1 tab PO BID 05/29/20 [History Last Taken Unknown] trazodone 100 mg PO PRN PRN 05/29/20 [History Last Taken Unknown] Allergy/AdvReac Type Severity Reaction Status Date / Time Penicillins Allergy Hives Verified 08/30/21 01:37 Family History Father Bipolar 1 disorder Rheumatoid arthritis Heart disease Alcohol abuse Cancer Lung and liver Colon cancer Hyperlipidemia Mother Rheumatoid arthritis Sister Cancer Ovarian Rheumatoid arthritis Surgical History (Updated 12/18/18 @ 17:[address] Ellen Shukla, ALEXANDRU) History of carpal tunnel surgery of right wrist History of cholecystectomy History of dilatation and curettage History of LEEP (loop electrosurgical excision procedure) of cervix complicating History of right oophorectomy History of tubal ligation Social History (Updated 11/29/17 @ 13:[address] Jaxson Bui DO) Smoking Status: Current every day smoker tobacco type: cigarettes Tobacco: How many years used: 17 second hand exposure: Yes alcohol intake: never substance use type: does not use caffeine: Yes what type of physical activity do you participate in: none ROS ROS ED Constitutional Constitutional ED: Denies chills or fever(s) Eyes Eyes: Denies change in vision ENT ENT ED: Denies sore throat Cardiovascular Cardiovascular: Denies chest pain Respiratory/Chest Respiratory/Chest: Denies cough or dyspnea Gastrointestinal Gastrointestinal: Denies abdominal pain, diarrhea, nausea or vomiting Genitourinary Genitourinary ED: Denies dysuria Musculoskeletal Musculoskeletal: Denies back pain, myalgias or neck pain Integumentary Reports other Details: Positive bruising ; Denies rash Neurologic Neurologic: Denies headache(s) Hematologic/Lymphatic Hematologic/Lymphatic: Denies easy bleeding or easy bruising EXAM Physical Exam Const Vital Signs: 08/30/21 01:31 08/30/21 01:36 08/30/21 01:40 Temperature 98.2 F Temperature Source Temporal Pulse Rate 74 Respiratory Rate 16 Respiratory Effort Normal Respiratory Depth Normal Respiratory Pattern Normal Blood Pressure 105/80 Blood Pressure Mean 88 Pulse Ox 86 97 97 Oxygen Delivery Method Room Air Nasal Cannula Nasal Cannula Oxygen Flow Rate (L/min) 2 Positive well nourished and well developed General Appearance ED: well developed HEENT Reports moist mucous membranes HEENT Narrative: No signs of depressed or basilar skull fracture. Patient does have soft tissue swelling with ecchymosis towards the right frontal portion of the scalp consistent with her report of fall but otherwise no signs of underlying skull injury. No septal hematoma Eyes PERRL and EOMs intact bilaterally Eyes Narrative: No hyphema Neck supple Neck Narrative: No bony deformity or step-off of the cervical spine no midline pain with palpation Chest Wall palpation of chest normal Resp normal respiratory effort and clear to auscultation bilaterally Cardio regular rate and regular rhythm GI normal to inspection, nondistended, normoactive bowel sounds, non-tender, non- distended and no masses Auscultation: normoactive bowel sounds Palpation: soft Back/Spine Back/Spine Narrative: No form or step-off of the thoracic or lumbar spine no midline pain Extremity normal to inspection Neuro oriented x3 and CN's II-XII intact bilaterally Sensorium / Orientation: alert Motor Exam: strength 5/5 throughout Psych mental status grossly normal Skin Skin Narrative: Soft tissue swelling with ecchymosis and hematoma to the right frontal portion of the scalp as documented above MDM MDM MDM Narrative Medical decision making narrative: Patient presented to the ER 2 days out from her trauma. She reported mechanical fall and therefore I felt no need for cardiac or syncope work-up. She has no signs of depressed or basilar skull fracture and denies any blood thinner use or bleeding disorder. We discussed a head and cervical spine CT because of her trauma but as patient does not have any pain and has full active range of motion of her neck she does not want these obtained. She states that as I have low concern for underlying head injury at this is good enough for her and she wishes to be discharged and therefore this will be done at this time. Discharge Plan Triage Chief Complaint: Fall ED Provider: Garrett Kumar Dx/Rx/DC Orders Clinical Impression: Closed head injury, Contusion of face Instructions: ED Facial Contusion, ED Head Injury (Adult) Prescriptions: No Action risperidone 4 mg tablet 1 tab PO BID RF: 0 prazosin [Minipress] 1 MG capsule 1 mg PO QHS RF: 0 trazodone 100 MG tablet 100 mg PO PRN PRN (Reason: Sleep) RF: 0 albuterol sulfate 1 INHALER inhaler 1 - 2 puff inhalation Q4H PRN PRN (Reason: Wheezing) Qty: 1 RF: 0 omeprazole 40 MG capsule,delayed release(DR/EC) 1 cap PO DAILY Qty: 30 RF: 0 Primary Care Provider: Isra Waldrop Referrals: Isra Waldrop MD [Primary Care Provider] - Disposition Disposition: Home, Self Care Discharge Date/Time: 08/30/21 02:37
[2021-08-30 02:36] VITALS: RESP 16
== END 2021-08-30 02:37 | disposition home or self-care (01) ==
PROVIDERS: Emergency Provider Emergency Medicine; PCP Family Medicine; Visit Provider Emergency Medicine
DX: S00.83XA Contusion of other part of head, initial encounter (principal); M32.9 Systemic lupus erythematosus, unspecified; J44.9 Chronic obstructive pulmonary disease, unspecified; W01.190A Fall on same level from slipping, tripping and stumbling with subsequent striking against furniture, initial encounter; Y93.9 Activity, unspecified; Y92.9 Unspecified place or not applicable; Y99.9 Unspecified external cause status; M79.7 Fibromyalgia; F17.210 Nicotine dependence, cigarettes, uncomplicated
CPT/HCPCS: 99284; A4216

== ENCOUNTER → 2022-01-12 | Outpatient (CLI) | payer MEDICARE, MEDICAID, SELFPAY | END | disposition home or self-care (01) | PROVIDERS: PCP Family Medicine; Visit Provider Psychiatry & Neurology Sleep Medicine | DX: G47.00 Insomnia, unspecified (principal); G25.81 Restless legs syndrome; G47.33 Obstructive sleep apnea (adult) (pediatric) | CPT/HCPCS: 95810 ==

== ENCOUNTER 2022-05-02 08:57 | Inpatient (IN) | payer MEDICARE, MEDICAID, SELFPAY ==
[2022-05-02] VITALS (9 sets, daily range): BP systolic 100–141; BP diastolic 57–93; PULSE 54–88; RESP 18–30; TEMP 35.6–36.8; O2SAT 92–100; BMI 34.0; BMI 31.7
--- NOTE | 2022-05-02 09:06 | EKG12_ITS ---
Test Reason : SOB Blood Pressure : / mmHG Vent. Rate : 066 BPM Atrial Rate : 066 BPM P-R Int : 126 ms QRS Dur : 088 ms QT Int : 418 ms P-R-T Axes : 035 047 027 degrees QTc Int : 438 ms Normal sinus rhythm Normal ECG Confirmed by CHUCK VILLA, ROBLES ([id number]), editor sound AMBROSIO BANDA ([id number]) on 05/03/2022 11:17:47 AM Referred By: JUAN CARLOS Confirmed By:ROBLES WOODS MD
--- NOTE | 2022-05-02 09:06 | RAD_ITS ---
STUDY: X-RAY CHEST REASON FOR EXAM: Female, 46 years old. Dyspnea concern for pulmonary embolus TECHNIQUE: Single AP portable view of the chest. COMPARISON: None. FINDINGS: Patchy groundglass opacities in both lungs more prominent in the perihilar regions, suggesting pulmonary edema. There is no demonstrated pleural abnormality. Normal size heart. Normal mediastinum and geneva. Normal visualized pulmonary arteries. Normal visualized aortic arch and descending thoracic aorta. Normal visualized thoracic spine. Normal visualized ribs, clavicles, and shoulders. There is no demonstrated abnormality of the visualized soft tissue structures of the upper abdomen. RAD/Chest PA and Lateral IMPRESSION: Patchy groundglass opacities in both lungs more prominent in the perihilar regions, suggesting pulmonary edema. Electronically Signed: Meg Farris MD at 10:33 EDT ,
--- NOTE | 2022-05-02 09:08 | EDS_ITS ---
HPI History of Present Illness Chief Complaint: Shortness of Breath Detail of Chief Complaint: Shortness of breath, patient for me she has a history of COPD Informant: patient Onset/Context/Timing Onset: Days Context: sudden Timing: Continuous Quality: Positive for Dyspnea on exertion; Negative for Orthopnea, PND or Wheezing Current Severity: Moderate Maximum Severity: Severe Worsened by: Exertion Relieved by: Nothing Associated Symptoms cough; Negative for rhinorrhea, post nasal drip, ear pain, fever, sore throat, subjective, chills, sweats, clear sputum, white sputum, yellow sputum, green sputum or other Chest Pain: Positive for None Narrative Narrative: Patient is a 46-year-old woman with history of COPD, systemic lupus erythematosus, fibromyalgia who presents with abrupt onset of shortness of breath that started this past weekend. She states she has been using her inhaler more frequently with no benefit. She denies history of PE or DVT. She does complain of mild discomfort left calf. She denies risk factors for pulmonary embolus or DVT. She denies fever, chills night sweats. She denies rhinorrhea, congestion postnasal drainage. She denies sore throat. She denies chest discomfort. She denies nausea, vomiting diarrhea. She denies urologic symptoms. She denies paresthesia in her extremities or perioral paresthesia. PE Risk Factors: Negative for Cancer, OCP + Smoking + > 35, Prior DVT or PE, Recent immobilization, Recent surgery or Recent travel Prior similar symptoms: Yes (COPD) Recent Illness/Hospitalization: No PFSH PFSH Medical History Continuous tobacco abuse COPD (chronic obstructive pulmonary disease) Depression Fibromyalgia Hiatal hernia Shortness of breath SLE (systemic lupus erythematosus) Home Medications albuterol sulfate 90 mcg/actuation aerosol inhaler 1 - 2 puff inhalation Q4H PRN PRN Wheezing ##1 05/29/20 [Rx Last Taken Unknown] omeprazole 40 mg capsule,delayed release 1 cap PO DAILY ##30 05/29/20 [Rx Last Taken Unknown] prazosin 1 mg capsule (Minipress) 1 mg PO QHS 05/29/20 [History Last Taken Unknown] risperidone 4 mg tablet 1 tab PO DAILY Check with primary doctor 05/29/20 [History Last Taken Unknown] trazodone 100 mg tablet 100 mg PO PRN PRN Sleep 05/29/20 [History Last Taken Unknown] carbamazepine 200 mg tablet 400 mg PO DAILY Check with primary doctor 05/02/22 [History Last Taken 05/01/22 20:00] fluticasone furoate 200 mcg-vilanterol 25 mcg/dose inhalation powder (Breo Ellipta) inhalation Check with primary doctor 05/02/22 [History Last Taken Unknown] gabapentin 600 mg tablet 600 mg PO TID Check with primary doctor 05/02/22 [History Last Taken Unknown] gabapentin 600 mg tablet (Neurontin) 600 mg PO QHS Check with primary doctor 05/02/22 [History Last Taken Unknown] levofloxacin 750 mg tablet 750 mg PO DAILY #5 tabs 05/04/22 [Rx Last Taken Unknown] prednisone 20 mg tablet 40 mg PO DAILY #10 tabs 05/04/22 [Rx Last Taken Unknown] Allergy/AdvReac Type Severity Reaction Status Date / Time Penicillins Allergy Hives Verified 05/02/22 09:02 morphine AdvReac Rash Verified 05/02/22 09:02 Family History Father Bipolar 1 disorder Rheumatoid arthritis Heart disease Alcohol abuse Cancer Lung and liver Colon cancer Hyperlipidemia Mother Rheumatoid arthritis Sister Cancer Ovarian Rheumatoid arthritis Surgical History History of carpal tunnel surgery of right wrist History of cholecystectomy History of dilatation and curettage History of LEEP (loop electrosurgical excision procedure) of cervix complicating History of right oophorectomy History of tubal ligation Social History household members: none Smoking Status: Current every day smoker tobacco type: cigarettes Tobacco: How many years used: 17 second hand exposure: Yes alcohol intake: never substance use type: does not use caffeine: Yes what type of physical activity do you participate in: none ROS ROS ED Constitutional Constitutional ED: Denies chills, fever(s), sweats or weight loss Eyes Eyes: Denies blurry vision, change in vision or diplopia ENT ENT ED: Denies ear pain, rhinorrhea or sore throat Cardiovascular Cardiovascular: Reports palpitations and racing heartbeat; Denies chest pain, orthopnea or paroxysmal nocturnal dyspnea Respiratory/Chest Respiratory/Chest: Reports cough and dyspnea on exertion; Denies dyspnea, orthopnea, paroxysmal nocturnal dyspnea or sputum Gastrointestinal Gastrointestinal: Denies abdominal pain, constipation, diarrhea, melena, nausea or vomiting Genitourinary Genitourinary ED: Denies dysuria, hematuria or urinary frequency Musculoskeletal Musculoskeletal: Denies arthralgias, back pain, myalgias or neck pain Integumentary Denies abscess, Abrasions or rash Neurologic Neurologic: Denies headache(s), paresthesias or weakness Psychiatric Psychiatric: Reports anxiety Endocrine Endocrinology: Denies cold intolerance or heat intolerance Hematologic/Lymphatic Hematologic/Lymphatic: Denies easy bleeding, easy bruising or lymphadenopathy EXAM Physical Exam Const Vital Signs: 05/02/22 08:58 05/02/22 09:48 05/02/22 10:28 Temperature 96.0 F L Temperature Source Temporal Pulse Rate 88 59 L Respiratory Rate 30 H 20 H Respiratory Effort Short of Breath Respiratory Pattern Tachypnea Blood Pressure 113/81 H 117/78 Blood Pressure Mean 91 91 Pulse Ox 96 97 Oxygen Delivery Method Room Air Room Air Room Air Positive well nourished and well developed Constitutional Narrative: Patient is tachypneic and appears slightly anxious even though she denies she does not feel anxious. General Appearance ED: well developed; Negative for pallor HEENT Reports moist mucous membranes HEENT Narrative: Ears normal. Nares patent. No nasal discharge. Uvula midline. No deviation tongue or protrusion. No erythema or exudate the posterior pharynx. atraumatic Eyes PERRL and EOMs intact bilaterally General Eye ED: Negative for pale conjunctiva or scleral icterus Neck no lymphadenopathy, supple, no meningeal signs and no JVD Resp No normal respiratory effort and clear to auscultation bilaterally Resp Narrative: Patient is tachypneic. There may be slight use of accessory muscles. There is fair to good air movement bilaterally. Auscultation: Negative for rales, rhonchi, wheezes or diminished lung sounds Cardio regular rate, regular rhythm, S1 normal heart sound, S2 normal heart sound and no murmurs GI non-tender, non-distended and no masses Auscultation: normoactive bowel sounds Palpation: soft Back/Spine no CVA tenderness and normal to inspection General Back: Negative for tenderness Extremity normal to inspection Extremity Narrative: There is tenderness posterior left calf. There is no leg vein distention, palpable cords or tenderness along the distribution of the deep venous system. There is no asymmetry. There is no discoloration of the leg. Neuro oriented x3, CN's II-XII intact bilaterally and no sensory deficits noted [place] Coma Scale: document GCS findings Spontaneous Obeys Commands Oriented 15 Sensorium / Orientation: alert, oriented to person, oriented to place and oriented to time Psych mental status grossly normal Skin no wounds and skin turgor normal General Skin Exam: Negative for jaundice or pallor Lesions: no lesions Rashes: no rashes MDM MDM MDM Narrative Medical decision making narrative: With abrupt onset of shortness of breath and a COPD patient with no wheezing rales or rhonchi concern is patient may have a pulmonary embolus. D-dimer was ordered. EKG was obtained to rule out cardiac ischemia. Clinically patient does not have any findings to suggest congestive heart failure. Chest x-ray is obtained to rule out pneumonia even though breath sounds were normal and more importantly pneumothorax. Since there is no rhonchi or wheezing aerosols were not ordered. Troponin and BNP are both negative. This would go against pulmonary edema. Patient's chest x-ray is consistent with bilateral multilobar pneumonia. Lab Data Attestation: I reviewed the patient's lab results. Labs: Laboratory Results - last 24 hr 05/02/22 05/02/22 05/02/22 09:40 09:40 09:40 WBC 10.5 RBC 4.48 Hgb 14.4 Hct 41.4 MCV 92.4 MCH 32.1 H MCHC 34.8 RDW Std Deviation 40.2 RDW Coeff of Kemar 11.9 Plt Count 309 MPV 9.7 Immature Gran % (Auto) 0.500 Neut % (Auto) 69.2 Lymph % (Auto) 17.5 L [place] % (Auto) 6.9 Eos % (Auto) 5.4 H Baso % (Auto) 0.5 Absolute Neuts (auto) 7.3 Absolute Lymphs (auto) 1.84 Nucleated RBC % 0 D-Dimer Quant (PE/DVT) 0.41 Sodium 141 Potassium 4.2 Chloride 110 H Carbon Dioxide 25.0 Anion Gap 6 BUN 8 Creatinine 0.81 Estim Creat Clear Calc 65.49 Est GFR (MDRD) Af Amer 98 Est GFR (MDRD) Non-Af 81 BUN/Creatinine Ratio 9.9 L Glucose 109 H Lactic Acid Calcium 9.5 Troponin I High Sens B-Natriuretic Peptide 05/02/22 05/02/22 05/02/22 10:55 11:15 11:15 WBC RBC Hgb Hct MCV MCH MCHC RDW Std Deviation RDW Coeff of Kemar Plt Count MPV Immature Gran % (Auto) Neut % (Auto) Lymph % (Auto) [place] % (Auto) Eos % (Auto) Baso % (Auto) Absolute Neuts (auto) Absolute Lymphs (auto) Nucleated RBC % D-Dimer Quant (PE/DVT) Sodium Potassium Chloride Carbon Dioxide Anion Gap BUN Creatinine Estim Creat Clear Calc Est GFR (MDRD) Af Amer Est GFR (MDRD) Non-Af BUN/Creatinine Ratio Glucose Lactic Acid 1.0 Calcium Troponin I High Sens 4 B-Natriuretic Peptide 15.9 Radiography Chest X-Ray - ED: 2 View and Read by ED Physician (Independently reviewed and interpreted by me as bilateral multilobar interstitial pneumonia. Will obtain lactate, blood cultures and treat with levofloxacin since she has allergy to penicillin. Also will obtain COVID test. Would anticipate neutropenia and elevated white count if she had COVID inf) Diagnostic Testing: Clinical Impression(s) from Imaging Studies Chest X-Ray 05/02/22 09:06 IMPRESSION: Patchy groundglass opacities in both lungs more prominent in the perihilar regions, suggesting pulmonary edema. Electronically Signed: Meg Farris MD at 10:33 EDT , The radiology report was read. With no history of coronary disease, and no orthopnea or PND and an absolute normal EKG with symptoms doubt cardiac ischemia or CHF. Because of the abrupt onset of the shortness of breath and history of COPD #1 concern was pulm embolus. D-dimer is normal. Furthermore, patient has no rales rhonchi or wheezing on auscultation. However, because radiologist raises concern for pulmonary edema will obtain cardiac markers. EKG Initial EKG: Attestation: I personally reviewed and interpreted this EKG as follows: Interpretation: Sinus Rhythm (Ventricular rate is 66 and the EKG is normal. VA interval is 126 ms. QS duration 88 ms. QT duration per 118 ms. [place] is normal.) Discharge Plan Dx/Rx/DC Orders Clinical Impression: Multilobar lung infiltrate, Acute dyspnea, History of COPD Disposition Disposition: Acute Care [facility]
[2022-05-02 09:52] LABS: Absolute Lymphocyte Count 1.84 X10^3/uL (0.83-4.51); Absolute Neutrophil Count 7.3 X10^3/uL (2.0-7.7); Basophil# 0.05 X10^3/uL; Basophil% 0.5 % (0-1); Eosinophil# 0.57 X10^3/uL; Eosinophils% 5.4 % (0-5); Hematocrit 41.4 % (37-47); Hemoglobin 14.4 g/dL (12.0-15.0); Lymphocyte # 1.84 X10^3/ul (0.83-4.51); Lymphocyte % 17.5 % (19-41); Mean Corp Hgb Conc 34.8 g/dL (32-36); Mean Corpuscular Hgb 32.1 pg (27.0-32.0); Mean Corpuscular Volume 92.4 fL (81-99); Mean Platelet Vol. 9.7 fl (6.2-12.0); Monocyte# 0.72 X10^3/uL; Monocyte% 6.9 % (0-10); NRBC Flagged by Analyzer 0 % (0-5); Neutrophil # 7.27 X10^3/uL (2.7-7.7); Neutrophil % 69.2 % (47-70); Platelet Count 309 K/mm3 (150-450); RBC Distribution Width CV 11.9 % (11.6-14.6); RBC Distribution Width SD 40.2 fl (35.1-43.9); Red Blood Count 4.48 M/mm3 (4.2-5.4); White Blood Count 10.5 K/mm3 (4.4-11.0)
[2022-05-02] MEDS: 0.9% Normal Saline 1,000 ML 150 ML IV (09:57)
[2022-05-02 10:01] LABS: D-Dimer Quantitative (DVT/PE) 0.41 FEU/ug/m (0.27-0.49)
[2022-05-02 10:02] LABS: Anion Gap 6 (5-15); BUN 8 mg/dL (7-18); BUN/Creat Ratio 9.9 RATIO (10-20); Calcium,Total 9.5 mg/dL (8.5-10.1); Chloride 110 mmol/L (98-107); Creatinine, Serum 0.81 mg/dL (0.55-1.02); EST Glomerular Filtration Rate 81 mL/min (>60); Est Glom Filt Rate - Afr Amer 98 mL/min (>60); Estimated Creatinine Clearance 65.49 ml/min; Glucose 109 mg/dL (74-106); Potassium 4.2 mmol/L (3.5-5.1); Sodium Level 141 mmol/L (136-145)
[2022-05-02] MEDS: levoFLOXacin IV 750 MG/150 ML BAG 100 MG IV (11:25)
[2022-05-02 11:38] LABS: Troponin-I HS 4 pg/mL (3.0-54.0)
[2022-05-02 11:48] LABS: BNP,B-Type NATRIURETIC PEPTIDE 15.9 pg/mL (0-100)
--- NOTE | 2022-05-02 12:31 | HP.PCM.HOS_ITS ---
HPI - General General Date of Admission: 05/02/22 Date of Service: 05/02/22 Chief Complaint: Shortness of breath HPI Narrative MEREDITH LYNCH, is a 46 F with past medical history single for COPD who continues to smoke presents to the hospital with shortness of breath. Patient symptoms started 5 days prior to her admission. She has noticed increasing shortness of breath with minimal activity. She also did experience wheezing. Denied any subjective fever no chills. In view of worsening symptoms presented to the emergency department checks x-ray did demonstrate features consistent with atypical pneumonia. Patient was started on antibiotics admitted to regular nursing floor for further management [facility] Medical History Continuous tobacco abuse COPD (chronic obstructive pulmonary disease) Depression Fibromyalgia Hiatal hernia Shortness of breath SLE (systemic lupus erythematosus) Home Medications albuterol sulfate 90 mcg/actuation aerosol inhaler 1 - 2 puff inhalation Q4H PRN PRN Wheezing ##1 05/29/20 [Rx Last Taken Unknown] omeprazole 40 mg capsule,delayed release 1 cap PO DAILY ##30 05/29/20 [Rx Last Taken Unknown] prazosin 1 mg capsule (Minipress) 1 mg PO QHS 05/29/20 [History Last Taken Unknown] risperidone 4 mg tablet 1 tab PO BID 05/29/20 [History Last Taken Unknown] trazodone 100 mg tablet 100 mg PO PRN PRN Sleep 05/29/20 [History Last Taken Unknown] Allergy/AdvReac Type Severity Reaction Status Date / Time Penicillins Allergy Hives Verified 05/02/22 09:02 morphine AdvReac Rash Verified 05/02/22 09:02 Family History Father Bipolar 1 disorder Rheumatoid arthritis Heart disease Alcohol abuse Cancer Lung and liver Colon cancer Hyperlipidemia Mother Rheumatoid arthritis Sister Cancer Ovarian Rheumatoid arthritis Surgical History History of carpal tunnel surgery of right wrist History of cholecystectomy History of dilatation and curettage History of LEEP (loop electrosurgical excision procedure) of cervix complicating History of right oophorectomy History of tubal ligation Social History household members: none Smoking Status: Current every day smoker tobacco type: cigarettes Tobacco: How many years used: 17 second hand exposure: Yes alcohol intake: never substance use type: does not use caffeine: Yes what type of physical activity do you participate in: none ROS ROS Narrative GENERAL: denies fever, chills, night sweats, HEENT: denies headache, sinus congestion, RESPIRATORY: cough, shortness of breath, dyspnea on exertion CARDIAC: denies chest pain, palpitations, orthopnea, PND GASTROINTESTINAL: denies abdominal pain, nausea, vomiting, GENITOURINARY: denies dysuria, urgency, frequency, heamaturia EXTREMITY: denies swelling MUSCULOSKELETAL: denies current joint pain or tenderness NEUROLOGIC: denies focal numbness, weakness, tingling HEMATOLOGIC: denies easy bruising and/or hemorrhage INTEGUMENT: denies rashes PSYCHIATRIC: denies suicidal or homicidal ideation Vital Signs Vital Signs Vital Signs: 05/02/22 08:58 05/02/22 09:48 05/02/22 10:28 Temperature 96.0 F L Temperature Source Temporal Pulse Rate 88 59 L Respiratory Rate 30 H 20 H Respiratory Effort Short of Breath Respiratory Pattern Tachypnea Blood Pressure 113/81 H 117/78 Blood Pressure Mean 91 91 Pulse Ox 96 97 Oxygen Delivery Method Room Air Room Air Room Air Weight Weight: 81.647 kg Body Mass Index (BMI) 34.0 Physical Exam Narrative GENERAL: Dyspneic at rest tachypneic HEENT: Atraumatic; EYES; Anicteric, Normal Conjunctiva NECK; supple, normal thyroid, RESPIRATORY: Diminished to auscultation CARDIOVASCULAR: Regular S1 S2, GI: soft, normoactive bowel sounds, : No Renal angle tenderness; EXTREMITIES: No edema, no clubbing, MUSCULOSKELETAL: no muscle wasting NEURO: Awake; no lateralizing signs. SKIN: No Rash PSYCH; Flat affect Results Lab / Micro Data Result Diagrams: 05/02/22 09:40 05/02/22 09:40 Labs: Laboratory Results - last 24 hr 05/02/22 09:40: WBC 10.5, RBC 4.48, Hgb 14.4, Hct 41.4, MCV 92.4, MCH 32.1 H, MC HC 34.8, RDW Std Deviation 40.2, RDW Coeff of Kemar 11.9, Plt Count 309, MPV 9.7, Immature Gran % (Auto) 0.500, Neut % (Auto) 69.2, Lymph % (Auto) 17.5 L, [place] % (Auto) 6.9, Eos % (Auto) 5.4 H, Baso % (Auto) 0.5, Absolute Neuts (auto) 7.3, Absolute Lymphs (auto) 1.84, Nucleated RBC % 0 05/02/22 09:40: D-Dimer Quant (PE/DVT) 0.41 05/02/22 09:40: Sodium 141, Potassium 4.2, Chloride 110 H, Carbon Dioxide 25.0, Anion Gap 6, BUN 8, Creatinine 0.81, Estim Creat Clear Calc 65.49, Est GFR ( MDRD) Af Amer 98, Est GFR (MDRD) Non-Af 81, BUN/Creatinine Ratio 9.9 L, Glucose 109 H, Calcium 9.5 05/02/22 10:55: Lactic Acid 1.0 05/02/22 11:15: Troponin I High Sens 4 05/02/22 11:15: B-Natriuretic Peptide 15.9 Micro: Microbiology 05/02/22 10:55 Nasal Secretion SARS-CoV-2 Antigen (Rapid) - Final Radiology Impression Chest X-Ray 05/02/22 09:06 IMPRESSION: Patchy groundglass opacities in both lungs more prominent in the perihilar regions, suggesting pulmonary edema. Electronically Signed: Meg Farris MD at 10:33 EDT Reading Location ID and State: [facility] / [place] Tel , Service support , Assessment & Plan Assessment/Plan (1) Acute dyspnea: PLAN: Plan Patient is a 46-year-old lady presented with progressive shortness of breath 1. Acute hypoxia ? Secondary to combination of pneumonia and COPD with acute exacerbation admitted to regular nursing floor with treatment of underlying condition 2. Pneumonia - Suspected to be secondary to streptococcal pneumonia, Patient placed on Levaquin as well as oxygen titrated to keep Pulse Ox greater than 90. As part of patient's management COVID 19 assay was ordered which came back negative. Also did send for urine antigen for Legionella and streptococcal pneumonia. We will follow-up on results when antibiotics are adjusted if needed 3. COPD with acute exacerbation ? Patient managed with bronchodilator treatments in addition to systemic steroids 4. Fibromyalgia ? Symptomatic treatment 5. Tobacco dependence - Counseled on cessation, offered nicotine patch for tobacco cravings 6. Hernia with GERD ? Patient is on PPI did continue 7. SLE ? Per history currently not on any systemic treatment 8. Depression with anxiety ? Patient is on risperidone and trazodone as needed 9. DVT prophylaxis ? SC Lovenox Charges/Coding Visit Charges Inpatient E&M: 27259 Init Hosp L3
--- NOTE | 2022-05-02 12:58 | NURSING ---
MED SURG KITTOE BILATERAL PNEUMONIA
[2022-05-02] MEDS: BENZOCAINE/MENTHOL 1 LOZENGE MUCOUS MEM (14:49)
[2022-05-02] MEDS: 0.9% Saline Lock 10 ML Syringe IV ×2 (14:49→22:10)
[2022-05-02] MEDS: Gabapentin 600 MG Tablet PO ×2 (16:52→22:09)
[2022-05-02] MEDS: carBAMazepine 200 MG Tablet 400 MG PO (22:09)
[2022-05-03 03:02] VITALS: BP 120/69; PULSE 48; RESP 20; TEMP 36.5; O2SAT 98
[2022-05-03] MEDS: Mag Hydrox/Al Hydrox/Simeth 30 ML UDC PO (06:05)
[2022-05-03] MEDS: 0.9% Saline Lock 10 ML Syringe IV ×3 (06:05→20:20)
[2022-05-03 06:28] LABS: Absolute Lymphocyte Count 1.19 X10^3/uL (0.83-4.51); Absolute Neutrophil Count 13.7 X10^3/uL (2.0-7.7); Basophil# 0.02 X10^3/uL; Basophil% 0.1 % (0-1); Eosinophil# 0.01 X10^3/uL; Eosinophils% 0.1 % (0-5); Hematocrit 40.8 % (37-47); Hemoglobin 13.7 g/dL (12.0-15.0); Lymphocyte # 1.19 X10^3/ul (0.83-4.51); Lymphocyte % 7.7 % (19-41); Mean Corp Hgb Conc 33.6 g/dL (32-36); Mean Corpuscular Hgb 31.4 pg (27.0-32.0); Mean Corpuscular Volume 93.4 fL (81-99); Mean Platelet Vol. 10.3 fl (6.2-12.0); Monocyte# 0.44 X10^3/uL; Monocyte% 2.8 % (0-10); NRBC Flagged by Analyzer 0 % (0-5); Neutrophil # 13.67 X10^3/uL (2.7-7.7); Neutrophil % 88.6 % (47-70); Platelet Count 359 K/mm3 (150-450); RBC Distribution Width CV 11.8 % (11.6-14.6); RBC Distribution Width SD 40.2 fl (35.1-43.9); Red Blood Count 4.37 M/mm3 (4.2-5.4); White Blood Count 15.4 K/mm3 (4.4-11.0)
[2022-05-03 07:04] LABS: Anion Gap 8 (5-15); BUN 10 mg/dL (7-18); BUN/Creat Ratio 13.1 RATIO (10-20); Calcium,Total 8.8 mg/dL (8.5-10.1); Chloride 110 mmol/L (98-107); Creatinine, Serum 0.76 mg/dL (0.55-1.02); EST Glomerular Filtration Rate 86 mL/min (>60); Est Glom Filt Rate - Afr Amer 105 mL/min (>60); Estimated Creatinine Clearance 73.15 ml/min; Glucose 184 mg/dL (74-106); Potassium 3.7 mmol/L (3.5-5.1); Sodium Level 140 mmol/L (136-145)
--- NOTE | 2022-05-03 07:34 | PCM.PN.HOSP ---
Subjective Subjective Patient is a 46-year-old lady presented with progressive shortness of breath. An assessment of Acute hypoxia Secondary to combination of pneumonia and COPD with acute exacerbation admitted to regular nursing floor Patient has been weaned off oxygen, WBC count however trending up Objective Data Objective Data Vital Signs: Vital Signs Temp Pulse Resp BP Pulse Ox O2 Del Method 97.7 F L 48 L 20 H 120/69 98 Room Air 05/03/22 03:02 05/03/22 03:02 05/03/22 03:02 05/03/22 03:02 05/03/22 03:02 05/03/22 03:10 Oxygen Delivery Method Room Air Weight: 78.789 kg Body Mass Index (BMI) 31.7 Intake & Output: Intake and Output for Last 24 Hours 05/01/22 05/02/22 05/03/22 23:59 23:59 23:59 Intake Total 1999 500 / 500 Output Total 150 / 150 Balance 1999 350 / 350 Lab / Micro Data Result Diagrams: 05/03/22 05:35 05/03/22 05:35 Labs: Laboratory Results - last 24 hr 05/02/22 09:40: WBC 10.5, RBC 4.48, Hgb 14.4, Hct 41.4, MCV 92.4, MCH 32.1 H, MCHC 34.8, RDW Std Deviation 40.2, RDW Coeff of Kemar 11.9, Plt Count 309, MPV 9.7, Immature Gran % (Auto) 0.500, Neut % (Auto) 69.2, Lymph % (Auto) 17.5 L, [place] % (Auto) 6.9, Eos % (Auto) 5.4 H, Baso % (Auto) 0.5, Absolute Neuts (auto) 7.3, Absolute Lymphs (auto) 1.84, Nucleated RBC % 0 05/02/22 09:40: D-Dimer Quant (PE/DVT) 0.41 05/02/22 09:40: Sodium 141, Potassium 4.2, Chloride 110 H, Carbon Dioxide 25.0, Anion Gap 6, BUN 8, Creatinine 0.81, Estim Creat Clear Calc 65.49, Est GFR (MDRD) Af Amer 98, Est GFR (MDRD) Non-Af 81, BUN/Creatinine Ratio 9.9 L, Glucose 109 H, Calcium 9.5 05/02/22 10:55: Lactic Acid 1.0 05/02/22 11:15: Troponin I High Sens 4 05/02/22 11:15: B-Natriuretic Peptide 15.9 05/03/22 05:35: WBC 15.4 H, RBC 4.37, Hgb 13.7, Hct 40.8, MCV 93.4, MCH 31.4, MCHC 33.6, RDW Std Deviation 40.2, RDW Coeff of Kemar 11.8, Plt Count 359, MPV 10.3, Immature Gran % (Auto) 0.700, Neut % (Auto) 88.6 H, Lymph % (Auto) 7.7 L, [place] % (Auto) 2.8, Eos % (Auto) 0.1, Baso % (Auto) 0.1, Absolute Neuts (auto) 13.7 H, Absolute Lymphs (auto) 1.19, Nucleated RBC % 0 05/03/22 05:35: Sodium 140, Potassium 3.7, Chloride 110 H, Carbon Dioxide 22.0, Anion Gap 8, BUN 10, Creatinine 0.76, Estim Creat Clear Calc 73.15, Est GFR (MDRD) Af Amer 105, Est GFR (MDRD) Non-Af 86, BUN/Creatinine Ratio 13.1, Glucose 184 H, Calcium 8.8 Micro: Microbiology 05/03/22 03:00 Urine, Clean Catch Legionella Antigen - Final 05/03/22 03:00 Urine, Clean Catch Streptococcus pneumoniae Antigen (M - Final 05/02/22 10:55 Nasal Secretion SARS-CoV-2 Antigen (Rapid) - Final Radiography Diagnostic Testing: Radiology Impression Chest X-Ray 05/02/22 09:06 IMPRESSION: Patchy groundglass opacities in both lungs more prominent in the perihilar regions, suggesting pulmonary edema. Electronically Signed: Meg Farris MD at 10:33 EDT , Physical Exam Narrative GENERAL: Dyspneic at rest tachypneic HEENT: Atraumatic; EYES; Anicteric, Normal Conjunctiva NECK; supple, normal thyroid, RESPIRATORY: Diminished to auscultation CARDIOVASCULAR: Regular S1 S2, GI: soft, normoactive bowel sounds, : No Renal angle tenderness; EXTREMITIES: No edema, no clubbing, MUSCULOSKELETAL: no muscle wasting NEURO: Awake; no lateralizing signs. SKIN: No Rash PSYCH; Flat affect Assessment & Plan Assessment/Plan (1) Acute dyspnea: PLAN: Plan Patient is a 46-year-old lady presented with progressive shortness of breath 1. Acute hypoxia ? Secondary to combination of pneumonia and COPD with acute exacerbation admitted to regular nursing floor with treatment of underlying condition ? 05/03/2022 patient has been weaned off oxygen 2. Pneumonia - Suspected to be secondary to streptococcal pneumonia, Patient placed on Levaquin as well as oxygen titrated to keep Pulse Ox greater than 90. As part of patient's management COVID 19 assay was ordered which came back negative. Also did send for urine antigen for Legionella and streptococcal pneumonia. We will follow-up on results when antibiotics are adjusted if needed 3. COPD with acute exacerbation ? Patient managed with bronchodilator treatments in addition to systemic steroids 4. Fibromyalgia ? Symptomatic treatment 5. Tobacco dependence - Counseled on cessation, offered nicotine patch for tobacco cravings 6. Hernia with GERD ? Patient is on PPI did continue 7. SLE ? Per history currently not on any systemic treatment 8. Depression with anxiety ? Patient is on risperidone and trazodone as needed 9. DVT prophylaxis ? JAMIR Lovenox Charges/Coding Visit Charges Inpatient E&M: 80071 Subs Hosp L2
[2022-05-03 08:49] LABS: Hemoglobin A1c 5.2 % (3.8-5.6)
[2022-05-03] MEDS: Gabapentin 600 MG Tablet PO ×4 (08:50→20:21)
[2022-05-03] MEDS: Enoxaparin 40 MG/0.4 ML Syringe SC (08:53)
[2022-05-03] MEDS: levoFLOXacin IV 750 MG/150 ML BAG 100 MG IV (08:53)
[2022-05-03] MEDS: RisperiDONE 2 MG Tablet 4 MG PO (08:54)
[2022-05-03] MEDS: Pantoprazole Sodium 40 MG Tablet PO (08:54)
[2022-05-03 08:58] VITALS: BP 127/88; PULSE 51; RESP 18; TEMP 37.2; O2SAT 98
--- NOTE | 2022-05-03 10:15 | CASEMGMT ---
RN PHIL Face to Face with patient for initial transition planning/care coordination assessment. RN CM introduced self and role at [facility]. Patient lying in bed, alert and oriented. Patient willing to participate in assessment and is able to answer all questions appropriately. Care providers, pharmacy, and demographics verified. Patient wishes to discharge home, denies need for home health at this time. Patient states she has no further needs or concerns at this time. CM to follow for discharge planning needs that may arise. 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 Patient states she is independent at home. Transportation: self, mother, children DME/HHC: Patient states she has nebulizer at home. Patient may benefit of pulse ox at discharge. Will monitor for home oxygen, no preferences on DME. No previous HHC. Disposition Plan: Patient to discharge home with family support and follow-up plans in place. Will monitor for home oxygen at discharge. Iris GORDON, RN, CM
[2022-05-03 14:20] VITALS: BP 105/87; PULSE 59; RESP 18; TEMP 36.8; O2SAT 98
[2022-05-03 20:11] VITALS: BP 109/78; PULSE 76; RESP 24; TEMP 36.3; O2SAT 97
[2022-05-03] MEDS: Senna/Docusate Sodium 1 Tablet 2 TABLET PO (20:21)
[2022-05-03] MEDS: carBAMazepine 200 MG Tablet 400 MG PO (20:21)
[2022-05-03] MEDS: Doxazosin 1 MG Tablet PO (20:21)
[2022-05-04 02:10] VITALS: BP 116/80; PULSE 59; RESP 18; TEMP 36.6; O2SAT 97
[2022-05-04] MEDS: Mag Hydrox/Al Hydrox/Simeth 30 ML UDC PO (02:19)
[2022-05-04] MEDS: MELATONIN 3 MG TABLET PO (02:19)
[2022-05-04 06:00] LABS: Absolute Lymphocyte Count 2.76 X10^3/uL (0.83-4.51); Absolute Neutrophil Count 16.1 X10^3/uL (2.0-7.7); Basophil# 0.04 X10^3/uL; Basophil% 0.2 % (0-1); Eosinophil# 0.02 X10^3/uL; Eosinophils% 0.1 % (0-5); Hematocrit 39.6 % (37-47); Hemoglobin 13.1 g/dL (12.0-15.0); Lymphocyte # 2.76 X10^3/ul (0.83-4.51); Lymphocyte % 13.7 % (19-41); Mean Corp Hgb Conc 33.1 g/dL (32-36); Mean Corpuscular Hgb 30.9 pg (27.0-32.0); Mean Corpuscular Volume 93.4 fL (81-99); Mean Platelet Vol. 10.2 fl (6.2-12.0); Monocyte# 0.99 X10^3/uL; Monocyte% 4.9 % (0-10); NRBC Flagged by Analyzer 0 % (0-5); Neutrophil # 16.11 X10^3/uL (2.7-7.7); Neutrophil % 80.2 % (47-70); Platelet Count 368 K/mm3 (150-450); RBC Distribution Width CV 11.9 % (11.6-14.6); RBC Distribution Width SD 40.6 fl (35.1-43.9); Red Blood Count 4.24 M/mm3 (4.2-5.4); White Blood Count 20.1 K/mm3 (4.4-11.0)
[2022-05-04] MEDS: 0.9% Saline Lock 10 ML Syringe IV (06:12)
[2022-05-04 08:25] VITALS: BP 133/79; PULSE 57; RESP 18; TEMP 37.1; O2SAT 97
[2022-05-04] MEDS: Pantoprazole Sodium 40 MG Tablet PO (08:28)
[2022-05-04] MEDS: RisperiDONE 2 MG Tablet 4 MG PO (08:29)
[2022-05-04] MEDS: Gabapentin 600 MG Tablet PO (08:31)
--- NOTE | 2022-05-04 08:54 | DS.PCM_ITS ---
Providers Date of Admission: 05/02/22 Date of Discharge: 05/04/22 Primary Care Physician: Dr. Isra Waldrop MD Reason For Visit: PNEUMONIA Diagnosis Discharge Diagnosis (1) Acute dyspnea: Status: Acute Code(s): R06.00 - Dyspnea, unspecified Plan Patient is a 46-year-old lady presented with progressive shortness of breath 1. Acute hypoxia ? Secondary to combination of pneumonia and COPD with acute exacerbation admitted to regular nursing floor with treatment of underlying condition ? 05/03/2022 patient has been weaned off oxygen -05/04/2022 patient stable will be assessed for possible discharge 2. Pneumonia - Suspected to be secondary to streptococcal pneumonia, Patient placed on Levaquin as well as oxygen titrated to keep Pulse Ox greater than 90. As part of patient's management COVID 19 assay was ordered which came back negative. Also did send for urine antigen for Legionella and streptococcal pneumonia. We will follow-up on results when antibiotics are adjusted if needed 3. COPD with acute exacerbation ? Patient managed with bronchodilator treatments in addition to systemic s teroids 4. Fibromyalgia ? Symptomatic treatment 5. Tobacco dependence - Counseled on cessation, offered nicotine patch for tobacco cravings 6. Hernia with GERD ? Patient is on PPI did continue 7. SLE ? Per history currently not on any systemic treatment 8. Depression with anxiety ? Patient is on risperidone and trazodone as needed 9. DVT prophylaxis ? SC Lovenox Medications at Discharge Home Medications albuterol sulfate 90 mcg/actuation aerosol inhaler 1 - 2 puff inhalation Q4H PRN PRN Wheezing ##1 05/29/20 omeprazole 40 mg capsule,delayed release 1 cap PO DAILY ##30 05/29/20 prazosin 1 mg capsule (Minipress) 1 mg PO QHS 05/29/20 risperidone 4 mg tablet 1 tab PO DAILY Check with primary doctor 05/29/20 trazodone 100 mg tablet 100 mg PO PRN PRN Sleep 05/29/20 carbamazepine 200 mg tablet 400 mg PO DAILY Check with primary doctor 05/02/22 fluticasone furoate 200 mcg-vilanterol 25 mcg/dose inhalation powder (Breo Ellipta) inhalation Check with primary doctor 05/02/22 gabapentin 600 mg tablet 600 mg PO TID Check with primary doctor 05/02/22 gabapentin 600 mg tablet (Neurontin) 600 mg PO QHS Check with primary doctor 05/02/22 levofloxacin 750 mg tablet 750 mg PO DAILY #5 tabs 05/04/22 prednisone 20 mg tablet 40 mg PO DAILY #10 tabs 05/04/22 Hospital Course Summary of Care Provided Minutes Spent on Discharge: 35 Physical Exam Narrative GENERAL: Cooperative HEENT: Atraumatic; EYES; Anicteric, Normal Conjunctiva NECK; supple, normal thyroid, RESPIRATORY: Diminished to auscultation CARDIOVASCULAR: Regular S1 S2, GI: soft, normoactive bowel sounds, : No Renal angle tenderness; EXTREMITIES: No edema, no clubbing, MUSCULOSKELETAL: no muscle wasting NEURO: Awake; no lateralizing signs. SKIN: No Rash PSYCH; Flat affect Weight / BMI Weight Weight: 78.789 kg Body Mass Index (BMI) 31.7 ABG / Lab / Microbiology Data Result Diagrams: 05/04/22 05:25 05/03/22 05:35 Laboratory: Laboratory Results - last 24 hr 05/04/22 05:25: WBC 20.1 H, RBC 4.24, Hgb 13.1, Hct 39.6, MCV 93.4, MCH 30.9, MCHC 33.1, RDW Std Deviation 40.6, RDW Coeff of Kemar 11.9, Plt Count 368, MPV 10.2, Immature Gran % (Auto) 0.900, Neut % (Auto) 80.2 H, Lymph % (Auto) 13.7 L, [place] % (Auto) 4.9, Eos % (Auto) 0.1, Baso % (Auto) 0.2, Absolute Neuts (auto) 16.1 H, Absolute Lymphs (auto) 2.76, Nucleated RBC % 0 Microbiology: Microbiology 05/02/22 11:00 Blood Culture (Wb) - Left Hand Blood Culture - Preliminary No growth in 48 hours. 05/02/22 10:55 Blood Culture (Wb) - Anticubital Left Blood Culture - Preliminary No growth in 48 hours. 05/03/22 03:00 Urine, Clean Catch Legionella Antigen - Final 05/03/22 03:00 Urine, Clean Catch Streptococcus pneumoniae Antigen (M - Final 05/02/22 10:55 Nasal Secretion SARS-CoV-2 Antigen (Rapid) - Final D/C Instructions Discharge Diet: No restrictions Discharge Activity: Return to Normal Activity Call your doctor if you observe: Fever of 101 or Higher, Shortness of breath, Fainting spells and Chest pain Meaningful Use Info Meaningful Use Diagnoses (Choose all that apply): None applicable Discharge Plan Admission Admit Date/Time: 05/02/22 12:20 Attending Provider: Preston Mccauley Primary Care Provider: Isra Waldrop Instructions Forms: Work / School Excuse Discharge Orders/Prescriptions Prescriptions: New levofloxacin 750 mg tablet 750 mg PO DAILY Qty: 5 0RF prednisone 20 mg tablet 40 mg PO DAILY Qty: 10 0RF Continued risperidone 4 mg tablet 1 tab PO DAILY Label Comments: TAKE 1 TABLET EVERY DAY AT BEDTIME prazosin [Minipress] 1 MG capsule 1 mg PO QHS trazodone 100 MG tablet 100 mg PO PRN PRN (Reason: Sleep) albuterol sulfate 1 INHALER inhaler 1 - 2 puff inhalation Q4H PRN PRN (Reason: Wheezing) Qty: 1 0RF omeprazole 40 MG capsule,delayed release(DR/EC) 1 cap PO DAILY Qty: 30 0RF gabapentin 600 mg tablet 600 mg PO TID Label Comments: TAKE 1 TABLET BY MOUTH THREE TIMES DAILY FOR 90 DAYS, TAKE 1 TO 2 TABLETS AT BEDTIME NEEDED gabapentin [Neurontin] 600 mg tablet 600 mg PO QHS Label Comments: TAKE 1 TABLET BY MOUTH THREE TIMES DAILY FOR 90 DAYS, TAKE 1 TO 2 TABLETS AT BEDTIME NEEDED Rx Instructions: 600mg to 1200 mg carbamazepine 200 mg tablet 400 mg PO DAILY Label Comments: Take 2 Tablet By Oral Route Per at bedtime fluticasone furoate-vilanterol [Breo Ellipta] 200-25 mcg/dose blister with device INHALATION Label Comments: Inhale 1 Inhalation as instructed once daily. Referrals / Follow Up: Isra Waldrop MD [Primary Care Provider] - Within 1 Week Disposition Disposition (needs filled in before D/C Order can be placed): Home, Self Care Charges/Coding Visit Charges Inpatient E&M: 01523 Disch Hosp
--- NOTE | 2022-05-04 09:50 | CASEMGMT ---
Pt is on RA. No homegoing needs at this time.
== END 2022-05-04 10:36 | disposition home or self-care (01) | DRG 194 ==
LOC: ED 12:13 → MS3 13:07
PROVIDERS: Admitting Provider Internal Medicine; Emergency Provider Emergency Medicine; PCP Family Medicine; Visit Provider Internal Medicine
DX: J15.4 Pneumonia due to other streptococci (principal); J44.0 Chronic obstructive pulmonary disease with (acute) lower respiratory infection; J44.1 Chronic obstructive pulmonary disease with (acute) exacerbation; M32.9 Systemic lupus erythematosus, unspecified; R09.02 Hypoxemia; Z20.822 Contact with and (suspected) exposure to COVID-19; M79.7 Fibromyalgia; K21.9 Gastro-esophageal reflux disease without esophagitis; F32.A Depression, unspecified; F41.9 Anxiety disorder, unspecified; F17.210 Nicotine dependence, cigarettes, uncomplicated
CPT/HCPCS: 36415; 71046; 80048; 83036; 83605; 83880; 84484; 85025; 85379; 87040; 87449; 87811; 93005; 99251; 99285; 99406; J7030; A4216; G0463

== ENCOUNTER → 2022-05-22 | Outpatient (CLI) | payer MEDICARE, MEDICAID, SELFPAY | END | disposition home or self-care (01) | PROVIDERS: PCP Family Medicine; Referring Provider Psychiatry & Neurology Sleep Medicine; Visit Provider Psychiatry & Neurology Sleep Medicine | DX: G47.33 Obstructive sleep apnea (adult) (pediatric) (principal) | CPT/HCPCS: 95811 ==

== ENCOUNTER → 2022-07-03 | Outpatient (CLI) | payer MEDICARE, MEDICAID, SELFPAY | END | disposition home or self-care (01) | LOC: SL 10:50 | PROVIDERS: PCP Family Medicine; Visit Provider Psychiatry & Neurology Sleep Medicine | DX: Z46.89 Encounter for fitting and adjustment of other specified devices (principal) ==

== ENCOUNTER 2023-08-01 06:11 | Emergency (ER) | payer MEDICARE, SELFPAY ==
[2023-08-01 06:15] VITALS: BP 122/82; PULSE 72; RESP 26; TEMP 36.1; O2SAT 99; BMI 30.4
--- NOTE | 2023-08-01 06:33 | EX.ED.DYSGE1 ---
HPI History of Present Illness Chief Complaint: Shortness of Breath Informant: patient Narrative Narrative: Patient is a 47-year-old female with past medical history of COPD fibromyalgia and SLE. She states only medication she takes is gabapentin for the fibromyalgia and denies any other medications for her lupus. She states that she quit smoking roughly 1 month ago as well. She reports for the last 3 days she has had increased congestion and cough that has been slowly worsening and causing increased shortness of breath despite taking her home inhaler. She has concern for development of pneumonia once again as she has had this in the past and therefore comes in for evaluation. She denies any recent travel surgery or history of DVT/PE. [facility] Medical History Acute (undifferentiated) schizophrenia Continuous tobacco abuse COPD (chronic obstructive pulmonary disease) Depression Fibromyalgia Hiatal hernia Lupus Shortness of breath SLE (systemic lupus erythematosus) Home Medications albuterol sulfate 90 mcg/actuation aerosol inhaler 1 - 2 puff inhalation Q4H PRN PRN Wheezing ##1 05/29/20 [Rx Last Taken Unknown] omeprazole 40 mg capsule,delayed release 1 cap PO DAILY ##30 05/29/20 [Rx Last Taken Unknown] prazosin 1 mg capsule (Minipress) 1 mg PO QHS 05/29/20 [History Last Taken Unknown] risperidone 4 mg tablet 1 tab PO DAILY Check with primary doctor 05/29/20 [History Last Taken Unknown] trazodone 100 mg tablet 100 mg PO PRN PRN Sleep 05/29/20 [History Last Taken Unknown] carbamazepine 200 mg tablet 400 mg PO DAILY Check with primary doctor 05/02/22 [History Last Taken 05/01/22 20:00] fluticasone furoate 200 mcg-vilanterol 25 mcg/dose inhalation powder (Breo Ellipta) 1 inh inhalation DAILY Check with primary doctor 05/02/22 [History Last Taken Unknown] gabapentin 600 mg tablet 600 mg PO TID Check with primary doctor 05/02/22 [History Last Taken Unknown] gabapentin 600 mg tablet (Neurontin) 600 mg PO QHS Check with primary doctor 05/02/22 [History Last Taken Unknown] azithromycin 250 mg tablet See Rx Instructions PO .COMPLEX 10 days #12 tabs 08/01/23 [Rx Last Taken Unknown] doxycycline hyclate 100 mg capsule 100 mg PO BID 10 days #20 caps 08/01/23 [Rx Last Taken Unknown] ipratropium 0.5 mg-albuterol 3 mg (2.5 mg base)/3 mL nebulization soln 3 ml inhalation 4X/DAY PRN PRN shortness of breath or wheezing #180 mL 08/01/23 [Rx Last Taken Unknown] Allergy/AdvReac Type Severity Reaction Status Date / Time Penicillins Allergy Hives Verified 08/01/23 06:14 morphine AdvReac Rash Verified 08/01/23 06:14 Family History Father Bipolar 1 disorder Rheumatoid arthritis Heart disease Alcohol abuse Cancer Lung and liver Colon cancer Hyperlipidemia Mother Rheumatoid arthritis Sister Cancer Ovarian Rheumatoid arthritis Surgical History History of carpal tunnel surgery of right wrist History of cholecystectomy History of dilatation and curettage History of LEEP (loop electrosurgical excision procedure) of cervix complicating History of right oophorectomy History of tubal ligation Social History household members: none Smoking Status: Former smoker Tobacco: How many years used: 17 second hand exposure: Yes alcohol intake: never substance use type: does not use caffeine: Yes what type of physical activity do you participate in: none ROS ROS ED Constitutional Constitutional ED: Denies chills or fever(s) ENT ENT ED: Denies sore throat Cardiovascular Cardiovascular: Reports chest pain Respiratory/Chest Respiratory/Chest: Reports cough and dyspnea Gastrointestinal Gastrointestinal: Denies abdominal pain, diarrhea, nausea or vomiting Genitourinary Genitourinary ED: Denies dysuria Musculoskeletal Musculoskeletal: Reports myalgias Integumentary Denies rash Neurologic Neurologic: Denies headache(s) Hematologic/Lymphatic Hematologic/Lymphatic: Denies easy bleeding or easy bruising EXAM Physical Exam Const Vital Signs: 08/01/23 06:15 08/01/23 06:15 08/01/23 06:43 Temperature 96.9 F L Temperature Source Temporal Pulse Rate 72 59 L Respiratory Rate 26 H 18 Respiratory Effort Short of Breath Respiratory Pattern Tachypnea Normal Blood Pressure 122/82 H Blood Pressure Mean 95 Pulse Ox 99 Positive well nourished and well developed General Appearance ED: well developed; Negative for pallor HEENT Reports moist mucous membranes HEENT Narrative: No tongue or lip swelling No oral lesions or airway edema noted No signs of infection noted in the posterior pharynx Eyes PERRL and EOMs intact bilaterally Neck supple and no JVD Chest Wall Chest Narrative: There is reproducible pain on palpation of the anterior chest wall near the costal joints without bony deformity or crepitance Resp Resp Narrative: Patient is tachypneic and breath sounds are diminished throughout with faint rhonchi noted in bilateral lower lobes. Otherwise no nasal flaring or retractions or accessory muscle use Cardio regular rate and regular rhythm Rate: other Other Details: Heart is regular rate and rhythm without murmurs rubs or gallop Radial and carotid pulses are equal and symmetric GI normal to inspection, nondistended, normoactive bowel sounds, non-tender, non-distended and no masses GI Narrative: No voluntary guarding or rigidity No pulsatile mass or fluid wave Auscultation: normoactive bowel sounds Palpation: soft Extremity normal to inspection Extremity Narrative: No asymmetric edema no pitting edema negative Homans' sign bilaterally Neuro oriented x3, CN's II-XII intact bilaterally and no sensory deficits noted Sensorium / Orientation: alert Motor Exam: strength 5/5 throughout Psych mental status grossly normal Skin no rashes or lesions noted General Skin Exam: Negative for jaundice or pallor MDM MDM MDM Narrative Medical decision making narrative: Patient presented to the ER tachypneic but otherwise in no acute respiratory distress satting in the high to mid 90s on room air. She has previous history of COPD and smoking as well as previous pneumonia and with her immunosuppression from lupus there is concern for developing infection once again. As she also reported chest discomfort occurring after cough different diagnosis is for acute coronary syndrome versus pulmonary embolus versus pneumonia versus pneumothorax versus pleural effusion/congestive heart failure. Basic labs were ordered on with COVID and flu testing. Patient's chest x-ray did show hazy opacities concerning for infection versus pulmonary edema. However her vital signs do not suggest systemic infection/sepsis and therefore I do not feel there is need for reflexive blood cultures or lactic acid at this time. The patient's white count is not elevated she does not have signs of acute kidney injury her troponin is normal at 5 going against acute coronary syndrome. As the patient's chest x-ray suggest persistent residual pneumonia she will be treated with Rocephin and Zithromax by IV route in the ER. However at this time as she is not showing signs of acute coronary syndrome or sepsis and there is no need for supplemental oxygen I do not feel she needs to stay in the hospital and she will be discharged home on symptomatic medications History & Record Review Discussion w/independent historian: Patient Lab Data Attestation: I reviewed the patient's lab results. Labs: Laboratory Results - last 24 hr 08/01/23 06:54 WBC 10.0 RBC 4.53 Hgb 13.9 Hct 42.5 MCV 93.8 MCH 30.7 MCHC 32.7 RDW Std Deviation 40.3 RDW Coeff of Kemar 11.7 Plt Count 328 MPV 10.1 Immature Gran % (Auto) 0.300 Neut % (Auto) 57.8 Lymph % (Auto) 28.7 [place] % (Auto) 5.9 Eos % (Auto) 6.8 H Baso % (Auto) 0.5 Absolute Neuts (auto) 5.7 Absolute Lymphs (auto) 2.86 Nucleated RBC % 0 D-Dimer Quant (PE/DVT) 0.45 Sodium 139 Potassium 4.0 Chloride 108 H Carbon Dioxide 25.0 Anion Gap 6 BUN 7 Creatinine 0.85 Estim Creat Clear Calc 64.71 Est GFR (MDRD) Af Amer 93 Est GFR (MDRD) Non-Af 76 BUN/Creatinine Ratio 8.3 L Glucose 118 H Calcium 9.2 Magnesium 2.3 Troponin I High Sens 5 Radiography Diagnostic Testing: Clinical Impression(s) from Imaging Studies Chest X-Ray 08/01/23 06:35 IMPRESSION: Persistent mild diffuse interstitial thickening and coarsening with superimposed hazy airspace opacification, mildly decreased from May 02, 2022. Would consider underlying chronic interstitial lung disease as well as edema or recurrent or residual pneumonia. Consider high-resolution chest CT characterization. Electronically Signed: Toy Neumann MD at 7:15 EST , 2 view chest x-ray as interpreted by the emergency medicine physician reveals hazy opacities in the bilateral lower lobes concerning for developing infiltrate versus pulmonary edema Discharge Plan Triage Chief Complaint: Shortness of Breath ED Provider: Garrett Kumar Dx/Rx/DC Orders Clinical Impression: COPD (chronic obstructive pulmonary disease), Pneumonia, SLE (systemic lupus erythematosus), Fibromyalgia Instructions: COPD: Wheezing and Chest Tightness, ED Pneumonia (Adult) Prescriptions: New doxycycline hyclate 100 mg capsule 100 mg PO BID 10 Days Qty: 20 0RF azithromycin 250 mg tablet See Rx Instructions .ROUTE .COMPLEX 10 Days Qty: 12 0RF Rx Instructions: For 250 mg dose pack: take 500 mg today (day 1), then 250 mg for 4 days (days 2-5) ipratropium-albuterol 0.5 mg-3 mg(2.5 mg base)/3 mL solution for nebulization 3 ml inhalation 4X/DAY PRN PRN (Reason: shortness of breath or wheezing) Qty: 180 0RF No Action risperidone 4 mg tablet 1 tab PO DAILY Patient Comments: TAKE 1 TABLET EVERY DAY AT BEDTIME prazosin [Minipress] 1 MG capsule 1 mg PO QHS trazodone 100 MG tablet 100 mg PO PRN PRN (Reason: Sleep) albuterol sulfate 1 INHALER inhaler 1 - 2 puff inhalation Q4H PRN PRN (Reason: Wheezing) Qty: 1 0RF omeprazole 40 MG capsule,delayed release(DR/EC) 1 cap PO DAILY Qty: 30 0RF gabapentin 600 mg tablet 600 mg PO TID Patient Comments: TAKE 1 TABLET BY MOUTH THREE TIMES DAILY FOR 90 DAYS, TAKE 1 TO 2 TABLETS AT BEDTIME NEEDED gabapentin [Neurontin] 600 mg tablet 600 mg PO QHS Patient Comments: TAKE 1 TABLET BY MOUTH THREE TIMES DAILY FOR 90 DAYS, TAKE 1 TO 2 TABLETS AT BEDTIME NEEDED Rx Instructions: 600mg to 1200 mg carbamazepine 200 mg tablet 400 mg PO DAILY Patient Comments: Take 2 Tablet By Oral Route Per at bedtime fluticasone furoate-vilanterol [Breo Ellipta] 200-25 mcg/dose blister with device 1 inh INHALATION DAILY Patient Comments: Inhale 1 Inhalation as instructed once daily. Primary Care Provider: Isra Waldrop Referrals: Isra Waldrop MD [Primary Care Provider] - Activity Restrictions/Additional Instructions: Please take the doxycycline and azithromycin as directed to help resolve your pneumonia and use the DuoNeb nebulizer treatments to help with shortness of breath/wheeze. If you have worsening of symptoms or any further concerns please return to the ER for repeat evaluation Disposition Disposition: Home, Self Care
--- NOTE | 2023-08-01 06:35 | RAD_ITS ---
INDICATION: cough EXAMINATION/TECHNIQUE: X-RAY - XR Chest 2 Views COMPARISON: May 02, 2022. FINDINGS: LINES/DEVICES: None. LUNGS: Persistent patchy hazy airspace opacification in the superior and inferior perihilar regions with diffuse interstitial thickening and coarsening that is mildly decreased from May 02, 2022. No effusion. No pneumothorax. . MEDIASTINUM AND CARDIOVASCULAR STRUCTURES: Cardiac silhouette not enlarged. BONES AND SOFT TISSUES: Right upper quadrant surgical clips. RAD/Chest PA and Lateral IMPRESSION: Persistent mild diffuse interstitial thickening and coarsening with superimposed hazy airspace opacification, mildly decreased from May 02, 2022. Would consider underlying chronic interstitial lung disease as well as edema or recurrent or residual pneumonia. Consider high-resolution chest CT characterization. Electronically Signed: Toy Neumann MD at 7:15 EST ,
[2023-08-01] MEDS: Ipratropium/Albuterol Sulfate 3 ML AMPUL.NEB INHALATION (06:42)
[2023-08-01 06:43] VITALS: PULSE 59; RESP 18
[2023-08-01] MEDS: Orphenadrine 60 MG/2 ML Ampul IV (06:52)
[2023-08-01] MEDS: Ketorolac 30 MG/ML Syringe IV (06:52)
[2023-08-01 07:00] LABS: Absolute Lymphocyte Count 2.86 X10^3/uL (0.83-4.51); Absolute Neutrophil Count 5.7 X10^3/uL (2.0-7.7); Basophil# 0.05 X10^3/uL; Basophil% 0.5 % (0-1); Eosinophil# 0.68 X10^3/uL; Eosinophils% 6.8 % (0-5); Hematocrit 42.5 % (37-47); Hemoglobin 13.9 g/dL (12.0-15.0); Lymphocyte # 2.86 X10^3/ul (0.83-4.51); Lymphocyte % 28.7 % (19-41); Mean Corp Hgb Conc 32.7 g/dL (32-36); Mean Corpuscular Hgb 30.7 pg (27.0-32.0); Mean Corpuscular Volume 93.8 fL (81-99); Mean Platelet Vol. 10.1 fl (6.2-12.0); Monocyte# 0.59 X10^3/uL; Monocyte% 5.9 % (0-10); NRBC Flagged by Analyzer 0 % (0-5); Neutrophil # 5.74 X10^3/uL (2.7-7.7); Neutrophil % 57.8 % (47-70); Platelet Count 328 K/mm3 (150-450); RBC Distribution Width CV 11.7 % (11.6-14.6); RBC Distribution Width SD 40.3 fl (35.1-43.9); Red Blood Count 4.53 M/mm3 (4.2-5.4)
[2023-08-01 07:16] LABS: D-Dimer Quantitative (DVT/PE) 0.45 FEU/ug/m (0.27-0.49)
[2023-08-01 07:19] LABS: Anion Gap 6 (5-15); BUN 7 mg/dL (7-18); BUN/Creat Ratio 8.3 RATIO (10-20); Calcium,Total 9.2 mg/dL (8.5-10.1); Chloride 108 mmol/L (98-107); Creatinine, Serum 0.85 mg/dL (0.55-1.02); EST Glomerular Filtration Rate 76 mL/min (>60); Est Glom Filt Rate - Afr Amer 93 mL/min (>60); Estimated Creatinine Clearance 64.71 ml/min; Glucose 118 mg/dL (74-106); Magnesium 2.3 mg/dL (1.6-2.6); Sodium Level 139 mmol/L (136-145); Troponin-I HS 5 pg/mL (3.0-54.0)
[2023-08-01 07:50] LABS: BNP,B-Type NATRIURETIC PEPTIDE 7.7 pg/mL (0-100)
[2023-08-01] MEDS: Ceftriaxone 1 GM/50 ML BAG IV (08:00)
[2023-08-01] MEDS: Azithromycin 500 MG in Dextrose 5%-Water (250mL Bag) 250 ML 250 MG IV (09:10)
[2023-08-01 10:12] VITALS: PULSE 78; RESP 18; O2SAT 100
== END 2023-08-01 10:17 | disposition home or self-care (01) ==
PROVIDERS: Emergency Provider Emergency Medicine; PCP Family Medicine; Referring Provider Emergency Medicine; Visit Provider Emergency Medicine
DX: J18.9 Pneumonia, unspecified organism (principal); M32.9 Systemic lupus erythematosus, unspecified; J44.0 Chronic obstructive pulmonary disease with (acute) lower respiratory infection; Z11.52 Encounter for screening for COVID-19; M79.7 Fibromyalgia; Z87.891 Personal history of nicotine dependence
CPT/HCPCS: 71046; 80048; 83735; 83880; 84484; 85025; 85379; 87428; 93005; 94640; 96365; 96366; 96367; 96375; 99283; A4216

== ENCOUNTER 2024-03-03 13:43 | Emergency (ER) | payer MEDICARE, SELFPAY ==
[2024-03-03 13:44] VITALS: BP 114/76; PULSE 78; RESP 18; TEMP 36.1; O2SAT 96; BMI 27.1
--- NOTE | 2024-03-03 13:46 | ED.RN ---
PATIENT STATES SHE IS ONLY WAITING 30 MINUTES AND THEN SHE IS GOING TO LEAVE
--- NOTE | 2024-03-03 14:41 | ED.RN ---
patient states she got called into work and cannot wait
== END 2024-03-03 14:41 | disposition left against medical advice (07) ==
LOC: ED 14:57
PROVIDERS: PCP Family Medicine
DX: S09.93XA Unspecified injury of face, initial encounter (principal); V99.XXXA Unspecified transport accident, initial encounter; Z53.21 Procedure and treatment not carried out due to patient leaving prior to being seen by health care provider

== ENCOUNTER 2024-12-01 12:22 | Emergency (ER) | payer MEDICARE, MEDICAID, SELFPAY ==
[2024-12-01 12:24] VITALS: BP 123/91; PULSE 107; RESP 24; TEMP 37.4; O2SAT 97; BMI 37.5
--- NOTE | 2024-12-01 13:07 | EKG12_ITS ---
Test Reason : CP Blood Pressure : */* mmHG Vent. Rate : 95 BPM Atrial Rate : 95 BPM P-R Int : 132 ms QRS Dur : 84 ms QT Int : 340 ms P-R-T Axes : 43 53 1 degrees QTcB Int : 427 ms Normal sinus rhythm Nonspecific ST abnormality Abnormal ECG Confirmed by CHUCK VILLA, ROBLES ([id number]), photography editor AMBROSIO BANDA ([id number]) on 12/02/2024 8:09:57 AM Referred By: Confirmed By: ROBLES WOODS MD
--- NOTE | 2024-12-01 13:15 | EX.ED.DYSGE1 ---
HPI History of Present Illness Chief Complaint: Chest Pain Informant: patient Narrative Narrative: Patient is a 48-year-old female with history of systemic lupus erythematosus, COPD (not on home oxygen), fibromyalgia and frequent pneumonia presenting with left-sided chest pain, cough and nausea and vomiting. Patient states has been having symptoms for about a month and a half now. She has been having pain in the left side of her chest especially underneath her ribs. She also has been having bilateral thoracic back pain. In addition she reports that she thinks that her hiatal hernia is inflamed because she has been having postprandial nausea and vomiting for the past month and a half. She is not feeling she can really keep anything down. Sometimes she coughs so much that she also throws up. Most of her vomit is white phlegm however she states every once while there is a little bit of blood in her vomit but nothing that she is worried about. She has not having worsening heartburn and taking Tums but does not take a daily antacid. She denies any fevers or chills. Today developed a runny nose. States her whole head feels like there is pressure. Denies any sore throat or ear pain. Is not sure what her last bowel movement is but currently is not reporting any abdominal pain. Feels that she has had a 70 pound weight gain of the past month and does have some mild swelling of her legs. Denies a history of DVT or PE. Is a tobacco user but is down to 2 cigarettes a day as she is trying to quit. States she feels better when she lays on her right side. Did come in with her son who is giving evaluated for respiratory symptoms but she states until today she has not really been around 10. She thinks he was exposed to COVID. [facility] Medical History Lupus Acute (undifferentiated) schizophrenia Depression Fibromyalgia Continuous tobacco abuse SLE (systemic lupus erythematosus) COPD (chronic obstructive pulmonary disease) Hiatal hernia Shortness of breath Home Medications ?Medication ?Instructions ?Recorded ?Last Taken ?Type albuterol sulfate 90 mcg/actuation 1 - 2 puff inhalation Q4H PRN PRN 05/29/20 Unknown Rx aerosol inhaler Wheezing ##1 prazosin 1 mg capsule (Minipress) 1 mg PO QHS 05/29/20 Unknown History risperidone 4 mg tablet 1 tab PO DAILY Check with primary 05/29/20 Unknown History doctor trazodone 100 mg tablet 100 mg PO PRN PRN Sleep 05/29/20 Unknown History carbamazepine 200 mg tablet 400 mg PO DAILY Check with primary 05/02/22 05/01/22 20:00 History doctor fluticasone furoate 200 1 inh inhalation DAILY Check with 05/02/22 Unknown History mcg-vilanterol 25 mcg/dose primary doctor inhalation powder (Breo Ellipta) gabapentin 600 mg tablet 600 mg PO TID Check with primary 05/02/22 Unknown History doctor gabapentin 600 mg tablet 600 mg PO QHS Check with primary 05/02/22 Unknown History (Neurontin) doctor azithromycin 250 mg tablet See Rx Instructions PO .COMPLEX 10 08/01/23 Unknown Rx days #12 tabs doxycycline hyclate 100 mg capsule 100 mg PO BID 10 days #20 caps 08/01/23 Unknown Rx ipratropium 0.5 mg-albuterol 3 mg 3 ml inhalation 4X/DAY PRN PRN 08/01/23 Unknown Rx (2.5 mg base)/3 mL nebulization shortness of breath or wheezing soln #180 mL cefdinir 300 mg capsule 300 mg PO BID 7 days #14 caps 12/01/24 Unknown Rx omeprazole 40 mg capsule,delayed 40 mg PO DAILY ##30 12/01/24 Unknown Rx release ondansetron 4 mg disintegrating 4 mg PO Q8H PRN PRN Nausea #10 tabs 12/01/24 Unknown Rx tablet oseltamivir 75 mg capsule (Tamiflu) 75 mg PO Q12H 5 days #10 caps 12/01/24 Unknown Rx prednisone 20 mg tablet 40 mg (2 x 20 mg) PO DAILY #8 tabs 12/01/24 Unknown Rx Allergy/AdvReac Type Severity Reaction Status Date / Time Penicillins Allergy Hives Verified 12/01/24 12:27 morphine AdvReac Rash Verified 12/01/24 12:27 Family History Father Bipolar 1 disorder Rheumatoid arthritis Heart disease Alcohol abuse Cancer Lung and liver Colon cancer Hyperlipidemia Mother Rheumatoid arthritis Sister Cancer Ovarian Rheumatoid arthritis Surgical History History of tubal ligation History of dilatation and curettage History of right oophorectomy History of cholecystectomy History of carpal tunnel surgery of right wrist History of LEEP (loop electrosurgical excision procedure) of cervix complicating Social History household members: none Smoking Status: Light Smoker (<10/day) Tobacco: How many years used: 17 second hand exposure: Yes alcohol intake: never substance use type: does not use caffeine: Yes what type of physical activity do you participate in: none ROS ROS ED Constitutional Constitutional ED: Denies chills or fever(s) Eyes Eyes: Denies change in vision ENT ENT ED: Reports rhinorrhea and other Details: Head pressure, congestion ; Denies sore throat Cardiovascular Cardiovascular: Reports chest pain; Denies palpitations Respiratory/Chest Respiratory/Chest: Reports cough and dyspnea; Denies sputum Gastrointestinal Gastrointestinal: Reports nausea and vomiting; Denies abdominal pain or constipation Genitourinary Genitourinary ED: Reports other Details: Patient states she does not urinate much during the day but at night is up all night urinating ; Denies dysuria or urinary frequency Musculoskeletal Musculoskeletal: Reports back pain; Denies arthralgias Integumentary Denies rash Neurologic Neurologic: Reports headache(s) Hematologic/Lymphatic Hematologic/Lymphatic: Denies easy bleeding or easy bruising EXAM Physical Exam Const Vital Signs: 12/01/24 12:24 12/01/24 13:06 12/01/24 13:07 Temperature 99.3 F H Temperature Source Oral Pulse Rate 107 H Respiratory Rate 24 H Respiratory Effort Normal Non-Labored Respiratory Depth Normal Respiratory Pattern Normal Blood Pressure 123/91 H Blood Pressure Mean 101 Pulse Ox 97 Oxygen Delivery Method Room Air Room Air Room Air 12/01/24 13:23 12/01/24 13:57 12/01/24 14:00 Temperature Temperature Source Pulse Rate 96 90 86 Respiratory Rate 33 H 20 H 20 H Respiratory Effort Respiratory Depth Respiratory Pattern Normal Blood Pressure 127/82 H 102/65 Blood Pressure Mean 97 77 Pulse Ox 95 99 Oxygen Delivery Method 12/01/24 15:00 Temperature Temperature Source Pulse Rate 91 Respiratory Rate 18 Respiratory Effort Respiratory Depth Respiratory Pattern Blood Pressure 116/102 H Blood Pressure Mean 106 Pulse Ox 95 Oxygen Delivery Method Positive well nourished and well developed General Appearance ED: well developed and NAD HEENT Reports moist mucous membranes Eyes PERRL Neck supple and no JVD Chest Wall inspection of chest normal Chest Narrative: Chest wall crepitus. Patient does have tenderness palpation over the left lower ribs at the mid axillary line Resp Resp Narrative: Intermittent harsh coughing present. Slightly rhonchorous breath sounds. No wheezing or crackles appreciated. Slightly diminished breath sounds at the bases. Mildly tachypneic. No conversational dyspnea present. Auscultation: diminished lung sounds bilateral lower Cardio regular rate and regular rhythm GI normal to inspection, nondistended, normoactive bowel sounds and non-tender Auscultation: hypoactive bowel sounds Extremity normal to inspection General Extremety ED: Negative for edema or tenderness General Extremity: Negative for edema Neuro oriented x3 Sensorium / Orientation: alert Motor Exam: general weakness Psych mental status grossly normal Mood & Affect: anxious Skin no rashes or lesions noted MDM MDM MDM Narrative Medical decision making narrative: Patient evaluated for cough, malaise, nausea and vomiting. Developed runny nose today. On examination Sunday she does not feel well but appears nontoxic. Vital signs significant for low-grade temperature nine 9.7 and heart rates 107 bpm. She is 97% on room air. Differential includes pneumonia, influenza, pleural effusion, pneumothorax, COPD exacerbation/bronchitis, symptomatic anemia, pulmonary emboli, gastritis, ACS and electrolyte abnormality. Workup includes CBC, D-dimer, CMP, high-sensitivity troponin, BNP and urinalysis as well as flu swab is obtained. Chest x-ray viewed by myself as well as radiology shows chronic changes more consistent with mild chronic interstitial abnormality versus an atypical pneumonia or interstitial edema. Patient is positive for influenza A which I suspect is the cause of her symptoms. She does not have a leukocytosis. Urinalysis shows questionable UTI with 1+ bacteria and 500 leukocyte esterase. Will send for culture. Given that she does have COPD will cover for secondary pneumonia oxygen she has had a cough for a month and a half with cefdinir which should also cover for urine pathogens.'s CMP shows mild transaminitis patient has had this intermittently in the past. Her bilirubin is normal so low sufficient for acute obstructive pathology. Clinically she is not appear fluid overloaded. 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 Her son who she is here with is also acutely presenting with influenza A so I suspect this is more of an acute presentation. Will start her on Tamiflu. Will give prescription for prednisone as a suspect there is an associated COPD exacerbation for she with all of her coughing/bronchitis. Zofran prescribed as needed and she is given refills of her omeprazole she does have a history of Hill hernia has had a lot of vomiting and has not been taking any PPI therapy. Instructed to alternate ibuprofen and Tylenol as needed for pain control malaise. Given return precautions. Is ambulate in the emergency room and does well. Will be discharged home. Lab Data Attestation: I reviewed the patient's lab results. Labs: Laboratory Results - last 24 hr 12/01/24 12/01/24 13:20 13:30 WBC 5.4 RBC 4.71 Hgb 14.5 Hct 42.8 MCV 90.9 MCH 30.8 MCHC 33.9 RDW Std Deviation 41.4 RDW Coeff of Kemar 12.5 Plt Count 286 MPV 9.0 Immature Gran % (Auto) 0.600 Neut % (Auto) 72.5 H Lymph % (Auto) 11.9 L [place] % (Auto) 12.6 H Eos % (Auto) 1.7 Baso % (Auto) 0.7 Absolute Neuts (auto) 3.9 Absolute Lymphs (auto) 0.64 L Nucleated RBC % 0 D-Dimer Quant (PE/DVT) 0.31 Sodium 135 Potassium 3.7 Chloride 103 Carbon Dioxide 21.4 Anion Gap 12 BUN 11 Creatinine 0.75 Estim Creat Clear Calc 97.45 Est GFR (MDRD) Non-Af 99 BUN/Creatinine Ratio 14.9 Glucose 98 Calcium 8.8 Magnesium 2.1 Total Bilirubin 0.47 AST 64 H ALT 95 H Alkaline Phosphatase 109 H Troponin T High Sens < 6 NT pro BNP II 184 Total Protein 7.1 Albumin 3.7 Globulin 3.4 Albumin/Globulin Ratio 1.1 Lipase 16 Urine Color Yellow Urine Clarity Clear Urine pH 7.0 Ur Specific [place] 1.010 Urine Protein 15 H Urine Glucose (UA) Normal Urine Ketones Negative Urine Occult Blood Negative Urine Nitrite Negative Urine Bilirubin Negative Urine Urobilinogen 1 H Ur Leukocyte Esterase 500 H Urine RBC 0 SEEN Urine WBC 0 SEEN Ur Squamous Epith Cells 0-5 SEEN Urine Bacteria 1+ Urine Mucus 0 SEEN Radiography Diagnostic Testing: Clinical Impression(s) from Imaging Studies Chest X-Ray 12/01/24 13:46 IMPRESSION: 1. Question trace interstitial prominence which could in part be technical. In the absence of comparison exams this could reflect a mild chronic interstitial abnormality versus trace pneumonitis/atypical pneumonia or interstitial edema. 2. Additional description as above. Reading Location: [facility] Rhythm Strip Rhythm Strip: Sinus Rhythm Rate: 95 Ectopy: None EKG Initial EKG: Attestation: I personally reviewed and interpreted this EKG as follows: Interpretation: Sinus Rhythm Comments: Normal sinus rhythm at a rate of 95 bpm Normal axis Normal intervals Nonspecific ST abnormalities with nonspecific morphology change to the ST segment in V3, no reciprocal changes This is new compared to prior EKG on 05/02/2022 Discharge Plan Triage Chief Complaint: Chest Pain Other Complaint: Shortness of Breath ED Provider: Joann Douglas Dx/Rx/DC Orders Clinical Impression: Influenza A, Bronchitis, Nausea & vomiting Instructions: ED COPD Flare, ED Influenza (Adult), ED Vomiting (Adult) Prescriptions: New cefdinir 300 mg capsule 300 mg PO BID 7 Days Qty: 14 0RF oseltamivir [Tamiflu] 75 mg capsule 75 mg PO Q12H 5 Days Qty: 10 0RF ondansetron 4 mg tablet,disintegrating 4 mg PO Q8H PRN PRN (Reason: Nausea) Qty: 10 0RF prednisone 20 mg tablet 40 mg PO DAILY Qty: 8 0RF Changed omeprazole 40 MG capsule,delayed release(DR/EC) 40 mg PO DAILY Qty: 30 0RF No Action risperidone 4 mg tablet 1 tab PO DAILY Patient Comments: TAKE 1 TABLET EVERY DAY AT BEDTIME prazosin [Minipress] 1 MG capsule 1 mg PO QHS trazodone 100 MG tablet 100 mg PO PRN PRN (Reason: Sleep) albuterol sulfate 1 INHALER inhaler 1 - 2 puff inhalation Q4H PRN PRN (Reason: Wheezing) Qty: 1 0RF gabapentin 600 mg tablet 600 mg PO TID Patient Comments: TAKE 1 TABLET BY MOUTH THREE TIMES DAILY FOR 90 DAYS, TAKE 1 TO 2 TABLETS AT BEDTIME NEEDED gabapentin [Neurontin] 600 mg tablet 600 mg PO QHS Patient Comments: TAKE 1 TABLET BY MOUTH THREE TIMES DAILY FOR 90 DAYS, TAKE 1 TO 2 TABLETS AT BEDTIME NEEDED Rx Instructions: 600mg to 1200 mg carbamazepine 200 mg tablet 400 mg PO DAILY Patient Comments: Take 2 Tablet By Oral Route Per at bedtime fluticasone furoate-vilanterol [Breo Ellipta] 200-25 mcg/dose blister with device 1 inh INHALATION DAILY Patient Comments: Inhale 1 Inhalation as instructed once daily. doxycycline hyclate 100 mg capsule 100 mg PO BID 10 Days Qty: 20 0RF azithromycin 250 mg tablet See Rx Instructions .ROUTE .COMPLEX 10 Days Qty: 12 0RF Rx Instructions: For 250 mg dose pack: take 500 mg today (day 1), then 250 mg for 4 days (days 2-5) ipratropium-albuterol 0.5 mg-3 mg(2.5 mg base)/3 mL solution for nebulization 3 ml inhalation 4X/DAY PRN PRN (Reason: shortness of breath or wheezing) Qty: 180 0RF Primary Care Provider: Isra Waldrop Referrals: Isra Waldrop MD [Primary Care Provider] - Activity Restrictions/Additional Instructions: You tested positive for influenza A. Your urine shows some slight changes which could be consistent with urinary tract infection. Will place on antibiotics will cover for UTI as well as possible pneumonia however I suspect respiratory symptoms are more likely from bronchitis/viral infection from flu. He been put on medication to treat influenza (Tamiflu). You have been given a stomach medicine to take daily for your hiatal hernia (omeprazole). Continue to alternate ibuprofen and Tylenol as needed for fever and pain control. Use breathing treatments at home every 4-6 hours. Follow with your primary care doctor. Return if given progression or worsening symptoms. Print Language: [place] Disposition Disposition: Home, Self Care Discharge Date/Time: 12/01/24 16:00
[2024-12-01 13:23] VITALS: BP 127/82; PULSE 96; RESP 33; O2SAT 95
[2024-12-01 13:37] LABS: Absolute Lymphocyte Count 0.64 X10^3/uL (0.83-4.51); Absolute Neutrophil Count 3.9 X10^3/uL (2.0-7.7); Basophil# 0.04 X10^3/uL; Basophil% 0.7 % (0-1); Eosinophil# 0.09 X10^3/uL; Eosinophils% 1.7 % (0-5); Hematocrit 42.8 % (37-47); Hemoglobin 14.5 g/dL (12.0-15.0); Lymphocyte # 0.64 X10^3/ul (0.83-4.51); Lymphocyte % 11.9 % (19-41); Mean Corp Hgb Conc 33.9 g/dL (32-36); Mean Corpuscular Hgb 30.8 pg (27.0-32.0); Mean Corpuscular Volume 90.9 fL (81-99); Monocyte# 0.68 X10^3/uL; Monocyte% 12.6 % (0-10); NRBC Flagged by Analyzer 0 % (0-5); Neutrophil % 72.5 % (47-70); Platelet Count 286 K/mm3 (150-450); RBC Distribution Width CV 12.5 % (11.6-14.6); RBC Distribution Width SD 41.4 fl (35.1-43.9); Red Blood Count 4.71 M/mm3 (4.2-5.4); White Blood Count 5.4 K/mm3 (4.4-11.0)
[2024-12-01 13:38] LABS: Mucous, Urine 0 SEEN /hpf (<or=2+); Red Blood Cells-Urine 0 SEEN /hpf (0-5); White Blood Cells 0 SEEN /hpf (0-5)
[2024-12-01 13:40] LABS: Color, Urine Yellow (Yellow); Glucose, Dipstick Normal (Normal); Ketone-Dipstick Negative (Negative); Leukocyte Esterase-Dipstick 500 /ul (Negative); Nitrite-Dipstick Negative (Negative); Occult Blood-Urine Negative /ul (Negative); Protein-Dipstick 15 mg/dl (Negative); Urine Bilirubin Dipstick Negative (Negative); Urine Clarity Clear (Clear); Urine Urobilinogen 1 mg/dl (Normal)
[2024-12-01] MEDS: 0.9% Normal Saline (1000mL) 1,000 ML 999 ML IV (13:41)
[2024-12-01 13:46] LABS: Bacteria 1+ /hpf (None Seen); Squamous Epithelial Cells - UA 0-5 SEEN /hpf (5-10)
--- NOTE | 2024-12-01 13:46 | RAD_ITS ---
PROCEDURE: CHEST PA AND LATERAL (RADCXR), 12/01/2024 REASON FOR EXAM: COUGH TECHNIQUE: PA and lateral views of the chest were obtained. COMPARISON: None FINDINGS: Heart: Unremarkable. Mediastinum: Unremarkable. Lungs/pleura: No focal consolidation. Question trace interstitial prominence, potentially in part related to chest wall attenuation. No pleural effusion or visible pneumothorax. Bones: Multilevel spondylosis. Mild thoracolumbar dextroscoliosis. i Lines and support devices: None. Other: RIGHT upper quadrant surgical clips.. RAD/Chest PA and Lateral IMPRESSION: 1. Question trace interstitial prominence which could in part be technical. In the absence of comparison exams this could reflect a mild chronic interstitial abnormality versus trace pneumonitis/atypic al pneumonia or interstitial edema. 2. Additional description as above. Reading Location: [id number]
[2024-12-01 13:52] LABS: D-Dimer Quantitative (DVT/PE) 0.31 FEU/ug/m (0.27-0.49)
[2024-12-01] MEDS: Ipratropium/Albuterol Sulfate 3 ML AMPUL.NEB INHALATION (13:56)
[2024-12-01 13:57] VITALS: PULSE 90; RESP 20
[2024-12-01 14:00] VITALS: BP 102/65; PULSE 86; RESP 20; O2SAT 99
[2024-12-01 14:21] LABS: ALB/GLOB Ratio 1.1 RATIO (0.9-2.4); AST(SGOT) 64 U/L (<=31); Alanine Aminotransfer ALT/SGPT 95 U/L (<=34); Albumin, Serum 3.7 g/dL (3.5-5.0); Alkaline Phosphatase 109 U/L (35-104); Anion Gap 12 (5-15); BUN 11 mg/dL (4-19); BUN/Creat Ratio 14.9 RATIO (10-20); Calcium,Total 8.8 mg/dL (7.6-11.0); Carbon Dioxide 21.4 mmol/L (21.0-32.0); Chloride 103 mmol/L (98-108); Creatinine, Serum 0.75 mg/dL (0.70-1.20); EST Glomerular Filtration Rate 99 (>60); Estimated Creatinine Clearance 97.45 ml/min (50-250); Globulin 3.4 g/dL (2.2-4.2); Glucose 98 mg/dL (70-99); Lipase 16 U/L (13-75); Magnesium 2.1 mg/dL (1.5-2.2); Potassium 3.7 mmol/L (3.3-5.1); Pro- Brain NATRIURETIC PEPTIDE 184 pg/mL (<=450); Protein, Total 7.1 g/dL (5.9-8.4); Sodium Level 135 mmol/L (133-145); Total Bilirubin 0.47 mg/dL (0.00-1.30); Troponin T High Sensitivity < 6 ng/L (<=14)
[2024-12-01 15:00] VITALS: BP 116/102; PULSE 91; RESP 18; O2SAT 95
[2024-12-01 15:25] VITALS: O2SAT 96
[2024-12-01] MEDS: predniSONE 20 MG Tablet 60 MG PO (15:58)
== END 2024-12-01 16:00 | disposition home or self-care (01) ==
PROVIDERS: Emergency Provider Emergency Medicine; PCP Family Medicine; Visit Provider Emergency Medicine
DX: J10.1 Influenza due to other identified influenza virus with other respiratory manifestations (principal); J44.0 Chronic obstructive pulmonary disease with (acute) lower respiratory infection; J20.9 Acute bronchitis, unspecified; K44.9 Diaphragmatic hernia without obstruction or gangrene; R06.00 Dyspnea, unspecified; F17.210 Nicotine dependence, cigarettes, uncomplicated; Z79.899 Other long term (current) drug therapy
CPT/HCPCS: 71046; 80053; 81001; 83690; 83735; 83880; 84484; 85025; 85379; 87086; 87088; 87631; 93005; 94640; 96360; 99285; A4216

== ENCOUNTER 2024-12-16 13:34 | Emergency (ER) | payer MEDICARE, MEDICAID, SELFPAY ==
[2024-12-16 13:35] VITALS: BP 96/78; PULSE 90; RESP 30; TEMP 35.9; O2SAT 95
[2024-12-16 13:36] VITALS: BMI 38.0
[2024-12-16 14:01] VITALS: O2SAT 98
[2024-12-16 14:34] VITALS: PULSE 70; RESP 20; O2SAT 98
[2024-12-16] MEDS: Ketorolac 15 MG/ML Vial IV (14:34)
--- NOTE | 2024-12-16 14:34 | ED.VIS.DYS ---
HPI History of Present Illness Chief Complaint: Shortness of Breath Informant: patient and family Narrative Narrative: History of COPD tobacco worsening dyspnea over the last 3 days. Posttussive emesis. Wheezing. No fevers. Reports chest pains. No coronary history. States has had overall symptoms for 3 months. She states seen in the ED approximately 15 days ago diagnosed with hiatal hernia, pneumonia and influenza and UTI. She is on medications. She finished her antibiotics and steroids. Symptoms worsen over the last few days. Weakness in the legs. Currently has urine frequency. Denies fever chills or sweats. pain worse with deep breaths. [facility] Medical History RSV (respiratory syncytial virus pneumonia) Lupus Acute (undifferentiated) schizophrenia Depression Fibromyalgia Continuous tobacco abuse SLE (systemic lupus erythematosus) COPD (chronic obstructive pulmonary disease) Hiatal hernia Shortness of breath Home Medications ?Medication ?Instructions ?Recorded ?Last Taken ?Type gabapentin 600 mg tablet 600 mg PO BID Check with primary 05/02/22 12/13/24 History doctor gabapentin 600 mg tablet 1,200 mg PO QHS Check with primary 05/02/22 12/13/24 History (Neurontin) doctor albuterol sulfate 90 mcg/actuation 1 - 2 puff inhalation Q4H PRN PRN 12/16/24 Unknown Rx aerosol inhaler (Ventolin HFA) Wheezing ##1 prednisone 20 mg tablet 60 mg (3 x 20 mg) PO DAILY #15 12/16/24 Unknown Rx TABLETS Allergy/AdvReac Type Severity Reaction Status Date / Time Penicillins Allergy Hives Verified 12/16/24 13:34 morphine AdvReac Rash Verified 12/16/24 13:34 Family History Father Bipolar 1 disorder Rheumatoid arthritis Heart disease Alcohol abuse Cancer Lung and liver Colon cancer Hyperlipidemia Mother Rheumatoid arthritis Sister Cancer Ovarian Rheumatoid arthritis Surgical History History of tubal ligation History of dilatation and curettage History of right oophorectomy History of cholecystectomy History of carpal tunnel surgery of right wrist History of LEEP (loop electrosurgical excision procedure) of cervix complicating Social History household members: none Smoking Status: Former smoker Tobacco: How many years used: 17 second hand exposure: Yes alcohol intake: never substance use type: does not use caffeine: Yes what type of physical activity do you participate in: none ROS ROS ED Constitutional Constitutional ED: Denies chills, fever(s) or sweats ENT ENT ED: Denies sore throat Cardiovascular Cardiovascular: Reports chest pain; Denies leg edema, palpitations or racing heartbeat Respiratory/Chest Respiratory/Chest: Reports dyspnea; Denies cough or dyspnea on exertion Gastrointestinal Gastrointestinal: Denies abdominal pain, diarrhea, nausea or vomiting Genitourinary Genitourinary ED: Reports urinary frequency; Denies dysuria or hematuria Musculoskeletal Musculoskeletal: Denies back pain, extremity pain or neck pain Integumentary Denies rash or wounds Neurologic Neurologic: Reports weakness; Denies headache(s) or paresthesias EXAM Physical Exam Const Vital Signs: 12/16/24 13:35 12/16/24 14:01 12/16/24 14:34 Temperature 96.7 F L Temperature Source Temporal Pulse Rate 90 70 Respiratory Rate 30 H 20 H Respiratory Effort Short of Breath Labored Respiratory Depth Shallow Respiratory Pattern Tachypnea Blood Pressure 96/78 Blood Pressure Mean 84 Pulse Ox 95 98 Oxygen Delivery Method Room Air Room Air Room Air 12/16/24 15:32 12/16/24 16:00 12/16/24 16:45 Temperature Temperature Source Pulse Rate 78 60 83 Respiratory Rate 30 H 20 H 25 H Respiratory Effort Respiratory Depth Respiratory Pattern Blood Pressure 152/140 H 121/89 H Blood Pressure Mean 146 101 Pulse Ox 99 98 96 Oxygen Delivery Method Positive well nourished and well developed Constitutional Narrative: Nontoxic, anxious, no respiratory distress. General Appearance ED: well developed HEENT Reports moist mucous membranes normocephalic and atraumatic Eyes General Eye ED: Yes normal appearance of both eyes Neck full ROM Chest Wall Chest: Negative for tenderness Resp normal respiratory effort and normal air movement Effort and Inspection: symmetric chest movement; Negative for respiratory distress Cardio regular rate, regular rhythm and no murmurs Peripheral Pulses: pulses 2+ throughout GI normal to inspection, nondistended, normoactive bowel sounds and non-tender Palpation: Negative for guarding or rebound tenderness present Extremity normal to inspection General Extremety ED: Negative for edema or tenderness General Extremity: Negative for edema Neuro oriented x3 and no sensory deficits noted Sensorium / Orientation: awake and alert Skin no rashes or lesions noted and no wounds MDM MDM MDM Narrative Medical decision making narrative: Interventions / MDM: Differential diagnosis: COPD, tobacco dependence, chest pain Diagnosis considered but do not suspect: ACS, however EKG cardiac enzymes negative. PE however D-dimer negative. Pneumothorax however x-ray negative. Urinary tract infection however labs were normal. My EKG interpretation: Sinus rate of 83, no ST or T wave changes. Imaging independently reviewed and interpreted by myself: 2 view chest x-ray: No acute process. No effusions. No pneumothorax. External documents reviewed: ED visit from 12/01/2024. Diagnosed influenza possible pneumonia UTI. Culture returned negative. She was treated with Tamiflu. She is placed on omeprazole. Steroid oral antibiotics were written at that time. Test considered but not ordered:N/A ED course: Patient presenting worsening dyspnea wheeze pain with deep breaths. History of COPD no home oxygen. EKG sinus rhythm. Will check labs including D-dimer and cardiac enzymes, IV Toradol for symptom control. 1652: D-dimer negative troponin negative x 2. Urine negative for infection. Patient sent over for chest x-ray for further evaluation. Patient noted ambulating in the hallway with no difficulties. Patient clinically feeling much better at this time. 1715: Chest x-ray 2 views interpreted by myself no infiltrative findings. Clinically without productive sputum also. She is feeling better dyspnea wheeze. I will continue steroids. Discussed continued tobacco cessation with the patient. Outpatient follow-up with her doctor. Return precaution discussed. All questions were answered. Re-evaluation: stable Disposition discussed with patient/family/significant other: Patient and family Case discussed with consulting clinician: N/A This note was generated with [employer] dictation software. It may contain incorrect words, spelling, and punctuation that were not noted in checking the note before signing. Lab Data Attestation: I reviewed the patient's lab results. Labs: Laboratory Results - last 24 hr 12/16/24 12/16/24 12/16/24 13:50 15:35 16:25 WBC 11.3 H RBC 4.54 Hgb 14.1 Hct 40.4 MCV 89.0 MCH 31.1 MCHC 34.9 RDW Std Deviation 41.4 RDW Coeff of [place] 12.9 Plt Count 337 MPV 10.0 Immature Gran % (Auto) 0.200 Neut % (Auto) 58.8 Lymph % (Auto) 31.0 [place] % (Auto) 7.5 Eos % (Auto) 2.1 Baso % (Auto) 0.4 Absolute Neuts (auto) 6.6 Absolute Lymphs (auto) 3.49 Nucleated RBC % 0 D-Dimer Quant (PE/DVT) 0.27 Sodium 140 Potassium 3.8 Chloride 107 Carbon Dioxide 17.0 L Anion Gap 16 H BUN 7 Creatinine 0.77 Estim Creat Clear Calc 95.55 Est GFR (MDRD) Non-Af 96 BUN/Creatinine Ratio 8.5 L Glucose 107 H Calcium 9.5 Troponin T High Sens 6 Troponin T Hi Sens 2 Hr 7 Urine Color Yellow Urine Clarity Sl. Cloudy Urine pH 8.0 Ur Specific [place] 1.010 Urine Protein 15 H Urine Glucose (UA) Normal Urine Ketones 5 H Urine Occult Blood Negative Urine Nitrite Negative Urine Bilirubin Negative Urine Urobilinogen 4 H Ur Leukocyte Esterase 25 H Urine RBC 5-10 SEEN Urine WBC 0 SEEN Ur Squamous Epith Cells 10-25 SEEN Urine Bacteria 1+ Urine Mucus 0 SEEN Discharge Plan Triage Chief Complaint: Shortness of Breath ED Provider: Shemar Butt Dx/Rx/DC Orders Clinical Impression: COPD exacerbation, Tobacco dependence, Chest pain Instructions: Quitting Smoking, ED Chest Pain, Noncardiac, ED COPD Flare Prescriptions: New prednisone 20 mg tablet 60 mg PO DAILY Qty: 15 0RF albuterol sulfate [Ventolin HFA] 90 mcg/actuation HFA aerosol inhaler 1 - 2 puff inhalation Q4H PRN PRN (Reason: Wheezing) Qty: 1 0RF No Action gabapentin 600 mg tablet 600 mg PO BID Rx Instructions: 600MG AM AND NOON, 1200MG HS gabapentin [Neurontin] 600 mg tablet 1,200 mg PO QHS Rx Instructions: 600MG AM AND NOON, 1200MG HS Primary Care Provider: Isra Waldrop Referrals: Isra Waldrop MD [Primary Care Provider] - Activity Restrictions/Additional Instructions: Your cardiac workup negative. D-dimer negative. Chest x-ray negative. Finish steroids as prescribed. Continue to quit smoking. Follow-up with your doctor. Print Language: Amharic Disposition Disposition: Home, Self Care
[2024-12-16] MEDS: MethylPREDNISolone 125 MG/2 ML Vial IV (14:35)
[2024-12-16 14:40] LABS: Absolute Lymphocyte Count 3.49 X10^3/uL (0.83-4.51); Absolute Neutrophil Count 6.6 X10^3/uL (2.0-7.7); Basophil# 0.04 X10^3/uL; Basophil% 0.4 % (0-1); Eosinophil# 0.24 X10^3/uL; Eosinophils% 2.1 % (0-5); Hematocrit 40.4 % (37-47); Hemoglobin 14.1 g/dL (12.0-15.0); Lymphocyte # 3.49 X10^3/ul (0.83-4.51); Mean Corp Hgb Conc 34.9 g/dL (32-36); Mean Corpuscular Hgb 31.1 pg (27.0-32.0); Monocyte# 0.84 X10^3/uL; Monocyte% 7.5 % (0-10); NRBC Flagged by Analyzer 0 % (0-5); Neutrophil # 6.64 X10^3/uL (2.7-7.7); Neutrophil % 58.8 % (47-70); Platelet Count 337 K/mm3 (150-450); RBC Distribution Width CV 12.9 % (11.6-14.6); RBC Distribution Width SD 41.4 fl (35.1-43.9); Red Blood Count 4.54 M/mm3 (4.2-5.4); White Blood Count 11.3 K/mm3 (4.4-11.0)
[2024-12-16 15:32] VITALS: PULSE 78; RESP 30; O2SAT 99
[2024-12-16 15:39] LABS: Anion Gap 16 (5-15); BUN 7 mg/dL (4-19); BUN/Creat Ratio 8.5 RATIO (10-20); Calcium,Total 9.5 mg/dL (7.6-11.0); Chloride 107 mmol/L (98-108); Creatinine, Serum 0.77 mg/dL (0.70-1.20); EST Glomerular Filtration Rate 96 (>60); Estimated Creatinine Clearance 95.55 ml/min (50-250); Glucose 107 mg/dL (70-99); Potassium 3.8 mmol/L (3.3-5.1); Sodium Level 140 mmol/L (133-145)
[2024-12-16 15:47] LABS: Mucous, Urine 0 SEEN /hpf (<or=2+); White Blood Cells 0 SEEN /hpf (0-5)
[2024-12-16 15:52] LABS: Troponin T High Sensitivity 6 ng/L (<=14)
[2024-12-16 15:54] LABS: Color, Urine Yellow (Yellow); Glucose, Dipstick Normal (Normal); Ketone-Dipstick 5 mg/dl (Negative); Leukocyte Esterase-Dipstick 25 /ul (Negative); Nitrite-Dipstick Negative (Negative); Occult Blood-Urine Negative /ul (Negative); Protein-Dipstick 15 mg/dl (Negative); Urine Bilirubin Dipstick Negative (Negative); Urine Clarity Sl. Cloudy (Clear); Urine Urobilinogen 4 mg/dl (Normal)
[2024-12-16 16:00] VITALS: BP 152/140; PULSE 60; RESP 20; O2SAT 98
[2024-12-16 16:31] LABS: Red Blood Cells-Urine 5-10 SEEN /hpf (0-5)
[2024-12-16 16:33] LABS: Bacteria 1+ /hpf (None Seen); Squamous Epithelial Cells - UA 10-25 SEEN /hpf (5-10)
[2024-12-16 16:45] VITALS: BP 121/89; PULSE 83; RESP 25; O2SAT 96
[2024-12-16 16:48] LABS: Troponin T High Sens 2 HR 7 ng/L (<=14)
[2024-12-16 16:52] LABS: D-Dimer Quantitative (DVT/PE) 0.27 FEU/ug/m (0.27-0.49)
--- NOTE | 2024-12-16 17:10 | RAD_ITS ---
PROCEDURE: CHEST PA AND LATERAL 12/16/2024 REASON FOR EXAM: SOB TECHNIQUE: Frontal and lateral views of the chest. COMPARISON: 12/01/2024 FINDINGS: Hardware: None Heart: The heart size is normal. Mediastinum: The mediastinal contour is unremarkable. Lungs: The lungs are clear. Bones: The bones are unremarkable. RAD/Chest PA and Lateral IMPRESSION: No active disease. Reading Location: [id number]
== END 2024-12-16 17:42 | disposition home or self-care (01) ==
PROVIDERS: Emergency Provider Emergency Medicine; PCP Family Medicine; Visit Provider Emergency Medicine
DX: J44.1 Chronic obstructive pulmonary disease with (acute) exacerbation (principal); R07.89 Other chest pain; Z87.891 Personal history of nicotine dependence
CPT/HCPCS: 71046; 80048; 81001; 84484; 85025; 85379; 93005; 96374; 96375; 99283; A4216

== ENCOUNTER 2025-03-27 22:03 | Emergency (ER) | payer MEDICARE, MEDICAID, SELFPAY ==
[2025-03-27 22:03] VITALS: BP 151/98; PULSE 111; RESP 18; TEMP 36.6; O2SAT 99; BMI 46.2
--- NOTE | 2025-03-27 22:10 | RAD_ITS ---
PROCEDURE: LEFT FOOT MIN 3 VIEWS 03/27/2025 REASON FOR EXAM: INJURY TECHNIQUE: LEFT FOOT MIN 3 VIEWS COMPARISON: None. FINDINGS: Acute nondisplaced obliquely oriented fracture of the 5th metatarsal shaft. No additional acute fracture or dislocation/subluxation identified. Alignment is anatomic on these nonweightbearing radiographs. Partially imaged metallic plate and screw fixation hardware of the distal fibula with distal tibiofibular syndesmotic screw. Preserved joint spaces. Mild soft tissue swelling at the lateral aspect of the foot. RAD/Foot min 3 Views IMPRESSION: Acute nondisplaced oblique fracture of the 5th metatarsal shaft. Reading Location: [id number]
--- OUTSIDE RECORDS SUMMARY | 2025-03-27 22:27 | XMS RPT_ITS | CCD ---
Author Organization [facility] CliniSyin Care Team Providers Care Governor Assembler Name Role Phone Fransisco Barbour Unavailable Juanis Waldrop MD Primary Care Provider [phone] Dr. Juanis Waldrop Primary Care Provider Dr. Praveen Amaral Emergency Provider [phone] Preston Mccauley Admit Provider Unavailable Dr. Preston Mccauley Attending Provider Unavailable Dr. Preston Mccauley Other Provider Unavailable Fransisco Barbour Unavailable Juanis Waldrop MD Primary Care Provider Fransisco Barbour Unavailable Juanis Waldrop MD Primary Care Provider Dr. Juanis Waldrop Primary Care Provider Dr. Praveen Amaral Emergency Provider Dr. Preston Mccauley Admit Provider Unavailable Dr. Preston Mccauley Attending Provider Unavailable Dr. Preston Mccauley Other Provider Unavailable Fransisco Barbour Unavailable Juanis Waldrop MD Primary Care Provider [phone] DR JUANIS WALDROP MD Primary Care Physician CRISTHIAN VILLA, DR VIEIRA Attending UnavailDR JUANIS Powers MD Primary Care Unavailab Juanis Baer MD Primary Care Provider Peggy DYER.Ellen JIANG Unavailable Hunter HEEL SCORERJonas BRITO Unavailable Dr. Juanis Waldrop MD Primary Care Provider [phone] Dr. Joann Douglas DO Emergency Provider Dr. Joann Douglas DO Attending Provider Dr. Shemar Butt DO Emergency Provider Elderbrock, Juanis Primary Care Unavailable Provider, Ed Physician Attending Unavailab Joann Lua Attending Unavailable Elderbrock, Juanis Primary Care Unavailable Elderbrock, Juanis Primary Care Unavailable Shemar Butt Attending Unavailable [place] HEEL SCORER.Ellen JIANG Unavailable TANNGUMEF, ELLEN Attending Unavailable SELF Referring Unavailable ELDERBROCK, JUANIS D Primary Care Unavailable ELDERBROCK, JUANIS D Primary Care Unavailable ELDERBROCK, JUANIS D Primary Care Unavailable ELDERBROCK, JUANIS D Attending Unavailable ELDERBROCK, JUANIS D Primary Care Unavailable TANNHOF, ELLEN Referring Unavailable TANNHOF, ELLEN Referring Unavailable ELDERBROCK, JUANIS D Primary Care Unavailable [place] HEEL SCORER.Ellen JIANG Unavailable Allergies Allergy Classification Reported Allergen(s) Allergy Type Date of Onset Reaction(s) Facility Opioid Agonists (2 sources) Morphine Drug Allergy 3 Other: See Severino, [facility] Work Phone: Penicillins (antibiotic) (2 sources) Penicillin G Drug Allergy 1 [facility] Work Phone: (20 sources) Morphine; Translations: [MORPHINE] Drug Allergy 3 Other: See Severino [facility] [place] Work Phone: (20 sources) Penicillin G; Translations: [PENICILLIN G] Drug Allergy 1 [facility] Work Phone: (20 sources) traMADol; Translations: [TRAMADOL] Drug Allergy 7 [facility] (20 sources) Penicillins; Translations: [Penicillins] Allergy to substance 8 [facility] (1 source) Penicillin; Translations: [penicillins] Drug Allergy [facility] (1 source) Morphine Drug Allergy 5 [facility] Repository Medications Current Medications Medication Drug Class(es) Dates Sig (Normalized) Sig (Original) [id number] 200 actuat albuterol 0.09 mg/actuat metered dose inhaler (20 sources) beta2-Adrenergic Agonist Start: 12-16-2024 Albuterol Sulfate (Ventolin Hfa) 90 mcg/actuation HFA aerosol inhaler Active 1 - 2 NMA INHALATION EVERY 4 HOURS NEEDED as needed for Wheezing December 16, 2024 12:00am Start: 11-01-2021 End: 05-19-2024 albuterol (PROVENTIL) 2.5 mg /3 mL (0.083 %) nebulizer solution Indications: Simple chronic bronchitis (HCC) , Cigarette smoker Inhale by nebulizer over 5-15 minutes three (3) to four (4) times a day as needed for wheezing and shortness of breath 120 mL 5 05/20/2024 Active Start: 04-22-2021 End: 05-19-2024 take 2 puff(s) by inhalation every four hours as needed for wheezing albuterol HFA (VENTOLIN HFA) 90 mcg/actuation inhaler Indications: Cough Inhale 2 Puffs as instructed every 4 hours as needed for wheezing/shortness of breath. 18 g 11 05/20/2024 Active Start: 05-29-2020 End: 12-16-2024 Albuterol Sulfate 1 INHALER inhaler Discontinued 1 - 2 NMA inhalation EVERY 4 HOURS NEEDED as needed for Wheezing May 29, 2020 12:00am December 16, 2024 3:25pm Start: 05-29-2020 take 1 puff(s) by in halation every four hours as needed Albuterol Sulfate Active 1 - 2 PUFF inhalation EVERY 4 HOURS NEEDED May 28, 2020 11:00pm Start: 11-29-2017 End: 12-03-2018 Albuterol Sulfate (Ventolin Hfa) 90 mcg/actuation HFA aerosol inhaler Discontinued 2 NMA INHALATION EVERY 6 HOURS as needed for shortness of breath November 29, 2017 1:35pm December 03, 2018 5:02pm Start: 11-29-2017 End: 12-03-2018 take 1 puff(s) by inhalation every six hours Albuterol Sulfate (Ventolin Hfa) 90 mcg/actuation HFA aerosol inhaler Discontinued 2 PUFF INHALATION EVERY 6 HOURS November 29, 2017 12:35pm December 03, 2018 4:02pm Start: 11-28-2017 End: 11-29-2017 Albuterol Sulfate (Ventolin Hfa) 90 mcg/actuation HFA aerosol inhaler Discontinued 2 NMA INHALATION EVERY 6 HOURS November 28, 2017 12:00am November 29, 2017 1:36pm Start: 11-28-2017 End: 11-29-2017 take 1 puff(s) by inhalation every six hours Albuterol Sulfate (Ventolin Hfa) 90 mcg/actuation HFA aerosol inhaler Discontinued 2 PUFF INHALATION EVERY 6 HOURS November 27, 2017 11:00pm November 29, 2017 12:36pm Comment on above: Inhale 2 Puffs as in structed every 4 hours as needed for wheezing/shortness of breath. Inhale by nebulizer over 5-15 minutes three (3) to four (4) times a day as needed for wheezing and shortness of breath aspirin 81 mg delayed release oral tablet (20 sources) Platelet Aggregation Inhibitor, Nonsteroidal Anti-inflammatory Drug take 1 tablet by mouth once daily aspirin, enteric coated (ASPIRIN, ENTERIC COATED) 81 mg EC tablet Take 81 mg by mouth once daily. Active Comment on above: Take 81 mg by mouth once daily. Centrum Women's oral tablet (1 source) Start: 12-09-19 take 1 tablet by mouth once daily Centrum Women's oral tablet Dose = 1 tab(s), Oral, Daily Start Date: 12/08/13 Status: Ordered clindamycin 300 mg oral capsule (13 sources) Lincosamide Antibacterial Start: 03-06-20 End: 03-16-20 24 take 1 capsule by mouth three times daily clindamycin (CLEOCIN) 300 mg capsule Indications: Toothache Take 1 capsule by mouth three times a day for 10 days. 30 capsule 0 03/06/2024 03/16/2024 Active Start: 02-04-2023 End: 02-14-2023 take 2 capsules by mouth three times daily clindamycin (CLEOCIN) 150 mg capsule Indications: Pain, dental Take 2 capsules by mouth three times daily for 10 days. 60 capsule 0 02/04/2023 02/14/2023 Active Start: 11-02-2022 End: 11-07-2022 take 2 capsules by mouth three times daily clindamycin (CLEOCIN) 150 mg capsule Take 2 capsules by mouth three times daily for 5 days. 30 capsule 0 11/02/2022 11/07/2022 Active Start: 08-04-2022 End: 08-14-2022 take 2 capsules by mouth three times daily clindamycin (CLEOCIN) 150 mg capsule Take 2 capsules by mouth three times daily for 10 days. 60 capsule 0 08/04/2022 08/14/2022 Active Start: 12-14-2021 End: 04-24-2022 take 1 capsule by mouth four times daily clindamycin (CLEOCIN) 300 mg capsule Take 1 capsule by mouth four times daily. 40 capsule 0 12/14/2021 04/24/2022 Discontinued Comment on above: Take 1 capsule by mo uth four times daily. Take 2 capsules by m outh three times daily for 10 days. Take 2 capsules by m outh three times daily for 5 days. 30 actuat fluticasone furoate 0.2 mg/actuat / vilanterol 0.025 mg/actuat dry powder inhaler (20 sources) Corticosteroid, beta2-Adrenergic Agonist Start: 05-02-2022 Fluticasone Furoate-Vilanterol (Breo Ellipta) 200-25 mcg/dose blister with device Active 1 INH INHALATION DAILY May 01, 2022 11:00pm Start: 05-02-2022 Fluticasone Fu roate-Vilanterol (Breo Ellipta) 200-25 mcg/dose blister with device Active INHALATION May 01, 2022 11:00pm Start: 11-01-2021 End: 12-16-2024 take 1 dose by inhalation once daily fluticasone-vilanterol (BREO ELLIPTA) 200-25 mcg/dose inhaler Inhale 1 Inhalation as instructed once daily. 1 Each 05/20/2024 Active Comment on above: Inhale 1 Inhalation as instructed once daily. gabapentin 600 mg oral tablet (20 sources) Anti-epileptic Agent Start: 05-02-2022 take 1 tablet by mouth twice daily in the morning, then take 2 tablets by mouth at bedtime Gabapentin 600 mg tablet Active 600 mg PO TWICE A DAY May 02, 2022 12:00am 600MG AM AND NOON, 1200MG HS Start: 10-05-2021 End: 06-25-2025 gabapentin (NEURONTIN) 600 m g tablet Indications: Fibromyalgia Take one tablet tid. Also take 1-2 tablets at bedtime as needed 150 tablet 5 12/25/2024 06/25/2025 Active Comment on above: Take 1 tablet by brionna three times daily for 90 days. Also take 1-2 tablets at bedtime as needed Take 1 tablet by br[facility] three times a day for 90 days. Also take 1-2 tablets at bedtime as needed Take 1 tablet by [facility] three times a day for 30 days. Also take 1-2 tablets at bedtime as needed 12 hr guaiFENesin 600 mg extended release oral tablet (1 source) Start: 01-22-20 End: 01-27-20 take 2 tablets by mouth twice daily guaiFENesin (MUCINEX) 600 mg 12 hr tablet Take 2 tablets by mouth twice daily for 5 days. 20 tablet 0 01/21/2022 01/26/2022 Active Comment on above: Take 2 tablets by [facility] twice daily for 5 days. ibuprofen 400 mg oral tablet (20 sources) Nonsteroidal Anti-inflammatory Drug take 1 tablet by mouth every six hours as needed ibuprofen (MOTRIN) 400 mg tablet Take 400 mg by mouth every 6 hours as needed. Active Comment on above: Take 400 mg by mouth . Take 400 mg by mouth every 6 hours as needed. omeprazole 40 mg delayed release oral capsule (20 sources) Proton Pump Inhibitor Start: 05-29-20 End: 07-05-20 take 1 capsule by mouth once daily omeprazole (PRILOSEC) 40 mg capsule Indications: Gastroesophageal reflux disease without esophagitis , Dysphagia, unspecified type Take 1 capsule by mouth once daily. 30 capsule 5 01/06/2025 07/05/2025 Active Start: 05-29-2020 End: 12-01-2024 Omeprazole 40 MG capsule,del ayed release(/EC) Discontinued 1 NMA PO DAILY May 29, 2020 12:00am December 01, 2024 3:43pm Comment on above: Take 1 capsule by [facility] once daily. prazosin 1 mg oral capsule (20 sources) alpha-Adrenergic Ankit Start: 08-22-2018 End: 01-06-2025 prazosin (MINIPRESS) 1 mg cap Take 1 capsule during the day and 2 capsules at night. 90 capsule 1 01/06/2025 Active Comment on above: [facility] Takes 1 capsule during the day and 2 capsules at night. predniSONE 10 mg oral tablet (20 sources) Start: 01-06-2025 End: 01-21-2025 predniSONE (DELTASONE) 10 mg tablet Take 4 tabs daily x5 days, then 2 tabs daily for 5 days, then 1 tab daily for 5 days. 35 tablet 01/06/2025 01/21/2025 Active Start: 12-16-2024 take 3 tablets by mo uth once daily Prednisone 20 mg tablet Active 60 mg PO DAILY December 16, 2024 12:00am Start: 12-01-2024 End: 12-16-2024 take 2 tablets by mouth once daily Prednisone 20 mg tablet Discontinued 40 mg PO DAILY December 01, 2024 12:00am December 16, 2024 3:27pm Start: 05-04-2022 End: 08-01-2023 take 2 tablets by mouth once daily Prednisone 20 mg tablet Discontinued 40 mg PO DAILY May 04, 2022 12:00am August 01, 2023 7:15am Start: 05-04-2022 End: 08-01-2023 take 40 mg by mouth once daily Prednisone Discontinued 40 MG PO DAILY May 03, 2022 11:00pm August 01, 2023 6:15am Start: 01-21-2022 End: 01-26-2022 take 2 tablets by mouth once daily predniSONE (DELTASONE) 20 mg tablet Take 2 tablets by mouth once daily for 5 days. 10 tablet 0 01/21/2022 01/26/2022 Active Start: 05-15-2017 End: 11-28-2017 take 3 tablets by mouth once daily Prednisone 20 MG tablet Discontinued 60 mg PO DAILY May 15, 2017 12:00am November 28, 2017 12:56pm Start: 05-15-2017 End: 11-28-2017 take 60 mg by mouth once daily Prednisone Discontinued 60 MG PO DAILY May 14, 2017 11:00pm November 28, 2017 11:56am Comment on above: Take 2 tablets by mo ut once daily for 5 days. Lyrica (1 source) Start: 01-24-20 Lyrica Oral Start Date: 01/24/16 Status: Ordered risperiDONE 1 mg oral tablet (20 sources) Atypical Antipsychotic Start: 01-06-20 End: 01-07-20 take 1 tablet by mouth once daily risperiDONE (RISPERDAL) 1 mg tablet Indications: Paranoid schizophrenia (HCC) Take 1 tablet by mouth once daily. 30 tablet 1 01/06/2025 Active Start: 05-29-2020 End: 12-16-2024 Risperidone 4 mg tablet Disc ontinued 1 {tbl} PO DAILY May 29, 2020 12:00am December 16, 2024 3:27pm Start: 05-29-2020 take 1 tablet by brionna th twice daily Risperidone Active 1 TABLET PO TWICE A DAY May 29, 2020 4:30am Comment on above: Take 1 tablet by brionna th once daily. tiZANidine 4 mg oral tablet (1 source) Central alpha-2 Adrenergic Agonist Start: 12-08-2013 tiZANidine 4 mg oral tablet Dose : 4 mg = 1 tab(s), Oral, q8h Start Date: 12/08/13 Status: Ordered traMADol hydrochloride 50 mg oral tablet (1 source) Opioid Agonist Start: 12-25-2014 traMADol 50 mg oral tablet Dose : 100 mg = 2 tab(s), Oral, q8h, PRN for pain Start Date: 12/25/14 Status: Ordered traZODone hydrochloride 100 mg oral tablet (20 sources) Serotonin Reuptake Inhibitor Start: 05-29-2020 End: 12-16-2024 Trazodone 100 MG tablet Discontinued 100 mg PO NEEDED as needed for Sleep May 29, 2020 12:00am December 16, 2024 3:27pm Start: 12-13-2018 End: 01-06-2025 take 2 tablets by mouth once daily at bedtime traZODone (DESYREL) 100 mg tablet Take 2 tablets by mouth daily at bedtime. 60 tablet 1 01/06/2025 Active Comment on above: 2 tablets daily at b edtime. [facility] Completed/Discontinued Medications Medication Drug Class(es) Dates Sig (Normalized) Sig (Original) acetaminophen 325 mg / HYDROcodone bitartrate 5 mg oral tablet (16 sources) Opioid Agonist Start: 07-25-2018 End: 07-28-2018 Hydrocodone-Acetami nophen 1 TABLET tablet Discontinued 1 {tbl} PO EVERY 6 HOURS NEEDED as needed for Pain 10 July 25, 2018 1:00am July 27, 2018 1:00am July 28, 2018 1:10am Start: 07-25-2018 End: 07-28-2018 take 1 tablet by mouth every six hours as needed Hydrocodone-Acetaminophen Discontinued 1 TABLET PO EVERY 6 HOURS NEEDED 10 July 25, 2018 12:00am July 28, 2018 12:10am Start: 06-13-2018 End: 06-15-2018 Hydrocodone-Acetaminophen 1 TABLET tablet Discontinued 1 {tbl} PO EVERY 4 HOURS NEEDED as needed for Pain 4 2 June 13, 2018 12:00am June 14, 2018 12:00am June 15, 2018 12:10am Start: 06-13-2018 End: 06-15-2018 take 1 tablet by mouth every four hours as needed Hydrocodone-Acetaminophen Discontinued 1 TABLET PO EVERY 4 HOURS NEEDED 4 June 12, 2018 11:00pm June 14, 2018 11:10pm acetaminophen 325 mg / oxyCODONE hydrochloride 5 mg oral tablet (8 sources) Opioid Agonist Start: 12-03-2018 End: 12-08-2018 Oxycodone-Acetaminophen 1 TABLET tablet Discontinued 1 {tbl} PO EVERY 6 HOURS NEEDED as needed for Pain 20 December 03, 2018 12:00am December 07, 2018 12:00am December 08, 2018 12:10am Start: 12-03-2018 End: 12-08-2018 take 1 tablet by mouth every six hours as needed Oxycodone-Acetaminophen Discontinued 1 TABLET PO EVERY 6 HOURS NEEDED 20 December 02, 2018 11:00pm December 07, 2018 11:10pm albuterol 0.833 mg/ml / ipratropium bromide 0.167 mg/ml inhalation solution (3 sources) Anticholinergic, beta2-Adrenergic Agonist Start: 08-01-2023 End: 12-16-2024 take 1 mL by inhalation four times daily as needed for wheezing Ipratropium-Albuterol 0.5 mg-3 mg(2.5 mg base)/3 mL solution for nebulization Discontinued 3 mL INHALATION 4 TIMES DAILY NEEDED as needed for shortness of breath or wheezing August 01, 2023 8:24am December 16, 2024 3:27pm Start: 08-01-2023 take 1 mL by inhalat ion four times daily as needed Ipratropium-Albuterol Active 3 ML INHALATION 4 TIMES DAILY NEEDED August 01, 2023 7:24am azithromycin 250 mg oral tablet (3 sources) Macrolide Antimicrobial Start: 08-01-2023 End: 12-16-2024 Azithromycin 250 mg tablet Discontinued 0 PO .COMPLEX 12 August 01, 2023 1:00am December 16, 2024 3:25pm For 250 mg dose pack: take 500 mg today (day 1), then 250 mg for 4 days (days 2-5) Start: 08-01-2023 Azithromycin A ctive 0 PO .COMPLEX 12 August 01, 2023 12:00am For 250 mg dose pack: take 500 mg today (day 1), then 250 mg for 4 days (days 2-5) benzonatate 100 mg oral capsule (5 sources) Non-narcotic Antitussive Start: 01-21-2022 End: 04-24-2022 take 2 capsules by mouth every eight hours as needed benzonatate (TESSALON PERLES) 100 mg capsule Take 2 capsules by mouth three times daily as needed. 30 capsule 0 01/21/2022 04/24/2022 Discontinued Comment on above: Take 2 capsules by [facility] three times daily as needed. carBAMazepine 200 mg oral tablet (6 sources) Mood Stabilizer Start: 05-02-2022 End: 12-16-2024 take 1 tablet by mouth once daily Carbamazepine 200 mg tablet Discontinued 400 mg PO DAILY May 02, 2022 12:00am December 16, 2024 3:25pm Start: 05-02-2022 take 400 mg by mouth once daily Carbamazepine Active 400 MG PO DAILY May 01, 2022 11:00pm cefdinir 300 mg oral capsule (2 sources) Cephalosporin Antibacterial Start: 12-01-2024 End: 12-16-2024 take 1 capsule by mouth twice daily Cefdinir 300 mg capsule Discontinued 300 mg PO TWICE A DAY 14 December 01, 2024 12:00am December 16, 2024 3:25pm doxycycline hyclate 100 mg oral capsule (4 sources) Tetracycline-class Drug Start: 08-01-2023 End: 12-16-2024 take 1 capsule by mouth twice daily Doxycycline Hyclate 100 mg capsule Discontinued 100 mg PO TWICE A DAY 20 August 01, 2023 1:00am December 16, 2024 3:25pm Comment on above: Take 1 capsule by mo uth two times a day for 7 days. L. acidophilus-L. rhamnosus (PROBIOTIC) 15 billion cell cap (20 sources) Start: 08-04-2022 End: 01-06-2025 take 1 capsule by mouth once daily L. acidophilus-L. rhamnosus (PROBIOTIC) 15 billion cell cap Take 1 capsule by mouth once daily. 30 capsule 08/04/2022 01/06/2025 Discontinued (Discontinued by Patient) Start: 08-04-2022 take 1 capsule by mo uth once daily L. acidophilus-L. rhamnosus (PROBIOTIC) 15 billion cell cap Take 1 capsule by mouth once daily. 30 capsule 08/04/2022 Active Start: 08-04-2022 take 1 capsule by mo uth once daily L. acidophilus-L. rhamnosus (PROBIOTIC) 15 billion cell cap Take 1 capsule by mouth once daily. 30 capsule 0 08/04/2022 Active Start: 08-04-2022 End: 09-03-2022 take 1 capsule by mouth once daily L. acidophilus-L. rhamnosus (PROBIOTIC) 15 billion cell cap Take 1 capsule by mouth once daily. 30 capsule 0 08/04/2022 09/03/2022 Active Comment on above: Take 1 capsule by mo ut once daily. lactobacillus acidophilus 460 mg oral capsule (20 sources) Start: 11-03-19 End: 01-07-20 take 1 capsule by mouth once daily Lactobacillus acidophilus (FLORAJEN ACIDOPHILUS) 20 billion cell capsule Take 1 capsule by mouth once daily. 90 capsule 3 05/20/2024 01/06/2025 Discontinued (Discontinued by Patient) Comment on above: Take 460 mg by mouth once daily. Take 1 capsule by mo uth once daily. levoFLOXacin 750 mg oral tablet (14 sources) Quinolone Antimicrobial Start: 05-04-20 End: 08-01-20 take 1 tablet by mouth once daily Levofloxacin 750 mg tablet Discontinued 750 mg PO DAILY May 04, 2022 12:00am August 01, 2023 7:15am Start: 05-15-2017 End: 11-28-2017 take 1 tablet by mouth once daily Levofloxacin 750 MG tablet Discontinued 750 mg PO DAILY May 15, 2017 12:00am November 28, 2017 12:57pm melatonin 3 mg oral tablet (20 sources) Start: 04-18-2021 End: 01-06-2025 melatonin 3 mg tablet Take 1 tablet at ~6PM nightly. 30 tablet 2 04/18/2021 01/06/2025 Discontinued (Discontinued by Patient) Comment on above: Take 1 tablet at ~6P M nightly. MULTIVITAMIN ORAL (20 sources) End: 01-06-2025 MULTIVITAMIN ORAL Take by mouth once daily. 01/06/2025 Discontinued MULTIVITAMIN ORA L Take by mouth once daily. Active MULTIVITAMIN ORA L Take by mouth once daily. 0 Active MULTIVITAMIN ORA L Take by mouth. 0 Active Comment on above: Take by mouth. Take by mouth once d aily. Tiotropium-Olodaterol (8 sources) Anticholinergic, beta2-Adrenergic Agonist Start: 11-29-2017 End: 12-03-2018 Tiotropium-Olodaterol (Stiolto Respimat) 2.5-2.5 mcg/actuation mist Discontinued 2 PUFF INHALATION Q24H November 29, 2017 1:36pm December 03, 2018 5:02pm administer at approximately same time(s) each day Start: 11-29-2017 End: 12-03-2018 Tiotropium-Olodaterol (Stiol to Respimat) 2.5-2.5 mcg/actuation mist Discontinued 2 NMA INHALATION Q24H November 29, 2017 12:00am December 03, 2018 5:02pm administer at approximately same time(s) each day Start: 11-29-2017 End: 12-03-2018 Tiotropium-Olodaterol (Stiol to Respimat) 2.5-2.5 mcg/actuation mist Discontinued 2 PUFF INHALATION Q24H November 28, 2017 11:00pm December 03, 2018 4:02pm administer at approximately same time(s) each day Start: 11-29-2017 End: 12-03-2018 Tiotropium-Olodaterol (Stiol to Respimat) 2.5-2.5 mcg/actuation mist Discontinued 2 PUFF INHALATION Q24H November 29, 2017 12:00am December 03, 2018 5:02pm administer at approximately same time(s) each day ondansetron 4 mg disintegrating oral tablet (2 sources) Serotonin-3 Receptor Antagonist Start: 12-01-2024 End: 12-16-2024 take 1 tablet by mouth every eight hours as needed for nausea Ondansetron 4 mg tablet,disintegrating Discontinued 4 mg PO EVERY 8 HOURS NEEDED as needed for Nausea December 01, 2024 12:00am December 16, 2024 3:27pm oseltamivir 75 mg oral capsule (2 sources) Neuraminidase Inhibitor Start: 12-01-2024 End: 12-16-2024 take 1 capsule by mouth every twelve hours Oseltamivir (Tamiflu) 75 mg capsule Discontinued 75 mg PO Q12H 05 31December 01, 2024 12:00am December 16, 2024 3:27pm oxyCODONE hydrochloride 5 mg oral tablet (8 sources) Opioid Agonist Start: 12-17-2018 End: 12-24-2018 take 1-2 tablets by mouth every four to six hours as needed for pain Oxycodone 5 MG tablet Discontinued 5 mg PO EVERY 6 HOURS NEEDED as needed for Pain 25 03December 17, 2018 12:00am December 23, 2018 12:00am December 24, 2018 12:07am Take 1 to 2 tablets by mouth every 4-6 hours for pain triamcinolone acetonide 0.25 mg/ml topical cream (20 sources) Corticosteroid Start: 04-24-2022 End: 01-06-2025 triamcinolone (KENALOG) 0.025 % cream Indications: Skin inflammation Apply to affected area twice daily. 30 g 2 04/24/2022 01/06/2025 Discontinued Comment on above: Apply to affected ar ea twice daily. Problems Active Problems Problem Classification Problem Date Documented Da te Episodic/Chronic Abdominal hernia (8 sources) Hiatal hernia; Translations: [Diaphragmatic hernia without obstruction or gangrene] 05-29-2020 Episodic Abdominal pain (20 sources) Flank pain; Translations: [Unspecified abdominal pain] 02-18-2016 Episodic Chronic obstructive pulmonary disease and bronchiectasis (20 sources) Simple chronic bronchitis; Translations: [Simple chronic bronchitis] Onset: 1 11-01-2021 Chronic Chronic obstructive pulmonary disease and bronchiectasis (2 sources) Bronchitis; Translations: [Bronchitis, not specified as acute or chronic] 12-01-2024 Episodic Disorders of lipid metabolism (2 sources) Mixed hyperlipidemia; Translations: [Mixed hyperlipidemia] Onset: 4 06-09-2024 Chronic Disorders of teeth and jaw (5 sources) Infection of tooth; Translations: [Periapical abscess without sinus] Episodic Esophageal disorders (4 sources) Gastroesophageal reflux disease without esophagitis; Translations: [Gastro-esophageal reflux disease without esophagitis] Onset: 5 Chronic Hepatitis (1 source) Viral hepatitis C; Translations: [Unspecified viral hepatitis C without hepatic coma] Episodic Immunizations and screening for infectious disease (1 source) Viral screening status; Translations: [Encounter for screening for other viral diseases] Episodic Influenza (2 sources) Influenza due to Influenza A virus; Translations: [Influenza due to other identified influenza virus with other respiratory manifestations] 12-01-2024 Episodic Intracranial injury (8 sources) Concussion with loss of consciousness; Translations: [Concussion with loss of consciousness of unspecified duration, initial encounter] 07-19-2019 Episodic Mood disorders (8 sources) Depressive disorder; Translations: [Depression] 2018 Chronic Nausea and vomiting (2 sources) Nausea and vomiting; Translations: [Nausea with vomiting, unspecified] 12-01-2024 Episodic Noninfectious gastroenteritis (1 source) Gastroenteritis; Translations: [Noninfective gastroenteritis and colitis, unspecified] 12-31-2023 Episodic Nonspecific chest pain (12 sources) Non-cardiac chest pain; Translations: [Other chest pain] Onset: 5 05-30-2020 Episodic Other aftercare (2 sources) Post-discharge follow-up; Translations: [Encounter for follow-up examination after completed treatment for conditions other than malignant neoplasm] Episodic Other aftercare (1 source) Encounter for follow-up examination after completed treatment for conditions other than malignant neoplasm; Translations: [Hospital discharge follow-up] Onset: 5 Episodic Other complications of (8 sources) Previous operation to cervix affecting ; Translations: [Maternal care for other abnormalities of cervix, unspecified trimester] 2018 Episodic Other connective tissue disease (20 sources) Fibromyalgia; Translations: [Fibromyalgia] 09-12-2010 Episodic Other connective tissue disease (1 source) Bilateral thumb pain; Translations: [Pain in right finger(s)] Episodic Other gastrointestinal disorders (1 source) Dysphagia; Translations: [Dysphagia, unspecified] 01-06-2025 Episodic Other gastrointestinal disorders (1 source) Dysphagia, unspecified; Translations: [Dysphagia, unspecified type] Onset: 5 Episodic Other hereditary and degenerative nervous system conditions (20 sources) Restless legs; Translations: [Restless legs syndrome] Onset: 1 04-18-2021 Chronic Other hereditary and degenerative nervous system conditions (1 source) Restless legs syndrome; Translations: [RLS (restless legs syndrome)] Onset: 1 Chronic Other injuries and conditions due to external causes (8 sources) Closed injury of head; Translations: [Unspecified injury of head, initial encounter] 09-07-2021 Episodic Other injuries and conditions due to external causes (8 sources) Contusion of multiple sites; Translations: [Unspecified multiple injuries, initial encounter] 07-19-2019 Episodic Other lower respiratory disease (17 sources) Dyspnea; Translations: [Shortness of breath] 07-31-2023 Episodic Other lower respiratory disease (7 sources) Multilobar lung infiltrate; Translations: [Other nonspecific abnormal finding of lung field] 05-02-2022 Episodic Other lower respiratory disease (7 sources) History of chronic obstructive airway disease; Translations: [Personal history of other diseases of the respiratory system] 05-02-2022 Episodic Other lower respiratory disease (4 sources) Dyspnea, unspecified; Translations: [Other respiratory abnormalities] Episodic Other lower respiratory disease (4 sources) Other nonspecific abnormal finding of lung field; Translations: [Other nonspecific abnormal finding of lung field] Episodic Other lower respiratory disease (4 sources) Personal history of other diseases of the respiratory system; Translations: [Personal history of other diseases of respiratory system] Episodic Other lower respiratory disease (2 sources) H/O: pneumonia; Translations: [Personal history of pneumonia (recurrent)] Episodic Other lower respiratory disease (2 sources) Cough; Translations: [Cough] Episodic Other lower respiratory disease (1 source) Tachypnea; Translations: [Tachypnea, not elsewhere classified] 07-31-2023 Episodic Other lower respiratory disease (2 sources) Shortness of breath; Translations: [Shortness of breath] Onset: 5 Episodic Other nervous system disorders (20 sources) Sleep-wake schedule disorder, delayed phase type; Translations: [Circadian rhythm sleep disorder, delayed sleep phase type] Onset: 1 04-18-2021 Chronic Other nutritional; endocrine; and metabolic disorders (1 source) Obese class I; Translations: [Obesity, unspecified] Chronic Other nutritional; endocrine; and metabolic disorders (1 source) Weight loss; Translations: [Abnormal weight loss] 11-03-2023 Episodic Other nutritional; endocrine; and metabolic disorders (2 sources) Weight increased; Translations: [Abnormal weight gain] 06-09-2024 Episodic Other screening for suspected conditions (not mental disorders or infectious disease) (7 sources) Patient encounter status; Translations: [Encounter for screening mammogram for malignant neoplasm of breast] Episodic Other upper respiratory infections (1 source) Viral upper respiratory tract infection; Translations: [Acute upper respiratory infection, unspecified] Episodic Pneumonia (except that caused by tuberculosis or sexually transmitted disease) (3 sources) Pneumonia; Translations: [Pneumonia, unspecified organism] 08-01-2023 Episodic Residual codes; unclassified (20 sources) Obstructive sleep apnea syndrome; Translations: [Obstructive sleep apnea (adult) (pediatric)] Onset: 9 12-13-2018 Chronic Residual codes; unclassified (1 source) Obstructive sleep apnea (adult) (pediatric); Translations: [BRIGITTE (obstructive sleep apnea)] Onset: 3 Chronic Residual codes; unclassified (8 sources) History of right oophorectomy; Translations: [Acquired absence of ovaries, unilateral] 2018 Episodic Residual codes; unclassified (8 sources) Tobacco user; Translations: [Tobacco use] 2018 Episodic Residual codes; unclassified (1 source) Tobacco use and exposure - finding; Translations: [Tobacco use] 01-06-2025 Episodic Residual codes; unclassified (1 source) Tobacco use; Translations: [Tobacco use] Onset: 5 Episodic Schizophrenia and other psychotic disorders (20 sources) Paranoid schizophrenia; Translations: [Paranoid schizophrenia] Onset: 9 12-13-2018 Chronic Skin and subcutaneous tissue infections (2 sources) Inflammatory dermatosis; Translations: [Local infection of the skin and subcutaneous tissue, unspecified] Episodic Substance-related disorders (20 sources) Cigarette smoker ; Translations: [Nicotine dependence, cigarettes, uncomplicated] Onset: 1 12-14-2020 Chronic Superficial injury; contusion (8 sources) Contusion of face; Translations: [Contusion of other part of head, initial encounter] 09-07-2021 Episodic Systemic lupus erythematosus and connective tissue disorders (20 sources) Lupus erythematosus; Translations: [Systemic lupus erythematosus, unspecified] Onset: 4 09-12-2010 Chronic Thyroid disorders (3 sources) Goiter; Translations: [Nontoxic goiter, unspecified] Onset: 4 06-09-2024 Chronic Urinary tract infections (20 sources) Urinary tract infectious disease; Translations: [Urinary tract infection, site not specified] 05-12-2015 Episodic Past or Other Problems Problem Classification Problem Date Documented Da te Episodic/Chronic Calculus of urinary tract (20 sources) History of calculus of kidney; Translations: [Personal history of urinary calculi] Onset: 03-02-2016 03-02-2016 Episodic Diabetes mellitus without complication (20 sources) Glycosuria; Translations: [Glycosuria] Onset: 03-02-2016 03-02-2016 Episodic Other connective tissue disease (1 source) Fibromyalgia; Translations: [Fibromyalgia] Onset: 09-12-2010 Episodic Other injuries and conditions due to external causes (1 source) Unspecified injury of face, initial encounter; Translations: [Unspecified injury of face, initial encounter] Onset: 03-17-2024 Episodic Other nutritional; endocrine; and metabolic disorders (20 sources) Abnormal weight gain; Translations: [Abnormal weight gain] Onset: 05-19-2013 05-19-2013 Episodic Other nutritional; endocrine; and metabolic disorders (1 source) Abnormal weight gain; Translations: [Weight gain] Onset: 06-09-2024 Episodic Residual codes; unclassified (20 sources) Insomnia; Translations: [Insomnia, unspecified] Onset: 04-18-2021 04-18-2021 Episodic Screening and history of mental health and substance abuse codes (2 sources) Encounter for screening for depression; Translations: [Encounter for screening examination for other mental health and behavioral disorders] Onset: 06-09-2024 Episodic Spondylosis; intervertebral disc disorders; other back problems (20 sources) Low back pain; Translations: [Lumbago] Onset: 05-19-2013 05-19-2013 Episodic Viral infection (2 sources) Plantar wart of left foot; Translations: [Plantar wart] Onset: 06-09-2024 06-09-2024 Episodic Results Test Name Value Interpretation Reference Range Facility [facility] MEREDITH LNYCH ([id number]) 1975 F Date Time Provider Department 01/08/25 JUANIS WALDROP [facility] During your visit today, we recorded the following information about you: Dilia Bender MA 01/08/2025 11:24 AM Signed Type of form: SHIRLENE from [facility] [employer] Form received via fax When form is completed, Fax form to [phone] Form has been forwarded to Physician Desk: DIRK Jalloh Rilee, MA 01/08/2025 11:46 AM Signed Form signed and faxed back to number below. Dilia Bender MA Allergies As of Date: 01/08/2025 Noted Allergy Reaction MORPHINE 05/06/2013 14 - Other: See Comments Comments: Chest pain PENICILLIN G 09/12/2010 2 - Rash PENICILLINS 07/25/2018 4 - Hives TRAMADOL 01/31/2017 2 - Rash Date Reviewed: 01/06/2025 Reviewed by: Dilia Bender MA - Fully Assessed Reason for Visit: Forms [593] Cmt: [facility] Prescriptions as of 01/08/2025 - omeprazole (PRILOSEC) 40 mg capsule Take 1 capsule by mouth once daily. - predniSONE (DELTASONE) 10 mg tablet Take 4 tabs daily x5 days, then 2 tabs daily for 5 days, then 1 tab daily for 5 days. - prazosin (MINIPRESS) 1 mg cap Take 1 capsule during the day and 2 capsules at night. - risperiDONE (RISPERDAL) 1 mg tablet Take 1 tablet by mouth once daily. - traZODone (DESYREL) 100 mg tablet Take 2 tablets by mouth daily at bedtime. - gabapentin (NEURONTIN) 600 mg tablet Take one tablet tid. Also take 1-2 tablets at bedtime as needed - albuterol HFA (VENTOLIN HFA) 90 mcg/actuation inhaler Inhale 2 Puffs as instructed every 4 hours as needed for wheezing/shortness of breath. - fluticasone-vilanter ol (BREO ELLIPTA) 200-25 mcg/dose inhaler Inhale 1 Inhalation as instructed once daily. - albuterol (PROVENTIL) 2.5 mg /3 mL (0.083 %) nebulizer solution Inhale by nebulizer over 5-15 minutes three (3) to four (4) times a day as needed for wheezing and shortness of breath - aspirin, enteric coated (ASPIRIN, ENTERIC COATED) 81 mg EC tablet Take 81 mg by mouth once daily. - ibuprofen (MOTRIN) 400 mg tablet Take 400 mg by mouth every 6 hours as needed. Meds Comments as of 01/05/2021: ' Problem List As Of Date 01/08/2025 Noted Resolved Other forms of systemic lupus erythematosus (HC* Fibromyalgia [M79.7] Abnormal weight gain [R63.5] 05/19/2013 Lumbago [M54.50] 05/19/2013 Cervicalgia [M54.2] 05/19/2013 Glucose found in urine on examination [R81] 03/02/2016 Acute right-sided low back pain [M54.50] 03/02/2016 History of kidney stones [Z87.442] 03/02/2016 Paranoid schizophrenia (HCC) [F20.0] BRIGITTE (obstructive sleep apnea) [G47.33] 12/13/2018 Chronic obstructive pulmonary disease (HCC) [J4*12/14/2020 Cigarette smoker [F17.210] 12/14/2020 RLS (restless legs syndrome) [G25.81] 04/18/2021 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] 04/18/2021 Insomnia [G47.00] 04/18/2021 Simple chronic bronchitis (HCC) [J41.0] 11/01/2021 Encounter Status:Closed by DILIA BENDER on 01/08/25 [facility] CNOVon 01-06-2025 CNOV Office Visit (FAMPWS) MEREDITH LYNCH ([id number]) 1975 F Date Time Provider Department 01/06/25 2:20 PM JUANIS WALDROP During your visit today, we recorded the following information about you: Pulse Respiration Blood pressure Weight 74/minute 20/minute 116/82 90.3 kg Juanis Waldrop MD 01/06/2025 2:38 PM Signed Chief Complaint Patient presents with: Hospital Follow Up HPI Meredith Lynch is a 49 year old female who presents here today for an ER follow up. Pt seen at [facility] ED on 12/16/24 for shortness of breath. Also seen on 12/01/24 where she was dx with Influenza. Pt reports this has been ongoing for the past 4 months. Most recently seen at [facility] ED on 12/16/24 for sob. Pt reports she was told she has inflammation in her lungs. Does have some right sided mid back pain, was told this was related to coughing and pulled a muscle. Was treated with Prednisone 20 mg for 5 days. Pt states she did have improvement but has since ran out of medication and her symptoms have returned. Having voice hoarseness (intermittent), continues to cough, and feeling sob. Is having mid back pain, that she feels is related to her chest. Pain described as sharp, shooting, and stabbing. Pain rated an 8/10. Is not able to do much activity. Reports a weight gain of 50 + lbs. Is trying to cut back on smoking, down to 2 cigs per day. She has seen [facility] Pulmonary, Dr. Bui, in the past, has had normal spirometry testing, but had to cancel her appt due to needing to pay a co-pay and was unable to afford at this time. On regimen of Breo Inhaler, Albuterol Inhaler, and Nebulizer solution. Pt reports not having much improvement with use of Inhaler, some improvement with use of Nebulizer. Her Nebulizer machine broke today, and needs an Rx for a new one. Reports she needs a refill of Prilosec 40 mg once daily, has been out of this medication. Notes reflux is flared up. When she eats and tries to swallow food, it feels hot in her esophagus. Does report the sensation of food getting stuck. Has vomited due to this. Has been using Tums, but doesn't find much relief. States this occurs a lot. Notes due to her Insurance changing she is off her Psych medications. She is needing to establish with a new Psychiatrist. Pt is asking if Primary Care can fill medications until she is established with a new Psychiatrist. Has been off meds for 3 weeks and can tell she's not taking medication. [facility] ED records on 12/16/24: HPI History of Present Illness Chief Complaint: Shortness of Breath Informant: patient and family Narrative Narrative: History of COPD tobacco worsening dyspnea over the last 3 days. Posttussive emesis. Wheezing. No fevers. Reports chest pains. No coronary history. States has had overall symptoms for 3 months. She states seen in the ED approximately 15 days ago diagnosed with hiatal hernia, pneumonia and influenza and UTI. She is on medications. She finished her antibiotics and steroids. Symptoms worsen over the last few days. Weakness in the legs. Currently has urine frequency. Denies fever chills or sweats. pain worse with deep breaths. Medical decision making narrative: Interventions / MDM: Differential diagnosis: COPD, tobacco dependence, chest pain Diagnosis considered but do not suspect: ACS, however EKG cardiac enzymes negative. PE however D-dimer negative. Pneumothorax however x-ray negative. Urinary tract infection however labs were normal. My EKG interpretation: Sinus rate of 83, no ST or T wave changes. Imaging independently reviewed and interpreted by myself: 2 view chest x-ray: Noacute process. No effusions. No pneumothorax. External documents reviewed: ED visit from 12/01/2024. Diagnosed influenza possible pneumonia UTI. Culture returned negative. She was treated with Tamiflu. She is placed on omeprazole. Steroid oral antibiotics were written atthat time. Test considered but not ordered:N/A ED course: Patient presenting worsening dyspnea wheeze pain with deep breaths. History of COPD no home oxygen. EKG sinus rhythm. Will check labs including D-dimer and cardiac enzymes, IV Toradol for symptom control. 1652: D-dimer negative troponin negative x 2. Urine negative for infection. Patient sent over for chest x-ray for further evaluation. Patient noted ambulating in the hallway with no difficulties. Patient clinically feeling muchbetter at this time. 1715: Chest x-ray 2 views interpreted by myself no infiltrative findings. Clinically without productive sputum also. She is feeling better dyspnea wheeze. I will continue steroids. Discussed continued tobacco cessation with the patient. Outpatient follow-up with her doctor. Return precaution discussed. All questions were answered. Re-evaluation: stable Disposition discussed with patient/family/signi ficant other: Patient and family Imaging: OR (more content not included)... Normal [facility] US THYROID/PARATHYROIDon US THYROID/PARATHYROID * * *Final Report * * * DATE OF EXAM: Jan 02 2025 7:32AM WRU 1048 - US THYROID/PARATHYROID / PROCEDURE REASON: multiple diagnoses * * * * Physician Interpretation * * * * EXAMINATION: THYROID ULTRASOUND CLINICAL HISTORY: Weight gain Enlarged thyroid TECHNIQUE: Sonography and Doppler imaging of the thyroid was performed. Images were obtained and stored in a permanent archive. MQ: UST_1 COMPARISON: None. RESULT: Right Lobe: 4.4 cm x 2.0 cm x 1.5 cm; homogeneous echogenicity, expected vascular flow. Left Lobe: 4.1 cm x 1.3 cm x 1.0 cm; homogeneous echogenicity, expected vascular flow. Isthmus: 0.2 cm The most suspicious thyroid nodule(s) (up to four) as below: Nodules: None IMPRESSION: Unremarkable sonographic exam of the thyroid. Dcs Engineer: RILEY Transcribe Date/Time: Jan 05 2025 1:07P Dictated by : ERVIN DORSEY MD This examination was interpreted and the report reviewed and electronically signed by: ERVIN DORSEY MD on Jan 05 2025 1:07PM EST [id number] Normal [facility] Absolute neutrophil countOrd ered By: Shemar Butt on 12-16-2024 Neutrophils (Bld) [#/Vol] 6.6 10*3/uL 2.0-7.7 [facility] Anion gap in Serum or Plasma Ordered By: Shemar Butt on 12-16-2024 Anion gap [Moles/Vol] 16 mmol/L High 5-15 [facility] BUN/creatinine ratioOrdered By: Shemar Butt on 12-16-2024 Urea nitrogen/Creatinine [Mass ratio] 8.5 mg/mg Low 10-20 [facility] Basic Metabolic Profile (BMP )on 12-16-2024 BUN/CRE 8.5 RATIO Low 10-20 [facility] Comment on above: Performed By: #### L 100.0100, L500.2500 ####[facility] [address] [place], [address] Calcium [Mass/Vol] 9.5 mg/dL Normal 7.6-11.0 [facility] Comment on above: Performed By: #### L 100.0100, L500.2500 ####[facility] [address] [place], [address] Chloride [Moles/Vol] 107 mmol/L Normal 98-108 [facility] Comment on above: Performed By: #### L 100.0100, L500.2500 ####[facility] [address] [place], [address] CO2 [Moles/Vol] 17.0 mmol/L Low 21.0-32.0 [facility] Comment on above: Performed By: #### L 100.0100, L500.2500 ####[facility] [address] [place], [address] Creatinine [Mass/Vol] 0.77 mg/dL Normal 0.70-1.20 [facility] Comment on above: Performed By: #### L 100.0100, L500.2500 ####[facility] [address] [place], [address] ECRCL 95.55 ml/min Normal 50-250 [facility] Comment on above: Performed By: #### L 100.0100, L500.2500 ####[facility] [address] [place], [address] GAP 16 High 5-15 [facility] Comment on above: Performed By: #### L 100.0100, L500.2500 ####[facility] [address] [place], [address] GFR/1.73 sq M.predicted among non-blacks MDRD (S/P/Bld) [Vol rate/Area] 96 mL/min/{1.73_m2} Normal >60 [facility] Comment on above: Result Comment: mL/m in/1.73m2 CKD-EPI Creatinine Equation (2020) Performed By: #### L 100.0100, L500.2500 ####[facility] [address] [place], [address] Glucose [Mass/Vol] 107 mg/dL High 70-99 [facility] Comment on above: Performed By: #### L 100.0100, L500.2500 ####[facility] [address] [place], [address] Potassium [Moles/Vol] 3.8 mmol/L Normal 3.3-5.1 [facility] Comment on above: Result Comment: Hemo lysis present, Results??could be affected. ?? Performed By: #### L 100.0100, L500.2500 ####[facility] [address] [place], [address] Sodium [Moles/Vol] 140 mmol/L Normal 133-145 [facility] Comment on above: Performed By: #### L 100.0100, L500.2500 ####[facility] [address] [place], [address] Urea nitrogen [Mass/Vol] 7 mg/dL Normal 4-19 [facility] Comment on above: Performed By: #### L 100.0100, L500.2500 ####[facility] [address] [place], [address] Basophil percentageOrdered B y: Shemar Butt on 12-16-2024 Basophils/100 WBC (Bld) 0.4 % 0-1 [facility] Bilirubin Test strip Ql (U)O rdered By: Shemar Butt on 12-16-2024 Bilirubin Ql (U) Negative Negative [facility] CBC W/Diff, Automatedon 11-26 Absolute Lymph 3.49 X10 3/uL Normal 0.83-4.51 [facility] Comment on above: Performed By: #### L 100.0100, L500.2500 ####[facility] [address] [place], [address] Absolute Neut 6.6 X10 3/uL Normal 2.0-7.7 [facility] Comment on above: Performed By: #### L 100.0100, L500.2500 ####[facility] [address] [place], [address] Basophils/100 WBC (Bld) 0.4 % Normal 0-1 [facility] Comment on above: Performed By: #### L 100.0100, L500.2500 ####[facility] [address] [place], [address] Eosinophils/100 WBC (Bld) 2.1 % Normal 0-5 [facility] Comment on above: Performed By: #### L 100.0100, L500.2500 ####[facility] [address] [place], [address] Erythrocyte distribution width (RBC) [Ratio] 12.9 % Normal 11.6-14.6 [facility] Comment on above: Performed By: #### L 100.0100, L500.2500 ####[facility] [address] [place], [address] Hematocrit (Bld) [Volume fraction] 40.4 % Normal 37-47 [facility] Comment on above: Performed By: #### L 100.0100, L500.2500 ####[facility] [address] [place], [address] Hemoglobin (Bld) [Mass/Vol] 14.1 g/dL Normal 12.0-15.0 [facility] Comment on above: Performed By: #### L 100.0100, L500.2500 ####[facility] [address] [place], [address] IG% 0.200 Normal 0.0-0.9 [facility] Comment on above: Result Comment: IG% - Immature Granulocytes (promyelocytes, myelocytes and metamyelocytes) > 1% indicates that a LEFT SHIFT is Present. Performed By: #### L 100.0100, L500.2500 ####[facility] [address] [place], [address] Lymphocytes/100 WBC (Bld) 31.0 % Normal 19-41 [facility] Comment on above: Performed By: #### L 100.0100, L500.2500 ####[facility] [address] [place], [address] MCH (RBC) [Entitic mass] 31.1 pg Normal 27.0-32.0 [facility] Comment on above: Performed By: #### L 100.0100, L500.2500 ####[facility] [address] [place], [address] MCHC (RBC) [Mass/Vol] 34.9 g/dL Normal 32-36 [facility] Comment on above: Performed By: #### L 100.0100, L500.2500 ####[facility] [address] [place], [address] MCV (RBC) [Entitic vol] 89.0 fL Normal 81-99 [facility] Comment on above: Performed By: #### L 100.0100, L500.2500 ####[facility] [address] [place], [address] Monocytes/100 WBC (Bld) 7.5 % Normal 0-10 [facility] Comment on above: Performed By: #### L 100.0100, L500.2500 ####[facility] [address] [place], [address] Neutrophils/100 WBC (Bld) 58.8 % Normal 47-70 [facility] Comment on above: Performed By: #### L 100.0100, L500.2500 ####[facility] [address] [place], [address] Nucleated RBC (Bld) [#/Vol] 0 10*3/uL Normal 0-5 [facility] Comment on above: Performed By: #### L 100.0100, L500.2500 ####[facility] [address] [place], [address] Platelet mean volume (Bld) [Entitic vol] 10.0 fL Normal 6.2-12.0 [facility] Comment on above: Performed By: #### L 100.0100, L500.2500 ####[facility] [address] [place], [address] Platelets (Bld) [#/Vol] 337 10*3/uL Normal 150-450 [facility] Comment on above: Performed By: #### L 100.0100, L500.2500 ####[facility] [address] [place], [address] RBC (Bld) [#/Vol] 4.54 10*6/uL Normal 4.2-5.4 [facility] Comment on above: Performed By: #### L 100.0100, L500.2500 ####[facility] [address] [place], [address] RDW SD 41.4 fl Normal 35.1-43.9 [facility] Comment on above: Performed By: #### L 100.0100, L500.2500 ####[facility] [address] [facility] [address] [place], [place], [address] WBC (Bld) [#/Vol] 11.3 10*3/uL High 4.4-11.0 [facility] Comment on above: Performed By: #### L 100.0100, L500.2500 ####[facility] [address] [facility] [place], [address] Carbon dioxide, total [Moles /volume] in Central venous bloodOrdered By: Shemar Butt on 12-16-2024 CO2 [Moles/Vol] 17.0 mmol/L Low 21.0-32.0 [facility] Chest PA and Lateralon 12-16 Chest PA and Lateral [facility] Imaging Services [address] [place], [place] [address] Chest PA and Lateral MR#: [id number] Acct: [id number] Name: MEREDITH LYNCH Rep #: [id number] : 1975 F 48 From: Caleb Stahl MD PCP: Dr. Juanis Waldrop MD Status: [facility] ER Study: Chest PA and Lateral Date of Exam: 12/16/24 Exam# [id number] Ordering Dr: Shemar Butt DO PROCEDURE: CHEST PA AND LATERAL 12/16/2024 REASON FOR EXAM: SOB TECHNIQUE: Frontal and lateral views of the chest. COMPARISON: 12/01/2024 FINDINGS: Hardware: None Heart: The heart size is normal. Mediastinum: The mediastinal contour is unremarkable. Lungs: The lungs are clear. Bones: The bones are unremarkable. RAD/Chest PA and Lateral IMPRESSION: No active disease. Reading Location: [facility] CC: Dr. Juanis Waldrop MD; Dr. Shemar Butt DO Dcs Engineer: Signed Normal [facility] Chloride assayOrdered By: Lauro Butt on 12-16-2024 Chloride [Moles/Vol] 107 mmol/L 98-108 [facility] D-Dimer Quantitative (DVT/PE )on 12-16-2024 D-DIMER QUANT 0.27 FEU/ug/m Normal 0.27-0.49 [facility] Comment on above: Result Comment: NORM AL D-Dimer level (<0.50) indicates no DVT or PE. Performed By: #### L 300.8000, L501.4021 #### [facility] Laboratory [address] [place], [address] D-dimer measurement for deep venous thrombosisOrdered By: Shemar Butt on 12-16-2024 D-Dimer Quantitative (PE/DVT) 0.27 FEU/ug/m 0.27-0.49 [facility] Comment on above: NORMAL D-Dimer level (<0.50) indicates no DVT or PE. Emergency Department Summary on 12-16-2024 Emergency Department Summary [facility] Medical Records Department [address] [place] [address] Emergency Department Summary 12/16/24 MR#: [id number] Acct: [id number] Name: MEREDITH LYNCH Rep #: [id number] : 1975 48 From: Shemar Castañeda PCP: Dr. Juanis Waldrop MD Status:REG ER Location: ED HPI History of Present Illness Chief Complaint: Shortness of Breath Informant: patient and family Narrative Narrative: History of COPD tobacco worsening dyspnea over the last 3 days. Posttussive emesis. Wheezing. No fevers. Reports chest pains. No coronary history. States has had overall symptoms for 3 months. She states seen in the ED approximately 15 days ago diagnosed with hiatal hernia, pneumonia and influenza and UTI. She is on medications. She finished her antibiotics and steroids. Symptoms worsen over the last few days. Weakness in the legs. Currently has urine frequency. Denies fever chills or sweats. pain worse with deep breaths. PFSH PFS Medical History RSV (respiratory syncytial virus pneumonia) Lupus Acute (undifferentiated) schizophrenia Depression Fibromyalgia Continuous tobacco abuse SLE (systemic lupus erythematosus) COPD (chronic obstructive pulmonary disease) Hiatal hernia Shortness of breath Home Medications ???Medication ???Instructions ???Recorded ???Last Taken ???Type gabapentin 600 mg tablet 600 mg PO BID Check with primary 0 05/02/22 12/13/24 History doctor gabapentin 600 mg tablet 1,200 mg PO QHS Check with primary 05/02/22 12/13/24 History (Neurontin) doctor albuterol sulfate 90 mcg/actuation 1 - 2 puff inhalation Q4H PRN MN N 12/16/24 Unknown Rx aerosol inhaler (Ventolin HFA) Wheezing ##1 prednisone 20 mg tablet 60 mg (3 x 20 mg) PO DAILY #15 Unknown Rx TABLETS Allergy/AdvReac Type Severity Reaction Status Date / Time Penicillins Allergy Hives Verified 12/16/24 13:34 morphine AdvReac Rash Verified 12/16/24 13:34 Family History Father Bipolar 1 disorder Rheumatoid arthritis Heart disease Alcohol abuse Cancer Lung and liver Colon cancer Hyperlipidemia Mother Rheumatoid arthritis Sister Cancer Ovarian Rheumatoid arthritis Surgical History History of tubal ligation History of dilatation and curettage History of right oophorectomy History of cholecystectomy History of carpal tunnel surgery of right wrist History of LEEP (loop electrosurgical excision procedure) of cervix complicating Social History household members: none Smoking Status: Former smoker Tobacco: How many years used: 17 second hand exposure: Yes alcohol intake: never substance use type: does not use caffeine: Yes what type of physical activity do you participate in: none ROS ROS ED Constitutional Constitutional ED: Denies chills, fever(s) or sweats ENT ENT ED: Denies sore throat Cardiovascular Cardiovascular: Reports chest pain; Denies leg edema, palpitations or racing heartbeat Respiratory/Chest Respiratory/Chest: Reports dyspnea; Denies cough or dyspnea on exertion Gastrointestinal Gastrointestinal: Denies abdominal pain, diarrhea, nausea or vomiting Genitourinary Genitourinary ED: Reports urinary frequency; Denies dysuria or hematuria Musculoskeletal Musculoskeletal: Denies back pain, extremity pain or neck pain Integumentary Denies rash or wounds Neurologic Neurologic: Reports weakness; Denies headache(s) or paresthesias EXAM Physical Exam Const Vital Signs: 12/16/24 13:35 12/16/24 14:01 12/16/24 14:34 Temperature 96.7 F L Temperature Source Temporal Pulse Rate 90 70 Respiratory Rate 30 H 20 H Respiratory Effort Short of Breath Labored Respiratory Depth Shallow Respiratory Pattern Tachypnea Blood Pressure 96/78 Blood Pressure Mean 84 Pulse Ox 95 98 Oxygen Delivery Method Room Air Room Air Room Air 12/16/24 15:32 12/16/24 16:00 12/16/24 16:45 Temperature Temperature Source Pulse Rate 78 60 83 Respiratory Rate 30 H 20 H 25 H Respiratory Effort Respiratory Depth Respiratory Pattern Blood Pressure 152/140 H 121/89 H Blood Pressure Mean 146 101 Pulse Ox 99 98 96 Oxygen Delivery Method Positive well nourished and well developed Constitutional Narrative: Nontoxic, anxious, no respiratory distress. General Appearance ED: well developed HEENT Reports moist mucous membranes normocephalic and atraumatic Eyes General Eye ED: Yes normal appearance of both eyes Neck full ROM Chest Wall Chest: Negative for tenderness Resp normal respiratory effort and normal air movement E (more content not included)... Normal [facility] Eosinophil percentageOrdered By: Shemar Butt on 12-16-2024 Eosinophils/100 WBC (Bld) 2.1 % 0-5 [facility] Epithelial cells.squamous LM Ql (Urine sed)Ordered By: Shemar Butt on 12-16-2024 Epithelial cells.squamous LM.HPF (Urine sed) [#/Area] 10 /[HPF] 5-10 [facility] Erythrocyte distribution wid th (RBC) [Ratio]Ordered By: Shemar Butt on 12-16-2024 Erythrocyte distribution width (RBC) [Entitic vol] 41.4 fL 35.1-43.9 [facility] Erythrocyte distribution wid th ratioOrdered By: Shemar Butt on 12-16-2024 Erythrocyte distribution width (RBC) [Ratio] 12.9 % 11.6-14.6 [facility] Estimation of creatinine rebecca aranceOrdered By: Shemar Butt on 12-16-2024 Estimated Creatinine Clearance Calc 95.55 ml/min 50-250 [facility] GFR/1.73 sq M.predicted taylor g non-blacks MDRD (S/P/Bld) [Vol rate/Area]Ordered By: Shemar Butt on 12-16-2024 Estimated GFR (MDRD) Non-Af Amer 96 >60 [facility] Comment on above: mL/min/1.73m2 CKD-EP I Creatinine Equation (2020) Glucose Ql (U)Ordered By: Lauro Butt on 12-16-2024 Urine Glucose (UA) Normal mg/dl Normal [facility] Hematocrit Auto (Bld) [Volum e fraction]Ordered By: Shemar Le on 12-16-2024 Hematocrit (Bld) [Volume fraction] 40.4 % 37-47 [facility] Hemoglobin measurementOrdere d By: Shemar Butt on 12-16-2024 Hemoglobin (Bld) [Mass/Vol] 14.1 g/dL 12.0-15.0 [facility] Immature granulocytes/100 WB C Auto (Bld)Ordered By: Shemar Butt on 12-16-2024 Immature granulocytes/100 WBC (Bld) 0.200 % 0.0-0.9 [facility] Comment on above: IG% - Immature Granu locytes (promyelocytes, myelocytes and metamyelocytes) > 1% indicates that a LEFT SHIFT is Present. Ketones Test strip Ql (U)Ord ered By: Shemar Le on 12-16-2024 Ketones Ql (U) 5 mg/dl High Negative [facility] L499.0042on 12-16-2024 Trop T High Sen 7 ng/L Normal <=14 [facility] Comment on above: Performed By: #### L 499.0042 ####[facility] [address] [place], [address] L501.4021on 12-16-2024 Trop T High Sen 6 ng/L Normal <=14 [facility] Comment on above: Performed By: #### L 300.8000, L501.4021 #### [facility] Laboratory [address] [place], [address] Lymphocytes Auto (Unsp spec) [#/Vol]Ordered By: Shemar Butt on 12-16-2024 Lymphocytes (Bld) [#/Vol] 3.49 10*3/uL 0.83-4.51 [facility] Lymphocytes/100 WBC Auto (Un sp spec)Ordered By: Shemar Butt on 12-16-2024 Lymphocytes/100 WBC (Bld) 31.0 % 19-41 [facility] MCV (mean corpuscular volume ) determinationOrdered By: Shemar Butt on 12-16-2024 MCV (RBC) [Entitic vol] 89.0 fL 81-99 [facility] Mean corpuscular hemoglobin (MCH) determinationOrdered By: Shemar Butt on 12-16-2024 MCH (RBC) [Entitic mass] 31.1 pg 27.0-32.0 [facility] Mean corpuscular hemoglobin concentration (MCHC) determinationOrdered By: Shemar Butt on 12-16-2024 MCHC (RBC) [Mass/Vol] 34.9 g/dL 32-36 [facility] Mean platelet volume determi nationOrdered By: Shemar Butt on 12-16-2024 Platelet mean volume (Bld) [Entitic vol] 10.0 fL 6.2-12.0 [facility] Microscopic analysis of urin e for red blood cells (RBC)Ordered By: Shemar Butt on 12-16-2024 Urine RBC 5-10 SEEN /hpf 0-5 [facility] Monocyte percentageOrdered B y: Shemar Butt on 12-16-2024 Monocytes/100 WBC (Bld) 7.5 % 0-10 [facility] Mucus LM Ql (Urine sed)Order ed By: Shemar Butt on 12-16-2024 Mucus Ql (Urine sed) 0 SEEN /hpf [facility] Neutrophil percentageOrdered By: Shemar Butt on 12-16-2024 Neutrophils/100 WBC (Bld) 58.8 % 47-70 [facility] Nitrite Test strip Ql (U)Ord ered By: Shemar Butt on 12-16-2024 Nitrite Ql (U) Negative Negative [facility] Nucleated red blood cell per centageOrdered By: Shemar Butt on 12-16-2024 Nucleated RBC/100 WBC (Bld) [Ratio] 0 % 0-5 [facility] Platelet countOrdered By: Lauro Butt on 12-16-2024 Platelets (Bld) [#/Vol] 337 10*3/uL 150-450 [facility] Potassium (Unsp spec) [Mass/ Vol]Ordered By: Shemar Butt on 12-16-2024 Potassium [Moles/Vol] 3.8 mmol/L 3.3-5.1 [facility] Comment on above: Hemolysis present, R esults could be affected. Protein Test strip Ql (U)Ord ered By: Shemar Filomena on 12-16-2024 Protein Ql (U) 15 mg/dl High Negative [facility] RBC Auto (Bld) [#/Vol]Ordere d By: Shemar Butt on 12-16-2024 RBC (Bld) [#/Vol] 4.54 10*6/uL 4.2-5.4 [facility] Serum creatinine measurement (mass/volume)Ordered By: Shemar Butt on 12-16-2024 Creatinine [Mass/Vol] 0.77 mg/dL 0.70-1.20 [facility] Serum glucose measurement (m ass/volume)Ordered By: Shemar Butt on 12-16-2024 Glucose [Mass/Vol] 107 mg/dL High 70-99 [facility] Serum or plasma calcium sal urement (mass/volume)Ordered By: Shemar Butt on 12-16-2024 Calcium [Mass/Vol] 9.5 mg/dL 7.6-11.0 [facility] Serum or plasma urea nitroge n measurement (mass/volume)Ordered By: Shemar Butt on 12-16-2024 Urea nitrogen [Mass/Vol] 7 mg/dL 4-19 [facility] Sodium levelOrdered By: Shemar Butt on 12-16-2024 Sodium [Moles/Vol] 140 mmol/L 133-145 [facility] Troponin T.cardiac High sens itivity method [Mass/Vol]Ordered By: Shemar Butt on 12-16-2024 Troponin T High Sensitivity 2 Hour 7 ng/L <14 [facility] Troponin T High Sensitivity 6 ng/L <14 [facility] Urinalysis, Completeon 12-16 BILIRUBIN URINE Negative Normal Negative [facility] Comment on above: Order Comment: ASAEL CTOR TO SPECIFY Performed By: #### L 400.0001 ####[facility] [address] [place], [address] Clarity (U) Sl. Cloudy Normal Clear [facility] Comment on above: Order Comment: ASAEL CTOR TO SPECIFY Performed By: #### L 400.0001 ####[facility] [address] [place], [address] Color (U) Yellow Normal Yellow [facility] Comment on above: Order Comment: ASAEL CTOR TO SPECIFY Performed By: #### L 400.0001 ####[facility] [address] [place], [address] GLUCOSE, UR Normal Normal Normal [facility] Comment on above: Order Comment: ASAEL CTOR TO SPECIFY Performed By: #### L 400.0001 ####[facility] [address] [place], [address] KETONE UR 5 mg/dl Abnormal Negative [facility] Comment on above: Order Comment: ASAEL CTOR TO SPECIFY Performed By: #### L 400.0001 ####[facility] [address] [place] [id number] LEUK ESTERASE 25 /ul Abnormal Negative [facility] Comment on above: Order Comment: ASAEL CTOR TO SPECIFY Performed By: #### L 400.0001 ####[facility] [address] [place], [address] Nitrite Ql (U) Negative Normal Negative [facility] Comment on above: Order Comment: ASAEL CTOR TO SPECIFY Performed By: #### L 400.0001 ####[facility] [address] [place], [address] OCCULT BLOOD-UR Negative Normal Negative [facility] Comment on above: Order Comment: ASAEL CTOR TO SPECIFY Performed By: #### L 400.0001 ####[facility] [address] [place], [address] pH UR 8.0 Normal 5.0 - 8.0 [facility] Comment on above: Order Comment: ASAEL CTOR TO SPECIFY Performed By: #### L 400.0001 ####[facility] [address] [place], [address] PROT DIPSTX 15 mg/dl Abnormal Negative [facility] Comment on above: Order Comment: ASAEL CTOR TO SPECIFY Performed By: #### L 400.0001 ####[facility] [address] [place], [place], [id number] SP.GR. DIPSTX 1.010 Normal 1.002-1.030 [facility] Comment on above: Order Comment: ASAEL CTOR TO SPECIFY Performed By: #### L 400.0001 ####[facility] [address] [place], [place], [id number] UROBILI 4 mg/dl Abnormal Normal [facility] Comment on above: Order Comment: ASAEL CTOR TO SPECIFY Performed By: #### L 400.0001 ####[facility] [address] [place], [place], [id number] Urine blood detectionOrdered By: Shemar Butt on 12-16-2024 Urine Occult Blood Negative Negative [facility] Urine clarityOrdered By: Moody Butt on 12-16-2024 Clarity (U) Sl. Cloudy Clear [facility] Urine color determinationOrd ered By: Shemar Butt on 12-16-2024 Color (U) Yellow Yellow [facility] Urine leukocyte esterase det ection by dipstickOrdered By: Shemar Butt on 12-16-2024 Leukocyte esterase Test strip Ql (U) 25 /ul High Negative [facility] Urine pHOrdered By: Shemar Butt on 12-16-2024 pH (U) 8.0 [pH] 5.0 - 8.0 [facility] Urine sediment bacteria coun t by microscopy (number/high power field)Ordered By: Shemar Butt on 12-16-2024 Bacteria LM.HPF (Urine sed) [#/Area] 1 /[HPF] None Seen [facility] Urine specific gravity measu rementOrdered By: Shemar Butt on 12-16-2024 Specific gravity (U) [Rel density] 1.010 1.002-1.030 [facility] Urobilinogen Ql (U)Ordered B y: Shemar Butt on 12-16-2024 Urobilinogen (U) [Mass/Vol] 4 mg/dL High Normal [facility] White blood cell (WBC) count Ordered By: Shemar Butt on 12-16-2024 WBC (Bld) [#/Vol] 11.3 10*3/uL High 4.4-11.0 [facility] White blood cell countOrdere d By: Shemar Butt on 12-16-2024 Urine WBC 0 SEEN /hpf 0-5 [facility] Urine Cultureon 12-03-2024 URC Mixed Gram Positive Organisms Varina Count 11,000-25,000 [facility] Mixed contaminants. Submit a new specimen if indicated. Normal [facility] Comment on above: Performed By: #### L 300.8000, L501.4021 #### [facility] [address] [place], [address] 12 Lead EKGon 12-01-2024 12 Lead EKG [facility] Cardiovascular Services [address] [place] [address] 12 Lead EKG 12/01/24 1238 MR#: [id number] Acct: [id number] Name: MEREDITH LYNCH Rep #: [id number] : 1975 48 From: Omar Mi MD Attending Dr: Status: DEP ER Ordering Dr: Joann Douglas DO Date: 12/01/24 Location: ED Sex: F C Admitted: Test Reason : CP Blood Pressure : */* mmHG Vent. Rate : 95 BPM Atrial Rate : 95 BPM P-R Int : 132 ms QRS Dur : 84 ms QT Int : 340 ms P-R-T Axes : 43 53 1 degrees QTcB Int : 427 ms Normal sinus rhythm Nonspecific ST abnormality Abnormal ECG Confirmed by OMAR MI MD ([id number]), content editor LEEANN BANDA ([id number]) on 12/02/2024 8:09:57 AM Referred By: Confirmed By: OMAR MI MD 12/02/24 0810 Date Omar Mi MD CC: Dr. Joann Douglas DO; Dr. Juanis Waldrop MD Signed Normal [facility] Absolute neutrophil countOrd ered By: Joann Douglas on 12-01-2024 Neutrophils (Bld) [#/Vol] 3.9 10*3/uL 2.0-7.7 [facility] Anion gap in Serum or Plasma Ordered By: Joann Douglas on 12-01-2024 Anion gap [Moles/Vol] 12 mmol/L 5-15 [facility] BUN/creatinine ratioOrdered By: Joann Douglas on 12-01-2024 Urea nitrogen/Creatinine [Mass ratio] 14.9 mg/mg 10-20 [facility] Basophil percentageOrdered B y: Joann Douglas on 12-01-2024 Basophils/100 WBC (Bld) 0.7 % 0-1 [facility] Bilirubin Test strip Ql (U)O rdered By: Joann Douglas on 12-01-2024 Bilirubin Ql (U) Negative Negative [facility] Bilirubin, totalOrdered By: Joann Douglas on 12-01-2024 Bilirubin [Mass/Vol] 0.47 mg/dL 0.00-1.30 [facility] CBC W/Diff, Automatedon Absolute Lymph 0.64 X10 3/uL Low 0.83-4.51 [facility] Comment on above: Performed By: #### L 300.8000, L501.2450, L501.5200, L500.4050, L100.0100 #### [facility] [address] [place], [address] Absolute Neut 3.9 X10 3/uL Normal 2.0-7.7 [facility] Comment on above: Performed By: #### L 300.8000, L501.2450, L501.5200, L500.4050, L100.0100 #### [facility] [address] [place], [address] Basophils/100 WBC (Bld) 0.7 % Normal 0-1 [facility] Comment on above: Performed By: #### L 300.8000, L501.2450, L501.5200, L500.4050, L100.0100 #### [facility] [address] [place], [address] Eosinophils/100 WBC (Bld) 1.7 % Normal 0-5 [facility] Comment on above: Performed By: #### L 300.8000, L501.2450, L501.5200, L500.4050, L100.0100 #### [facility] [address] [place], [address] Erythrocyte distribution width (RBC) [Ratio] 12.5 % Normal 11.6-14.6 [facility] Comment on above: Performed By: #### L 300.8000, L501.2450, L501.5200, L500.4050, L100.0100 #### [facility] [address] [place], [address] Hematocrit (Bld) [Volume fraction] 42.8 % Normal 37-47 [facility] Comment on above: Performed By: #### L 300.8000, L501.2450, L501.5200, L500.4050, L100.0100 #### [facility] [address] [place], [address] Hemoglobin (Bld) [Mass/Vol] 14.5 g/dL Normal 12.0-15.0 [facility] Comment on above: Performed By: #### L 300.8000, L501.2450, L501.5200, L500.4050, L100.0100 #### [facility] [address] [place], [address] IG% 0.600 Normal 0.0-0.9 [facility] Comment on above: Result Comment: IG% - Immature Granulocytes (promyelocytes, myelocytes and metamyelocytes) > 1% indicates that a LEFT SHIFT is Present. Performed By: #### L 300.8000, L501.2450, L501.5200, L500.4050, L100.0100 #### [facility] [address] [place], [address] Lymphocytes/100 WBC (Bld) 11.9 % Low 19-41 [facility] Comment on above: Performed By: #### L 300.8000, L501.2450, L501.5200, L500.4050, L100.0100 #### [facility] [address] [place], [address] MCH (RBC) [Entitic mass] 30.8 pg Normal 27.0-32.0 [facility] Comment on above: Performed By: #### L 300.8000, L501.2450, L501.5200, L500.4050, L100.0100 #### [facility] [address] [place], [address] MCHC (RBC) [Mass/Vol] 33.9 g/dL Normal 32-36 [facility] Comment on above: Performed By: #### L 300.8000, L501.2450, L501.5200, L500.4050, L100.0100 #### [facility] [address] [place], [address] MCV (RBC) [Entitic vol] 90.9 fL Normal 81-99 [facility] Comment on above: Performed By: #### L 300.8000, L501.2450, L501.5200, L500.4050, L100.0100 #### [facility] [address] [place], [address] Monocytes/100 WBC (Bld) 12.6 % High 0-10 [facility] Comment on above: Performed By: #### L 300.8000, L501.2450, L501.5200, L500.4050, L100.0100 #### [facility] [address] [place], [address] Neutrophils/100 WBC (Bld) 72.5 % High 47-70 [facility] Comment on above: Performed By: #### L 300.8000, L501.2450, L501.5200, L500.4050, L100.0100 #### [facility] [address] [place], [address] Nucleated RBC (Bld) [#/Vol] 0 10*3/uL Normal 0-5 [facility] Comment on above: Performed By: #### L 300.8000, L501.2450, L501.5200, L500.4050, L100.0100 #### [facility] [address] [place], [address] Platelet mean volume (Bld) [Entitic vol] 9.0 fL Normal 6.2-12.0 [facility] Comment on above: Performed By: #### L 300.8000, L501.2450, L501.5200, L500.4050, L100.0100 #### [facility] [address] [place], [address] Platelets (Bld) [#/Vol] 286 10*3/uL Normal 150-450 [facility] Comment on above: Performed By: #### L 300.8000, L501.2450, L501.5200, L500.4050, L100.0100 #### [facility] [address] [place], [address] RBC (Bld) [#/Vol] 4.71 10*6/uL Normal 4.2-5.4 [facility] Comment on above: Performed By: #### L 300.8000, L501.2450, L501.5200, L500.4050, L100.0100 #### [facility] [address] [place], [address] RDW SD 41.4 fl Normal 35.1-43.9 [facility] Comment on above: Performed By: #### L 300.8000, L501.2450, L501.5200, L500.4050, L100.0100 #### [facility] [address] [place], [address] WBC (Bld) [#/Vol] 5.4 10*3/uL Normal 4.4-11.0 [facility] Comment on above: Performed By: #### L 300.8000, L501.2450, L501.5200, L500.4050, L100.0100 #### [facility] [address] [place], [address] Carbon dioxide, total [Moles /volume] in Central venous bloodOrdered By: Joann Douglas on 12-01-2024 CO2 [Moles/Vol] 21.4 mmol/L 21.0-32.0 [facility] Chest PA and Lateralon 12-01 Chest PA and Lateral [facility] [address] [place] [address] Chest PA and Lateral MR#: [id number] Acct: [id number] Name: MEREDITH LYNCH Rep #: [id number] : 1975 F 48 From: Juanis Barber MD PCP: Dr. Juanis Waldrop MD Status: REG ER Study: Chest PA and Lateral Date of Exam: 12/01/24 Exam# [id number] Ordering Dr: Joann Douglas DO PROCEDURE: CHEST PA AND LATERAL (RADCXR), 12/01/2024 REASON FOR EXAM: COUGH TECHNIQUE: PA and lateral views of the chest were obtained. COMPARISON: None FINDINGS: Heart: Unremarkable. Mediastinum: Unremarkable. Lungs/pleura: No focal consolidation. Question trace interstitial prominence, potentially in part related to chest wall attenuation. No pleural effusion or visible pneumothorax. Bones: Multilevel spondylosis. Mild thoracolumbar dextroscoliosis. i Lines and support devices: None. Other: RIGHT upper quadrant surgical clips.. RAD/Chest PA and Lateral IMPRESSION: 1. Question trace interstitial prominence which could in part be technical. In the absence of comparison exams this could reflect a mild chronic interstitial abnormality versus trace pneumonitis/atypical pneumonia or interstitial edema. 2. Additional description as above. Reading Location: [id number] CC: Dr. Joann Douglas, DO; Dr. Juanis Waldrop MD Dcs Engineer: Signed Normal [facility] Chloride assayOrdered By: Mike Douglas on 12-01-2024 Chloride [Moles/Vol] 103 mmol/L 98-108 [facility] Comprehensive Metabolic Prof ilon 12-01-2024 Albumin [Mass/Vol] 3.7 g/dL Normal 3.5-5.0 [facility] Comment on above: Performed By: #### L 300.8000, L501.2450, L501.5200, L500.4050, L100.0100 #### [facility] [address] [place], [address] Albumin/Globulin [Mass ratio] 1.1 {ratio} Normal 0.9-2.4 [facility] Comment on above: Performed By: #### L 300.8000, L501.2450, L501.5200, L500.4050, L100.0100 #### [facility] [address] [place], [address] ALK PHOS 109 U/L High 35-104 [facility] Comment on above: Performed By: #### L 300.8000, L501.2450, L501.5200, L500.4050, L100.0100 #### [facility] [address] [place], [address] ALT [Catalytic activity/Vol] 95 U/L High <=34 [facility] Comment on above: Performed By: #### L 300.8000, L501.2450, L501.5200, L500.4050, L100.0100 #### [facility] [address] [place], [address] AST [Catalytic activity/Vol] 64 U/L High <=31 [facility] Comment on above: Performed By: #### L 300.8000, L501.2450, L501.5200, L500.4050, L100.0100 #### [facility] [address] [place], [address] Bilirubin [Mass/Vol] 0.47 mg/dL Normal 0.00-1.30 [facility] Comment on above: Performed By: #### L 300.8000, L501.2450, L501.5200, L500.4050, L100.0100 #### [facility] [address] [place], [address] BUN/CRE 14.9 RATIO Normal 10-20 [facility] Comment on above: Performed By: #### L 300.8000, L501.2450, L501.5200, L500.4050, L100.0100 #### [facility] [address] [place], [address] Calcium [Mass/Vol] 8.8 mg/dL Normal 7.6-11.0 [facility] Comment on above: Performed By: #### L 300.8000, L501.2450, L501.5200, L500.4050, L100.0100 #### [facility] [address] [place], [address] Chloride [Moles/Vol] 103 mmol/L Normal 98-108 [facility] Comment on above: Performed By: #### L 300.8000, L501.2450, L501.5200, L500.4050, L100.0100 #### [facility] [address] [place], [address] CO2 [Moles/Vol] 21.4 mmol/L Normal 21.0-32.0 [facility] Comment on above: Performed By: #### L 300.8000, L501.2450, L501.5200, L500.4050, L100.0100 #### [facility] [address] [place], [address] Creatinine [Mass/Vol] 0.75 mg/dL Normal 0.70-1.20 [facility] Comment on above: Performed By: #### L 300.8000, L501.2450, L501.5200, L500.4050, L100.0100 #### [facility] [address] [place], [address] ECRCL 97.45 ml/min Normal 50-250 [facility] Comment on above: Performed By: #### L 300.8000, L501.2450, L501.5200, L500.4050, L100.0100 #### [facility] [address] [place], [address] GAP 12 Normal 5-15 [facility] Comment on above: Performed By: #### L 300.8000, L501.2450, L501.5200, L500.4050, L100.0100 #### [facility] [address] [place], [address] GFR/1.73 sq M.predicted among non-blacks MDRD (S/P/Bld) [Vol rate/Area] 99 mL/min/{1.73_m2} Normal >60 [facility] Comment on above: Result Comment: mL/m in/1.73m2 CKD-EPI Creatinine Equation (2020) Performed By: #### L 300.8000, L501.2450, L501.5200, L500.4050, L100.0100 #### [facility] [address] [place], [address] Globulin (S) [Mass/Vol] 3.4 g/dL Normal 2.2-4.2 [facility] Comment on above: Performed By: #### L 300.8000, L501.2450, L501.5200, L500.4050, L100.0100 #### [facility] [address] [place], [address] Glucose [Mass/Vol] 98 mg/dL Normal 70-99 [facility] Comment on above: Performed By: #### L 300.8000, L501.2450, L501.5200, L500.4050, L100.0100 #### [facility] [address] [place], [address] Potassium [Moles/Vol] 3.7 mmol/L Normal 3.3-5.1 [facility] Comment on above: Performed By: #### L 300.8000, L501.2450, L501.5200, L500.4050, L100.0100 #### [facility] [address] [place], [address] Sodium [Moles/Vol] 135 mmol/L Normal 133-145 [facility] Comment on above: Performed By: #### L 300.8000, L501.2450, L501.5200, L500.4050, L100.0100 #### [facility] [address] [place], [address] T PROT 7.1 g/dL Normal 5.9-8.4 [facility] Comment on above: Performed By: #### L 300.8000, L501.2450, L501.5200, L500.4050, L100.0100 #### [facility] [address] [place], [address] Urea nitrogen [Mass/Vol] 11 mg/dL Normal 4-19 [facility] Comment on above: Performed By: #### L 300.8000, L501.2450, L501.5200, L500.4050, L100.0100 #### [facility] [address] [place], [address] D-Dimer Quantitative (DVT/PE )on 12-01-2024 D-DIMER QUANT 0.31 FEU/ug/m Normal 0.27-0.49 [facility] Comment on above: Result Comment: NORM AL D-Dimer level (<0.50) indicates no DVT or PE. Performed By: #### L 300.8000, L501.2450, L501.5200, L500.4050, L100.0100 #### [facility] [address] [facility] [place], [place], [address] D-dimer measurement for deep venous thrombosisOrdered By: Joann Douglas on 12-01-2024 D-Dimer Quantitative (PE/DVT) 0.31 FEU/ug/m 0.27-0.49 [facility] Comment on above: NORMAL D-Dimer level (<0.50) indicates no DVT or PE. Emergency Department Summary on 12-01-2024 Emergency Department Summary [facility] Medical Records Department [address] [place] [address] Emergency Department Summary 12/01/24 MR#: [id number] Acct: [id number] Name: MEREDITH LYNCH Rep #: [id number] : 1975 48 From: Joann Douglas DO PCP: Dr. Juanis Waldrop MD Status:DEP ER Location: ED HPI History of Present Illness Chief Complaint: Chest Pain Informant: patient Narrative Narrative: Patient is a 48-year-old female with history of systemic lupus erythematosus, COPD (not on home oxygen), fibromyalgia and frequent pneumonia presenting with left-sided chest pain, cough and nausea and vomiting. Patient states has been having symptoms for about a month and a half now. She has been having pain in the left side of her chest especially underneath her ribs. She also has been having bilateral thoracic back pain. In addition she reports that she thinks that her hiatal hernia is inflamed because she has been having postprandial nausea and vomiting for the past month and a half. She is not feeling she can really keep anything down. Sometimes she coughs so much that she also throws up. Most of her vomit is white phlegm however she states every once while there is a little bit of blood in her vomit but nothing that she is worried about. She has not having worsening heartburn and taking Tums but does not take a daily antacid. She denies any fevers or chills. Today developed a runny nose. States her whole head feels like there is pressure. Denies any sore throat or ear pain. Is not sure what her last bowel movement is but currently is not reporting any abdominal pain. Feels that she has had a 70 pound weight gain of the past month and does have some mild swelling of her legs. Denies a history of DVT or PE. Is a tobacco user but is down to 2 cigarettes a day as she is trying to quit. States she feels better when she lays on her right side. Did come in with her son who is giving evaluated for respiratory symptoms but she states until today she has not really been around 10. She thinks he was exposed to COVID. [facility] Medical History Lupus Acute (undifferentiated) schizophrenia Depression Fibromyalgia Continuous tobacco abuse SLE (systemic lupus erythematosus) COPD (chronic obstructive pulmonary disease) Hiatal hernia Shortness of breath Home Medications ???Medication ???Instructions ???Recorded ???Last Taken ???Type albuterol sulfate 90 mcg/actuation 1 - 2 puff inhalation Q4H PRN MN N 05/29/20 Unknown Rx aerosol inhaler Wheezing ##1 prazosin 1 mg capsule (Minipress) 1 mg PO QHS 05/29/20 Unknown Hist ory risperidone 4 mg tablet 1 tab PO DAILY Check with primary 05/29/20 Unknown History doctor trazodone 100 mg tablet 100 mg PO PRN PRN Sleep 05/29/20 U nknown History carbamazepine 200 mg tablet 400 mg PO DAILY Check with primary 05/02/22 05/01/22 20:00 History doctor fluticasone furoate 200 1 inh inhalation DAILY Check with 05/02/22 Unknown History mcg-vilanterol 25 mcg/dose primary doctor inhalation powder (Breo Ellipta) gabapentin 600 mg tablet 600 mg PO TID Check with primary 0 05/02/22 Unknown History doctor gabapentin 600 mg tablet 600 mg PO QHS Check with primary 0 9/06/22 Unknown History (Neurontin) doctor azithromycin 250 mg tablet See Rx Instructions PO .COMPLEX 10 08/01/23 Unknown Rx days #12 tabs doxycycline hyclate 100 mg capsule 100 mg PO BID 10 days #20 caps 1 10/02/22 Unknown Rx ipratropium 0.5 mg-albuterol 3 mg 3 ml inhalation 4X/DAY PRN PRN Unknown Rx (2.5 mg base)/3 mL nebulization shortness of breath or wheezing soln #180 mL cefdinir 300 mg capsule 300 mg PO BID 7 days #14 caps 0403/20 Unknown Rx omeprazole 40 mg capsule,delayed 40 mg PO DAILY ##30 12/01/24 Unkno wn Rx release ondansetron 4 mg disintegrating 4 mg PO Q8H PRN PRN Nausea #10 tab s 12/01/24 Unknown Rx tablet oseltamivir 75 mg capsule (Tamiflu) 75 mg PO Q12H 5 days #10 caps 0 12/01/24 Unknown Rx prednisone 20 mg tablet 40 mg (2 x 20 mg) PO DAILY #8 tabs 12/01/24 Unknown Rx Allergy/AdvReac Type Severity Reaction Status Date / Time Penicillins Allergy Hives Verified 12/01/24 12:27 morphine AdvReac Rash Verified 12/01/24 12:27 Family History Father Bipolar 1 disorder Rheumatoid arthritis Heart disease Alcohol abuse Cancer Lung and liver Colon cancer Hyperlipidemia Mother Rheumatoid arthritis Sister Cancer Ovarian Rheumatoid arthritis Surgical History History of tubal ligation History of dilatation and curettage History of right oophorectomy History of cholecystectomy History of carpal tunnel surgery of right wrist Hist (more content not included)... Normal [facility] Eosinophil percentageOrdered By: Joann Douglas on 12-01-2024 Eosinophils/100 WBC (Bld) 1.7 % 0-5 [facility] Epithelial cells.squamous LM Ql (Urine sed)Ordered By: Joann Douglas on 12-01-2024 Epithelial cells.squamous LM.HPF (Urine sed) [#/Area] 0 /[HPF] 5-10 [facility] Erythrocyte distribution wid th (RBC) [Ratio]Ordered By: Joann Douglas on 12-01-2024 Erythrocyte distribution width (RBC) [Entitic vol] 41.4 fL 35.1-43.9 [facility] Erythrocyte distribution wid th ratioOrdered By: Joann Douglas on 12-01-2024 Erythrocyte distribution width (RBC) [Ratio] 12.5 % 11.6-14.6 [facility] Estimation of creatinine rebecca aranceOrdered By: Joann Douglas on 12-01-2024 Estimated Creatinine Clearance Calc 97.45 ml/min 50-250 [facility] GFR/1.73 sq M.predicted taylor g non-blacks MDRD (S/P/Bld) [Vol rate/Area]Ordered By: Joann Douglas on 12-01-2024 Estimated GFR (MDRD) Non-Af Amer 99 >60 [facility] Comment on above: mL/min/1.73m2 CKD-EP I Creatinine Equation (2020) Glucose Ql (U)Ordered By: Mike Douglas on 12-01-2024 Urine Glucose (UA) Normal mg/dl Normal [facility] Hematocrit Auto (Bld) [Volum e fraction]Ordered By: Joann Douglas on 12-01-2024 Hematocrit (Bld) [Volume fraction] 42.8 % 37-47 [facility] Hemoglobin measurementOrdere d By: Joann Douglas on 12-01-2024 Hemoglobin (Bld) [Mass/Vol] 14.5 g/dL 12.0-15.0 [facility] Immature granulocytes/100 WB C Auto (Bld)Ordered By: Joann Douglas on 12-01-2024 Immature granulocytes/100 WBC (Bld) 0.600 % 0.0-0.9 [facility] Comment on above: IG% - Immature Granu locytes (promyelocytes, myelocytes and metamyelocytes) > 1% indicates that a LEFT SHIFT is Present. Influenza virus A and B and SARS-CoV-2 (COVID-19) and Respiratory syncytial virus RNAOrdered By: Joann Douglas on 12-01-2024 SARS-CoV-2 (COVID-19) RNA SERGEI+probe Ql (Unsp spec) Influenzae A Abnormal [facility] Ketones Test strip Ql (U)Ord ered By: Joann Douglas on 12-01-2024 Ketones Ql (U) Negative Negative [facility] L499.0042on 12-01-2024 Trop T High Sen Normal <=14 [facility] Comment on above: Result Comment: Vinay avelar via OM: Ordered Performed By: #### L 499.0042 ####[facility] [address] [place], [address] L499.0043on 12-01-2024 Trop T High Sen Normal <=14 [facility] Comment on above: Result Comment: Vinay avelar via OM: Ordered Performed By: #### L 499.0043 #### [facility] [address] [place], [address] L501.4021on 12-01-2024 Trop T High Sen < 6 Normal <=14 [facility] Comment on above: Performed By: #### L 501.4021, L503.7505 ####[facility] [address] [place], [address] L503.7505on 12-01-2024 Natriuretic peptide B (Bld) [Mass/Vol] 184 pg/mL Normal <=450 [facility] Comment on above: Result Comment: Hear t Failure Unlikely: < 300 pg/mL Heart Failure Likely < 50 Years: > 450 pg/mL 50-75 Years: > 900 pg/mL >75 Years: > 1800 pg/mL Performed By: #### L 501.4021, L503.7505 ####[facility] [address] [place], [address] Laboratory - Chemistry and C hemistry - challengeOrdered By: Joann Douglas on 12-01-2024 AST [Catalytic activity/Vol] 64 U/L High <32 [facility] Lipaseon 12-01-2024 Lipase [Catalytic activity/Vol] 16 U/L Normal 13-75 [facility] Comment on above: Result Comment: Antonio pan note: LIPASE revised reference range effective 22. New Lipase methodology. Expected to produce lower values than the previous assay method. NEW Reference Range: 13 - 75 U/L Performed By: #### L 300.8000, L501.2450, L501.5200, L500.4050, L100.0100 #### [facility] [address] [place], [address] Lipase measurementOrdered By : Joann Douglas on 12-01-2024 Lipase [Catalytic activity/Vol] 16 U/L 13-75 [facility] Comment on above: Please note:LIPASE r evised reference range effective 22. New Lipase methodology. Expected to produce lower values than the previous assay method. NEW Reference Range: 13 - 75 U/L Lymphocytes Auto (Unsp spec) [#/Vol]Ordered By: Joann Douglas on 12-01-2024 Lymphocytes (Bld) [#/Vol] 0.64 10*3/uL Low 0.83-4.51 [facility] Lymphocytes/100 WBC Auto (Un sp spec)Ordered By: Joann Douglas on 12-01-2024 Lymphocytes/100 WBC (Bld) 11.9 % Low 19-41 [facility] M100.678on 12-01-2024 SARS-CoV-2 (COVID-19) Ab IA Ql Normal Reference Range = Negative FLUABV+SARS-CoV-2+RS V Pnl Resp SERGEI+probe GeneXpert Instrument, PCR method FLUABV+SARS-CoV-2+RS V Pnl Resp SERGEI+probe FLUABV+SARS-CoV-2+RS V Pnl Resp SERGEI+probe CRITICAL VALUE CALLED TO RACHANA PEDERSON 12/01/24 1407 Kitty Chambers. RESULTS READ BACK BY SAME. SARS-CoV-2 (COVID 19) Negative INFLUENZA A A Positive A INFLUENZA B Negative RSV PCR Negative INFLUENZAE A Normal [facility] Comment on above: Performed By: #### L 300.8000, L501.4021 #### [facility] [address] [place], [address] MCV (mean corpuscular volume ) determinationOrdered By: Joann Douglas on 12-01-2024 MCV (RBC) [Entitic vol] 90.9 fL 81-99 [facility] Magnesiumon 12-01-2024 Magnesium [Mass/Vol] 2.1 mg/dL Normal 1.5-2.2 [facility] Comment on above: Performed By: #### L 300.8000, L501.2450, L501.5200, L500.4050, L100.0100 #### [facility] [address] [place], [address] Magnesium (Unsp spec) [Mass/ Vol]Ordered By: Joann Douglas on 12-01-2024 Magnesium [Mass/Vol] 2.1 mg/dL 1.5-2.2 [facility] Mean corpuscular hemoglobin (MCH) determinationOrdered By: Joann Douglas on 12-01-2024 MCH (RBC) [Entitic mass] 30.8 pg 27.0-32.0 [facility] Mean corpuscular hemoglobin concentration (MCHC) determinationOrdered By: Joann Douglas on 12-01-2024 MCHC (RBC) [Mass/Vol] 33.9 g/dL 32-36 [facility] Mean platelet volume determi nationOrdered By: Joann Douglas on 12-01-2024 Platelet mean volume (Bld) [Entitic vol] 9.0 fL 6.2-12.0 [facility] Microscopic analysis of urin e for red blood cells (RBC)Ordered By: Joann Douglas on 12-01-2024 Urine RBC 0 SEEN /hpf 0-5 [facility] Monocyte percentageOrdered B y: Joann Douglas on 12-01-2024 Monocytes/100 WBC (Bld) 12.6 % High 0-10 [facility] Mucus LM Ql (Urine sed)Order ed By: Joann Douglas on 12-01-2024 Mucus Ql (Urine sed) 0 SEEN /hpf [facility] Natriuretic peptide.B prohor rachelle N-Terminal [Mass/Vol]Ordered By: Joann Douglas on 12-01-2024 Natriuretic peptide B (Bld) [Mass/Vol] 184 pg/mL <450 [facility] Comment on above: Heart Failure Unlike ly: < 300 pg/mLHeart Failure Likely< 50 Years: > 450 pg/mL50-75 Years: > 900 pg/mL>75 Years: > 1800 pg/mL Neutrophil percentageOrdered By: Joann Douglas on 12-01-2024 Neutrophils/100 WBC (Bld) 72.5 % High 47-70 [facility] Nitrite Test strip Ql (U)Ord ered By: Joann Douglas on 12-01-2024 Nitrite Ql (U) Negative Negative [facility] Nucleated red blood cell per centageOrdered By: Joann Douglas on 12-01-2024 Nucleated RBC/100 WBC (Bld) [Ratio] 0 % 0-5 [facility] Platelet countOrdered By: Mike Douglas on 12-01-2024 Platelets (Bld) [#/Vol] 286 10*3/uL 150-450 [facility] [facility] Potassium (Unsp spec) [Mass/ Vol]Ordered By: Joann Douglas on 12-01-2024 Potassium [Moles/Vol] 3.7 mmol/L 3.3-5.1 [facility] Protein Test strip Ql (U)Ord ered By: Joann Douglas on 12-01-2024 Protein Ql (U) 15 mg/dl High Negative [facility] RBC Auto (Bld) [#/Vol]Ordere d By: Joann Douglas on 12-01-2024 RBC (Bld) [#/Vol] 4.71 10*6/uL 4.2-5.4 [facility] Serum creatinine measurement (mass/volume)Ordered By: Joann Douglas on 12-01-2024 Creatinine [Mass/Vol] 0.75 mg/dL 0.70-1.20 [facility] Serum globulin measurementOr dered By: Joann Douglas on 12-01-2024 Globulin (S) [Mass/Vol] 3.4 g/dL 2.2-4.2 [facility] Serum glucose measurement (m ass/volume)Ordered By: Joann Douglas on 12-01-2024 Glucose [Mass/Vol] 98 mg/dL 70-99 [facility] Serum or plasma alanine mcclain otransferase (ALT) measurementOrdered By: Joann Douglas on 12-01-2024 ALT [Catalytic activity/Vol] 95 U/L High <35 [facility] Serum or plasma albumin sal urement (mass/volume)Ordered By: Joann Douglas on 12-01-2024 Albumin [Mass/Vol] 3.7 g/dL 3.5-5.0 [facility] Serum or plasma albumin/glob ulin mass ratioOrdered By: Joann Douglas on 12-01-2024 Albumin/Globulin [Mass ratio] 1.1 {ratio} 0.9-2.4 [facility] Serum or plasma alkaline jackson sphatase measurementOrdered By: Joann Douglas on 12-01-2024 ALP [Catalytic activity/Vol] 109 U/L High 35-104 [facility] Serum or plasma calcium sal urement (mass/volume)Ordered By: Joann Douglas on 12-01-2024 Calcium [Mass/Vol] 8.8 mg/dL 7.6-11.0 [facility] Serum or plasma urea nitroge n measurement (mass/volume)Ordered By: Joann Douglas on 12-01-2024 Urea nitrogen [Mass/Vol] 11 mg/dL 4-19 [facility] Sodium levelOrdered By: Charles Douglas on 12-01-2024 Sodium [Moles/Vol] 135 mmol/L 133-145 [facility] Total proteinOrdered By: Clarisa Douglas on 12-01-2024 Protein [Mass/Vol] 7.1 g/dL 5.9-8.4 [facility] Troponin T.cardiac High sens itivity method [Mass/Vol]Ordered By: Joann Douglas on 12-01-2024 Troponin T High Sensitivity < 6 ng/L <14 [facility] Urinalysis, Completeon 12-01 BACTERIA 1+ /hpf Normal None Seen [facility] Comment on above: Order Comment: CLEAN CATCH Performed By: #### L 400.0001 ####[facility] [address] [place], [address] EPI,SQUAMOUS 0-5 SEEN Normal 5-10 [facility] Comment on above: Order Comment: CLEAN CATCH Performed By: #### L 400.0001 ####[facility] [address] [place], [address] Mucus Ql (Urine sed) 0 SEEN Normal [facility] Comment on above: Order Comment: CLEAN CATCH Performed By: #### L 400.0001 ####[facility] [address] [place], [address] RBC 0 SEEN Normal 0-5 [facility] Comment on above: Order Comment: CLEAN CATCH Performed By: #### L 400.0001 ####[facility] [address] [place], [address] WBC 0 SEEN Normal 0-5 [facility] Comment on above: Order Comment: CLEAN CATCH Performed By: #### L 400.0001 ####[facility] [address] [place], [place], [address] Urine blood detectionOrdered By: Joann Douglas on 12-01-2024 Urine Occult Blood Negative Negative [facility] Urine clarityOrdered By: Clarisa Douglas on 12-01-2024 Clarity (U) Clear Clear [facility] Urine color determinationOrd ered By: Joann Douglas on 12-01-2024 Color (U) Yellow Yellow [facility] Urine cultureOrdered By: Clarisa Douglas on 12-01-2024 Bacteria identified Cx Nom (U) Positive Abnormal [facility] Urine leukocyte esterase det ection by dipstickOrdered By: Joann Douglas on 12-01-2024 Leukocyte esterase Test strip Ql (U) 500 /ul High Negative [facility] Urine pHOrdered By: Joann ordonez on 12-01-2024 pH (U) 7.0 [pH] 5.0 - 8.0 [facility] Urine sediment bacteria coun t by microscopy (number/high power field)Ordered By: Joann Douglas on 12-01-2024 Bacteria LM.HPF (Urine sed) [#/Area] 1 /[HPF] None Seen [facility] Urine specific gravity measu rementOrdered By: Joann Douglas on 12-01-2024 Specific gravity (U) [Rel density] 1.010 1.002-1.030 [facility] Urobilinogen Ql (U)Ordered B y: Joann Douglas on 12-01-2024 Urobilinogen (U) [Mass/Vol] 1 mg/dL High Normal [facility] White blood cell (WBC) count Ordered By: Joann Douglas on 12-01-2024 WBC (Bld) [#/Vol] 5.4 10*3/uL 4.4-11.0 [facility] White blood cell countOrdere d By: Joann Douglas on 12-01-2024 Urine WBC 0 SEEN /hpf 0-5 [facility] CBC W Auto Differential pane l (Bld)on 06-30-2024 Basophils (Bld) [#/Vol] 0.07 10*3/uL Normal <0.11 [facility] Comment on above: Order Comment: Speci men Type: BLOOD SPECIMEN Ordering Facility: [facility] Address: [address] [place] [address] Performed By: #### 5 7021-8 #### [facility] CLIA [id number] [address] [place] [address] [place] Basophils/100 WBC (Bld) 0.9 % Normal [facility] Comment on above: Order Comment: Speci men Type: BLOOD SPECIMEN Ordering Facility: [facility] Address: [address] [place] [address] Performed By: #### 5 7021-8 #### [facility] CLIA [id number] [address] [place] [address] [place] Differential cell count method Nom (Bld) Auto Normal [facility] Comment on above: Order Comment: Speci men Type: BLOOD SPECIMEN Ordering Facility: [facility] Address: [address] [place] [address] Performed By: #### 5 7021-8 #### [facility] CLIA [id number] [address] [place] [address] [place] Eosinophils (Bld) [#/Vol] 0.28 10*3/uL Normal <0.46 [facility] Comment on above: Order Comment: Speci men Type: BLOOD SPECIMEN Ordering Facility: [facility] Address: [address] [place] [address] Performed By: #### 5 7021-8 #### [facility] CLIA [id number] [address] [place] [address] [place] Eosinophils/100 WBC (Bld) 3.6 % Normal [facility] Comment on above: Order Comment: Speci men Type: BLOOD SPECIMEN Ordering Facility: [facility] Address: [address] [place] [address] Performed By: #### 5 7021-8 #### [facility] CLIA [id number] [address] [place] [address] [place] Erythrocyte distribution width (RBC) [Ratio] 12.4 % Normal 11.5-15.0 [facility] Comment on above: Order Comment: Speci men Type: BLOOD SPECIMEN Ordering Facility: [facility] Address: [address] [place] [address] Performed By: #### 5 7021-8 #### [facility] CLIA [id number] [address] [place] [address] [place] Hematocrit (Bld) [Volume fraction] 43.1 % Normal 36.0-46.0 [facility] Comment on above: Order Comment: Speci men Type: BLOOD SPECIMEN Ordering Facility: [facility] Address: [address] [place] [address] Performed By: #### 5 7021-8 #### [facility] CLIA [id number] [address] [place] [address] [place] Hemoglobin (Bld) [Mass/Vol] 14.0 g/dL Normal 11.5-15.5 [facility] Comment on above: Order Comment: Speci men Type: BLOOD SPECIMEN Ordering Facility: [facility] Address: [address] [place] [address] Performed By: #### 5 7021-8 #### [facility] CLIA [id number] [address] [place] [address] [place] Immature granulocytes (Bld) [#/Vol] 10*3/uL Normal <0.10 [facility] Comment on above: Order Comment: Speci men Type: BLOOD SPECIMEN Ordering Facility: [facility] Address: [address] [place] [address] Performed By: #### 5 7021-8 #### [facility] CLIA [id number] [address] [place] [address] [place] Immature granulocytes/100 WBC (Bld) 0.3 % Normal [facility] Comment on above: Order Comment: Speci men Type: BLOOD SPECIMEN Ordering Facility: [facility] Address: [address] [place] [address] Performed By: #### 5 7021-8 #### [facility] CLIA [id number] [address] [place] [address] [place] Lymphocytes (Bld) [#/Vol] 3.32 10*3/uL Normal 1.00-4.00 [facility] Comment on above: Order Comment: Speci men Type: BLOOD SPECIMEN Ordering Facility: [facility] Address: [address] [place] [address] Performed By: #### 5 7021-8 #### [facility] CLIA [id number] [address] [place] [address] [place] Lymphocytes/100 WBC (Bld) 42.3 % Normal [facility] Comment on above: Order Comment: Speci men Type: BLOOD SPECIMEN Ordering Facility: [facility] Address: [address] [place] [address] Performed By: #### 5 7021-8 #### [facility] CLIA [id number] [address] [place] [address] [place] MCH (RBC) [Entitic mass] 30.1 pg Normal 26.0-34.0 [facility] Comment on above: Order Comment: Speci men Type: BLOOD SPECIMEN Ordering Facility: [facility] Address: [address] [place] [address] Performed By: #### 5 7021-8 #### [facility] CLIA [id number] [address] [place] [address] [place] MCHC (RBC) [Mass/Vol] 32.5 g/dL Normal 30.5-36.0 [facility] Comment on above: Order Comment: Speci men Type: BLOOD SPECIMEN Ordering Facility: [facility] Address: [address] [place] [address] Performed By: #### 5 7021-8 #### [facility] CLIA [id number] [address] [place] [address] [place] MCV (RBC) [Entitic vol] 92.7 fL Normal 80.0-100.0 [facility] Comment on above: Order Comment: Speci men Type: BLOOD SPECIMEN Ordering Facility: [facility] Address: [address] [place] [address] Performed By: #### 5 7021-8 #### [facility] CLIA [id number] [address] [place] [address] [place] Monocytes (Bld) [#/Vol] 0.64 10*3/uL Normal <0.87 [facility] Comment on above: Order Comment: Speci men Type: BLOOD SPECIMEN Ordering Facility: [facility] Address: [address] [place] [address] Performed By: #### 5 7021-8 #### [facility] CLIA [id number] [address] [place] [address] [place] Monocytes/100 WBC (Bld) 8.2 % Normal C [facility] Comment on above: Order Comment: Speci men Type: BLOOD SPECIMEN Ordering Facility: [facility] Address: [address] [place] [address] Performed By: #### 5 7021-8 #### [facility] CLIA [id number] [address] [place] [address] [place] Neutrophils (Bld) [#/Vol] 3.52 10*3/uL Normal 1.45-7.50 [facility] Comment on above: Order Comment: Speci men Type: BLOOD SPECIMEN Ordering Facility: [facility] Address: [address] [place] [address] Performed By: #### 5 7021-8 #### [facility] CLIA [id number] [address] [place] [address] [place] Neutrophils/100 WBC (Bld) 44.7 % Normal [facility] Comment on above: Order Comment: Speci men Type: BLOOD SPECIMEN Ordering Facility: [facility] Address: [address] [place] [address] Performed By: #### 5 7021-8 #### [facility] CLIA [id number] [address] [place] [address] [place] Nucleated RBC (Bld) [#/Vol] 10*3/uL Normal <0.01 [facility] Comment on above: Order Comment: Speci men Type: BLOOD SPECIMEN Ordering Facility: [facility] Address: [address] [place] [address] Performed By: #### 5 7021-8 #### [facility] CLIA [id number] [address] [place] [address] [place] Nucleated RBC/100 WBC (Bld) [Ratio] 0.0 /100 WBC Normal [facility] Comment on above: Order Comment: Speci men Type: BLOOD SPECIMEN Ordering Facility: [facility] Address: [address] [place] [address] Performed By: #### 5 7021-8 #### [facility] CLIA [id number] [address] [place] [address] [place] Platelet mean volume (Bld) [Entitic vol] 9.8 fL Normal 9.0-12.7 [facility] Comment on above: Order Comment: Speci men Type: BLOOD SPECIMEN Ordering Facility: [facility] Address: [address] [place] [address] Performed By: #### 5 7021-8 #### [facility] CLIA [id number] [address] [place] [address] [place] Platelets (Bld) [#/Vol] 357 10*3/uL Normal 150-400 [facility] Comment on above: Order Comment: Speci men Type: BLOOD SPECIMEN Ordering Facility: [facility] Address: [address] [place] [address] Performed By: #### 5 7021-8 #### [facility] CLIA [id number] [address] [place] [address] [place] RBC (Bld) [#/Vol] 4.65 10*6/uL Normal 3.90-5.20 [facility] Comment on above: Order Comment: Speci men Type: BLOOD SPECIMEN Ordering Facility: [facility] Address: [address] [place] [address] Performed By: #### 5 7021-8 #### [facility] CLIA [id number] [address] [place] [address] [place] WBC (Bld) [#/Vol] 7.85 10*3/uL Normal 3.70-11.00 [facility] Comment on above: Order Comment: Speci men Type: BLOOD SPECIMEN Ordering Facility: [facility] Address: [address] [place] [address] Performed By: #### 5 7021-8 #### [facility] CLIA [id number] [address] [place] [address] [place] Comprehensive metabolic 2000 panelon 06-30-2024 Albumin [Mass/Vol] 3.9 g/dL Normal 3.9-4.9 [facility] Comment on above: Order Comment: Speci men Type: BLOOD SPECIMEN Ordering Facility: [facility] Address: [address] [place] [address] Performed By: #### 5 7021-8 #### [facility] CLIA [id number] [address] [place] [address] [place] ALP [Catalytic activity/Vol] 94 U/L Normal 34-123 [facility] Comment on above: Order Comment: Speci men Type: BLOOD SPECIMEN Ordering Facility: [facility] Address: [address] [place] [address] Performed By: #### 5 7021-8 #### [facility] CLIA [id number] [address] [place] [address] [place] ALT [Catalytic activity/Vol] 74 U/L High 7-38 [facility] Comment on above: Order Comment: Speci men Type: BLOOD SPECIMEN Ordering Facility: [facility] Address: [address] [place] [address] Performed By: #### 5 7021-8 #### [facility] CLIA [id number] [address] [place] [address] [place] Anion gap [Moles/Vol] 13 mmol/L Normal 8-15 [facility] Comment on above: Order Comment: Speci men Type: BLOOD SPECIMEN Ordering Facility: [facility] Address: [address] [place] [address] Performed By: #### 5 7021-8 #### [facility] CLIA [id number] [address] [place] [address] [place] AST [Catalytic activity/Vol] 55 U/L High 13-35 [facility] Comment on above: Order Comment: Speci men Type: BLOOD SPECIMEN Ordering Facility: [facility] Address: [address] [place] [address] Performed By: #### 5 7021-8 #### [facility] CLIA [id number] [address] [place], [place] [id number] [place] Bilirubin [Mass/Vol] 0.4 mg/dL Normal 0.2-1.3 [facility] Comment on above: Order Comment: Speci men Type: BLOOD SPECIMEN Ordering Facility: [facility] Address: [address] [place] [address] Performed By: #### 5 7021-8 #### [facility] CLIA [id number] [address] [place] [address] [place] Calcium [Mass/Vol] 9.2 mg/dL Normal 8.5-10.2 [facility] Comment on above: Order Comment: Speci men Type: BLOOD SPECIMEN Ordering Facility: [facility] Address: [address] [place] [address] Performed By: #### 5 7021-8 #### [facility] CLIA [id number] [address] [place] [address] [place] Chloride [Moles/Vol] 106 mmol/L Normal 98-107 [facility] Comment on above: Order Comment: Speci men Type: BLOOD SPECIMEN Ordering Facility: [facility] Address: [address] [place] [address] Performed By: #### 5 7021-8 #### [facility] CLIA [id number] [address] [place] [address] [place] CO2 [Moles/Vol] 21 mmol/L Low 22-30 [facility] Comment on above: Order Comment: Speci men Type: BLOOD SPECIMEN Ordering Facility: [facility] Address: [address] [place] [address] Performed By: #### 5 7021-8 #### [facility] CLIA [id number] [address] [place], [place] [address] [place] Creatinine [Mass/Vol] 0.68 mg/dL Normal 0.58-0.96 [facility] Comment on above: Order Comment: Eric gabriel Type: BLOOD SPECIMEN Ordering Facility: [facility] Address: [address] [place] [address] Performed By: #### 5 7021-8 #### [facility] CLIA [id number] [address] [place] [address] [place] Creatinine and Glomerular filtration rate.predicted panel (S/P/Bld) 108 mL/min/1.73m??? Normal >=60 [facility] Comment on above: Order Comment: Eric gabriel Type: BLOOD SPECIMEN Ordering Facility: [facility] Address: [address] [place] [address] Result Comment: Allegra mated Glomerular Filtration Rate (eGFR) is calculated using the 2020 CKD-EPI creatinine equation. This equation utilizes serum creatinine, sex, and age as parameters. The creatinine assay has traceable calibration to isotope dilution-mass spectrometry. Refer to KDIGO guidelines for clinical interpretation. In patients with unstable renal function, e.g. those with acute kidney injury, the eGFR may not accurately reflect actual GFR. Performed By: #### 5 7021-8 #### [facility] CLIA [id number] [address] [place] [address] [place] Glucose [Mass/Vol] 99 mg/dL Normal 74-99 [facility] Comment on above: Order Comment: Eric gabriel Type: BLOOD SPECIMEN Ordering Facility: [facility] Address: [address] [place] [address] Result Comment: The [place] Diabetes [employer] (ADA) provides guidance for cutoff values for fasting glucose and random glucose. The ADA defines fasting as no caloric intake for at least 8 hours. Fasting plasma glucose results between 100 to 125 mg/dL indicate increased risk for diabetes (prediabetes). Fasting plasma glucose results greater than or equal to 126 mg/dL meet the criteria for diagnosis of diabetes. In the absence of unequivocal hyperglycemia, results should be confirmed by repeat testing. In a patient with classic symptoms of hyperglycemia or hyperglycemic crisis, random plasma glucose results greater than or equal to 200 mg/dL meet the criteria for diagnosis of diabetes. Reference: Standards of Medical Care in Diabetes 2016, [place] [employer]. Diabetes Care. 2016.39(Suppl 1). Performed By: #### 5 7021-8 #### [facility] CLIA [id number] [address] [place] [address] [place] Potassium [Moles/Vol] 4.2 mmol/L Normal 3.7-5.1 [facility] Comment on above: Order Comment: Speci men Type: BLOOD SPECIMEN Ordering Facility: [facility] Address: [address] [place] [address] Performed By: #### 5 7021-8 #### [facility] CLIA [id number] [address] [place] [address] [place] Protein [Mass/Vol] 7.0 g/dL Normal 6.3-8.0 [facility] Comment on above: Order Comment: Speci men Type: BLOOD SPECIMEN Ordering Facility: [facility] Address: [address] [place] [address] Performed By: #### 5 7021-8 #### [facility] CLIA [id number] [address] [place] [address] [place] Sodium [Moles/Vol] 140 mmol/L Normal 136-144 [facility] Comment on above: Order Comment: Speci men Type: BLOOD SPECIMEN Ordering Facility: [facility] Address: [address] [place] [address] Performed By: #### 5 7021-8 #### [facility] CLIA [id number] [address] [place] [address] [place] Urea nitrogen [Mass/Vol] 12 mg/dL Normal 7-21 [facility] Comment on above: Order Comment: Speci men Type: BLOOD SPECIMEN Ordering Facility: [facility] Address: [address] [place] [address] Performed By: #### 5 7021-8 #### [facility] CLIA [id number] [address] [place] [address] [place] HbA1c (Bld)on 06-30-2024 Average glucose Estimated from glycated hemoglobin (Bld) [Mass/Vol] 103 mg/dL Normal [facility] Comment on above: Order Comment: Eric gabriel Type: BLOOD SPECIMEN Ordering Facility: [facility] Address: [address] [place] [address] Result Comment: eAG: (Estimated average glucose) is a calculated value from HgbA1c and is claims customer service representative of the average blood glucose level in the last 2-3 month period. Performed By: #### 5 5454-3 #### [facility] CLIA [id number] [address] [place] [address] [place] HbA1c (Bld) [Mass fraction] 5.2 % Normal 4.3-5.6 [facility] Comment on above: Order Comment: Eric gabriel Type: BLOOD SPECIMEN Ordering Facility: [facility] Address: [address] [place] [address] Result Comment: [place] Diabetes Association guidelines indicate that patients with HgbA1c in the range 5.7-6.4% are at increased risk for development of diabetes, and intervention by lifestyle modification may be beneficial. HgbA1c greater or equal to 6.5% is considered diagnostic of diabetes. Performed By: #### 5 5454-3 #### [facility] CLIA [id number] [address] [place] [address] [place] Lipid 1996 panelon 4 Cholesterol [Mass/Vol] 202 mg/dL High <200 [facility] Comment on above: Order Comment: Eric gabriel Type: BLOOD SPECIMEN Ordering Facility: [facility] Address: [address] [place] [address] Result Comment: <200 mg/dL, Desirable 200-239 mg/dL, Borderline high >239 mg/dL, High Performed By: #### 5 7021-8 #### [facility] CLIA [id number] [address] [place] [address] [place] Cholesterol in HDL [Mass/Vol] 57 mg/dL Normal >39 [facility] Comment on above: Order Comment: Eric gabriel Type: BLOOD SPECIMEN Ordering Facility: [facility] Address: [address] [place] [address] Result Comment: 40-5 9 mg/dL, Acceptable >59 mg/dL, High: Negative risk factor for coronary heart disease <40 mg/dL, Low: Positive risk factor for coronary heart disease Performed By: #### 5 7021-8 #### [facility] CLIA [id number] 36 [place] [address] [place] Cholesterol in LDL [Mass/Vol] 128 mg/dL High <100 [facility] Comment on above: Order Comment: Eric gabriel Type: BLOOD SPECIMEN Ordering Facility: [facility] Address: [address] [place] [address] Result Comment: <100 mg/dL, Optimal 100-129 mg/dL, Near optimal/above optimal 130-159 mg/dL, Borderline high 160-189 mg/dL, High >189 mg/dL, Very high Secondary prevention optimal LDL Cholesterol levels are recommended to be < 70 mg/dL Performed By: #### 5 7021-8 #### [facility] CLIA [id number] [address] [place] [address] [place] Cholesterol in LDL/Cholesterol in HDL [Mass ratio] 2.25 {ratio} Normal <2.54 [facility] Comment on above: Order Comment: Eric harvey Type: BLOOD SPECIMEN Ordering Facility: [facility] Address: [address] [place] [address] Result Comment: Dell ac: 1. National Cholesterol Education Program ATP III Guideline At-A-Glance Quick Desk Reference: National Heart, Lung, and Blood [place]. National Institutes of Health. 2001: NIH Publication No. 01-3305. 2. An International Atherosclerosis Society position paper: global recommendations for the management of dyslipidemia: executive summary, Atherosclerosis. 2014: 232(2):410-413. Performed By: #### 5 7021-8 #### [facility] CLIA [id number] [address] [place] [address] [place] Cholesterol in VLDL [Mass/Vol] 17 mg/dL Normal <30 [facility] Comment on above: Order Comment: Speci men Type: BLOOD SPECIMEN Ordering Facility: [facility] Address: [address] [place] [address] Performed By: #### 5 7021-8 #### [facility] CLIA [id number] [address] [place] [address] [place] Cholesterol non HDL [Mass/Vol] 145 mg/dL High <130 [facility] Comment on above: Order Comment: Speci men Type: BLOOD SPECIMEN Ordering Facility: [facility] Address: [address] [place] [address] Result Comment: <130 mg/dL, Optimal 130-159 mg/dL, Near optimal/above optimal 160-189 mg/dL, Borderline high 190-219 mg/dL, High >219 mg/dL, Very high Secondary prevention optimal non HDL Cholesterol levels are recommended to be <100 mg/dL Performed By: #### 5 7021-8 #### [facility] CLIA [id number] [address] [place] [address] [place] Cholesterol.total/Choles terol in HDL [Mass ratio] 3.54 {ratio} Normal <5.10 [facility] Comment on above: Order Comment: Speci men Type: BLOOD SPECIMEN Ordering Facility: [facility] Address: [address] [place] [address] Performed By: #### 5 7021-8 #### [facility] CLIA [id number] [address] [place] [address] [place] FASTING TIME 10 hrs Normal [facility] Comment on above: Order Comment: Speci men Type: BLOOD SPECIMEN Ordering Facility: [facility] Address: [address] [place] [address] Performed By: #### 5 7021-8 #### [facility] CLIA [id number] [address] [place] [address] [place] Triglyceride [Mass/Vol] 86 mg/dL Normal <150 [facility] Comment on above: Order Comment: Speci men Type: BLOOD SPECIMEN Ordering Facility: [facility] Address: [address] [place] [address] Result Comment: <150 mg/dL, Normal 150-199 mg/dL, Borderline high 200-499 mg/dL, High >499 mg/dL, Very high Performed By: #### 5 7021-8 #### [facility] CLIA [id number] [address] [place] [address] [place] T3Free SerPl-mCncon 06-30-20 24 Free T3 [Mass/Vol] 3.7 pg/mL Normal 2.3-4.1 [facility] Comment on above: Order Comment: Speci men Type: BLOOD SPECIMEN Ordering Facility: [facility] Address: [address] [place] [address] Performed By: #### 5 7021-8 #### [facility] CLIA [id number] [address] [place] [address] [place] T4 Free SerPl-mCncon 024 Free T4 [Mass/Vol] 1.0 ng/dL Normal 0.9-1.7 [facility] Comment on above: Order Comment: Speci men Type: BLOOD SPECIMEN Ordering Facility: [facility] Address: [address] [place] [address] Performed By: #### 5 7021-8 #### [facility] CLIA [id number] [address] [place] [address] [place] TSH SerPl-aCncon 06-30-2024 TSH Qn 3.500 m[IU]/L Normal 0.270-4.200 [facility] Comment on above: Order Comment: Kendelli men Type: BLOOD SPECIMEN Ordering Facility: [facility] Address: [address] [place] [address] Result Comment: If t he patient is , TSH reference range varies by gestational period: First Trimester (weeks 9-12): 0.180-2.990 mIU/L Second Trimester: 0.110-3.980 mIU/L Third Trimester: 0.480-4.710 mIU/L Daniel Steward et al. A Practical Approach for the Verifications and Determination of Site- and Trimester-Specific Reference Intervals for Thyroid Function tests in . Thyroid, 2019:29:3:412-420. Zafar Fitch, et al. 2017 Guidelines of the [place] Thyroid Association for the Diagnosis and Management of Thyroid Disease during and the . Thyroid, 2017:27:3:315-389. Performed By: #### 5 7021-8 #### [facility] CLIA [id number] [address] [place] [address] [facility] CNOVon 06-09-2024 CNOV Office Visit (FAMPWS) MEREDITH LYNCH ([id number]) 1975 F Date Time Provider Department 06/09/24 12:40 PM [facility] During your visit today, we recorded the following information about you: Pulse Respiration Blood pressure Weight 60/minute 18/minute 110/72 77.7 kg Ellen Woods APRN.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 06/09/2024 1:39 PM Signed Meredith Lynch is a 48 year old female here for a Medicare wellness visit. Medicare Health Risk Assessment General Health Poor Exercise: Minutes/Day 0 min Exercise: Days/Week 0 days Alcohol: Daily Use Never Alcohol: Drinks/Day Patient does not drink Alcohol: 6 or more drinks Never Feel off balance Yes Concerns: Teeth/Dentures Yes Concerns: Sexual function No Troubled by feelings Anxious; Irritable; Lonely; Isolated Frequency: Eating healthy diet Several days ADLs requiring help Cooking; Housework; Sitting or standing; Walking; Managing urine leakage; Handling finances; Driving Safety precautions in home/vehicle Yes Smoke, vape, chews tobacco Yes, and I might quit Difficulty hearing No Difficulty seeing Yes Current Providers Specialists: I have reviewed specialist-related care of the patient in the medical record. Pulmonology: Dr. Bui Psychiatry: Appt 06/30/2024 Neurology: Dr. King Medical/Family history review Reviewed and updated problem list, medical/surgical/fam donna/social history, medications, and allergies. Opioid use review Opioid Medications (last 90 days) No data to display Anxiety/Depression screening PHQ-9 Score: 18 (Moderately Severe Depression) PHQ-9 Self-Harm: More than half the days PARTH-7 Score: 12 (Moderate Anxiety) Recommendation: continuing current treatment plan and Psychiatry evaluation Cognitive screening Cognitive screening reviewed and No further action needed (score 3-5). Functional Observation Was the patient's Timed Up AND Go test unsteady or >= 12 seconds? No Advance Care Planning Patient did not wish or was not able to name a surrogate decision maker or provide an advance care plan Measurements LMP (LMP Unknown) Vision Screening: Follows with optometry/ophthalmol ogy Assessment/Plan Welcome to Medicare preventive visit (Z00.00) - Counseled on healthy diet and regular exercise - Fall avoidance information provided - Personalized prevention plan provided - Discussed need for and benefit of weight loss. No weight on file for this encounter. - Smoking cessation encouraged; discussed risks to health and quitting strategies. Patient is not ready to quit This is a 48 year old female who presents today with: Patient presents with: Medicare Wellness Exam HISTORY OF PRESENT ILLNESS: Meredith Lynch is a 48 year old female. Patient presents with: Medicare Wellness Exam Here in the office for extensive exam Psych: Was following with [facility] where she is prescribed Minipress 1 mg, Trazodone 100 mg, Risperdal 1 mg. Re-establishing care in June. Mother . Was off medication almost 1 year. Just recently started back on medication. Refers that she feels numb. No SI/HI. Has been wanting to stay home. Not wanting socialize. Pain: Fibro AND Lupus; Taking Gabapentin 600 mg 2 pills AM, 2 pills at lunch, and 3 pills at bedtime. Does not follow with any Rheumatologists. BRIGITTE AND RLS: Follows with Neuro Dr. King. Needs follow up. COPD: Follows with Pulmonology Dr. Bui, using Breo Ellipta inhaler daily and Albuterol inhaler prn. Has nebulizer to use prn. Quit smoking. Smoking 4 cigarettes. Weight gain, has been trying to watch diet. Increasing protein in the diet. Noticed she has been gaining weight. Living with son who helps with meals. Left foot lesion, refers that she is concerned if it is a corn. Painful at times. Pap: Due pap, last completed 2020, history of abnormal Vaccines: Denies wanting any vaccines at this time. PAST MEDICAL HISTORY: PAST MEDICAL HISTORY Diagnosis Date Bipolar disease, chronic (HCC) Bronchitis, chronic (HCC) Fibromyalgia Hiatal hernia Lupus (HCC) Paranoid schizophrenia (HCC) Simple chronic bronchitis (HCC) Sleep apnea Tobacco use disorder PAST SURGICAL HISTORY Procedure Laterality Date LAPAROSCOPY SURG CHOLECYSTECTOMY 2003 Cholecystectomy, lap LIG/TRNSXJ FLP TUBE ABDL/VAG APPR UNI/BI OOPHORECTOMY PARTIAL/TOTAL UNI/BI 1993 Oophorectomy- right for cancer PAST SURGICAL HISTORY OF Right 2017 ORIF right 5th [facility] fx, done in [place], [place] TONSILLECTOMY PRIMARY/SECONDARY Tonsillectomy ALLERGIES Morphine, Penicillin G, Penicillins, and Tramadol MEDICATIONS Current Outpatient Medications Medication Sig Lactobacillus acidophilus (FLORAJEN ACIDOPHILUS) 20 billion cell capsule Take 1 capsule by mouth once daily. gabapentin (NEURONTIN) 600 mg tablet Take one tablet tid. Also take 1-2 tablets at bedtime as needed prazosin (MINIPRE (more content not included)... Normal [facility] CNOVon 03-06-2024 CNOV Office Visit (UCTR) CRISMEREDITH ([id number]) 1975 F Date Time Provider Department 03/06/24 9:15 AM BIRD WELSH [facility] During your visit today, we recorded the following information about you: Temperature Pulse Respiration Blood pressure 97.8 degrees 69/minute 20/minute 144/88 Weight 71 kg Bird Welsh APRN.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 03/06/2024 9:59 AM Signed Subjective HPI HPI Meredith Lynch is a 48 year old female who presents today for CC of left dental pain. This started 2 days ago. Has tried otc medication for relief. Symptoms are worsened by nothing. Risk factors hx of poor dental health, will be getting teeth pulled and dentures in next few weeks. Denies fever. .Patient presents with: Dental Problem: Pt states has infection left lower side in back, x 2 days, has dental appts set to have extractions PAST MEDICAL HISTORY Diagnosis Date Bipolar disease, chronic (HCC) Bronchitis, chronic (HCC) Fibromyalgia Hiatal hernia Lupus (HCC) Paranoid schizophrenia (HCC) Simple chronic bronchitis (HCC) Sleep apnea Tobacco use disorder PAST SURGICAL HISTORY Procedure Laterality Date LAPAROSCOPY SURG CHOLECYSTECTOMY 2003 Cholecystectomy, lap LIG/TRNSXJ FLP TUBE ABDL/VAG APPR UNI/BI OOPHORECTOMY PARTIAL/TOTAL UNI/BI 1993 Oophorectomy- right for cancer PAST SURGICAL HISTORY OF Right 2017 ORIF right 5th [facility] fx, done in [place], [place] TONSILLECTOMY PRIMARY/SECONDARY Tonsillectomy ALLERGIES Morphine, Penicillin G, Penicillins, and Tramadol MEDICATIONS gabapentin (NEURONTIN) 600 mg tablet Take one tablet tid. Also take 1-2 tablets at bedtime as needed prazosin (MINIPRESS) 1 mg cap Take 1 capsule during the day and 2 capsules at night. risperiDONE (RISPERDAL) 1 mg tablet Take 1 tablet by mouth once daily. traZODone (DESYREL) 100 mg tablet Take 2 tablets by mouth daily at bedtime. albuterol HFA (VENTOLIN HFA) 90 mcg/actuation inhaler Inhale 2 Puffs as instructed every 4 hours as needed for wheezing/shortness of breath. fluticasone-vilanter ol (BREO ELLIPTA) 200-25 mcg/dose inhaler Inhale 1 Inhalation as instructed once daily. albuterol (PROVENTIL) 2.5 mg /3 mL (0.083 %) nebulizer solution Inhale by nebulizer over 5-15 minutes three (3) to four (4) times a day as needed for wheezing and shortness of breath aspirin, enteric coated (ASPIRIN, ENTERIC COATED) 81 mg EC tablet Take 81 mg by mouth once daily. ibuprofen (MOTRIN) 400 mg tablet Take 400 mg by mouth every 6 hours as needed. clindamycin (CLEOCIN) 300 mg capsule Take 1 capsule by mouth three times a day for 10 days. Lactobacillus acidophilus (FLORAJEN ACIDOPHILUS) 20 billion cell capsule Take 1 capsule by mouth once daily. (Patient not taking: Reported on 03/06/2024) L. acidophilus-L. rhamnosus (PROBIOTIC) 15 billion cell cap Take 1 capsule by mouth once daily. triamcinolone (KENALOG) 0.025 % cream Apply to affected area twice daily. (Patient not taking: Reported on 03/06/2024) MULTIVITAMIN ORAL Take by mouth once daily. (Patient not taking: Reported on 03/06/2024) melatonin 3 mg tablet Take 1 tablet at ~6PM nightly. (Patient not taking: Reported on 03/06/2024) omeprazole (PRILOSEC) 40 mg capsule Take 1 capsule by mouth once daily. (Patient not taking: Reported on 03/06/2024) FAMILY HISTORY Problem Relation Age of Onset Arthritis Mother Hypertension Mother Diabetes Father Hypertension Father Ischemic Heart Disease Father Colon Cancer Father Ovarian cancer Sister Cancer Sister unsure of site Breast Cancer Maternal Grandmother 40 Ischemic Heart Disease Maternal Grandfather Ischemic Heart Disease Paternal Grandfather Social History Tobacco Use Smoking status: Every Day Packs/day: 0.20 Years: 20.00 Additional pack years: 0.00 Total pack years: 4.00 Types: Cigarettes Last attempt to quit: 2022 Years since quittin.5 Smokeless tobacco: Never Vaping Use Vaping Use: Never used Substance Use Topics Alcohol use: Not Currently Comment: states has not drank for over a year on 04-26-18 Drug use: No ROS Objective Blood pressure 144/88, pulse 69, temperature 36.6 ?C (97.8 ?F), resp. rate 20, weight 71 kg (156 lb 8.4 oz), SpO2 100%. Physical Exam Constitutional: General: She is not in acute distress. Appearance: She is not toxic-appearing or diaphoretic. HENT: Head: Normocephalic and atraumatic. Mouth/Throat: Lips: [place]. Mouth: Mucous membranes are moist. Dentition: Abnormal dentition. Dental tenderness present. Pulmonary: Effort: Pulmonary effort is normal. No accessory muscle usage or respiratory distress. Lymphadenopathy: Cervical: No cervical adenopathy. Right cervical: No superficial cervical adenopathy. Left cervical: No superficial cervical adenopathy. Neurological: Mental Status: She is alert and oriented to person, place, and time. ASSESSMENT/PLAN: 1. Toothache - I (more content not included)... Normal [facility] Absolute lymphocyte countOrd ered By: Garrett Kumar on 08-01-2023 Lymphocytes Auto (Unsp spec) [#/Vol] 2.86 10*3/uL 0.83-4.51 [facility] Basophil percentageOrdered B y: Garrett Kumar on 08-01-2023 Basophils/100 WBC (Bld) 0.5 % 0-1 [facility] Chloride [Moles/Vol] 108 mmol/L 98-107 [facility] Eosinophils/100 WBC (Bld) 6.8 % 0-5 [facility] Glucose [Mass/Vol] 118 mg/dL 74-106 [facility] Comment on above: Fasting Glucose resu lt from 100 to 125 mg/dL suggests IMPAIRED HOMEOSTASIS per A.D.A. criteria. Neutrophils (Bld) [#/Vol] 5.7 10*3/uL 2.0-7.7 [facility] Neutrophils/100 WBC (Bld) 57.8 % 47-70 [facility] Potassium [Moles/Vol] 4.0 mmol/L 3.5-5.1 [facility] Sodium [Moles/Vol] 139 mmol/L 136-145 [facility] WBC (Bld) [#/Vol] 10.0 10*3/uL 4.4-11.0 [facility] Blood erythrocytes count (nu mber/volume)Ordered By: Garrett Kumar on 08-01-2023 RBC (Bld) [#/Vol] 4.53 10*6/uL 4.2-5.4 [facility] Blood hemoglobin measurement (mass/volume)Ordered By: Garrett Kumar on 08-01-2023 Hemoglobin (Bld) [Mass/Vol] 13.9 g/dL 12.0-15.0 [facility] Blood lymphocytes/100 leukoc ytesOrdered By: Garrett Kumar on 08-01-2023 Lymphocytes/100 WBC (Bld) 28.7 % 19-41 [facility] Blood monocytes/100 leukocyt esOrdered By: Garrett Kumar on 08-01-2023 Monocytes/100 WBC (Bld) 5.9 % 0-10 [facility] Blood platelet mean volumeOr dered By: Garrett Kumar on 08-01-2023 Platelet mean volume (Bld) [Entitic vol] 10.1 fL 6.2-12.0 [facility] Determination of erythrocyte mean corpuscular volume (MCV)Ordered By: Garrett Kumar on 08-01-2023 MCV (RBC) [Entitic vol] 93.8 fL 81-99 [facility] Hematocrit Auto (Bld) [Volum e fraction]Ordered By: Garrett Kumar on 08-01-2023 Hematocrit (Bld) [Volume fraction] 42.5 % 37-47 [facility] Influenza virus A and B and SARS-CoV-2 (COVID-19) Ag panel - Upper respiratory specimOrdered By: Garrett Kumar on 08-01-2023 SARS-CoV-2 (COVID-19) RNA SERGEI+probe Ql (Resp) [facility] Laboratory - Chemistry and C hemistry - challengeOrdered By: Garrett Kumar on 08-01-2023 CO2 [Moles/Vol] 25.0 mmol/L 21.0-32.0 [facility] Magnesium [Mass/Vol] 2.3 mg/dL 1.6-2.6 [facility] Natriuretic peptide B (Bld) [Mass/Vol] 7.7 pg/mL 0-100 [facility] Urea nitrogen/Creatinine [Mass ratio] 8.3 mg/mg 10-20 [facility] - Hematology and Cell countsOrdered By: Garrett Kumar on 08-01-2023 Erythrocyte distribution width (RBC) [Entitic vol] 40.3 fL 35.1-43.9 [facility] Erythrocyte distribution width (RBC) [Ratio] 11.7 % 11.6-14.6 [facility] Immature granulocytes/100 WBC (Bld) 0.300 % 0.0-0.9 [facility] Comment on above: IG% - Immature Granu locytes (promyelocytes, myelocytes and metamyelocytes) > 1% indicates that a LEFT SHIFT is Present. MCH (RBC) [Entitic mass] 30.7 pg 27.0-32.0 [facility] Nucleated RBC/100 WBC (Bld) [Ratio] 0 % 0-5 [facility] MCHC Auto (RBC) [Mass/Vol]Or dered By: Garrett Kumar on 08-01-2023 MCHC (RBC) [Mass/Vol] 32.7 g/dL 32-36 [facility] No Panel InformationOrdered By: Garrett Kumar on 08-01-2023 D-Dimer Quantitative (PE/DVT) 0.45 FEU/ug/m 0.27-0.49 [facility] Comment on above: NORMAL D-Dimer level (<0.50) indicates no DVT or PE. Estimated Creatinine Clearance Calc 64.71 ml/min [facility] Estimated GFR (MDRD) Amer 93 mL/min >60 [facility] Comment on above: GFR Calc Estimated GFR (MDRD) Non-Af Amer 76 mL/min >60 [facility] Comment on above: Non- GFR Calc Troponin I High Sensitivity 5 pg/mL 3.0-54.0 [facility] Comment on above: Please Note: New Nancy t Units and Gender Specific Reference Ranges. For more information see Policy Stat Procedure [place] High Sensitivity Troponin (TNIH) and attachments. Platelets bldOrdered By: Anirudh Kumar on 08-01-2023 Platelets (Bld) [#/Vol] 328 10*3/uL 150-450 [facility] Serum or plasma calcium sal urement (mass/volume)Ordered By: Garrett Kumar on 08-01-2023 Calcium [Mass/Vol] 9.2 mg/dL 8.5-10.1 [facility] Serum or plasma creatinine m easurement (mass/volume)Ordered By: Garrett Kumar on 08-01-2023 Creatinine [Mass/Vol] 0.85 mg/dL 0.55-1.02 [facility] Comment on above: The validity of the calculated GFR & GFRAA in patients over 70 years has not been determined. Clinical correlation is essential. Serum or plasma urea nitroge n measurement (mass/volume)Ordered By: Garrett Kumar on 08-01-2023 Urea nitrogen [Mass/Vol] 7 mg/dL 7-18 [facility] Thin prep Papanicolaou smear with manual screeningOrdered By: Garrett Kumar on 08-01-2023 Thin prep Papanicolaou smear with manual screening 6 5-15 [facility] NITRIC OXIDE, EXHALEDon 01-0 [facility] XR Chest PA and Lateralon IMPRESSION: No acute radiographic abnormality. Dcs Engineer: RILEY Transcribe Date/Time: Jun 19 2022 8:29A Dictated by : YARITZA DIAMOND MD This examination was interpreted and the report reviewed and electronically signed by: YARITZA DIAMOND MD on Jun 19 2022 8:30AM EST DIVISION OF RADIOLOGY * * *Final Report* * * DATE OF EXAM: Jun 19 2022 8:11AM WOX [id number] - XR CHEST 2V FRONTAL/LAT / PROCEDURE REASON: History of pneumonia * * * * Physician Interpretation * * * * EXAMINATION: CHEST RADIOGRAPH (2 VIEW FRONTAL & LATERAL) CLINICAL HISTORY: History of pneumonia MQ: XC2_6 EXAM DATE/TIME: 06/19/2022 8:11 AM COMPARISON: 12/14/2020 RESULT: Lines, tubes, and devices: None. Lungs and pleura: No consolidation. No lung mass. No pleural effusion. No pneumothorax. Cardiomediastinal silhouette: Normal cardiomediastinal silhouette. Bones and soft tissues: Unremarkable. DIVISION OF RADIOLOGY Provider, [facility] - 06/19/2022 * * *Final Report* * * DATE OF EXAM: Jun 19 2022 8:11AM WOX [id number] - XR CHEST 2V FRONTAL/LAT / PROCEDURE REASON: History of pneumonia * * * * Physician Interpretation * * * * EXAMINATION: CHEST RADIOGRAPH (2 VIEW FRONTAL & LATERAL) CLINICAL HISTORY: History of pneumonia MQ: XC2_6 EXAM DATE/TIME: 06/19/2022 8:11 AM COMPARISON: 12/14/2020 RESULT: Lines, tubes, and devices: None. Lungs and pleura: No consolidation. No lung mass. No pleural effusion. No pneumothorax. Cardiomediastinal silhouette: Normal cardiomediastinal silhouette. Bones and soft tissues: Unremarkable. IMPRESSION IMPRESSION: No acute radiographic abnormality. Dcs Engineer: RILEY Transcribe Date/Time: Jun 19 2022 8:29A Dictated by : YARITZA DIAMOND MD This examination was interpreted and the report reviewed and electronically signed by: YARITZA DIAMOND MD on Jun 19 2022 8:30AM EST [facility] Radiology Study observation (narrative) [facility] XR Chest PA and LateralOrder ed By: [facility] Provider on 06-19-2022 [facility] Absolute lymphocyte counton 05-04-2022 Lymphocytes Auto (Unsp spec) [#/Vol] 2.76 10*3/uL 0.83-4.51 [facility] Work Phone: Basophil percentageon 2021 Basophils/100 WBC (Bld) 0.2 % 0-1 [facility] Work Phone: Eosinophils/100 WBC (Bld) 0.1 % 0-5 [facility] Work Phone: Neutrophils (Bld) [#/Vol] 16.1 10*3/uL 2.0-7.7 [facility] Work Phone: Neutrophils/100 WBC (Bld) 80.2 % 47-70 [facility] Work Phone: WBC (Bld) [#/Vol] 20.1 10*3/uL 4.4-11.0 [facility] Work Phone: Blood erythrocytes count (nu mber/volume)on 05-04-2022 RBC (Bld) [#/Vol] 4.24 10*6/uL 4.2-5.4 [facility] Work Phone: Blood hemoglobin measurement (mass/volume)on 05-04-2022 Hemoglobin (Bld) [Mass/Vol] 13.1 g/dL 12.0-15.0 [facility] Work Phone: Blood lymphocytes/100 leukoc yteson 05-04-2022 Lymphocytes/100 WBC (Bld) 13.7 % 19-41 [facility] Work Phone: Blood monocytes/100 leukocyt eson 05-04-2022 Monocytes/100 WBC (Bld) 4.9 % 0-10 [facility] Work Phone: Blood platelet mean volumeon 05-04-2022 Platelet mean volume (Bld) [Entitic vol] 10.2 fL 6.2-12.0 [facility] [facility] Work Phone: Determination of erythrocyte mean corpuscular volume (MCV)on 05-04-2022 MCV (RBC) [Entitic vol] 93.4 fL 81-99 [facility] Work Phone: [phone] Hematocrit Auto (Bld) [Volum e fraction]on 05-04-2022 Hematocrit (Bld) [Volume fraction] 39.6 % 37-47 [facility] Work Phone: [phone] Laboratory - Hematology and Cell countson 05-04-2022 Erythrocyte distribution width (RBC) [Entitic vol] 40.6 fL 35.1-43.9 [facility] Work Phone: [phone] Erythrocyte distribution width (RBC) [Ratio] 11.9 % 11.6-14.6 [facility] Work Phone: [phone] Immature granulocytes/100 WBC (Bld) 0.900 % 0.0-0.9 [facility] Work Phone: [phone] Comment on above: IG% - Immature Granu locytes (promyelocytes, myelocytes and metamyelocytes) > 1% indicates that a LEFT SHIFT is Present. MCH (RBC) [Entitic mass] 30.9 pg 27.0-32.0 [facility] Work Phone: Nucleated RBC/100 WBC (Bld) [Ratio] 0 % 0-5 [facility] Work Phone: MCHC Auto (RBC) [Mass/Vol]on 05-04-2022 MCHC (RBC) [Mass/Vol] 33.1 g/dL 32-36 [facility] Work Phone: Platelets bldon 05-04-2022 Platelets (Bld) [#/Vol] 368 10*3/uL 150-450 [facility] Work Phone: Basophil percentageon 2021 Chloride [Moles/Vol] 110 mmol/L 98-107 [facility] Work Phone: Glucose [Mass/Vol] 184 mg/dL 74-106 [facility] Work Phone: Comment on above: Fasting Glucose resu lt greater than or equal to 126 mg/dL suggests DIABETES MELLITUS per A.D.A. criteria. Potassium [Moles/Vol] 3.7 mmol/L 3.5-5.1 [facility] Work Phone: Sodium [Moles/Vol] 140 mmol/L 136-145 [facility] Work Phone: Laboratory - Chemistry and C hemistry - challengeon 05-03-2022 CO2 [Moles/Vol] 22.0 mmol/L 21.0-32.0 [facility] Work Phone: [phone] Urea nitrogen/Creatinine [Mass ratio] 13.1 mg/mg 10-20 [facility] Work Phone: No Panel Informationon 05-03 Estimated Creatinine Clearance Calc 73.15 ml/min [facility] Work Phone: Estimated GFR (MDRD) Amer 105 mL/min >60 [facility] Work Phone: Comment on above: GFR Calc Estimated GFR (MDRD) Non-Af Amer 86 mL/min >60 [facility] Work Phone: Comment on above: Non- GFR Calc Serum or plasma calcium sal urement (mass/volume)on 05-03-2022 Calcium [Mass/Vol] 8.8 mg/dL 8.5-10.1 [facility] Work Phone: [phone] Serum or plasma creatinine m easurement (mass/volume)on 05-03-2022 Creatinine [Mass/Vol] 0.76 mg/dL 0.55-1.02 [facility] Work Phone: Comment on above: The validity of the calculated GFR & GFRAA in patients over 70 years has not been determined. Clinical correlation is essential. Serum or plasma urea nitroge n measurement (mass/volume)on 05-03-2022 Urea nitrogen [Mass/Vol] 10 mg/dL 7-18 [facility] Work Phone: [phone] Thin prep Papanicolaou smear with manual screeningon 05-03-2022 Thin prep Papanicolaou smear with manual screening 8 5-15 [facility] Work Phone: Whole blood hemoglobin A1c/t otal hemoglobin ratio (mass fraction)on 05-03-2022 HbA1c (Bld) [Mass fraction] 5.2 % 3.8-5.6 [facility] Work Phone: Comment on above: Normal < 5.7 % Predi abetic 5.7 - 6.4 % Diabetic >or= 6.5 % Please note range changes. Absolute lymphocyte counton 05-02-2022 Lymphocytes Auto (Unsp spec) [#/Vol] 1.84 10*3/uL 0.83-4.51 [facility] Work Phone: Basophil percentageon 2021 Lactate [Moles/Vol] 1.0 mmol/L 0.4-2.0 [facility] Work Phone: Basophils/100 WBC (Bld) 0.5 % 0-1 [facility] Work Phone: Chloride [Moles/Vol] 110 mmol/L 98-107 [facility] Work Phone: Eosinophils/100 WBC (Bld) 5.4 % 0-5 [facility] Work Phone: Glucose [Mass/Vol] 109 mg/dL 74-106 [facility] Work Phone: Comment on above: Fasting Glucose resu lt from 100 to 125 mg/dL suggests IMPAIRED HOMEOSTASIS per A.D.A. criteria. Neutrophils (Bld) [#/Vol] 7.3 10*3/uL 2.0-7.7 [facility] Work Phone: Neutrophils/100 WBC (Bld) 69.2 % 47-70 [facility] Work Phone: Potassium [Moles/Vol] 4.2 mmol/L 3.5-5.1 [facility] Work Phone: Sodium [Moles/Vol] 141 mmol/L 136-145 [facility] Work Phone: WBC (Bld) [#/Vol] 10.5 10*3/uL 4.4-11.0 [facility] Work Phone: Blood erythrocytes count (nu mber/volume)on 05-02-2022 RBC (Bld) [#/Vol] 4.48 10*6/uL 4.2-5.4 [facility] Work Phone: Blood hemoglobin measurement (mass/volume)on 05-02-2022 Hemoglobin (Bld) [Mass/Vol] 14.4 g/dL 12.0-15.0 [facility] Work Phone: Blood lymphocytes/100 leukoc yteson 05-02-2022 Lymphocytes/100 WBC (Bld) 17.5 % 19-41 [facility] Work Phone: [phone] Blood monocytes/100 leukocyt eson 05-02-2022 Monocytes/100 WBC (Bld) 6.9 % 0-10 [facility] Work Phone: Blood platelet mean volumeon 05-02-2022 Platelet mean volume (Bld) [Entitic vol] 9.7 fL 6.2-12.0 [facility] Work Phone: Determination of erythrocyte mean corpuscular volume (MCV)on 05-02-2022 MCV (RBC) [Entitic vol] 92.4 fL 81-99 [facility] Work Phone: Hematocrit Auto (Bld) [Volum e fraction]on 05-02-2022 Hematocrit (Bld) [Volume fraction] 41.4 % 37-47 [facility] Work Phone: Laboratory - Chemistry and C hemistry - challengeon 05-02-2022 Natriuretic peptide B (Bld) [Mass/Vol] 15.9 pg/mL 0-100 [facility] Work Phone: CO2 [Moles/Vol] 25.0 mmol/L 21.0-32.0 [facility] Work Phone: [phone] Urea nitrogen/Creatinine [Mass ratio] 9.9 mg/mg 10-20 [facility] Work Phone: [phone] Laboratory - Hematology and Cell countson 05-02-2022 Erythrocyte distribution width (RBC) [Entitic vol] 40.2 fL 35.1-43.9 [facility] Work Phone: [phone] Erythrocyte distribution width (RBC) [Ratio] 11.9 % 11.6-14.6 [facility] Work Phone: [phone] Immature granulocytes/100 WBC (Bld) 0.500 % 0.0-0.9 [facility] Work Phone: [phone] Comment on above: IG% - Immature Granu locytes (promyelocytes, myelocytes and metamyelocytes) > 1% indicates that a LEFT SHIFT is Present. MCH (RBC) [Entitic mass] 32.1 pg 27.0-32.0 [facility] Work Phone: [phone] Nucleated RBC/100 WBC (Bld) [Ratio] 0 % 0-5 [facility] Work Phone: [phone] MCHC Auto (RBC) [Mass/Vol]on 05-02-2022 MCHC (RBC) [Mass/Vol] 34.8 g/dL 32-36 [facility] Work Phone: [phone] No Panel Informationon 05-02 Troponin I High Sensitivity 4 pg/mL 3.0-54.0 [facility] Work Phone: [phone] Comment on above: Please Note: New Nancy t Units and Gender Specific Reference Ranges. For more information see Policy Stat Procedure [place] High Sensitivity Troponin (TNIH) and attachments. D-Dimer Quantitative (PE/DVT) 0.41 FEU/ug/m 0.27-0.49 [facility] Work Phone: [phone] Comment on above: NORMAL D-Dimer level (<0.50) indicates no DVT or PE. Estimated Creatinine Clearance Calc 65.49 ml/min [facility] Work Phone: [phone] Estimated GFR (MDRD) Amer 98 mL/min >60 [facility] Work Phone: [phone] Comment on above: GFR Calc Estimated GFR (MDRD) Non-Af Amer 81 mL/min >60 [facility] Work Phone: Comment on above: Non- GFR Calc Platelets bldon 05-02-2022 Platelets (Bld) [#/Vol] 309 10*3/uL 150-450 [facility] Work Phone: Serum or plasma calcium sal urement (mass/volume)on 05-02-2022 Calcium [Mass/Vol] 9.5 mg/dL 8.5-10.1 [facility] Work Phone: Serum or plasma creatinine m easurement (mass/volume)on 05-02-2022 Creatinine [Mass/Vol] 0.81 mg/dL 0.55-1.02 [facility] Work Phone: Comment on above: The validity of the calculated GFR & GFRAA in patients over 70 years has not been determined. Clinical correlation is essential. Serum or plasma urea nitroge n measurement (mass/volume)on 05-02-2022 Urea nitrogen [Mass/Vol] 8 mg/dL 7-18 [facility] Work Phone: Thin prep Papanicolaou smear with manual screeningon 05-02-2022 Thin prep Papanicolaou smear with manual screening 6 5-15 [facility] Work Phone: CBC panel Auto (Bld)on 04-25 Erythrocyte distribution width (RBC) [Ratio] 12.4 % 11.5 - 15.0 % [facility] Hematocrit (Bld) [Volume fraction] 43.3 % 36.0 - 46.0 % [facility] Hemoglobin (Bld) [Mass/Vol] 14.5 g/dL 11.5 - 15.5 g/dL [facility] MCH (RBC) [Entitic mass] 31.4 pg 26.0 - 34.0 pg [facility] MCHC (RBC) [Mass/Vol] 33.5 g/dL 30.5 - 36.0 g/dL [facility] MCV (RBC) [Entitic vol] 93.7 fL 80.0 - 100.0 fL [facility] Nucleated RBC (Bld) [#/Vol] <0.01 k/uL [facility] Platelet mean volume (Bld) [Entitic vol] 10.4 fL 9.0 - 12.7 fL [facility] Platelets (Bld) [#/Vol] 344 10*3/uL 150 - 400 k /uL [facility] RBC (Bld) [#/Vol] 4.62 10*6/uL 3.90 - 5.2 0 m/uL [facility] WBC (Bld) [#/Vol] 9.47 10*3/uL 3.70 - 11. 00 k/uL [facility] Comprehensive metabolic 2000 panelon 04-25-2022 Albumin [Mass/Vol] 3.9 g/dL 3.9 - 4.9 g/dL [facility] ALP [Catalytic activity/Vol] 85 U/L 34 - 123 U/L [facility] ALT [Catalytic activity/Vol] 88 U/L High 7 - 38 U/L [facility] Anion gap [Moles/Vol] 10 mmol/L 9 - 18 mmol/L [facility] AST [Catalytic activity/Vol] 63 U/L High 13 - 35 U/L [facility] Bilirubin [Mass/Vol] 0.4 mg/dL 0.2 - 1 .3 mg/dL [facility] Calcium [Mass/Vol] 9.5 mg/dL 8.5 - 10. 2 mg/dL [facility] Chloride [Moles/Vol] 107 mmol/L High 97 - 10 5 mmol/L [facility] CO2 [Moles/Vol] 23 mmol/L 22 - 30 mmol/L [facility] Creatinine [Mass/Vol] 0.79 mg/dL 0.58 - 0.96 mg/dL [facility] Estimated Glomerular Filtration Rate 94 mL/min/1.73m >=60 mL/min/1.73m [facility] Glucose [Mass/Vol] 101 mg/dL High 74 - 99 mg/dL [facility] Potassium [Moles/Vol] 4.5 mmol/L 3.7 - 5.1 mmol/L [facility] Protein [Mass/Vol] 6.8 g/dL 6.3 - 8.0 g/dL [facility] Sodium [Moles/Vol] 140 mmol/L 136 - 144 mmol/L [facility] Urea nitrogen [Mass/Vol] 12 mg/dL 7 - 21 mg/d L [facility] HIV 1+2 Ab IA Qlon 2 HIV 1 and 2 Ab IA.rapid Nom [facility] HIV 1+2 Ab+HIV1 p24 Ag IA Ql Non-Reactive Nonreactive [facility] HIV Interpretation [facility] Lipid 1996 panelon 2 Cholesterol [Mass/Vol] 195 mg/dL <200 mg/dL [facility] Cholesterol in HDL [Mass/Vol] 44 mg/dL >39 mg/dL [facility] Cholesterol in LDL [Mass/Vol] 130 mg/dL High <100 mg/dL [facility] Cholesterol in LDL/Cholesterol in HDL [Mass ratio] 2.95 {ratio} High <2.54 [facility] Cholesterol in VLDL [Mass/Vol] 21 mg/dL <30 mg/dL [facility] Cholesterol non HDL [Mass/Vol] 151 mg/dL High <130 mg/dL [facility] Cholesterol.total/Choles terol in HDL [Mass ratio] 4.43 {ratio} <5.10 [facility] Fasting Time 12 hrs [facility] Triglyceride [Mass/Vol] 103 mg/dL <150 mg/dL [facility] 01-27-2022 CNPN Telephone (EUPRAD) MEREDITH LYNCH ( ) 1975 F Date Time Provider Department 01/27/22 CARL KING JR During your visit today, we recorded the following information about you: Carl King MD 01/27/2022 3:55 PM Signed Sleep study did show BRIGITTE and thus, will order PAP titration for treatment. Also with history of COPD. MD Kenya Campos CT 01/27/2022 4:59 PM Signed Order faxed to [facility] at [phone]. GERRI Jamil LPN 01/30/2022 10:02 AM Signed Spoke with patient's mother due to patient on another phone call. Will update patient via [employer]. GERRI Morris LPN 03/03/2022 11:58 AM Signed Patient is scheduled for Titration study on SundayMarch 08 with [facility]. Kenya GERRI Bonilla Allergies As of Date: 01/27/2022 Noted Allergy Reaction MORPHINE 05/06/2013 14 - Other: See Comments Comments: Chest pain PENICILLIN G 09/12/2010 2 - Rash TRAMADOL 01/31/2017 2 - Rash Date Reviewed: 01/21/2022 Reviewed by: Natalia Gonzales LPN - Fully Assessed Reason for Visit: Orders [681] Primary Visit Diagnosis:Obstructiv e sleep apnea (adult) (pediatric) [G47.33] Order(s):PAP TITRATION PSG (CPAP, BIPAP, ASV) [[id number]] Order #: [id number] FUTURE Prescriptions as of 03/03/2022 - benzonatate (TESSALON PERLES) 100 mg capsule Take 2 capsules by mouth three times daily as needed. - gabapentin (NEURONTIN) 600 mg tablet Take 1 tablet by mouth three times daily for 90 days. Also take 1-2 tablets at bedtime as needed - clindamycin (CLEOCIN) 300 mg capsule Take 1 capsule by mouth four times daily. - MULTIVITAMIN ORAL Take by mouth. - fluticasone-vilanter ol (BREO ELLIPTA) 200-25 mcg/dose inhaler Inhale 1 Inhalation as instructed once daily. - albuterol (PROVENTIL) 2.5 mg /3 mL (0.083 %) nebulizer solution Inhale by nebulizer over 5-15 minutes three (3) to four (4) times a day as needed for wheezing and shortness of breath - albuterol HFA (VENTOLIN HFA) 90 mcg/actuation inhaler Inhale 2 Puffs as instructed every 4 hours as needed for wheezing/shortness of breath. - melatonin 3 mg tablet Take 1 tablet at ~6PM nightly. - risperiDONE (RISPERDAL) 1 mg tablet Take 1 tablet by mouth once daily. - omeprazole (PRILOSEC) 40 mg capsule Take 1 capsule by mouth once daily. - traZODone (DESYREL) 100 mg tablet 2 tablets daily at bedtime. [facility] - prazosin (MINIPRESS) 1 mg cap Gets from [facility]. Takes 1 capsule during the day and 2 capsules at night. - aspirin, enteric coated (ASPIRIN, ENTERIC COATED) 81 mg EC tablet Take 81 mg by mouth once daily. - ibuprofen (MOTRIN) 400 mg tablet Take 400 mg by mouth. Meds Comments as of 01/05/2021: ' Problem List As Of Date 01/27/2022 Noted Resolved Lupus [M32.9] Fibromyalgia [M79.7] Abnormal weight gain [R63.5] 05/19/2013 Lumbago [M54.50] 05/19/2013 Cervicalgia [M54.2] 05/19/2013 Glucose found in urine on examination [R81] 03/02/2016 Acute right-sided low back pain [M54.50] 03/02/2016 History of kidney stones [Z87.442] 03/02/2016 Paranoid schizophrenia (HCC) [F20.0] BRIGITTE (obstructive sleep apnea) [G47.33] 12/13/2018 Chronic obstructive pulmonary disease (HCC) [J4*12/14/2020 04/22/2021 Cigarette smoker [F17.210] 12/14/2020 RLS (restless legs syndrome) [G25.81] 04/18/2021 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 JACQUELINE RT / PROCEDURE REASON: Abnormal ultrasound of breast * * * * Physician Interpretation * * * * #[id number] - [facility] W JACQUELINE RT #[id number] - [facility] US BREAST LTD RT UNILATERAL RIGHT DIGITAL DIAGNOSTIC MAMMOGRAM TOMOSYNTHESIS WITH CAD: 03/17/2021 HISTORY: Abnormal Ultrasound Of Breast\ Patient returns for abnormal right mammogram. Abnormal Ultrasound Of Breast/ Followup abnormal mammogram. RESULT: TECHNIQUE: The study was acquired using full field digital technology and interpreted from soft copy. Digital Breast Tomosynthesis (DBT) images were obtained and used to assist in the interpretation of this examination. Current study was also evaluated with a Computer Aided Detection (CAD). Comparison is made to exams dated: 02/01/2021 ultrasound, 02/01/2021 mammogram, 01/07/2021 mammogram - [facility], and 10/17/2012 mammogram - [facility]. There are scattered fibroglandular elements in right breast. There is a stable asymmetry in the right breast middle depth upper region seen on the mediolateral oblique view only. Finding is best noted on tomographic MLO slice 37. This is seen in additional views. No abnormalities are seen retrospectively on review of CC tomosynthesis imaging. No other significant masses or calcifications are seen in the breast. IMPRESSION: PROBABLY BENIGN - SHORT TERM INTERVAL FOLLOW-UP RECOMMENDED The stable asymmetry in the right breast resembles fibroglandular tissue and is probably benign. If no sonographic correlate, then 6 month follow up mammogram is recommended. LIMITED ULTRASOUND OF RIGHT BREAST AND AXILLA: 03/17/2021 RESULT: Comparison is made to exams dated: 02/01/2021 ultrasound, 02/01/2021 mammogram, 01/07/2021 mammogram - [facility], and 10/17/2012 mammogram - [facility]. Color flow and real-time ultrasound of the right breast 12 o'clock, and axilla regions were performed. Mills scale images of the real-time examination were reviewed. There is 1.1 cm x 2 cm x 0.4 cm area in the right breast at 12 o'clock middle depth 7 cm from the nipple. This area is of mixed echogenicity. Color flow imaging demonstrates that there is vascularity present. The entire upper right breast was surveyed. No additional suspicious findings or abnormalities are seen. This may potentially correlate with the mammographic asymmetry. There also is 2.1 cm x 0.3 cm x 0.9 cm irregular area in the right breast at 12 o'clock 5 cm from the nipple. This irregular area is hypoechoic but of mixed echogenicity. Color flow imaging demonstrates that there is vascularity present. This correlates with the previously described suspicious mass (imaging dated 02/01/2021) - however, during real time scanning today this localizes to 5 cmfn as opposed to 2 cmfn. This may relate to technical differences/differen jose in positioning. No abnormalities were seen sonographically in the right axilla. IMPRESSION: SUSPICIOUS OF MALIGNANCY The 1.1 cm x 2 cm x 0.4 cm area in the right breast at 12 o'clock middle depth is at a low suspicion for malignancy. An ultrasound guided biopsy is recommended. The 2.1 cm x 0.3 cm x 0.9 cm irregular area in the right breast at 12 o'clock is suspicious of malignancy. An ultrasound guided biopsy is recommended. SUMMARY: Informed consent for the recommended biopsy was explained and signed by the patient at the time of exam. She is scheduled for biopsy today. Note that if the biopsy clip does not correlate with the original mammographic finding of concern/there is no sonographic correlate, then 6 month follow up mammogram would be recommended. Elvie zafar/edgar:03/17/2021 14:47:27 Multiple national specialty organizations have released breast cancer screening guidelines for women at average risk for developing breast cancer - guidelines that are based on both evidence and opinion, yet differ on when to start and how often to screen for breast cancer. With representation from Breast Imaging, Internal Medicine, Women's Health, Family Medicine, and Medical/Surgical Oncology, the [facility] has carefully reviewed the data and reached the following consensus: 1) All women should engage in shared decision-making with their providers to decide when to start and how often to screen; 2) All women should have the opportunity to start screening mammography at age 40; 3) For women ages 45-55, we recommend annual screening mammograms; 4) For women ages 55 and over, we support both the transition from an annual to a biennial interval if this aligns more with patient's values and preferences, or continuation with annual screening; 5) All women should discuss with their providers when to stop screening mammograms. [employer](s): [employer] [place] [employer] (more content not included)... Normal [facility] DIAGNOSTIC RTon 03-17-20 [facility] DIAGNOSTIC RT * * *Final Report* * * * * * SEE BOTTOM OF REPORT FOR ADDENDED TEXT * * * DATE OF EXAM: Mar 17 2021 12:31PM AAW 0626 - [facility] DIAGNOSTIC RT / PROCEDURE REASON: Abnormal ultrasound of breast * * * * Physician Interpretation * * * * FINAL REPORT #[id number] - [facility] US BIOPSY BREAST RT #[id number] - [facility] DIAGNOSTIC RT ULTRASOUND GUIDED BIOPSY RIGHT BREAST WITH MARKING DEVICE INSERTED AND POST DIGITAL MAMMOGRAPHIC AND ULTRASOUND IMAGIN03/17/2021 HISTORY: Abnormal Ultrasound Of Breast/ Ultrasound guided biopsy right breast. Abnormal Ultrasound Of Breast\ Post breast biopsy clip placement. PATIENT CONSENT: A time out was performed immediately prior to procedure start with the nursing and radiology team, correctly identifying the patient name, date of , procedure, anatomy (including marking of site and side), patient position, relevant diagnostic and radiology test results, safety precautions, and procedure-specific equipment needs. The procedure was explained to the patient including the risks, benefits and alternatives. Medications were also reviewed. The risks, including but not limited to infection and bleeding, were reviewed by the performing physician and the patient agreed to undergo the procedure. Dr. Alcaraz and a cardiac catheterization technologist were present throughout the entire procedure. Audible Time Out Time: 1207 Procedure Start Time: 1208 Procedure Stop Time: 1213 Dr. Alcaraz performed the entire procedure without an food trades assistants. PROCEDURE: Correlation is made to exams dated: 03/17/2021 ultrasound, 03/17/[address] [facility], 02/01/2021 mammogram, 02/01/2021 ultrasound, 01/07/2021 mammogram - [facility], and 03/17/2021 mammogram - [facility]. An ultrasound guided biopsy using real-time ultrasound was performed for the concerning region located in the right breast at 12 o'clock middle depth 5 cm from the nipple. This was described on the previous ultrasound report. The skin was prepped in the usual manner. Local anesthetic was administered to the access site. A skin ronnie was made in the breast. The abnormality was approached from the lateral aspect. A 14 gauge biopsy needle was placed adjacent to the abnormality under ultrasound guidance. Once the needle was documented to be in the correct location, three cores were obtained using a BARD biopsy device. A coil type clip was inserted into the biopsy cavity. A skin closure strip and a sterile dressing were applied to the access site. Post procedure digital mammographic and ultrasound imaging demonstrates the location device at the targeted area. The specimens were sent to the laboratory for pathological analysis. IMPRESSION: ULTRASOUND GUIDED BIOPSY BENIGN Ultrasound guided biopsy of the region in the right breast at 12 o'clock middle depth 5 cm from the nipple was successful with no apparent post procedure complications. Pathology indicates benign finding. Pathology results are concordant with imaging findings. A follow-up mammogram in 6 months is recommended to demonstrate stability. SUMMARY: Pathology results are as follows: FINAL DIAGNOSIS: A. Breast, right, 12:00 5 cm from nipple, coil clip, biopsy - Benign breast parenchyma with stromal fibrosis and apocrine cysts. B. Breast, right, 12:00 7 cm from nipple, ribbon clip, biopsy - Benign breast parenchyma with minimal patchy stromal fibrosis. The patient is under the care of Dr. Mariaa Ledezma for follow up of the above benign concordant biopsy results. Note that the ribbon clip is superior and lateral to the original mammographic finding of concern. However, this asymmetry has a benign appearance, likely representing fibroglandular tissue. As a wide region of the breast was surveyed sonographically without additional suspicious finding(s), and biopsy results are benign, 6 month follow up mammogram is recommended for continued assessment of stability. Elvie zafar/edagr:03/22/2021 12:50:26 Armature Winder Repair(s): Char Hook R.D.M.S., [employer]; RT Bea(R)(M), [facility] Multiple national specialty organizations have released breast cancer screening guidelines for women at average risk for developing breast cancer - guidelines that are based on both evidence and opinion, yet differ on when to start and how often to screen for breast cancer. With representation from Breast Imaging, Internal Medicine, Women's Health, Family Medicine, and Medical/Surgical Oncology, the [facility] [place] has carefully reviewed the data and reached the following consensus: 1) All women should engage in shared decision-making with their providers to decide when to start and how often to screen; 2) All women should have the opportunity to start screening mammography at age 40; 3) For women ages 45-55, we recommend annual screening mammograms; 4) For women ages 5 (more content not included)... Normal [facility] US BIOPSY BREAST ADDL RT on 03-17-2021 [facility] US BIOPSY BREAST ADDL RT * * *Final Report* * * * * * SEE BOTTOM OF REPORT FOR ADDENDED TEXT * * * DATE OF EXAM: Mar 17 2021 12:35PM AAW 0614 - [facility] US BIOPSY BREAST ADDL RT / PROCEDURE REASON: Abnormal ultrasound of breast * * * * Physician Interpretation * * * * FINAL REPORT #[id number] - [facility] US BIOPSY BREAST ADDL RT ULTRASOUND GUIDED BIOPSY RIGHT BREAST WITH MARKING DEVICE INSERTED AND POST DIGITAL MAMMOGRAPHIC AND ULTRASOUND IMAGIN03/17/2021 HISTORY: Abnormal Ultrasound Of Breast/ Ultrasound guided biopsy right breast. PATIENT CONSENT: A time out was performed immediately prior to procedure start with the nursing and radiology team, correctly identifying the patient name, date of , procedure, anatomy (including marking of site and side), patient position, relevant diagnostic and radiology test results, safety precautions, and procedure-specific equipment needs. The procedure was explained to the patient including the risks, benefits and alternatives. Medications were also reviewed. The risks, including but not limited to infection and bleeding, were reviewed by the performing physician and the patient agreed to undergo the procedure. Dr. Alcaraz and a cardiac catheterization technologist were present throughout the entire procedure. Audible Time Out Time: 1207 Procedure Start Time: 1214 Procedure Stop Time: 1220 Dr. Alcaraz performed the entire procedure without an food trades assistants. PROCEDURE: Correlation is made to exams dated: 03/17/2021 ultrasound and 03/17/2021 mammogram - [facility]. An ultrasound guided biopsy using real-time ultrasound was performed for the concerning region located in the right breast at 12 o'clock middle depth 7 cm from the nipple. This was described on the previous ultrasound report. The skin was prepped in the usual manner. Local anesthetic was administered to the access site. A skin ronnie was made in the breast. The abnormality was approached from the lateral aspect. A 14 gauge biopsy needle was placed adjacent to the abnormality under ultrasound guidance. Once the needle was documented to be in the correct location, three cores were obtained using a BARD biopsy device. A ribbon clip was inserted into the biopsy cavity. A skin closure strip and a sterile dressing were applied to the access site. Post procedure digital mammographic and ultrasound imaging demonstrates the location device at the targeted area. The specimens were sent to the laboratory for pathological analysis. IMPRESSION: ULTRASOUND GUIDED BIOPSY BENIGN Ultrasound guided biopsy of the region in the right breast at 12 o'clock middle depth 7 cm from the nipple was successful with no apparent post procedure complications. Pathology indicates benign finding. Pathology results are concordant with imaging findings. A follow-up mammogram in 6 months is recommended to demonstrate stability. SUMMARY: Pathology results are as follows: FINAL DIAGNOSIS: A. Breast, right, 12:00 5 cm from nipple, coil clip, biopsy - Benign breast parenchyma with stromal fibrosis and apocrine cysts. B. Breast, right, 12:00 7 cm from nipple, ribbon clip, biopsy - Benign breast parenchyma with minimal patchy stromal fibrosis. The patient is under the care of Dr. Mariaa Ledezma for follow up of the above benign concordant biopsy results. Note that the ribbon clip is superior and lateral to the original mammographic finding of concern. However, this asymmetry has a benign appearance, likely representing fibroglandular tissue. As a wide region of the breast was surveyed sonographically without additional suspicious finding(s), and biopsy results are benign, 6 month follow up mammogram is recommended for continued assessment of stability. Elvie zafar/edgar:03/22/2021 12:50:58 Armature Winder Repair(s): Char Hook R.D.M.S., [employer] Multiple national specialty organizations have released breast cancer screening guidelines for women at average risk for developing breast cancer - guidelines that are based on both evidence and opinion, yet differ on when to start and how often to screen for breast cancer. With representation from Breast Imaging, Internal Medicine, Women's Health, Family Medicine, and Medical/Surgical Oncology, the [facility] [place] has carefully reviewed the data and reached the following consensus: 1) All women should engage in shared decision-making with their providers to decide when to start and how often to screen; 2) All women should have the opportunity to start screening mammography at age 40; 3) For women ages 45-55, we recommend annual screening mammograms; 4) For women ages 55 and over, we support both the transition from an annual to a biennial interval if this aligns more with patient's values and preferences, or continuation with annual screening; 5) All women should discuss with their providers when to stop screening mammograms. Transc (more content not included)... Normal [facility] US BIOPSY BREAST RTon [facility] US BIOPSY BREAST RT * * *Final Repor t* * * * * * SEE BOTTOM OF REPORT FOR ADDENDED TEXT * * * DATE OF EXAM: Mar 17 2021 12:35PM TY 0598 - [facility] US BIOPSY BREAST RT / PROCEDURE REASON: Abnormal ultrasound of breast * * * * Physician Interpretation * * * * FINAL REPORT #[id number] - [facility] US BIOPSY BREAST RT #[id number] - [facility] DIAGNOSTIC RT ULTRASOUND GUIDED BIOPSY RIGHT BREAST WITH MARKING DEVICE INSERTED AND POST DIGITAL MAMMOGRAPHIC AND ULTRASOUND IMAGIN03/17/2021 HISTORY: Abnormal Ultrasound Of Breast/ Ultrasound guided biopsy right breast. Abnormal Ultrasound Of Breast\ Post breast biopsy clip placement. PATIENT CONSENT: A time out was performed immediately prior to procedure start with the nursing and radiology team, correctly identifying the patient name, date of , procedure, anatomy (including marking of site and side), patient position, relevant diagnostic and radiology test results, safety precautions, and procedure-specific equipment needs. The procedure was explained to the patient including the risks, benefits and alternatives. Medications were also reviewed. The risks, including but not limited to infection and bleeding, were reviewed by the performing physician and the patient agreed to undergo the procedure. Dr. Alcaraz and a cardiac catheterization technologist were present throughout the entire procedure. Audible Time Out Time: 1207 Procedure Start Time: 1208 Procedure Stop Time: 1213 Dr. Alcaraz performed the entire procedure without an food trades assistants. PROCEDURE: Correlation is made to exams dated: 03/17/2021 ultrasound, 03/17/2021 mammogram - [facility], 02/01/2021 mammogram, 02/01/2021 ultrasound, 01/07/2021 mammogram - [facility], and 03/17/2021 mammogram - [facility]. An ultrasound guided biopsy using real-time ultrasound was performed for the concerning region located in the right breast at 12 o'clock middle depth 5 cm from the nipple. This was described on the previous ultrasound report. The skin was prepped in the usual manner. Local anesthetic was administered to the access site. A skin ronnie was made in the breast. The abnormality was approached from the lateral aspect. A 14 gauge biopsy needle was placed adjacent to the abnormality under ultrasound guidance. Once the needle was documented to be in the correct location, three cores were obtained using a BARD biopsy device. A coil type clip was inserted into the biopsy cavity. A skin closure strip and a sterile dressing were applied to the access site. Post procedure digital mammographic and ultrasound imaging demonstrates the location device at the targeted area. The specimens were sent to the laboratory for pathological analysis. IMPRESSION: ULTRASOUND GUIDED BIOPSY BENIGN Ultrasound guided biopsy of the region in the right breast at 12 o'clock middle depth 5 cm from the nipple was successful with no apparent post procedure complications. Pathology indicates benign finding. Pathology results are concordant with imaging findings. A follow-up mammogram in 6 months is recommended to demonstrate stability. SUMMARY: Pathology results are as follows: FINAL DIAGNOSIS: A. Breast, right, 12:00 5 cm from nipple, coil clip, biopsy - Benign breast parenchyma with stromal fibrosis and apocrine cysts. B. Breast, right, 12:00 7 cm from nipple, ribbon clip, biopsy - Benign breast parenchyma with minimal patchy stromal fibrosis. The patient is under the care of Dr. Mariaa Ledezma for follow up of the above benign concordant biopsy results. Note that the ribbon clip is superior and lateral to the original mammographic finding of concern. However, this asymmetry has a benign appearance, likely representing fibroglandular tissue. As a wide region of the breast was surveyed sonographically without additional suspicious finding(s), and biopsy results are benign, 6 month follow up mammogram is recommended for continued assessment of stability. Elvie zafar/edgar:03/22/2021 12:50:26 Armature Winder Repair(s): Char Hook R.D.M.S., [facility]; RT Bea(R)(M), [facility] Multiple national specialty organizations have released breast cancer screening guidelines for women at average risk for developing breast cancer - guidelines that are based on both evidence and opinion, yet differ on when to start and how often to screen for breast cancer. With representation from Breast Imaging, Internal Medicine, Women's Health, Family Medicine, and Medical/Surgical Oncology, the [facility] [place] has carefully reviewed the data and reached the following consensus: 1) All women should engage in shared decision-making with their providers to decide when to start and how often to screen; 2) All women should have the opportunity to start screening mammography at age 40; 3) For women ages 45-55, we recommend annual screening mammograms; 4) For women (more content not included)... Normal [facility] US BREAST LTD RTon 03-17 [facility] US BREAST LTD RT * * *Final Report* * * DATE OF EXAM: Mar 17 2021 11:38AM AAW 0594 - [facility] US BREAST LTD RT / PROCEDURE REASON: Abnormal ultrasound of breast * * * * Physician Interpretation * * * * #[id number] - [facility] DIAG W JACQUELINE RT #[id number] - [facility] Léa et Léo BREAST [facility] RT UNILATERAL RIGHT DIGITAL DIAGNOSTIC MAMMOGRAM TOMOSYNTHESIS WITH CAD: 03/17/2021 HISTORY: Abnormal Ultrasound Of Breast\ Patient returns for abnormal right mammogram. Abnormal Ultrasound Of Breast/ Followup abnormal mammogram. RESULT: TECHNIQUE: The study was acquired using full field digital technology and interpreted from soft copy. Digital Breast Tomosynthesis (DBT) images were obtained and used to assist in the interpretation of this examination. Current study was also evaluated with a Computer Aided Detection (CAD). Comparison is made to exams dated: 02/01/2021 ultrasound, 02/01/2021 mammogram, 01/07/2021 mammogram - [facility], and 10/17/2012 mammogram - [facility]. There are scattered fibroglandular elements in right breast. There is a stable asymmetry in the right breast middle depth upper region seen on the mediolateral oblique view only. Finding is best noted on tomographic MLO slice 37. This is seen in additional views. No abnormalities are seen retrospectively on review of CC tomosynthesis imaging. No other significant masses or calcifications are seen in the breast. IMPRESSION: PROBABLY BENIGN - SHORT TERM INTERVAL FOLLOW-UP RECOMMENDED The stable asymmetry in the right breast resembles fibroglandular tissue and is probably benign. If no sonographic correlate, then 6 month follow up mammogram is recommended. LIMITED ULTRASOUND OF RIGHT BREAST AND AXILLA: 03/17/2021 RESULT: Comparison is made to exams dated: 02/01/2021 ultrasound, 02/01/2021 mammogram, 01/07/2021 mammogram - [facility], and 10/17/2012 mammogram - [facility]. Color flow and real-time ultrasound of the right breast 12 o'clock, and axilla regions were performed. Mills scale images of the real-time examination were reviewed. There is 1.1 cm x 2 cm x 0.4 cm area in the right breast at 12 o'clock middle depth 7 cm from the nipple. This area is of mixed echogenicity. Color flow imaging demonstrates that there is vascularity present. The entire upper right breast was surveyed. No additional suspicious findings or abnormalities are seen. This may potentially correlate with the mammographic asymmetry. There also is 2.1 cm x 0.3 cm x 0.9 cm irregular area in the right breast at 12 o'clock 5 cm from the nipple. This irregular area is hypoechoic but of mixed echogenicity. Color flow imaging demonstrates that there is vascularity present. This correlates with the previously described suspicious mass (imaging dated 02/01/2021) - however, during real time scanning today this localizes to 5 cmfn as opposed to 2 cmfn. This may relate to technical differences/differen jose in positioning. No abnormalities were seen sonographically in the right axilla. IMPRESSION: SUSPICIOUS OF MALIGNANCY The 1.1 cm x 2 cm x 0.4 cm area in the right breast at 12 o'clock middle depth is at a low suspicion for malignancy. An ultrasound guided biopsy is recommended. The 2.1 cm x 0.3 cm x 0.9 cm irregular area in the right breast at 12 o'clock is suspicious of malignancy. An ultrasound guided biopsy is recommended. SUMMARY: Informed consent for the recommended biopsy was explained and signed by the patient at the time of exam. She is scheduled for biopsy today. Note that if the biopsy clip does not correlate with the original mammographic finding of concern/there is no sonographic correlate, then 6 month follow up mammogram would be recommended. Elvie zafar/edgar:03/17/2021 14:47:27 Multiple national specialty organizations have released breast cancer screening guidelines for women at average risk for developing breast cancer - guidelines that are based on both evidence and opinion, yet differ on when to start and how often to screen for breast cancer. With representation from Breast Imaging, Internal Medicine, Women's Health, Family Medicine, and Medical/Surgical Oncology, the [facility] [place] has carefully reviewed the data and reached the following consensus: 1) All women should engage in shared decision-making with their providers to decide when to start and how often to screen; 2) All women should have the opportunity to start screening mammography at age 40; 3) For women ages 45-55, we recommend annual screening mammograms; 4) For women ages 55 and over, we support both the transition from an annual to a biennial interval if this aligns more with patient's values and preferences, or continuation with annual screening; 5) All women should discuss with their providers when to stop screening mammograms. Armature Winder Repair(s): Char Hook R.D.MMassimoS., [employer] (more content not included)... Normal [facility] SURGICAL PATHOLOGYon [address] [facility] Comment on above: Order Comment: Speci men Type: TISSUE SPECIMEN Result Comment: Surg ical Pathology Report Case: [id number] Authorizing Provider: Elvie Alcaraz MD Collected: 03/17/2021 12:09 PM Ordering Location: [facility] Received: 03/18/2021 06:09 AM [facility] Pathologist: Christopher Navas MD Specimens: A) - BREAST CORE BIOPSY RIGHT, 12:00 5 cmfn B) - BREAST CORE BIOPSY RIGHT, 12:00 7 cmfn Performed By: #### S #### [facility] CLIA [id number] [address] [place] [address] CLINICAL HISTORY Low suspicion areas. Normal [facility] Comment on above: Order Comment: Speci men Type: TISSUE SPECIMEN Performed By: #### S #### [facility] CLIA [id number] [address] [place] [address] [facility] Comment on above: Order Comment: Speci men Type: TISSUE SPECIMEN Result Comment: A. B reast, right, 12:00 5 cm from nipple, coil clip, biopsy - Benign breast parenchyma with stromal fibrosis and apocrine cysts. B. Breast, right, 12:00 7 cm from nipple, ribbon clip, biopsy - Benign breast parenchyma with minimal patchy stromal fibrosis. Performed By: #### S #### [facility] CLIA [id number] [address] [place] [address] [address] LAB Normal [facility] Comment on above: Order Comment: Speci men Type: TISSUE SPECIMEN Result Comment: Diag nostic interpretation performed at [facility], [address] [place] [address] CLIA# [id number] Smoking Tobacco Packer Hand: Willy D. Alice, M.D. Performed By: #### S #### [facility] CLIA [id number] [address] [place] [address] [facility] Comment on above: Order Comment: Speci men Type: TISSUE SPECIMEN Result Comment: A. B REAST CORE BIOPSY RIGHT. A. Received in formalin labeled right breast core biopsy 12:00 5 cm from nipple are 3 yellow???lantigua cylindrical tissue fragments ranging in length from 0.6 to 1.2 cm and averaging 0.2 cm in diameter. The specimen is submitted entirely in cassette A1. B. BREAST CORE BIOPSY RIGHT. B. Received in formalin labeled right breast core biopsy 12:00 7 cm from nipple are 3 yellow???lantigua cylindrical tissue fragments ranging in length from 1 to 1.2 cm and averaging 0.2 cm in diameter. The specimen is submitted entirely in cassette B1. Gross examination performed at [facility], [address] [place] [address] OLS March 18, 2021 8:08 AM Performed By: #### S #### [facility] CLIA [id number] [address] [place] [address] HCG Preg Ur Qlon 02-24-2021 HCG ( test) Ql (U) Negative Normal Negative [facility] Comment on above: Order Comment: Speci men Type: URINE SPECIMEN Result Comment: This test is intended to aid in the early detection of . Very dilute urine samples, as indicated by a low specific gravity, may not contain claims customer service representative levels of hCG. This test detects intact hCG only. This test does not reliably detect hCG degradation products, including free-beta subunit and beta-core fragment. Therefore, this test may show reduced reactivity in urine after 8 weeks gestation. A number of conditions other than , including trophoblastic disease and certain non-trophoblastic neoplasms cause elevated levels of hCG. As with any assay employing mouse antibodies, the possibility exists for interference by human anti-mouse antibodies (HAMA) in the specimen. The test provides a presumptive diagnosis for . Performed By: #### 2 [id number] #### [facility] CLIA [id number] [address] [place] [address] OF [facility] Laboratory - Microbiology an d Antimicrobial susceptibility Bacteria identified Cx Nom (Bld) No growth in 5 days. [facility] Work Phone: No Panel Information Streptococcus pneumoniae Antigen (M [facility] Work Phone: Vital Signs Date Time Vital Sign Value Performing Clinician Facility 01-06-2025 14:03-0400 Body mass index (BMI) [Ratio] 34.39 kg/m2 Juanis Waldrop MD Work Phone: [facility] [place] 01-06-2025 14:03-0400 Body weight 90.3 kg Juanis Waldrop MD Work Phone: [facility] [place] 01-06-2025 14:03-0400 Diastolic blood pressure 82 mm[Hg] Juanis Waldrop MD Work Phone: [facility] [place] 01-06-2025 14:03-0400 Heart rate 74 /min Juanis Waldrop MD Work Phone: [facility] [place] 01-06-2025 14:03-0400 Respiratory rate 20 /min Juanis Waldrop MD Work Phone: [facility] [place] 01-06-2025 14:03-0400 SaO2% (BldA) [Mass fraction] 98 % Juanis Waldrop MD Work Phone: [facility] [place] 01-06-2025 14:03-0400 Systolic blood pressure 116 mm[Hg] Juanis Waldrop MD Work Phone: [facility] [place] 12-16-2024 16:45-0400 Diastolic blood pressure 89 mm[Hg] Dr. Juanis Waldrop MD Work Phone: [facility] 12-16-2024 16:45-0400 Heart rate 83 /min Dr. Juanis Waldrop MD Work Phone: [facility] 12-16-2024 16:45-0400 Respiratory rate 25 /min Dr. Juanis Waldrop MD Work Phone: [facility] 12-16-2024 16:45-0400 SaO2% (BldA) [Mass fraction] 96 % Dr. Juanis Waldrop MD Work Phone: 8(136)985-996295 [place] [address] 12-16-2024 16:45-0400 Systolic blood pressure 121 mm[Hg] Dr. Juanis Waldrop MD Work Phone: 9(659)657-477241 [place] [address] 12-16-2024 13:36-0400 Body mass index (BMI) [Ratio] 38 kg/m2 Dr. Juanis Waldrop MD Work Phone: 2(471)559-907141 [place] [address] 12-16-2024 13:36-0400 Body weight 94.[address] Juanis Waldrop MD Work Phone: 7(518)509-258141 [place] [address] 12-16-2024 13:35-0400 Body height 157.[address] Juanis Waldrop MD Work Phone: 3(660)946-069741 [place] [address] 12-16-2024 13:35-0400 Body temperature 96.7 [degF] Dr. Juanis Waldrop MD Work Phone: 2(670)196-826141 [place] [address] 12-01-2024 15:00-0400 Diastolic blood pressure 102 mm[Hg] Dr. Juanis Waldrop MD Work Phone: 6(053)975-507741 [place] [address] 12-01-2024 15:00-0400 Heart rate 91 /min Dr. Juanis Waldrop MD Work Phone: 9(098)514-441241 [place] [address] 12-01-2024 15:00-0400 Respiratory rate 18 /min Dr. Juanis Waldrop MD Work Phone: 0(442)068-121041 [place] [address] 12-01-2024 15:00-0400 SaO2% (BldA) [Mass fraction] 95 % Dr. Juanis Waldrop MD Work Phone: 4(622)487-809641 [place] [address] 12-01-2024 15:00-0400 Systolic blood pressure 116 mm[Hg] Dr. Juanis Waldrop MD Work Phone: 4(259)244-955741 [place] [address] 12-01-2024 12:24-0400 Body height 157.[address] Juanis Waldrop MD Work Phone: 6(843)495-387541 [place] [address] 12-01-2024 12:24-0400 Body mass index (BMI) [Ratio] 37.5 kg/m2 Dr. Juanis Waldrop MD Work Phone: [facility] 12-01-2024 12:24-0400 Body temperature 99.3 [degF] Dr. Juanis Waldrop MD Work Phone: [facility] 12-01-2024 12:24-0400 Body weight 93.[address] Juanis Waldrop MD Work Phone: [facility] 06-09-2024 13:02-0400 Body mass index (BMI) [Ratio] 29.59 kg/m2 Ellen Woods APRN.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 Work Phone: [facility] 06-09-2024 13:02-0400 Body weight 77.7 kg Ellen Woods APRN.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 Work Phone: [facility] 06-09-2024 13:02-0400 Diastolic blood pressure 72 mm[Hg] Ellen Woods HEEL SCORER.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 Work Phone: [facility] 06-09-2024 13:02-0400 Heart rate 60 /min Ellen Woods APRN.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 Work Phone: [facility] 06-09-2024 13:02-0400 Respiratory rate 18 /min Ellen Woods APRN.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 Work Phone: [facility] 06-09-2024 13:02-0400 SaO2% (BldA) [Mass fraction] 96 % Ellen Woods HEEL SCORER.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 Work Phone: [facility] 06-09-2024 13:02-0400 Systolic blood pressure 110 mm[Hg] Ellen Woods HEEL SCORER.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 Work Phone: [facility] 03-06-2024 09:11-0400 Body mass index (BMI) [Ratio] 27.04 kg/m2 Bird Welsh APRN.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 Work Phone: [facility] 03-06-2024 09:11-0400 Body temperature 97.81 [degF] Bird Welsh APRN.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 Work Phone: [facility] 03-06-2024 09:11-0400 Body weight 71 kg Bird Welsh HEEL SCORER.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 Work Phone: [facility] 03-06-2024 09:11-0400 Diastolic blood pressure 88 mm[Hg] Bird Welsh HEEL SCORER.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 Work Phone: [facility] 03-06-2024 09:11-0400 Heart rate 69 /min Bird Welsh HEEL SCORER.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 Work Phone: [facility] 03-06-2024 09:11-0400 Respiratory rate 20 /min Bird Welsh HEEL SCORER.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 Work Phone: [facility] 03-06-2024 09:11-0400 SaO2% (BldA) [Mass fraction] 100 % Bird Welsh HEEL SCORER.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 Work Phone: [facility] 03-06-2024 09:11-0400 Systolic blood pressure 144 mm[Hg] Bird Welsh HEEL SCORER.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 Work Phone: [facility] 11-06-2023 11:11-0400 Body height 157.[address] ISHA MORROW MD [facility] 11-06-2023 11:11-0400 Body temperature 97.16 [degF] DR ISHA MORROW MD [facility] 11-06-2023 11:11-0400 Body weight 68.[address] ISHA MORROW MD [facility] 11-06-2023 11:11-0400 Diastolic Blood Pressure Non-Invasive 82 mm[Hg] DR ISHA MORROW MD [facility] 11-06-2023 11:11-0400 Heart rate 52 /min DR ISHA MORROW MD [facility] 11-06-2023 11:11-0400 Respiratory rate 18 /min DR ISHA MORROW MD [facility] 11-06-2023 11:11-0400 Systolic Blood Pressure Non-Invasive 153 mm[Hg] DR ISHA MORROW MD [facility] 11-03-2023 13:48-0500 Body temperature 97.9 [degF] John Mckeon MD Work Phone: [facility] 11-03-2023 13:48-0500 Body weight 68 kg John Mckeon MD Work Phone: [facility] 11-03-2023 13:48-0500 Diastolic blood pressure 77 mm[Hg] John Mckeon MD Work Phone: [facility] 11-03-2023 13:48-0500 Heart rate 60 /min John Mckeon MD Work Phone: [facility] 11-03-2023 13:48-0500 Respiratory rate 22 /min John Mckeon MD Work Phone: [facility] 11-03-2023 13:48-0500 SaO2% (BldA) [Mass fraction] 99 % John Mckeon MD Work Phone: [facility] 11-03-2023 13:48-0500 Systolic blood pressure 126 mm[Hg] John Mckeon MD Work Phone: [facility] 08-01-2023 10:12-0500 Heart rate 78 /min [facility] 08-01-2023 10:12-0500 Respiratory rate 18 /min [facility] 08-01-2023 10:12-0500 SaO2% (BldA) [Mass fraction] 100 % [facility] 08-01-2023 06:15-0500 Body height 157.48 cm [facility] 08-01-2023 06:15-0500 Body mass index (BMI) [Ratio] 30.4 kg/m2 [facility] 08-01-2023 06:15-0500 Body temperature 96.9 [degF] [facility] 08-01-2023 06:15-0500 Body weight 75.4 kg [facility] 08-01-2023 06:15-0500 Diastolic blood pressure 82 mm[Hg] [facility] 08-01-2023 06:15-0500 Systolic blood pressure 122 mm[Hg] [facility] 02-04-2023 09:09-0400 Body temperature 98.2 [degF] Bird Blaise HEEL SCORER.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 Work Phone: [facility] 02-04-2023 09:09-0400 Body weight 81.1 kg Bird Blaise HEEL SCORER.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 Work Phone: [facility] 02-04-2023 09:09-0400 Diastolic blood pressure 88 mm[Hg] Bird Blaise HEEL SCORER.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 Work Phone: [facility] 02-04-2023 09:09-0400 Heart rate 75 /min Bird Blaise HEEL SCORER.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 Work Phone: [facility] 02-04-2023 09:09-0400 Respiratory rate 18 /min Bird Blaise HEEL SCORER.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 Work Phone: [facility] 02-04-2023 09:09-0400 SaO2% (BldA) [Mass fraction] 98 % Bird Blaise HEEL SCORER.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 Work Phone: [facility] 02-04-2023 09:09-0400 Systolic blood pressure 138 mm[Hg] Bird Blaise HEEL SCORER.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 Work Phone: [facility] 11-21-2022 10:26-0400 Body weight 80.74 kg Juanis Waldrop MD Work Phone: [facility] 11-21-2022 10:26-0400 Diastolic blood pressure 86 mm[Hg] Juanis Waldrop MD Work Phone: [facility] 11-21-2022 10:26-0400 Heart rate 66 /min Juanis Waldrop MD Work Phone: [facility] 11-21-2022 10:26-0400 Respiratory rate 20 /min Juanis Waldrop MD Work Phone: [facility] 11-21-2022 10:26-0400 Systolic blood pressure 134 mm[Hg] Juanis Waldrop MD Work Phone: [facility] 11-07-2022 10:38-0400 Body temperature 98.2 [degF] Felix Pendlebury HEEL SCORER.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 Work Phone: [facility] 11-07-2022 10:38-0400 Body weight 81.92 kg Felix Pendlebury HEEL SCORER.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 Work Phone: [facility] 11-07-2022 10:38-0400 Diastolic blood pressure 74 mm[Hg] Felix Pendlebury HEEL SCORER.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 Work Phone: [facility] 11-07-2022 10:38-0400 Heart rate 84 /min Felix Pendlebury HEEL SCORER.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 Work Phone: [facility] 11-07-2022 10:38-0400 Respiratory rate 16 /min Felix Pendlebury HEEL SCORER.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 Work Phone: [facility] 11-07-2022 10:38-0400 SaO2% (BldA) [Mass fraction] 98 % Felix Pendlebury HEEL SCORER.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 Work Phone: [facility] 11-07-2022 10:38-0400 Systolic blood pressure 122 mm[Hg] Felix Pendlebury HEEL SCORER.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 Work Phone: [facility] 11-02-2022 09:50-0500 Body temperature 98.6 [degF] Felix Pendlebury HEEL SCORER.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 Work Phone: [facility] 11-02-2022 09:50-0500 Body weight 82.64 kg Felix Pendleadrianna HEEL SCORER.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 Work Phone: [facility] 11-02-2022 09:50-0500 Diastolic blood pressure 78 mm[Hg] Felix Pendlebury HEEL SCORER.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 Work Phone: [facility] 11-02-2022 09:50-0500 Heart rate 74 /min Felix Pendlebury HEEL SCORER.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 Work Phone: [facility] 11-02-2022 09:50-0500 Respiratory rate 18 /min Felix Taylor HEEL SCORER.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 Work Phone: [facility] 11-02-2022 09:50-0500 SaO2% (BldA) [Mass fraction] 98 % Felix Taylor HEEL SCORER.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 Work Phone: [facility] 11-02-2022 09:50-0500 Systolic blood pressure 128 mm[Hg] Felix Taylor HEEL SCORER.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 Work Phone: [facility] 09-04-2022 09:50-0500 Body height 162.1 cm Pulm Wstr Work Phone: [facility] 09-04-2022 09:50-0500 Body weight 87.09 kg Pulm Wstr Work Phone: [facility] 09-04-2022 09:50-0500 Heart rate 74 /min Pulm Wstr Work Phone: [facility] 09-04-2022 09:50-0500 Respiratory rate 16 /min Pulm Wstr Work Phone: [facility] 09-04-2022 09:50-0500 SaO2% (BldA) [Mass fraction] 98 % Pulm Wstr Work Phone: [facility] 08-04-2022 07:11-0500 Body temperature 97.5 [degF] Alyssa Athy PA-C Work Phone: [facility] 08-04-2022 07:11-0500 Body weight 92.08 kg Alyssa Athy PA-C Work Phone: [facility] 08-04-2022 07:11-0500 Diastolic blood pressure 84 mm[Hg] Alyssa Athy PA-C Work Phone: [facility] 08-04-2022 07:11-0500 Heart rate 60 /min Alyssa Athy PA-C Work Phone: [facility] 08-04-2022 07:11-0500 Respiratory rate 18 /min Alyssa Joy PA-C Work Phone: [facility] 08-04-2022 07:11-0500 SaO2% (BldA) [Mass fraction] 97 % Alyssadu Joy PA-C Work Phone: [facility] 08-04-2022 07:11-0500 Systolic blood pressure 122 mm[Hg] Alyssadu Joy PA-C Work Phone: [facility] 05-10-2022 14:49-0400 Body weight 83.01 kg Ellen Tannhof HEEL SCORER.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 Work Phone: [facility] 05-10-2022 14:49-0400 Diastolic blood pressure 78 mm[Hg] Ellen Tannhof HEEL SCORER.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 Work Phone: [facility] 05-10-2022 14:49-0400 Heart rate 106 /min Ellen Tannhof HEEL SCORER.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 Work Phone: [facility] 05-10-2022 14:49-0400 Respiratory rate 20 /min Ellen Tannhof HEEL SCORER.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 Work Phone: [facility] 05-10-2022 14:49-0400 SaO2% (BldA) [Mass fraction] 96 % Ellen Tannhof HEEL SCORER.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 Work Phone: [facility] 05-10-2022 14:49-0400 Systolic blood pressure 116 mm[Hg] Ellen Tannhof HEEL SCORER.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 Work Phone: [facility] 05-04-2022 08:25-0400 Body temperature 98.7 [degF] Dr. Juanis Waldrop Work Phone: [facility] Work Phone: 05-04-2022 08:25-0400 Diastolic blood pressure 79 mm[Hg] Dr. Juanis Waldrop Work Phone: [facility] Work Phone: 05-04-2022 08:25-0400 Heart rate 57 /min Dr. Juanis Waldrop Work Phone: [facility] Work Phone: 05-04-2022 08:25-0400 Respiratory rate 18 /min Dr. Juanis Waldrop Work Phone: [facility] Work Phone: 05-04-2022 08:25-0400 SaO2% (BldA) [Mass fraction] 97 % Dr. Juanis Waldrop Work Phone: [facility] Work Phone: 05-04-2022 08:25-0400 Systolic blood pressure 133 mm[Hg] Dr. Juanis Waldrop Work Phone: [facility] Work Phone: 05-02-2022 13:37-0400 Body height 157.[address] Juanis Waldrop Work Phone: [facility] Work Phone: 05-02-2022 13:37-0400 Body mass index (BMI) [Ratio] 31.7 kg/m2 Dr. Juanis Waldrop Work Phone: [facility] Work Phone: 05-02-2022 13:37-0400 Body weight 78.[address] Juanis Waldrop Work Phone: [facility] Work Phone: 05-02-2022 13:25-0400 Diastolic blood pressure 86 mm[Hg] [facility] Work Phone: 05-02-2022 13:25-0400 Heart rate 66 /min [facility] Work Phone: 05-02-2022 13:25-0400 Respiratory rate 19 /min [facility] Work Phone: 05-02-2022 13:25-0400 SaO2% (BldA) [Mass fraction] 97 % [facility] Work Phone: 05-02-2022 13:25-0400 Systolic blood pressure 122 mm[Hg] [facility] Work Phone: 05-02-2022 12:34-0400 Body temperature 98 [degF] [facility] Work Phone: 05-02-2022 08:58-0400 Body height 154.94 cm [facility] Work Phone: 05-02-2022 08:58-0400 Body mass index (BMI) [Ratio] 34 kg/m2 [facility] Work Phone: 05-02-2022 08:58-0400 Body weight 81.64 kg [facility] Work Phone: 04-24-2022 14:13-0400 Body weight 81.65 kg Juanis Waldrop MD Work Phone: [facility] 04-24-2022 14:13-0400 Diastolic blood pressure 72 mm[Hg] Juanis Waldrop MD Work Phone: [facility] 04-24-2022 14:13-0400 Heart rate 84 /min Juanis Waldrop MD Work Phone: [facility] 04-24-2022 14:13-0400 Respiratory rate 20 /min Juanis Waldrop MD Work Phone: [facility] 04-24-2022 14:13-0400 Systolic blood pressure 124 mm[Hg] Juanis Waldrop MD Work Phone: [facility] 01-21-2022 11:34-0400 Body temperature 97.59 [degF] Alyssa Athy PA-C Work Phone: [facility] 01-21-2022 11:34-0400 Body weight 85.55 kg Alyssa Athy PA-C Work Phone: [facility] 01-21-2022 11:34-0400 Diastolic blood pressure 76 mm[Hg] Alyssa Athy PA-C Work Phone: [facility] 01-21-2022 11:34-0400 Heart rate 77 /min Alyssa Athy PA-C Work Phone: [facility] 01-21-2022 11:34-0400 Respiratory rate 18 /min Alyssa Guerrero PA-C Work Phone: [facility] 01-21-2022 11:34-0400 SaO2% (BldA) [Mass fraction] 98 % Alyssa Guerrero PA-C Work Phone: [facility] 01-21-2022 11:34-0400 Systolic blood pressure 122 mm[Hg] Alyssa Guerrero PA-C Work Phone: [facility] Encounters Encounter Date Encounter Type Care Provider Facility Start: 01-08-2025 End: 01-08-2025 Telephone encounter Juanis Waldrop MD Work Phone: [facility] Comment on above: Forms ([facility] [facility] [employer]) Start: 01-06-2025 End: 01-06-2025 Office outpatient visit 25 minutes Juanis Waldrop MD Work Phone: [facility] Comment on above: Hospital discharge f ollow-up (Primary Dx); Chronic obstructive pulmonary disease, unspecified COPD type (HCC); Chest pain, unspecified type; SOB (shortness of breath); Gastroesophageal reflux disease without esophagitis; Dysphagia, unspecified type; Tobacco use; Paranoid schizophrenia (HCC) Start: 01-06-2025 End: 01-06-2025 ambulatory JUANIS WALDROP Facility:[facility] Start: 01-05-2025 End: 03-07-2025 Follow-up encounter Jonas Harrison APRN.CNP Work Phone: [facility] Start: 01-02-2025 ambulatory JUANIS WALDROP Facil ity:[facility] Start: 01-02-2025 End: 01-02-2025 Subsequent hospital visit by physician [facility] Work Phone: Radiology Comment on above: Weight gain [R63.5] Start: 12-24-2024 End: 12-25-2024 Refill Juanis Waldrop MD Work Phone: [facility] Comment on above: Refill Request Start: 12-16-2024 End: 12-16-2024 Emergency department patient visit Dr. Juanis Waldrop MD Work Phone: -Emergency Department Work Phone: Start: 12-01-2024 End: 12-01-2024 Emergency department patient visit Dr. Juanis Waldrop MD Work Phone: -Emergency Department Work Phone: Start: 09-12-2024 End: 09-12-2024 ambulatory Juanis Waldrop MD Work Phone: Family [facility] [place] Comment on above: Please helping have a question Start: 07-01-2024 End: 07-02-2024 ambulatory [facility] HEEL SCORER.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 Work Phone: Family [facility] Comment on above: Test results Start: 06-30-2024 End: 06-30-2024 ambulatory [facility] Facility:[facility] Start: 06-11-2024 End: 06-16-2024 ambulatory Juanis Waldrop MD Work Phone: Internal Medicine [facility] Start: 06-09-2024 End: 06-09-2024 ambulatory [facility] Facility:[facility] Start: 06-09-2024 End: 06-09-2024 [facility] HEEL SCORER.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 Work Phone: [facility] [place] Comment on above: Medicare annual well ness visit, subsequent (Primary Dx); Weight gain; Enlarged thyroid; Plantar wart of left foot; Paranoid schizophrenia (HCC); Fibromyalgia; Systemic lupus erythematosus, unspecified SLE type, unspecified organ involvement status (HCC); BRIGITTE (obstructive sleep apnea); RLS (restless legs syndrome); Chronic obstructive pulmonary disease, unspecified COPD type (HCC); Mixed hyperlipidemia; Cigarette smoker; Screening for depression; Encounter for screening examination for other mental health and behavioral disorders Start: 05-19-2024 End: 05-20-2024 Refill Basia Bui MD Work Phone: Pulmonary Medicine Comment on above: Refill Request Start: 03-06-2024 End: 03-06-2024 ambulatory JUANIS WALDROP Facility:[facility] Start: 03-06-2024 End: 03-06-2024 Patient encounter procedure Bird Welsh HIRA Work Phone: [facility] Comment on above: Toothache (Primary D x) Start: 03-03-2024 ambulatory Juanis figueroa MD Work Phone: [facility] Comment on above: Head Injury Start: 03-03-2024 End: 03-03-2024 Emergency department patient visit Juanis Waldrop Facility:[facility] Start: 12-31-2023 End: 12-31-2023 ambulatory Juanis Waldrop MD Work Phone: [facility] Comment on above: Fibromyalgia (Primar y Dx); BRIGITTE (obstructive sleep apnea); Chronic obstructive pulmonary disease, unspecified COPD type (HCC); Cigarette smoker; Lupus (HCC); Paranoid schizophrenia (HCC); Gastroenteritis Start: 12-31-2023 End: 12-31-2023 Telemedicine consultation with patient Juanis Waldrop MD Work Phone: [facility] Start: 12-28-2023 ambulatory Juanis figueroa MD Work Phone: [facility] Start: 12-28-2023 Patient encounter procedure Dirk Waldrop MD Work Phone: [facility] Comment on above: Virtual appointment Start: 12-27-2023 ambulatory Juanis figueroa MD Work Phone: [facility] Comment on above: I have a question pl ease Start: 11-29-2023 Refill Juanis figueroa MD Work Phone: [facility] Comment on above: Refill Request Start: 11-06-2023 End: 11-06-2023 Emergency department patient visit DR ISHA MORROW MD Facility:[facility] Start: 11-06-2023 End: 11-06-2023 Emergency department patient visit DR ISHA MORROW MD [facility] Start: 11-03-2023 End: 11-03-2023 Patient encounter procedure John Mckeon MD Work Phone: [facility] Comment on above: Cellulitis, face (Pr imary Dx); Weight loss Start: 08-01-2023 End: 08-01-2023 Emergency department patient visit [facility] Work Phone: Start: 07-31-2023 End: 07-31-2023 Patient encounter procedure Allisoncolleen Taveras HEEL SCORER.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 Work Phone: [facility] Comment on above: Dyspnea, unspecified type (Primary Dx); Tachypnea Start: 07-02-2023 End: 07-02-2023 ambulatory Juanis Waldrop MD Work Phone: [facility] Comment on above: Fibromyalgia (Primar y Dx); Encounter for screening mammogram for malignant neoplasm of breast; Cigarette smoker; Paranoid schizophrenia (HCC); BRIGITTE (obstructive sleep apnea); Chronic obstructive pulmonary disease, unspecified COPD type (HCC) Start: 07-02-2023 End: 07-02-2023 Telemedicine consultation with patient Juanis Waldrop MD Work Phone: [facility] Start: 06-22-2023 Telephone encounter Juanis sanchez MD Work Phone: [facility] Comment on above: Patient Question Start: 03-30-2023 Refill Juanis figueroa MD Work Phone: [facility] Comment on above: Refill Request Start: 02-23-2023 Telephone encounter Carl King MD Work Phone: Neurology Comment on above: Appointment Start: 02-04-2023 End: 02-04-2023 Patient encounter procedure Bird Welsh APRN.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 Work Phone: [facility] Comment on above: Pain, dental (Primar y Dx) Start: 12-31-2022 Refill Ellen Woods APRN.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 Work Phone: [facility] Comment on above: Refill Request Start: 11-21-2022 End: 11-21-2022 Patient encounter procedure Juanis Waldrop MD Work Phone: [facility] Comment on above: Fibromyalgia (Primar y Dx); GERD without esophagitis; Lupus (HCC); RLS (restless legs syndrome); Insomnia, unspecified type; BRIGITTE (obstructive sleep apnea); Chronic obstructive pulmonary disease, unspecified COPD type ([facility]); Cigarette smoker; Paranoid schizophrenia ([facility]); Bilateral thumb pain Start: 11-17-2022 ambulatory Carl garcia MD Work Phone: Neurology Comment on above: Please help Start: 11-07-2022 End: 11-07-2022 Office outpatient visit 15 minutes Felix Taylor HEEL SCORER.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 Work Phone: [facility] Comment on above: Pain, dental (Primar y Dx) Start: 11-02-2022 End: 11-02-2022 Office outpatient visit 25 minutes Felix Taylor HEEL SCORER.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 Work Phone: [facility] Comment on above: Dental infection (Pr imary Dx) Start: 09-04-2022 End: 09-04-2022 ambulatory Pulm Lab [facility] Work Phone: [facility] Comment on above: Spirometry Start: 09-04-2022 End: 09-04-2022 Patient encounter procedure Pulm [facility] Work Phone: [facility] Start: 08-04-2022 End: 08-04-2022 Patient encounter procedure Alyssa Guerrero PA-C Work Phone: [facility] Comment on above: Dental infection (Pr imary Dx) Start: 07-07-2022 Refill Juanis figueroa MD Work Phone: [facility] Comment on above: Refill Request Start: 07-03-2022 End: 07-03-[address] Juanis Waldrop Work Phone: [facility] Work Phone: Start: 07-03-2022 End: 07-03-[address] Juanis Waldrop Work Phone: [facility]-Sleep Lab Start: 06-21-2022 Telephone encounter Ellen rudolph HEEL SCORER.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 Work Phone: [facility] Comment on above: Results (Chest Xray ) Start: 06-19-2022 End: 06-19-2022 Subsequent hospital visit by physician Xr [facility] Work Phone: Radiology Comment on above: History of pneumonia [Z87.01] Start: 05-22-2022 End: 05-22-[address] Juanis Waldrop Work Phone: [facility] Work Phone: Start: 05-22-2022 End: 05-22-[address] Juanis Waldrop Work Phone: [facility]-Sleep Lab Start: 05-10-2022 End: 05-10-2022 Patient encounter procedure Ellen Woods APRN.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 Work Phone: [facility] Comment on above: Hospital discharge f ollow-up (Primary Dx); History of pneumonia Start: 05-06-2022 ambulatory Juanis figueroa MD Work Phone: [facility] Comment on above: Tooth infection Start: 05-05-2022 Telephone encounter Juanis sanchez MD Work Phone: [facility] Comment on above: Transition Of Care Start: 05-04-2022 Non-patient / Non-visit Dr. Dirk Waldrop Work Phone: [facility] Start: 05-03-2022 Non-patient / Non-visit Dr. Dirk Waldrop Work Phone: [facility] Start: 05-02-2022 Non-patient / Non-visit Dr. Dirk Waldrop Work Phone: [facility] Start: 05-02-2022 End: 05-04-2022 [facility] Start: 04-28-2022 Telephone encounter Juanis sanchez MD Work Phone: [facility] [place] Comment on above: Results, Lab sleep titration Start: 04-24-2022 End: 04-24-2022 Patient encounter procedure Juanis Waldrop MD Work Phone: [facility] Comment on above: Fibromyalgia (Primar y Dx); GERD without esophagitis; RLS (restless legs syndrome); Insomnia, unspecified type; BRIGITTE (obstructive sleep apnea); Lupus (HCC); Chronic obstructive pulmonary disease, unspecified COPD type (HCC); Paranoid schizophrenia (HCC); Cigarette smoker; Skin inflammation; Screening for HIV (human immunodeficiency virus); Need for hepatitis C screening test; Medication monitoring encounter; Obesity, Class I, BMI 30-34.9 Start: 04-06-2022 Refill Juanis figueroa MD Work Phone: [facility] [place] Comment on above: Refill Request Start: 03-16-2022 Telephone encounter Carl King MD Work Phone: Neurology Comment on above: Results Start: 02-08-2022 ambulatory Juanis figueroa MD Work Phone: Internal Medicine [facility] Start: 01-21-2022 End: 01-21-2022 Patient encounter procedure Alyssa Guerrero PA-C Work Phone: [facility] Comment on above: Viral URI (Primary D x) Start: 01-12-2022 End: 01-12-2022 Patient encounter procedure [facility]Sleep Lab Start: 01-02-2022 ambulatory Juanis figueroa MD Work Phone: [facility] Start: 01-02-2022 Telephone encounter Carl King MD Work Phone: Neurology Comment on above: PSG no show at [facility] I need a refill Start: 12-14-2021 Telephone encounter Juanis sanchez MD Work Phone: [facility] Comment on above: Infected tooth Start: 11-01-2021 Telephone encounter Mariaa Hurtado MD Work Phone: General Surgery Comment on above: Established Patient Follow-Up (6 month follow up breast imaging and ov) Procedures Date Procedure Procedure Detail Performing Clinician Start: 12-16-2024 X-ray of chest, PA and lateral views Dr. Juanis Waldrop MD Work Phone: Start: 12-01-2024 SARS-CoV-2, Influenza & RSV (PCR) Dr. Juanis Waldrop MD Work Phone: Start: 12-01-[address] Juanis Waldrop MD Work Phone: Start: 12-01-2024 X-ray of chest, PA and lateral views Dr. Juanis Waldrop MD Work Phone: Start: 06-30-2024 Lipid 1996 panel - Serum or Plasma Ellen Woods APRN.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 Work Phone: Start: 06-09-2024 Adult depression screening assessment Ellen Woods APRN.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 Work Phone: Start: 08-01-2023 SARS-CoV-2 & FLU Antigen (Rapid) Start: 08-01-2023 Plain chest X-ray Start: 09-04-2022 Nitric oxide gas determination Basia Bui MD Work Phone: Start: 09-04-2022 Brncdilat rspse spmtry pre&post-brncdilat admn Basia Bui MD Work Phone: Start: 06-19-2022 Radiologic exam chest 2 views Ellen Woods HEEL SCORER.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 Work Phone: Start: 05-02-2022 Plain chest X-ray Start: 04-25-2022 Lipid 1996 panel - Serum or Plasma Juanis Waldrop MD Work Phone: Start: 04-21-2021 Adult depression screening assessment Mariaa Ledezma MD Work Phone: Start: 02-24-2021 Colonoscopy Mariaa Ledezma MD Work Phone: Start: 01-07-2021 Mammography Mariaa Ledezma MD Work Phone: Bacteria identified in Blood by Culture Dr. Juanis Waldrop Work Phone: Entire ovary (body structure) DR ISHA MORROW MD Gallbladder structur e (body structure) DR ISHA MORROW MD H/O: surgery History of dilat ation and curettage H/O: tubal ligation History of tubal liga tion History of cholecystectomy History of cholecystectomy History of decompres maxine of median nerve History of carpal tunnel surgery of right wrist Legionella pneumophi la antigen assay Dr. Juanis Waldrop Work Phone: Streptococcus pneumo niae Antigen (M Dr. Juanis Waldrop Work Phone: Tonsil and adenoid structure (body structure) DR ISHA MORROW MD Viral antigen assay Plan of Treatment Date Care Activity Detail Author Start: 06-30-2029 Lipid panel Lipid Screening [facility] Start: 09-19-2028 Urine microalbumin profile [facility] Start: 06-30-2027 Diabetes Screening Diabetes Screenin g [facility] Start: 04-25-2027 Lipid 1996 panel - S jabier or Plasma Lipid Screening [facility] Start: 04-25-2027 Lipid panel Lipid Screening [facility] Start: 04-25-2027 LIPID SCREEN LIPID SCREEN [facility] Start: 02-24-2026 Colonoscopy COLONOSCOPY [facility] Start: 02-24-2026 COLORECTAL CANCER SCREENING COLORECTAL CANCER SCREENING [facility] Start: 02-24-2026 Screening for malign ant neoplasm of colon [facility] Start: 01-18-2026 HPV TESTING HPV TESTING [facility] Start: 01-18-2026 PAP TESTING PAP TESTING [facility] Start: 01-18-2026 Screening for malign ant neoplasm of cervix [facility] Start: 01-06-2026 Annual PCP Team Therapy Assistant patricia Disease Visit Annual PCP Team Chronic Disease Visit [facility] Start: 06-09-2025 Annual PCP Team Therapy Assistant patricia Disease Visit Annual PCP Team Chronic Disease Visit [facility] Start: 06-09-2025 Anxiety Screening Anxiety Screening [facility] Start: 06-09-2025 Covid-19 Vaccine ( season) Covid-19 Vaccine ( season) [facility] Comment on above: Postponed from 04/27 (Declined at this time) Start: 06-09-2025 Depression Screening Depression Scre ening [facility] Start: 06-09-2025 Hepatitis B Vaccine (1 of 3 - 19+ 3-dose series) Hepatitis B Vaccine (1 of 3 - 19+ 3-dose series) [facility] Comment on above: Postponed from 12/17 (Declined at this time) Start: 06-09-2025 Pneumococcal vaccination Pneum ococcal Vaccine (2 of 2 - PCV) [facility] Comment on above: Postponed from 09/14 (Declined at this time) Start: 04-27-2025 Influenza vaccination C [facility] Start: 04-25-2025 DIABETES SCREEN [facility] Start: 04-25-2025 Diabetes Screening Diabetes Screenin g [facility] Start: 02-23-2025 Influenza vaccination Influenza Vacc ine (#1) [facility] Comment on above: Postponed from 04/27 (Declined at this time) Start: 01-23-2025 End: 01-23-2025 Patient encounter procedure 01/23/2025 10:00 AM EDT Office Visit [facility] [address] [place] [address] Jonas Harrison APRN.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 [address] [place] [address] 2-3 week follow up Breathing/GERD [facility] Comment on above: 2-3 week follow up B reathing/GERD Start: 01-07-2025 End: 01-07-2025 Patient encounter procedure 01/07/2025 10:45 AM EDT Office Visit OB/Gynecology [address] [place] [address] Angelica Yoo APRN.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 [address] [place] [address] annual OB/Gynecology Comment on above: annual Start: 01-06-2025 End: 01-06-2025 Patient encounter procedure 01/06/2025 2:20 PM EDT Office Visit [facility] [place] [address] [facility] [place] [address] Juanis Waldrop MD [address] [facility] [place] [address] [facility] ER f/u. 12/16/24 Inflammed lungs. [facility] [place] Comment on above: [facility] ER f/u. 12/16/24 Inflammed lungs. Start: 01-02-2025 End: 01-02-2025 Patient encounter procedure 01/02/2025 7:45 AM EDT Appointment Radiology [address] [place] [address] Weight gain [R63.5] Radiology Comment on above: Weight gain [R63.5] Start: 12-30-2024 Annual PCP Team Therapy Assistant patricia Disease Visit Annual PCP Team Chronic Disease Visit [facility] Start: 12-16-2024 [facility] Start: 12-16-2024 [facility] Start: 12-01-2024 [facility] Start: 12-01-2024 Bacteria identified in Urine by Culture Urine Culture [facility] Start: 12-01-2024 [facility] Start: 12-01-2024 [facility] Start: 08-27-2024 Medicare Advantage A nnual Wellness Visit Medicare Advantage Annual Wellness Visit [facility] Start: 07-02-2024 Annual PCP Team Therapy Assistant patricia Disease Visit Annual PCP Team Chronic Disease Visit [facility] Start: 07-01-2024 End: 07-01-2024 ambulatory 07/01/2024 8:00 AM [facility] [place] [address] [facility] [place] [address] Juanis Waldrop MD [address] [place] [address] Just a check up [facility] [place] Comment on above: Just a check up Start: 06-13-2024 End: 06-13-2024 Patient encounter procedure 06/13/2024 8:45 AM EDT Office Visit Pulmonary Medicine [address] [place] [address] Basia Bui MD [address] [place] [address] COPD check up- last seen 08/2022 Pulmonary Medicine Comment on above: COPD check up- last seen 08/2022 Start: 06-09-2024 End: 09-08-2024 CBC W Auto Differential panel - Blood COMPLETE BLOOD COUNT AND DIFFERENTIAL Lab Routine Weight gain Expected: 06/09/2024, Expires: 09/08/2024 [facility] Comment on above: Expected: 06/09/2024 , Expires: 09/08/2024 Start: 06-09-2024 End: 09-08-2024 Comprehensive metabolic 2000 panel - Serum or Plasma COMPREHENSIVE METABOLIC PANEL Lab Routine Mixed hyperlipidemia Expected: 06/09/2024, Expires: 09/08/2024 [facility] Comment on above: Expected: 06/09/2024 , Expires: 09/08/2024 Start: 06-09-2024 End: 09-08-2024 Hemoglobin A1c in Blood HEMOGLOBIN A1C Lab Routine Weight gain Expected: 06/09/2024, Expires: 09/08/2024 [facility] Comment on above: Expected: 06/09/2024 , Expires: 09/08/2024 Start: 06-09-2024 End: 09-08-2024 Lipid 1996 panel - Serum or Plasma LIPID PANEL BASIC Lab Routine Mixed hyperlipidemia Expected: 06/09/2024, Expires: 09/08/2024 [facility] Work Phone: Comment on above: Expected: 06/09/2024 , Expires: 09/08/2024 Start: 06-09-2024 End: 09-08-2024 Thyrotropin [Units/volume] in Serum or Plasma THYROID STIMULATING HORMONE Lab Routine Weight gain Expected: 06/09/2024, Expires: 09/08/2024 [facility] Comment on above: Expected: 06/09/2024 , Expires: 09/08/2024 Start: 06-09-2024 End: 09-08-2024 Thyroxine (T4) free [Mass/volume] in Serum or Plasma T4 FREE/FREE THYROXINE Lab Routine Weight gain Expected: 06/09/2024, Expires: 09/08/2024 [facility] Comment on above: Expected: 06/09/2024 , Expires: 09/08/2024 Start: 06-09-2024 End: 09-08-2024 Triiodothyronine (T3) Free [Mass/volume] in Serum or Plasma T3, FREE Lab Routine Weight gain Expected: 06/09/2024, Expires: 09/08/2024 [facility] Comment on above: Expected: 06/09/2024 , Expires: 09/08/2024 Start: 05-29-2024 End: 05-29-2024 Patient encounter procedure 05/29/2024 11:30 AM EDT Appointment Mammogram [address] [place] [address] Mammogram Start: 04-27-2024 Covid-19 Vaccine () Covid-19 Vaccine () [facility] Start: 04-27-2024 Influenza vaccination C [facility] Start: 04-18-2024 DIABETES SCREEN DIABETES SCREEN [facility] Start: 01-08-2024 End: 01-08-2024 [facility] 01/08/[facility]24 1:[address] [facility] [address] [place] [address] Shailesh Laguerre, HEEL SCORER.[facility] [address] [facility] [address] [place] [address] 6 month check up and prescription refill Family Medicine Comment on above: 6 month check up and prescription refill Start: 12-31-2023 End: 12-31-2023 Follow-up encounter 12/31/2023 7:[address] [facility] [address] [place] [address] Juanis Waldrop MD [address] [place] [address] 6 month follow up [facility] [place] Comment on above: 6 month follow up Start: 11-22-2023 ANNUAL PCP TEAM FLOW MATCH SOFA CUTTER PATRICIA DISEASE VISIT ANNUAL PCP TEAM CHRONIC DISEASE VISIT [facility] Start: 08-27-2023 Behavioral Health Screening Behavioral Health Screening [facility] Start: 08-27-2023 [facility] Start: 05-10-2023 ANNUAL PCP TEAM FLOW MATCH SOFA CUTTER PATRICIA DISEASE VISIT ANNUAL PCP TEAM CHRONIC DISEASE VISIT [facility] Start: 04-27-2023 Covid-19 Vaccine () Covid-19 Vaccine () [facility] Start: 04-27-2023 Influenza vaccination C [facility] Start: 04-24-2023 ANNUAL PCP TEAM FLOW MATCH SOFA CUTTER PATRICIA DISEASE VISIT ANNUAL PCP TEAM CHRONIC DISEASE VISIT [facility] Start: 04-24-2023 COVID-19 VACCINE (#1) COVID-19 VACCI NE (#1) [facility] Comment on above: Postponed from 06/18 (Declined at this time) Start: 02-23-2023 Influenza vaccination INFLUENZA (#1) [facility] Comment on above: Postponed from 04/27 (Declined at this time) Start: 10-24-2022 ANNUAL PCP TEAM FLOW MATCH SOFA CUTTER PATRICIA DISEASE VISIT ANNUAL PCP TEAM CHRONIC DISEASE VISIT [facility] Start: 08-27-2022 DEPRESSION ASSESSMENT DEPRESSION ASS [facility] Start: 06-09-2022 End: 06-09-2023 Radiologic exam chest 2 views XR CHEST 2V FRONTAL/LAT Radiology Routine History of pneumonia Expected: 06/09/2022, Expires: 06/09/2023 [facility] Work Phone: Comment on above: Expected: 06/09/2022 , Expires: 06/09/2023 Start: 05-04-2022 Patient discharge [facility] Work Phone: Start: 05-02-2022 Following clinical p athway protocol [facility] Work Phone: Start: 05-02-2022 Ambulation without limitation [facility] Work Phone: Start: 05-02-2022 Assessment of risk o f venous thromboembolism [facility] Work Phone: Start: 05-02-2022 Catheterization of vein [facility] Work Phone: Start: 05-02-2022 Elevation of head of bed [facility] Work Phone: Start: 05-02-2022 Inhalation therapy procedure [facility] Work Phone: Start: 05-02-2022 Insertion of cathete r into peripheral vein [facility] Work Phone: Start: 05-02-2022 Patient education [facility] Work Phone: Start: 05-02-2022 Providing care accor ding to standard [facility] Work Phone: Start: 05-02-2022 [facility] Work Phone: Start: 05-02-2022 [facility] Work Phone: Start: 05-02-2022 Legionella pneumophi la Ag [Presence] in Urine [facility] Work Phone: Start: 05-02-2022 Streptococcus pneumo niae antigen assay [facility] Work Phone: Start: 05-02-2022 Verification routine [facility] Work Phone: Start: 05-02-2022 Admission procedure [facility] Work Phone: Start: 05-02-2022 End: 05-02-2022 Blood culture [facility] Work Phone: Start: 05-02-2022 [facility] Work Phone: Start: 04-27-2022 Influenza vaccination C [facility] Start: 04-24-2022 End: 06-24-2022 Hepatitis C virus Ab [Presence] in Serum HEP C AB IA W/CONF SCRN Lab Routine Need for hepatitis C screening test Expected: 04/24/2022, Expires: 06/24/2022 [facility] Work Phone: Comment on above: Expected: 04/24/2022 , Expires: 06/24/2022 Start: 04-21-2022 Adult depression scr eening assessment DEPRESSION SCREENING [facility] Start: 04-21-2022 COVID-19 VACCINE (#1) COVID-19 VACCI NE (#1) [facility] Comment on above: Postponed from 12/17 (Declined at this time) Postponed from 06/18 (Declined at this time) Start: 04-21-2022 COVID-19 VACCINE (1) COVID-19 VACCIN E (1) [facility] Comment on above: Postponed from 12/17 (Declined at this time) Start: 02-23-2022 Influenza vaccination INFLUENZA (#1) [facility] Comment on above: Postponed from 04/27 (Declined at this time) Start: 01-21-2022 End: 02-04-2022 Influenza virus A and B RNA and SARS-CoV-2 (COVID-19) N gene panel - Respiratory specimen by SERGEI with probe detection COVID WITH FLUA+B, ROUTINE Microbiology Routine Viral URI Expected: 01/21/2022, Expires: 02/04/2022 [facility] Work Phone: Comment on above: Expected: 01/21/2022 , Expires: 02/04/2022 Start: 01-18-2022 Screening for malign ant neoplasm of cervix Cervical Cancer Screening [facility] Start: 01-07-2022 Mammography [facility] Start: 01-07-2022 Screening for malign ant neoplasm of breast Mammogram Screening [facility] Start: 01-05-2022 HEPATITIS C SCREENING [facility]IT[facility] Comment on above: Postponed from 12/17 (Declined at this time) Start: 01-05-2022 HIV SCREENING HIV SCREENING [facility] Comment on above: Postponed from 12/17 (Declined at this time) Start: 08-27-2021 DEPRESSION ASSESSMENT DEPRESSION ASS ESSMENT [facility] Start: 12-17-2020 COLOGUARD (FIT-DNA) COLOGUARD (FIT-D NA) [facility] [place] Start: 12-17-[address] COLONOGRAPHY [facility] Start: 12-17-2020 FECAL OCCULT BLOOD FECAL OCCULT BLOO D [facility] Start: 12-17-2020 LIPID SCREEN LIPID SCREEN [facility] Start: 12-17-2020 Screening for malign ant neoplasm of colon [facility] Start: 12-17-2020 SIGMOIDOSCOPY SIGMOIDOSCOPY [facility] Start: 09-14-2016 PNEUMOCOCCAL (2 - PCV) PNEUMOCOCCAL (2 - PCV) [facility] Start: 09-14-2016 Pneumococcal vaccination [facility] Start: 12-17-2005 Zoledronic acid therapy ALPHA- 1 ANTITRYPSIN DEFICIENCY SCREENING [facility] [place] Start: 12-17-1994 Hepatitis B Vaccine (1 of 3 - 19+ 3-dose series) Hepatitis B Vaccine (1 of 3 - 19+ 3-dose series) [facility] Start: 12-17-1993 Anxiety Screening Anxiety Screening [facility] Start: 12-17-1993 Depression Screening Depression Scre ening [facility] Start: 12-17-1993 HEPATITIS C SCREENING HEPATITIS C SC REENING [facility] Start: 12-17-1993 HIV SCREENING HIV SCREENING [facility] Start: 06-18-1976 Covid-19 Vaccine (#1) Covid-19 Vacci ne (#1) [facility] Start: 1975 HEPATITIS B (1 of 3 - 3-dose series) HEPATITIS B (1 of 3 - 3-dose series) [facility] [place] Start: 1975 Hepatitis B Vaccine (1 of 3 - 3-dose series) Hepatitis B Vaccine (1 of 3 - 3-dose series) [facility] Bacteria identified in Blood by Culture Blood Culture [facility] Work Phone: Blood culture [facility] Work Phone: End: 07-11-2025 DBT Breast - bilateral screening EUGENIA SCREENING W JACQUELINE Radiology Routine Encounter for screening mammogram for breast cancer 1 Occurrences starting 06/11/2024 until 07/11/2025 [facility] Work Phone: Comment on above: 1 Occurrences starti ng 06/11/2024 until 07/11/2025 Hepatitis C virus Ab [Presence] in Serum HEP C AB IA W/CONF SCRN Lab Routine Need for hepatitis C screening test 04/25/2022 7:21 AM EDT [facility] Work Phone: End: 07-31-2024 EUGENIA SCREENING EUGENIA SCREENING Radiology Routine Encounter for screening mammogram for malignant neoplasm of breast 1 Occurrences starting 07/02/2023 until 07/31/2024 [facility] Work Phone: Comment on above: 1 Occurrences starti ng 07/02/2023 until 07/31/2024 Patient Education [facility] Work Phone: Patient referral [facility] Work Phone: End: 03-10-2023 Screening mammography bi 2-view breast inc cad EUGENIA SCREENING Radiology Routine Encounter for screening mammogram for breast cancer 1 Occurrences starting 02/08/2022 until 03/10/2023 [facility] Work Phone: Comment on above: 1 Occurrences starti ng 02/08/2022 until 03/10/2023 SPIROMETRY WITH DILA TOR IF OBSTRUCTED SPIROMETRY WITH DILATOR IF OBSTRUCTED PFT Routine Simple chronic bronchitis (HCC) 09/04/2022 9:56 AM EST [facility] Work Phone: Urine culture [facility] End: 07-09-2025 US Thyroid gland US THYROID/PARATHYROID Radiology Routine Weight gain Enlarged thyroid 1 Occurrences starting 06/09/2024 until 07/09/2025 [facility] Comment on above: 1 Occurrences starti ng 06/09/2024 until 07/09/2025 US Thyroid gland US THYROID/PARA THYROID Radiology Routine Weight gain Enlarged thyroid 01/02/2025 7:32 AM EDT [facility] Work Phone: [facility] Immunizations Immunization Date Immunization Notes Care Provider Mariela geiger 09-19-2018 influenza virus vacc ine, unspecified formulation Juanis Waldrop MD Work Phone: [facility] [place] 09-08-2018 tetanus toxoid, redu owen diphtheria toxoid, and acellular pertussis vaccine, adsorbed Mariaa Ledezma MD Work Phone: [facility] [place] 09-14-2015 pneumococcal polysaccharide vaccine, 23 valent Mariaa Ledezma MD Work Phone: [facility] [place] 09-14-2015 tetanus toxoid, redu owen diphtheria toxoid, and acellular pertussis vaccine, adsorbed Mariaa Ledezma MD Work Phone: [facility] [place] 08-12-2015 influenza, injectabl e, quadrivalent, preservative free Mariaa Ledezma MD Work Phone: [facility] Payers Date Payer Category Payer Medicaid [id number] 2024 Medicare (Managed Care) KISHOR GLEZ [facility] H[facility] [id number] 2024 Unknown [id number] 2024 Private Health Insurance [id number] 2024 Self-pay [id number] 2023 Medicaid [id number] 2023 Medicare [id number] 2022 Medicaid [id number] 2021 Medicare MEDICARE MEDICAR E A AND B [id number] 2021-Present [phone] [address] [address] [place] [address] Medicare [id number] 2021 Medicare [id number] 2021 Medicare [id number] 2012 Unknown [id number] 1975 Unknown [id number] Medicare [id number] Unknown [id number] Unknown [id number] Unknown [id number] Social History Date Type Detail Facility Start: 08-27-2002 End: 11-02-2022 Tobacco smoking status MNIS Smokes tobacco daily [facility] Work Phone: Start: 08-27-2002 End: 08-27-2022 History of tobacco use Cigarette Smoker [facility] Work Phone: Start: 06-10-2012 End: 06-09-2024 Cigarettes smoked current (pack per day) - Reported 0.25 [facility] Start: 06-10-2012 End: 11-02-2022 Tobacco use and exposure Smokeless tobacco non-user [facility] Work Phone: Start: 11-01-2021 End: 03-06-2024 Alcohol intake Ex-drinker (finding) [facility] Start: 04-21-2021 End: 10-21-2021 History SDOH Alcohol Frequency 1 [facility] Start: 02-07-2021 History SDOH Alcohol Comment states has not drank for over a year on 04-26-18 [facility] Start: 04-21-2021 History SDOH Social Connections Phone 4 [facility] Start: 04-21-2021 End: 10-24-2022 History SDOH Social Connections Membership 2 [facility] Start: 04-21-2021 End: 10-24-2022 History SDOH Social Connections Living 5 [facility] Start: 04-21-2021 End: 10-24-2022 History SDOH Physical Activity DPW 0 [facility] Start: 04-21-2021 History SDOH Financial 3 [facility] Start: 04-21-2021 Education 14 [facility] Start: 12-14-2020 End: 05-10-2022 Tobacco Comment 2 cigs a day, prior 1 ppd [facility] Start: 1975 Sex Assigned At Female C [facility] Start: 11-13-2021 End: 07-17-2022 Exposure to SARS-CoV-2 (event) Not sure [facility] Start: 08-30-2021 End: 08-01-2023 Tobacco smoking status MNIS Unknown if ever smoked [facility] Start: 11-28-2020 Rare [facility] Start: 11-28-2020 None [facility] Start: 11-28-2020 Alone [facility] Start: 12-21-2019 Cigarettes [facility] Start: 09-04-2022 End: 12-16-2024 Tobacco smoking status NHIS Ex-smoker [facility] Work Phone: End: 08-27-2022 History of tobacco use Current smoker [facility] Work Phone: Start: 10-24-2022 End: 06-09-2024 Social connection and isolation panel [facility] Do you belong to any clubs or organizations such as latter-day groups, unions, fraternal or athletic groups, or school groups? No [facility] Are you now , , , , never or living with a partner? [facility] Frequency of Alcohol Consumption Not on file [facility] How often do you hav e 6 or more drinks on 1 occasion? Never [facility] Do you feel stress - tense, restless, nervous, or anxious, or unable to sleep at night because your mind is troubled all the time - these days [OSQ] Very much [facility] (I/We) worried wheth er (my/our) food would run out before (I/we) got money to buy more. Sometimes true [facility] Start: 04-16-2021 Gender identity Identifies as female gender (finding) [facility] Start: 04-16-2021 Sexual orientation Choose not to dis close [facility] How hard is it for y ou to pay for the very basics like food, housing, medical care, and heating Somewhat hard [facility] Has the [employer], [employer], oil, or water [employer] threatened to shut off services in your home in past 12Mo Yes [facility] Do you feel stress - tense, restless, nervous, or anxious, or unable to sleep at night because your mind is troubled all the time - these days [OSQ] Rather much [facility] Start: 12-01-2024 Tobacco smoking stat us NHIS Current Light tobacco smoker [facility] Start: 12-01-2024 End: 12-16-2024 Sex Female (finding) [facility] How hard is it for y ou to pay for the very basics like food, housing, medical care, and heating Hard [facility] Start: 01-06-2025 Tobacco Comment Cutting back, down to 2 cigarettes per day. 01/06/25 [facility] Medical Equipment Procedure Code Equipment Code Equipment Origin al Text Equipment Identifier Dates ORIF, ankle 3.5MM NON LOCKIN G SCREW FDA Start: 12-17-2018 ORIF, ankle 3.5MM NONLOCKING SCREWS FDA Start: 12-17-2018 ORIF, ankle DISTSL LATERAL FIBULA PLATES FDA Start: 12-17-2018 ORIF, ankle 3.5MM NON LOCKIN G SCREW FDA Start: 12-17-2018 ORIF, ankle 3.5MM NONLOCKING SCREWS FDA Start: 12-17-2018 ORIF, ankle DISTSL LATERAL FIBULA PLATES FDA Start: 12-17-2018 ORIF, ankle 3.5MM NON LOCKIN G SCREW FDA Start: 12-17-2018 ORIF, ankle 3.5MM NONLOCKING SCREWS FDA Start: 12-17-2018 ORIF, ankle DISTSL LATERAL FIBULA PLATES FDA Start: 12-17-2018 ORIF, ankle 3.5MM NON LOCKIN G SCREW FDA Start: 12-17-2018 ORIF, ankle 3.5MM NONLOCKING SCREWS FDA Start: 12-17-2018 ORIF, ankle DISTSL LATERAL FIBULA PLATES FDA Start: 12-17-2018 ORIF, ankle 3.5MM NON LOCKIN G SCREW FDA Start: 12-17-2018 ORIF, ankle 3.5MM NONLOCKING SCREWS FDA Start: 12-17-2018 ORIF, ankle DISTSL LATERAL FIBULA PLATES FDA Start: 12-17-2018 ORIF, ankle 3.5MM NON LOCKIN G SCREW FDA Start: 12-17-2018 ORIF, ankle 3.5MM NONLOCKING SCREWS FDA Start: 12-17-2018 ORIF, ankle DISTSL LATERAL FIBULA PLATES FDA Start: 12-17-2018 ORIF, ankle 3.5MM NON LOCKIN G SCREW FDA Start: 12-17-2018 ORIF, ankle 3.5MM NONLOCKING SCREWS FDA Start: 12-17-2018 ORIF, ankle DISTSL LATERAL FIBULA PLATES FDA Start: 12-17-2018 ORIF, ankle 3.5MM NON LOCKIN G SCREW FDA Start: 12-17-2018 ORIF, ankle 3.5MM NONLOCKING SCREWS FDA Start: 12-17-2018 ORIF, ankle DISTSL LATERAL FIBULA PLATES FDA Start: 12-17-2018 Goals Date Patient Goal Desired Activity /State Functional Status Date Assessment Result Facility 01-05-2025 Total score [AUDIT-C] 0 01/06/20 6:28 PM EDT User, Patricia [facility] 01-05-2025 How often to you hav e a drink containing alcohol? Never 01/05/2025 6:28 PM EDT UserPatricia Never [facility] 01-05-2025 Functional status Patient does n ot drink 01/05/2025 6:28 PM EDT UserPatricia Patient does not drink [facility] 01-05-2025 How often do you hav e 6 or more drinks on 1 occasion? Never 01/05/2025 6:28 PM EDT UserPatricia Never [facility] 05-04-2022 Functional status [facility] Work Phone: 05-04-2022 Functional status Tolerates Activity Well [facility] Work Phone: 02-20-2015 Are you deaf, or do you have serious difficulty hearing No 02/20/2015 1:07 PM EDT Latonia Bender LPN No [facility] 02-20-2015 Are you blind, or do you have serious difficulty seeing, even when wearing glasses No 02/20/2015 1:07 PM EDT Latonia Bender LPN No [facility] 02-20-2015 Do you have serious difficulty walking or climbing stairs No 02/20/2015 1:07 PM EDLatonia Ramos LPN No [facility] 02-20-2015 Do you have difficul ty dressing or bathing No 02/20/2015 1:07 PM EDLatonia Ramos LPN No [facility] 02-20-2015 Because of a physica l, mental, or emotional condition, do you have difficulty doing errands alone such as visiting a physician's office or shopping No 02/20/2015 1:07 PM EDT Latonia Bender LPN No [facility] Mental Status Date Assessment Result Facility 12-01-2024 Cognitive function Level Of Cons ciousness Awake;Alert;Appropriate [facility] Work Phone: 05-03-2022 Cognitive function Voice/Name [facility] Work Phone: 02-20-2015 Because of a physica l, mental, or emotional condition, do you have serious difficulty concentrating, remembering, or making decisions No 02/20/2015 1:07 PM EDT Latonia Bender LPN No [facility] Clinical Notes 12-14-2020 to 01-08-2025 Telephone Encounter - Dilia Bender MA - 01/08/2025 11:45 AM EDTTelephone Encounter - Dilia Bender MA - 01/08/2025 11:45 AM EDTTelephone Encounter - Dilia Bender MA - 01/08/2025 11:22 AM EDT Note Date & Type Note Facility 01-08-2025 Telephone encounter Note Form signed and faxed back to number below. Dilia Bender MA [facility] 01-08-2025 Miscellaneous Notes Form signed and faxed back to number below. Dilia Bender MA Type of form: CMN from [employer] Form received via fax When form is completed, Fax form to [phone] Form has been forwarded to Physician Desk: Dr. Benjie Bender MA documented in this encounter [facility] 01-08-2025 Telephone encounter Note Type of form: CMN from [employer] Form received via fax When form is completed, Fax form to [phone] Form has been forwarded to Physician Desk: Dr. Benjie Bender MA [facility] 01-06-2025 History of Presen t illness Narrative Chief Complaint Patient presents with: Hospital Follow Up HPI Meredith Lynch is a 49 year old female who presents here today for an ER follow up. Pt seen at [facility] ED on 12/16/24 for shortness of breath. Also seen on 12/01/24 where she was dx with Influenza. Pt reports this has been ongoing for the past 4 months. Most recently seen at [facility] ED on 12/16/24 for sob. Pt reports she was told she has inflammation in her lungs. Does have some right sided mid back pain, was told this was related to coughing and pulled a muscle. Was treated with Prednisone 20 mg for 5 days. Pt states she did have improvement but has since ran out of medication and her symptoms have returned. Having voice hoarseness (intermittent), continues to cough, and feeling sob. Is having mid back pain, that she feels is related to her chest. Pain described as sharp, shooting, and stabbing. Pain rated an 8/10. Is not able to do much activity. Reports a weight gain of 50 + lbs. Is trying to cut back on smoking, down to 2 cigs per day. She has seen [facility], Dr. Bui, in the past, has had normal spirometry testing, but had to cancel her appt due to needing to pay a co-pay and was unable to afford at this time. On regimen of Breo Inhaler, Albuterol Inhaler, and Nebulizer solution. Pt reports not having much improvement with use of Inhaler, some improvement with use of Nebulizer. Her Nebulizer machine broke today, and needs an Rx for a new one. Reports she needs a refill of Prilosec 40 mg once daily, has been out of this medication. Notes reflux is flared up. When she eats and tries to swallow food, it feels hot in her esophagus. Does report the sensation of food getting stuck. Has vomited due to this. Has been using Tums, but doesn't find much relief. States this occurs a lot. Notes due to her Insurance changing she is off her Psych medications. She is needing to establish with a new Psychiatrist. Pt is asking if Primary Care can fill medications until she is established with a new Psychiatrist. Has been off meds for 3 weeks and can tell she's not taking medication. [facility] ED records on 12/16/24: HPI History of Present Illness Chief Complaint: Shortness of Breath Informant: patient and family Narrative Narrative: History of COPD tobacco worsening dyspnea over the last 3 days. Posttussive emesis. Wheezing. No fevers. Reports chest pains. No coronary history. States has had overall symptoms for 3 months. She states seen in the ED approximately 15 days ago diagnosed with hiatal hernia, pneumonia and influenza and UTI. She is on medications. She finished her antibiotics and steroids. Symptoms worsen over the last few days. Weakness in the legs. Currently has urine frequency. Denies fever chills or sweats. pain worse with deep breaths. Medical decision making narrative: Interventions / MDM: Differential diagnosis: COPD, tobacco dependence, chest pain Diagnosis considered but do not suspect: ACS, however EKG cardiac enzymes negative. PE however D-dimer negative. Pneumothorax however x-ray negative. Urinary tract infection however labs were normal. My EKG interpretation: Sinus rate of 83, no ST or T wave changes. Imaging independently reviewed and interpreted by myself: 2 view chest x-ray: Noacute process. No effusions. No pneumothorax. External documents reviewed: ED visit from 12/01/2024. Diagnosed influenza possible pneumonia UTI. Culture returned negative. She was treated with Tamiflu. She is placed on omeprazole. Steroid oral antibiotics were written atthat time. Test considered but not ordered:N/A ED course: Patient presenting worsening dyspnea wheeze pain with deep breaths. History of COPD no home oxygen. EKG sinus rhythm. Will check labs including D-dimer and cardiac enzymes, IV Toradol for symptom control. 165: D-dimer negative troponin negative x 2. Urine negative for infection. Patient sent over for chest x-ray for further evaluation. Patient noted ambulating in the hallway with no difficulties. Patient clinically feeling muchbetter at this time. 1715: Chest x-ray 2 views interpreted by myself no infiltrative findings. Clinically without productive sputum also. She is feeling better dyspnea wheeze. I will continue steroids. Discussed continued tobacco cessation with the patient. Outpatient follow-up with her doctor. Return precaution discussed. All questions were answered. Re-evaluation: stable Disposition discussed with patient/family/significant other: Patient and family Imaging: RAD/Chest PA and Lateral IMPRESSION: No active disease. Prescriptions: New prednisone 20 mg tablet 60 mg PO DAILY Qty: 15 0RF albuterol sulfate [Ventolin HFA] 90 mcg/actuation HFA aerosol inhaler 1 - 2 puff inhalation Q4H PRN PRN (Reason: Wheezing) Qty: 1 0RF Past medical history, appointments, medications, allergies reviewed. Previous Medical History PAST MEDICAL HISTORY Diagnosis Date Bipolar disease, chronic (HCC) Bronchitis, chronic (HCC) Fibromyalgia Hiatal hernia Lupus (HCC) Paranoid schizophrenia (HCC) Simple chronic bronchitis (HCC) Sleep apnea Tobacco use disorder Previous Surgical History PAST SURGICAL HISTORY Procedure Laterality Date LAPAROSCOPY SURG CHOLECYSTECTOMY 2003 Cholecystectomy, lap LIG/TRNSXJ FLP TUBE ABDL/VAG APPR UNI/BI OOPHORECTOMY PARTIAL/TOTAL UNI/BI 1993 Oophorectomy- right for cancer PAST SURGICAL HISTORY OF Right 2017 ORIF right 5th [facility] fx, done in [place], [place] TONSILLECTOMY PRIMARY/SECONDARY <AGE 12 Tonsillectomy Family History FAMILY HISTORY Problem Relation Age of Onset Arthritis Mother Hypertension Mother Diabetes Father Hypertension Father Ischemic Heart Disease Father Colon Cancer Father Ovarian cancer Sister Cancer Sister unsure of site Breast Cancer Maternal Grandmother 40 Ischemic Heart Disease Maternal Grandfather Ischemic Heart Disease Paternal Grandfather Patient Allergies ALLERGIES Allergen Reactions Morphine Other: See Comments Chest pain Penicillin G Rash Penicillins Hives Tramadol Rash Current Medications Current Outpatient Medications on File Prior to Visit Medication Sig gabapentin (NEURONTIN) 600 mg tablet Take one tablet tid. Also take 1-2 tablets at bedtime as needed Lactobacillus acidophilus (FLORAJEN ACIDOPHILUS) 20 billion cell capsule Take 1 capsule by mouth once daily. prazosin (MINIPRESS) 1 mg cap Take 1 capsule during the day and 2 capsules at night. risperiDONE (RISPERDAL) 1 mg tablet Take 1 tablet by mouth once daily. traZODone (DESYREL) 100 mg tablet Take 2 tablets by mouth daily at bedtime. albuterol HFA (VENTOLIN HFA) 90 mcg/actuation inhaler Inhale 2 Puffs as instructed every 4 hours as needed for wheezing/shortness of breath. fluticasone-vilanterol (BREO ELLIPTA) 200-25 mcg/dose inhaler Inhale 1 Inhalation as instructed once daily. albuterol (PROVENTIL) 2.5 mg /3 mL (0.083 %) nebulizer solution Inhale by nebulizer over 5-15 minutes three (3) to four (4) times a day as needed for wheezing and shortness of breath L. acidophilus-L. rhamnosus (PROBIOTIC) 15 billion cell cap Take 1 capsule by mouth once daily. triamcinolone (KENALOG) 0.025 % cream Apply to affected area twice daily. (Patient not taking: Reported on 03/06/2024) MULTIVITAMIN ORAL Take by mouth once daily. (Patient not taking: Reported on 03/06/2024) melatonin 3 mg tablet Take 1 tablet at ~6PM nightly. (Patient not taking: Reported on 03/06/2024) omeprazole (PRILOSEC) 40 mg capsule Take 1 capsule by mouth once daily. (Patient not taking: Reported on 03/06/2024) aspirin, enteric coated (ASPIRIN, ENTERIC COATED) 81 mg EC tablet Take 81 mg by mouth once daily. ibuprofen (MOTRIN) 400 mg tablet Take 400 mg by mouth every 6 hours as needed. No current facility-administered medications on file prior to visit. Social History Social History Tobacco Use Smoking status: Every Day Current packs/day: 0.00 Average packs/day: 0.2 packs/day for 20.0 years (4.0 ttl pk-yrs) Types: Cigarettes Start date: 2002 Last attempt to quit: 2022 Years since quittin.3 Smokeless tobacco: Never Vaping Use Vaping status: Never Used Substance Use Topics Alcohol use: Not Currently Comment: states has not drank for over a year on 04-26-18 Drug use: No EXAM: BP 116/82 (BP Site: Left Arm, BP Position: Sitting, BP Cuff Size: Large Adult) Pulse 74 Resp 20 Wt 90.3 kg (199 lb 1.2 oz) LMP (LMP Unknown) SpO2 98% BMI 34.39 kg/m General Appearance: Well appearing, alert, in no acute distress, well-hydrated, well nourished. and Obese. Voice hoarseness. Lungs: Lungs clear to auscultation. No wheezing, rhonchi, rales. Cough. Heart: RRR without murmur, gallop, or rubs. No ectopy. Health Maintenance List Mammogram Screening due on 01/07/2022 Cervical Cancer Screening due on 01/18/2022 Hepatitis B Vaccine(1 of 3 - 19+ 3-dose series) due on 06/09/2025 Covid-19 Vaccine( - season) due on 06/09/2025 Pneumococcal Vaccine(2 of 2 - PCV) due on 06/09/2025 Influenza Vaccine(Season Ended) due on 04/27/2025 Annual PCP Team Chronic Disease Visit due on 06/09/2025 Depression Screening due on 06/09/2025 Anxiety Screening due on 06/09/2025 Colorectal Cancer Screening due on 02/24/2026 Diabetes Screening due on 06/30/2027 DTaP,Tdap,Td Vaccine(4 - Td or Tdap) due on 09/19/2028 Lipid Screening due on 06/30/2029 Hepatitis C Screening Completed HIV Screening Completed Data reviewed [facility] records ASSESSMENT/PLAN: 1. Hospital discharge follow-up - ICD9: V67.59, ICD10: Z09 (primary diagnosis) 2. Chronic obstructive pulmonary disease, unspecified COPD type (HCC) - ICD9: 496, ICD10: J44.9 Continue current medications. Follow up with Pulm next month - NEBULIZER 3. Chest pain, unspecified type - ICD9: 786.50, ICD10: R07.9 - GERD; monitor response to Pirlosec 4. SOB (shortness of breath) - ICD9: 786.05, ICD10: R06.02 - NEBULIZER 5. Gastroesophageal reflux disease without esophagitis - ICD9: 530.81, ICD10: K21.9 6. Dysphagia, unspecified type - ICD9: 787.20, ICD10: R13.10 Go back on Prilosec, consider EGD if not improved with this 7. Tobacco use - ICD9: 305.1, ICD10: Z72.0 - Cessation encouraged. - Physiologic and physical aspects of tobacco addiction as well as strategies for quitting were discussed. - Counseling was given focusing on the harmful effects of this addiction especially given the patient's medical condition(s) which will be worsened because of the chemicals in tobacco. 8. Paranoid schizophrenia (HCC) - ICD9: 295.30, ICD10: F20.0 Resume Psych meds - RISPERIDONE 1 MG TABLET Follow up in 2-3 weeks for recheck I agree with the Chief Complaint, ROS, and Past Histories independently gathered by the clinical pharmacy retail support specialist and the remaining scribed note accurately describes my personal service to the patient. Medical Decision Making: Problems: Moderate: 1+ chronic illnesses with change Data: Unique source(s) for external note(s) reviewed: 1 Risk: Moderate: Drug management Medical Decision Making Level: 4 - Moderate Juanis Waldrop MD The documentation for this note was completed by Dilia Bender MA acting as scribe for Juanis Waldrop MD. January 06, 2025 2:07 PM. Dilia Bender MA documented in this encounter [facility] 01-06-2025 Note HNO ID: [id number] Author: JUANIS WALDROP MD Service: ? Author Type: Physician Type: Progress Notes Filed: 01/06/2025 14:38 Note Text: Chief Complaint Patient presents with: Hospital Follow Up HPI Meredith Lynch is a 49 year old female who presents here today for an ER follow up. Pt seen at [facility] ED on 12/16/24 for shortness of breath. Also seen on 12/01/24 where she was dx with Influenza. Pt reports this has been ongoing for the past 4 months. Most recently seen at [facility] ED on 12/16/24 for sob. Pt reports she was told she has inflammation in her lungs. Does have some right sided mid back pain, was told this was related to coughing and pulled a muscle. Was treated with Prednisone 20 mg for 5 days. Pt states she did have improvement but has since ran out of medication and her symptoms have returned. Having voice hoarseness (intermittent), continues to cough, and feeling sob. Is having mid back pain, that she feels is related to her chest. Pain described as sharp, shooting, and stabbing. Pain rated an 8/10. Is not able to do much activity. Reports a weight gain of 50 + lbs. Is trying to cut back on smoking, down to 2 cigs per day. She has seen [facility] Pulmonary, Dr. Bui, in the past, has had normal spirometry testing, but had to cancel her appt due to needing to pay a co-pay and was unable to afford at this time. On regimen of Breo Inhaler, Albuterol Inhaler, and Nebulizer solution. Pt reports not having much improvement with use of Inhaler, some improvement with use of Nebulizer. Her Nebulizer machine broke today, and needs an Rx for a new one. Reports she needs a refill of Prilosec 40 mg once daily, has been out of this medication. Notes reflux is flared up. When she eats and tries to swallow food, it feels hot in her esophagus. Does report the sensation of food getting stuck. Has vomited due to this. Has been using Tums, but doesn't find much relief. States this occurs a lot. Notes due to her Insurance changing she is off her Psych medications. She is needing to establish with a new Psychiatrist. Pt is asking if Primary Care can fill medications until she is established with a new Psychiatrist. Has been off meds for 3 weeks and can tell she's not taking medication. [facility] ED records on 12/16/24: HPI History of Present Illness Chief Complaint: Shortness of Breath Informant: patient and family Narrative Narrative: History of COPD tobacco worsening dyspnea over the last 3 days. Posttussive emesis. Wheezing. No fevers. Reports chest pains. No coronary history. States has had overall symptoms for 3 months. She states seen in the ED approximately 15 days ago diagnosed with hiatal hernia, pneumonia and influenza and UTI. She is on medications. She finished her antibiotics and steroids. Symptoms worsen over the last few days. Weakness in the legs. Currently has urine frequency. Denies fever chills or sweats. pain worse with deep breaths. Medical decision making narrative: Interventions / MDM: Differential diagnosis: COPD, tobacco dependence, chest pain Diagnosis considered but do not suspect: ACS, however EKG cardiac enzymes negative. PE however D-dimer negative. Pneumothorax however x-ray negative. Urinary tract infection however labs were normal. My EKG interpretation: Sinus rate of 83, no ST or T wave changes. Imaging independently reviewed and interpreted by myself: 2 view chest x-ray: Noacute process. No effusions. No pneumothorax. External documents reviewed: ED visit from 12/01/2024. Diagnosed influenza possible pneumonia UTI. Culture returned negative. She was treated with Tamiflu. She is placed on omeprazole. Steroid oral antibiotics were written atthat time. Test considered but not ordered:N/A ED course: Patient presenting worsening dyspnea wheeze pain with deep breaths. History of COPD no home oxygen. EKG sinus rhythm. Will check labs including D-dimer and cardiac enzymes, IV Toradol for symptom control. 1652: D-dimer negative troponin negative x 2. Urine negative for infection. Patient sent over for chest x-ray for further evaluation. Patient noted ambulating in the hallway with no difficulties. Patient clinically feeling muchbetter at this time. 1715: Chest x-ray 2 views interpreted by myself no infiltrative findings. Clinically without productive sputum also. She is feeling better dyspnea wheeze. I will continue steroids. Discussed continued tobacco cessation with the patient. Outpatient follow-up with her doctor. Return precaution discussed. All questions were answered. Re-evaluation: stable Disposition discussed with patient/family/significant other: Patient and family Imaging: RAD/Chest PA and Lateral IMPRESSION: No active disease. Prescriptions: New prednisone 20 mg tablet 60 mg PO DAILY Qty: 15 0RF albuterol sulfate [Ventolin HFA] 90 mcg/actuation HFA aerosol (more content not included)... [facility] 12-25-2024 Telephone encounter Note The following approved medication requests have been transmitted electronically. Requested Prescriptions Pending Prescriptions Disp Refills gabapentin (NEURONTIN) 600 mg tablet 150 tablet 5 Sig: Take one tablet tid. Also take 1-2 tablets at bedtime as needed Jonas Harrison APRN.CNP [facility] 12-25-2024 Miscellaneous Notes The following approved medication requests have been transmitted electronically. Requested Prescriptions Pending Prescriptions Disp Refills gabapentin (NEURONTIN) 600 mg tablet 150 tablet 5 Sig: Take one tablet tid. Also take 1-2 tablets at bedtime as needed Jonas Harrison APRN.CNP The patient has been identified by name and date of : Yes Caregiver verified no other encounters exist for this prescription request: Yes Caregiver confirmed with patient/requestor that no other refills are due, in the near future, with this provider at this time: Yes The last office visit in the department: 06/09/2024 Does the patient have a future office visit with this provider/department: Yes 01/06/2025 Requested Prescriptions Pending Prescriptions Disp Refills gabapentin (NEURONTIN) 600 mg tablet 150 tablet 5 Sig: Take one tablet tid. Also take 1-2 tablets at bedtime as needed Debi Del Angel RN December 24, 2024 1:42 PM documented in this encounter [facility] 12-24-2024 Telephone encounter Note The patient has been identified by name and date of : Yes Caregiver verified no other encounters exist for this prescription request: Yes Caregiver confirmed with patient/requestor that no other refills are due, in the near future, with this provider at this time: Yes The last office visit in the department: 06/09/2024 Does the patient have a future office visit with this provider/department: Yes 01/06/2025 Requested Prescriptions Pending Prescriptions Disp Refills gabapentin (NEURONTIN) 600 mg tablet 150 tablet 5 Sig: Take one tablet tid. Also take 1-2 tablets at bedtime as needed Debi Del Angel RN December 24, 2024 1:42 PM [facility] 12-16-2024 Discharge summary [facility] 12-16-2024 Radiology Diagnostic study note [facility] Imaging Services [address] [place] [address] [id number] Chest PA and Lateral MR#: [id number] Acct: [id number] Name: MEREDITH LYNCH Rep #: [id number] : 1975 F 48 From: Damion Stahl MD PCP: Dr. Juanis Waldrop MD Status: RE G ER Study:Chest PA and Lateral Date of Exam: 12/16/24 Exam# [id number] Ordering Dr: Shemar Butt DO PROCEDURE: CHEST PA AND LATERAL 12/16/2024 REASON FOR EXAM: SOB TECHNIQUE: Frontal and lateral views of the chest. COMPARISON: 12/01/2024 FINDINGS: Hardware: None Heart: The heart size is normal. Mediastinum: The mediastinal contour is unremarkable. Lungs: The lungs are clear. Bones: The bones are unremarkable. RAD/Chest PA and Lateral IMPRESSION: No active disease. Reading Location: [id number] CC: Dr. Juanis Waldrop MD; Dr. Shemar Butt DO ~ Dcs Engineer: Signed [facility] 12-16-2024 Discharge summary Note Date/Time December 16, 2024 5:21pm [facility] Medical Records Department [address] [place] [address] Emergency Department Summary 12/16/24 MR#: [id number] Acct: [id number] Name: MEREDITH LYNCH Rep #:[id number] : 1975 48 From: Shemar Castañeda PCP: Dr. Juanis Waldrop MD Status:RE G ER Location: ED HPI History of Present Illness Chief Complaint: Shortness of Breath Informant: patient and family Narrative Narrative: History of COPD tobacco worsening dyspnea over the last 3 days. Posttussive emesis. Wheezing. No fevers. Reports chest pains. No coronary history. States has had overall symptoms for 3 months. She states seen in the ED approximately 15 days ago diagnosed with hiatal hernia, pneumonia and influenza and UTI. She is on medications. She finished her antibiotics and steroids. Symptoms worsen over the last few days. Weakness in the legs. Currently has urine frequency. Denies fever chills or sweats. pain worse with deep breaths. PFSH PFSH Medical History RSV (respiratory syncytial virus pneumonia) Lupus Acute (undifferentiated) schizophrenia Depression Fibromyalgia Continuous tobacco abuse SLE (systemic lupus erythematosus) COPD (chronic obstructive pulmonary disease) Hiatal hernia Shortness of breath Home Medications ?Medication ?Instructions ?Recorded ?Last Taken ?Type gabapentin 600 mg tablet 600 mg PO BID Check with adelfo koehler 05/02/22 12/13/24 History doctor gabapentin 600 mg tablet 1,200 mg PO QHS Check with efren christine 05/02/22 12/13/24 History (Neurontin) doctor albuterol sulfate 90 mcg/actuation 1 - 2 puff inhalati on Q4H PRN PRN 12/16/24 Unknown Rx aerosol inhaler (Ventolin HFA) Wheezing ##1 prednisone 20 mg tablet 60 mg (3 x 20 mg) PO DAILY # 15 12/16/24 Unknown Rx TABLETS Allergy/AdvReac Type Severity Reaction Status Date / Time Penicillins Allergy Hives Verified 12/16/24 13:34 morphine AdvReac Rash Verified 12/16/24 13:34 Family History Father Bipolar 1 disorder Rheumatoid arthritis Heart disease Alcohol abuse Cancer Lung and liver Colon cancer Hyperlipidemia Mother Rheumatoid arthritis Sister Cancer Ovarian Rheumatoid arthritis Surgical History History of tubal ligation History of dilatation and curettage History of right oophorectomy History of cholecystectomy History of carpal tunnel surgery of right wrist History of LEEP (loop electrosurgical excision procedure) of cervix complicatingpregnancy Social History household members: none Smoking Status: Former smoker Tobacco: How many years used: 17 second hand exposure: Yes alcohol intake: never substance use type: does not use caffeine: Yes what type of physical activity do you participate in: none ROS ROS ED Constitutional Constitutional ED: Denies chills, fever(s) or sweats ENT ENT ED: Denies sore throat Cardiovascular Cardiovascular: Reports chest pain; Denies leg edema, palpitations or racing heartbeat Respiratory/Chest Respiratory/Chest: Reports dyspnea; Denies cough or dyspnea on exertion Gastrointestinal Gastrointestinal: Denies abdominal pain, diarrhea, nausea or vomiting Genitourinary Genitourinary ED: Reports urinary frequency; Denies dysuria or hematuria Musculoskeletal Musculoskeletal: Denies back pain, extremity pain or neck pain Integumentary Denies rash or wounds Neurologic Neurologic: Reports weakness; Denies headache(s) or paresthesias EXAM Physical Exam Const Vital Signs: 12/16/24 13:35 12/16/24 14:01 12/16/24 14:34 Temperature 96.7 F L Temperature Source Temporal Pulse Rate 90 70 Respiratory Rate 30 H 20 H Respiratory Effort Short of Breath Labored Respiratory Depth Shallow Respiratory Pattern Tachypnea Blood Pressure 96/78 Blood Pressure Mean 84 Pulse Ox 95 98 Oxygen Delivery Method Room Air Room Air Room Air 12/16/24 15:32 12/16/24 16:00 12/16/24 16:45 Temperature Temperature Source Pulse Rate 78 60 83 Respiratory Rate 30 H 20 H 25 H Respiratory Effort Respiratory Depth Respiratory Pattern Blood Pressure 152/140 H 121/89 H Blood Pressure Mean 146 101 Pulse Ox 99 98 96 Oxygen Delivery Method Positive well nourished and well developed Constitutional Narrative: Nontoxic, anxious, no respiratory distress. General Appearance ED: well developed HEENT Reports moist mucous membranes normocephalic and atraumatic Eyes General Eye ED: Yes normal appearance of both eyes Neck full ROM Chest Wall Chest: Negative for tenderness Resp normal respiratory effort and normal air movement Effort and Inspection: symmetric chest movement; Negative for respiratory distress Cardio regular rate, regular rhythm and no murmurs Peripheral Pulses: pulses 2+ throughout GI normal to inspection, nondistended, normoactive bowel sounds and non-tender Palpation: Negative for guarding or rebound tenderness present Extremity normal to inspection General Extremety ED: Negative for edema or tenderness General Extremity: Negative for edema Neuro oriented x3 and no sensory deficits noted Sensorium / Orientation: awake and alert Skin no rashes or lesions noted and no wounds MDM MDM MDM Narrative Medical decision making narrative: Interventions / MDM: Differential diagnosis: COPD, tobacco dependence, chest pain Diagnosis considered but do not suspect: ACS, however EKG cardiac enzymes negative. PE however D-dimer negative. Pneumothorax however x-ray negative. Urinary tract infection however labs were normal. My EKG interpretation: Sinus rate of 83, no ST or T wave changes. Imaging independently reviewed and interpreted by myself: 2 view chest x-ray: Noacute process. No effusions. No pneumothorax. External documents reviewed: ED visit from 12/01/2024. Diagnosed influenza possible pneumonia UTI. Culture returned negative. She was treated with Tamiflu. She is placed on omeprazole. Steroid oral antibiotics were written atthat time. Test considered but not ordered:N/A ED course: Patient presenting worsening dyspnea wheeze pain with deep breaths. History of COPD no home oxygen. EKG sinus rhythm. Will check labs including D-dimer and cardiac enzymes, IV Toradol for symptom control. 1652: D-dimer negative troponin negative x 2. Urine negative for infection. Patient sent over for chest x-ray for further evaluation. Patient noted ambulating in the hallway with no difficulties. Patient clinically feeling muchbetter at this time. 1715: Chest x-ray 2 views interpreted by myself no infiltrative findings. Clinically without productive sputum also. She is feeling better dyspnea wheeze. I will continue steroids. Discussed continued tobacco cessation with the patient. Outpatient follow-up with her doctor. Return precaution discussed. All questions were answered. Re-evaluation: stable Disposition discussed with patient/family/significant other: Patient and family Case discussed with consulting clinician: N/A This note was generated with SurfEasyation software. It may contain incorrectwords, spelling, and punctuation that were not noted in checking the note beforesigning. Lab Data Attestation: I reviewed the patient's lab results. Labs: Laboratory Results - last 24 hr 12/16/24 12/16/24 12/16/24 13:50 15:35 16:25 WBC 11.3 H RBC 4.54 Hgb 14.1 Hct 40.4 MCV 89.0 MCH 31.1 MCHC 34.9 RDW Std Deviation 41.4 RDW Coeff of Kemar 12.9 Plt Count 337 MPV 10.0 Immature Gran % (Auto) 0.200 Neut % (Auto) 58.8 Lymph % (Auto) 31.0 Mcdowell % (Auto) 7.5 Eos % (Auto) 2.1 Baso % (Auto) 0.4 Absolute Neuts (auto) 6.6 Absolute Lymphs (auto) 3.49 Nucleated RBC % 0 D-Dimer Quant (PE/DVT) 0.27 Sodium 140 Potassium 3.8 Chloride 107 Carbon Dioxide 17.0 L Anion Gap 16 H BUN 7 Creatinine 0.77 Estim Creat Clear Calc 95.55 Est GFR (MDRD) Non-Af 96 BUN/Creatinine Ratio 8.5 L Glucose 107 H Calcium 9.5 Troponin T High Sens 6 Troponin T Hi Sens 2 Hr 7 Urine Color Yellow Urine Clarity Sl. Cloudy Urine pH 8.0 Ur Specific Lester 1.010 Urine Protein 15 H Urine Glucose (UA) Normal Urine Ketones 5 H Urine Occult Blood Negative Urine Nitrite Negative Urine Bilirubin Negative Urine Urobilinogen 4 H Ur Leukocyte Esterase 25 H Urine RBC 5-10 SEEN Urine WBC 0 SEEN Ur Squamous Epith Cells 10-25 SEEN Urine Bacteria 1+ Urine Mucus 0 SEEN Discharge Plan Triage Chief Complaint: Shortness of Breath ED Provider: Shemar Butt Dx/Rx/DC Orders Clinical Impression: COPD exacerbation, Tobacco dependence, Chest pain Instructions: Quitting Smoking, ED Chest Pain, Noncardiac, ED COPD Flare Prescriptions: New prednisone 20 mg tablet 60 mg PO DAILY Qty: 15 0RF albuterol sulfate [Ventolin HFA] 90 mcg/actuation HFA aerosol inhaler 1 - 2 puff inhalation Q4H PRN PRN (Reason: Wheezing) Qty: 1 0RF No Action gabapentin 600 mg tablet 600 mg PO BID Rx Instructions: 600MG AM AND NOON, 1200MG HS gabapentin [Neurontin] 600 mg tablet 1,200 mg PO QHS Rx Instructions: 600MG AM AND NOON, 1200MG HS Primary Care Provider: Juanis Waldrop Referrals: Juanis Waldrop MD [Primary Care Provider] - Activity Restrictions/Additional Instructions: Your cardiac workup negative. D-dimer negative. Chest x-ray negative. Finish steroids as prescribed. Continue to quit smoking. Follow-up with your doctor. Print Language: Scottish Disposition Disposition: Home, Self Care What to do if you have Problems For any increased pain, shortness of breath, bleeding, nausea or vomiting, chestpain, or any unexpected problems, contact your Primary Care Provider. Call [facility] ([phone]) or report to the closest Emergency Room. Call 911 if necessary. 12/16/24 1721 <Electronically signed by Shemar Castañeda> Cosigner Signature (if applicable): CC: Dr. Juanis Waldrop MD ~ Signed [facility] Work Phone: [phone] Radiology Diagnostic study note [facility] Imaging Services [address] [place] [address] Chest PA and Lateral MR#: [id number] Acct: [id number] Name: MEREDITH LYNCH Rep #: [id number] : 1975 F 48 From: Karen Barber MD PCP: Dr. Juanis Waldrop MD Status: RE G ER Study:Chest PA and Lateral Date of Exam: 12/01/24 Exam# [id number] Ordering Dr: Larry Douglas DO PROCEDURE: CHEST PA AND LATERAL (RADCXR), 12/01/2024 REASON FOR EXAM: COUGH TECHNIQUE: PA and lateral views of the chest were obtained. COMPARISON: None FINDINGS: Heart: Unremarkable. Mediastinum: Unremarkable. Lungs/pleura: No focal consolidation. Question trace interstitial prominence, potentially in part related to chest wall attenuation. No pleural effusion or visible pneumothorax. Bones: Multilevel spondylosis. Mild thoracolumbar dextroscoliosis. i Lines and support devices: None. Other: RIGHT upper quadrant surgical clips.. RAD/Chest PA and Lateral IMPRESSION: 1. Question trace interstitial prominence which could in part be technical. In the absence of comparison exams this could reflect a mild chronic interstitial abnormality versus trace pneumonitis/atypical pneumonia or interstitial edema. 2. Additional description as above. Reading Location: [id number] CC: Dr. Joann Douglas, ; Dr. Juanis Waldrop MD ~ Dcs Engineer: Signed [facility]01-17-2025 Telephone encounter Note* Telephone Encounter - Dilia Bender MA - 09/12/2024 10:43 AM EST Did speak with Dr. Waldrop who declined accepting new patient at this time. Dilia Bender MA [facility]01-17-2025 Miscellaneous Notes* Telephone Encounter - Dilia Bender MA - 09/12/2024 10:43 AM EST Did speak with Dr. Waldrop who declined accepting new patient at this time. Dilia Bender MA [facility] Telephone encounter Note * Telephone Encounter - Basia Gann MA - 07/02/2024 9:41 AM EST Provider out of the office and patient did not complete till 06/30 Basia Gann MA [facility] [place]11-06-2024 Miscellaneous Notes* Telephone Encounter - Basia Gann MA - 07/02/2024 9:41 AM EST Provider out of the office and patient did not complete till 06/30 Basia Gann MA documented in this encounter[facility] [place] NotePatient Outreach (INTMMN) GREGORYMEREDITH Portillo ([id number]) 1975 F Date Time Provider Department 06/11/24 JUANIS WALDROP During your visit today, we recorded the following information about you: Allergies As of Date: 06/11/2024 Noted Allergy Reaction MORPHINE 05/06/2013 14 - Other: See Comments Comments: Chest pain PENICILLIN G 09/12/2010 2 - Rash PENICILLINS 07/25/2018 4 - Hives TRAMADOL 01/31/2017 2 - Rash Date Reviewed: 03/06/2024 Reviewed by: Joanna Umana LPN - Fully Assessed Visit Diagnosis:Encounter for screening mammogram for breast cancer [Z12.31] Order(s):[facility] SCREEN[facility]QU[facility]INE [[id number]] Order #: [id number] FUTURE Prescriptions as of 06/16/2024 - Lactobacillus acidophilus (FLORAJEN ACIDOPHILUS) 20 billion cell capsule Take 1 capsule by mouth once daily. - gabapentin (NEURONTIN) 600 mg tablet Take one tablet tid. Also take 1-2 tablets at bedtime as needed - prazosin (MINIPRESS) 1 mg cap Take 1 capsule during the day and 2 capsules at night. - risperiDONE (RISPERDAL) 1 mg tablet Take 1 tablet by mouth once daily. - traZODone (DESYREL) 100 mg tablet Take 2 tablets by mouth daily at bedtime. - albuterol HFA (VENTOLIN HFA) 90 mcg/actuation inhaler Inhale 2 Puffs as instructed every 4 hours as needed for wheezing/shortness of breath. - fluticasone-vilanterol (BREO ELLIPTA) 200-25 mcg/dose inhaler Inhale 1 Inhalation as instructed once daily. - albuterol (PROVENTIL) 2.5 mg /3 mL (0.083 %) nebulizer solution Inhale by nebulizer over 5-15 minutes three (3) to four (4) times a day as needed for wheezing and shortness of breath - L. acidophilus-L. rhamnosus (PROBIOTIC) 15 billion cell cap Take 1 capsule by mouth once daily. - triamcinolone (KENALOG) 0.025 % cream Apply to affected area twice daily. - MULTIVITAMIN ORAL Take by mouth once daily. - melatonin 3 mg tablet Take 1 tablet at ~6PM nightly. - omeprazole (PRILOSEC) 40 mg capsule Take 1 capsule by mouth once daily. - aspirin, enteric coated (ASPIRIN, ENTERIC COATED) 81 mg EC tablet Take 81 mg by mouth once daily. - ibuprofen (MOTRIN) 400 mg tablet Take 400 mg by mouth every 6 hours as needed. Meds Comments as of 01/05/2021: ' Problem List As Of Date 06/11/2024 Noted Resolved Other forms of systemic lupus erythematosus (HC* Fibromyalgia [M79.7] Abnormal weight gain [R63.5] 05/19/2013 Lumbago [M54.50] 05/19/2013 Cervicalgia [M54.2] 05/19/2013 Glucose found in urine on examination [R81] 03/02/2016 Acute right-sided low back pain [M54.50] 03/02/2016 History of kidney stones [Z87.442] 03/02/2016 Paranoid schizophrenia (HCC) [F20.0] BRIGITTE (obstructive sleep apnea) [G47.33] 12/13/2018 Chronic obstructive pulmonary disease (HCC) [J4*12/14/2020 Cigarette smoker [F17.210] 12/14/2020 RLS (restless legs syndrome) [G25.81] 04/18/2021 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 May have black coffee and water Complete thyroid ultrasound Consult placed for podiatry Continue to take all medication as prescribed Keep scheduled appointments with specialists Due for Pap, follow up with CSR TECHNICIAN Follow up with Dr. King Follow up in 6 months or sooner pending test results. Work on decreasing processed foods in the diet. Increase lean protein, veggies, and get some form of exercise Recommend tracking food, myfitnesspal phone awais Condiments: Ana taniya documented in this encounter[facility], [place] History of Present illness Narrative* Ellen Woods APRN.APOLINAR - 06/09/2024 12:40 PM EDT Images from the original note were not included. Meredith Lynch is a 48 year old female here for a Medicare wellness visit. Medicare Health Risk Assessment General Health Poor Exercise: Minutes/Day 0 min Exercise: Days/Week 0 days Alcohol: Daily Use Never Alcohol: Drinks/Day Patient does not drink Alcohol: 6 or more drinks Never Feel off balance Yes Concerns: Teeth/Dentures Yes Concerns: Sexual function No Troubled by feelings Anxious; Irritable; Lonely; Isolated Frequency: Eating healthy diet Several days ADLs requiring help Cooking; Housework; Sitting or standing; Walking; Managing urine leakage; Handling finances; Driving Safety precautions in home/vehicle Yes Smoke, vape, chews tobacco Yes, and I might quit Difficulty hearing No Difficulty seeing Yes Current Providers Specialists: I have reviewed specialist-related care of the patient in the medical record. Pulmonology: Dr. Bui Psychiatry: Appt 06/30/2024 Neurology: Dr. King Medical/Family history review Reviewed and updated problem list, medical/surgical/family/social history, medications, and allergies. Opioid use review Opioid Medications (last 90 days) No data to display Anxiety/Depression screening PHQ-9 Score: 18 (Moderately Severe Depression) PHQ-9 Self-Harm: More than half the days PARTH-7 Score: 12 (Moderate Anxiety) Recommendation: continuing current treatment plan and Psychiatry evaluation Cognitive screening Cognitive screening reviewed and No further action needed (score 3-5). Functional Observation Was the patient's Timed Up & Go test unsteady or >= 12 seconds? No Advance Care Planning Patient did not wish or was not able to name a surrogate decision maker or provide an advance care plan Measurements LMP (LMP Unknown) Vision Screening: Follows with optometry/ophthalmology Assessment/Plan Welcome to Medicare preventive visit (Z00.00) - Counseled on healthy diet and regular exercise - Fall avoidance information provided - Personalized prevention plan provided - Discussed need for and benefit of weight loss. No weight on file for this encounter. - Smoking cessation encouraged; discussed risks to health and quitting strategies. Patient is not ready to quit This is a 48 year old female who presents today with: Patient presents with: Medicare Wellness Exam HISTORY OF PRESENT ILLNESS: Meredith Lynch is a 48 year old female. Patient presents with: Medicare Wellness Exam Here in the office for extensive exam Psych: Was following with [facility] where she is prescribed Minipress 1 mg, Trazodone 100 mg, Risperdal 1 mg. Re-establishing care in June. Mother . Was off medication almost 1 year. Just recently started back on medication. Refers that she feels numb. No SI/HI. Has been wanting to stay home. Not wanting socialize. Pain: Fibro & Lupus; Taking Gabapentin 600 mg 2 pills AM, 2 pills at lunch, and 3 pills at bedtime. Does not follow with any Rheumatologists. BRIGITTE & RLS: Follows with Neuro Dr. King. Needs follow up. COPD: Follows with Pulmonology Dr. Bui, using Breo Ellipta inhaler daily and Albuterol inhaler prn. Has nebulizer to use prn. Quit smoking. Smoking 4 cigarettes. Weight gain, has been trying to watch diet. Increasing protein in the diet. Noticed she has been gaining weight. Living with son who helps with meals. Left foot lesion, refers that she is concerned if it is a corn. Painful at times. Pap: Due pap, last completed 2020, history of abnormal Vaccines: Denies wanting any vaccines at this time. PAST MEDICAL HISTORY: PAST MEDICAL HISTORY Diagnosis Date Bipolar disease, chronic (HCC) Bronchitis, chronic (HCC) Fibromyalgia Hiatal hernia Lupus (HCC) Paranoid schizophrenia (HCC) Simple chronic bronchitis (HCC) Sleep apnea Tobacco use disorder PAST SURGICAL HISTORY Procedure Laterality Date LAPAROSCOPY SURG CHOLECYSTECTOMY 2003 Cholecystectomy, lap LIG/TRNSXJ FLP TUBE ABDL/VAG APPR UNI/BI OOPHORECTOMY PARTIAL/TOTAL UNI/BI 1993 Oophorectomy- right for cancer PAST SURGICAL HISTORY OF Right 2017 ORIF right [facility]th [facility] fx, done in [place], [place] TONSILLECTOMY PRIMARY/SECONDARY <AGE 12 Tonsillectomy ALLERGIES Morphine, Penicillin G, Penicillins, and Tramadol MEDICATIONS Current Outpatient Medications Medication Sig Lactobacillus acidophilus (FLORAJEN ACIDOPHILUS) 20 billion cell capsule Take 1 capsule by mouth once daily. gabapentin (NEURONTIN) 600 mg tablet Take one tablet tid. Also take 1-2 tablets at bedtime as needed prazosin (MINIPRESS) 1 mg cap Take 1 capsule during the day and 2 capsules at night. risperiDONE (RISPERDAL) 1 mg tablet Take 1 tablet by mouth once daily. traZODone (DESYREL) 100 mg tablet Take 2 tablets by mouth daily at bedtime. albuterol HFA (VENTOLIN HFA) 90 mcg/actuation inhaler Inhale 2 Puffs as instructed every 4 hours asneeded for wheezing/shortness of breath. fluticasone-vilanterol (BREO ELLIPTA) 200-25 mcg/dose inhaler Inhale 1 Inhalation as instructed once daily. albuterol (PROVENTIL) 2.5 mg /3 mL (0.083 %) nebulizer solution Inhale by nebulizer over 5-15 minutes three (3) to four (4) times a day as needed for wheezing and shortness of breath L. acidophilus-L. rhamnosus (PROBIOTIC) 15 billion cell cap Take 1 capsule by mouth once daily. triamcinolone (KENALOG) 0.025 % cream Apply to affected area twice daily. (Patient not taking: Reported on 03/06/2024) MULTIVITAMIN ORAL Take by mouth once daily. (Patient not taking: Reported on 03/06/2024) melatonin 3 mg tablet Take 1 tablet at ~6PM nightly. (Patient not taking: Reported on 03/06/2024) omeprazole (PRILOSEC) 40 mg capsule Take 1 capsule by mouth once daily. (Patient not taking: Reported on 03/06/2024) aspirin, enteric coated (ASPIRIN, ENTERIC COATED) 81 mg EC tablet Take 81 mg by mouth once daily. ibuprofen (MOTRIN) 400 mg tablet Take 400 mg by mouth every 6 hours as needed. No current facility-administered medications for this visit. FAMILY HISTORY Problem Relation Age of Onset Arthritis Mother Hypertension Mother Diabetes Father Hypertension Father Ischemic Heart Disease Father Colon Cancer Father Ovarian cancer Sister Cancer Sister unsure of site Breast Cancer Maternal Grandmother 40 Ischemic Heart Disease Maternal Grandfather Ischemic Heart Disease Paternal Grandfather Social History Tobacco Use Smoking status: Every Day Current packs/day: 0.00 Average packs/day: 0.2 packs/day for 20.0 years (4.0 ttl pk-yrs) Types: Cigarettes Start date: 2002 Last attempt to quit: 2022 Years since quittin.7 Smokeless tobacco: Never Vaping Use Vaping status: Never Used Substance Use Topics Alcohol use: Not Currently Comment: states has not drank for over a year on 04-26-18 Drug use: No REVIEW OF SYSTEMS GENERAL: + Weight Gain HEENT: Negative for frequent or significant headaches, No changes in hearing or vision. NECK: Negative for lumps, goiter, pain and significant neck swelling RESPIRATORY: Negative for cough, hemoptysis, wheezing, dyspnea or shortness of breath CARDIOVASCULAR: Negative for chest pain, leg swelling, orthopnea, or palpitations GI: No nausea, vomiting, or diarrhea/constipation. No hematochezia/melena. No heartburn or reflux symptoms. : No history of dysuria, frequency or incontinence MUSCULOSKELETAL: + Left foot pain SKIN: Negative for lesions, rash, and itching ENDOCRINE: Negative for cold or heat intolerance, polyuria, polydipsia and goiter NEURO: No history of headaches, syncope, paralysis, seizures or tremors MOOD: Negative for depression, anxiety, or suicidal ideation. EXAM: BP 110/72 Pulse 60 Resp 18 Wt 77.7 kg (171 lb 4.8 oz) LMP (LMP Unknown) BMI 29.59 kg/m PHYSICAL EXAM: General Appearance: Well appearing, alert, in no acute distress, well-hydrated, well nourished. Skin: Large plantar wart noted on bottom of left foot. Head: Normocephalic, no masses, lesions, tenderness or abnormalities. Eyes: Anicteric sclera. Extraocular movements are intact. Neck: Enlarged thyroid noted on exam, tender with palpation. No nodules noted. Lungs: Lungs clear to auscultation. No wheezing, rhonchi, rales. Heart: RRR without murmur, gallop, or rubs. No ectopy. Extremities: No deformities, edema, skin discoloration, clubbing or cyanosis. Good capillary refill. Musculoskeletal: No joint swelling, deformity, or tenderness. Peripheral Pulses: Normal, Capillary refill <2secs, strong peripheral pulses, Pulses palpable. Neurologic: Gait normal. Reflexes normal and symmetric. Sensation grossly intact. Mood: Pleasant, engaged, good eye contact. ASSESSMENT/PLAN: 1. Medicare annual wellness visit, subsequent - ICD9: V70.0, ICD10: Z00.00 (primary diagnosis) - Counseled on healthy diet and regular exercise - Discussed need and benefit for weight loss. BMI 29.59 kg/(m^2) - Smoking cessation encouraged; discussed risks to health and quitting strategies. Patient is not ready to quit - Follow up for annual exam in one year - Due for pap, instructed to follow up with CSR TECHNICIAN 2. Weight gain - ICD9: 783.1, ICD10: R63.5 - Get labs completed - Recommend tracking food, increase lean protein, vegetables, and get some form of exercise. - HEMOGLOBIN A1C - THYROID STIMULATING HORMONE - T4 FREE/FREE THYROXINE - COMPLETE BLOOD COUNT AND DIFFERENTIAL - T3, FREE - US THYROID/PARATHYROID 3. Enlarged thyroid - ICD9: 240.9, ICD10: E04.9 - US THYROID/PARATHYROID 4. Plantar wart of left foot - ICD9: 078.12, ICD10: B07.0 - CONSULT TO PODIATRY 5. Paranoid schizophrenia (HCC) - ICD9: 295.30, ICD10: F20.0 - Stable, continue to take current medication. - Keep scheduled appointments with psychiatry. 6. Fibromyalgia - ICD9: 729.1, ICD10: M79.7 - Stable, continue to take current medication. 7. Systemic lupus erythematosus, unspecified SLE type, unspecified organ involvement status (HCC) -ICD9: 710.0, ICD10: M32.9 - Stable 8. BRIGITTE (obstructive sleep apnea) - ICD9: 327.23, ICD10: G47.33 - Follow up with neurology 9. RLS (restless legs syndrome) - ICD9: 333.94, ICD10: G25.81 - Stable, follow up with Neurology 10. Chronic obstructive pulmonary disease, unspecified COPD type (HCC) - ICD9: 496, ICD10: J44.9 - Stable, continue to take current medication. - Keep scheduled appointments with pulmonology. 11. Mixed hyperlipidemia - ICD9: 272.2, ICD10: E78.2 - Control undetermined, due for labs - Counseled on healthy diet and regular exercise - LIPID PANEL BASIC - COMPREHENSIVE METABOLIC PANEL 12. Cigarette smoker - ICD9: 305.1, ICD10: F17.210 - Cessation encouraged. - Physiologic and physical aspects of tobacco addiction as well as strategies for quitting were discussed. - Counseling was given focusing on the harmful effects of this addiction especially given the patient's medical condition(s) which will be worsened because of the chemicals in tobacco. 13. Screening for depression - ICD9: V79.0, ICD10: Z13.31 - DEPRESSION SCREENING 14. Encounter for screening examination for other mental health and behavioral disorders - ICD9: V79.8, ICD10: Z13.39 - ANXIETY SCREENING Follow-up in 6 months or sooner pending test results. Discussed treatment plan and patient voices understanding. Patient's questions answered appropriately. Medications and potential side effects were discussed and patient voices understanding. Ellen Woods APRN.APOLINAR This note was partially generated using MDCapsule voice recognition system. Note was reviewed for accuracy. There may be minor misspellings or grammar miscues with MDCapsule voice recognition. documented in this encounterSelect [facility], [place]-14-[facility]24 NoteHNO ID: [id number] Author: ELLEN WOODS APRN.CNP Service: ? Author Type: Nurse Practitioner Type: Progress Notes Filed: 06/09/2024 13:39 Note Text: Meredith Lynch is a 48 year old female here for a Medicare wellness visit. Medicare Health Risk Assessment General Health Poor Exercise: Minutes/Day 0 min Exercise: Days/Week 0 days Alcohol: Daily Use Never Alcohol: Drinks/Day Patient does not drink Alcohol: 6 or more drinks Never Feel off balance Yes Concerns: Teeth/Dentures Yes Concerns: Sexual function No Troubled by feelings Anxious; Irritable; Lonely; Isolated Frequency: Eating healthy diet Several days ADLs requiring help Cooking; Housework; Sitting or standing; Walking; Managing urine leakage; Handling finances; Driving Safety precautions in home/vehicle Yes Smoke, vape, chews tobacco Yes, and I might quit Difficulty hearing No Difficulty seeing Yes Current Providers Specialists: I have reviewed specialist-related care of the patient in the medical record. Pulmonology: Dr. Bui Psychiatry: Appt 06/30/2024 Neurology: Dr. King Medical/Family history review Reviewed and updated problem list, medical/surgical/family/social history, medications, and allergies. Opioid use review Opioid Medications (last 90 days) No data to display Anxiety/Depression screening PHQ-9 Score: 18 (Moderately Severe Depression) PHQ-9 Self-Harm: More than half the days PARTH-7 Score: 12 (Moderate Anxiety) Recommendation: continuing current treatment plan and Psychiatry evaluation Cognitive screening Cognitive screening reviewed and No further action needed (score 3-5). Functional Observation Was the patient's Timed Up AND Go test unsteady or >= 12 seconds? No Advance Care Planning Patient did not wish or was not able to name a surrogate decision maker or provide an advance care plan Measurements LMP (LMP Unknown) Vision Screening: Follows with optometry/ophthalmology Assessment/Plan Welcome to Medicare preventive visit (Z00.00) - Counseled on healthy diet and regular exercise - Fall avoidance information provided - Personalized prevention plan provided - Discussed need for and benefit of weight loss. No weight on file for this encounter. - Smoking cessation encouraged; discussed risks to health and quitting strategies. Patient is not ready to quit This is a 48 year old female who presents today with: Patient presents with: Medicare Wellness Exam HISTORY OF PRESENT ILLNESS: Meredith Lynch is a 48 year old female. Patient presents with: Medicare Wellness Exam Here in the office for extensive exam Psych: Was following with [facility] where she is prescribed Minipress 1 mg, Trazodone 100 mg, Risperdal 1 mg. Re-establishing care in June. Mother . Was off medication almost 1 year. Just recently started back on medication. Refers that she feels numb. No SI/HI. Has been wanting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 slight swelling to R side of face. 8. TETANUS: 09/19/18 9. OTHER SYMPTOMS: Pt reports neck pain turing left/right or back/forward. She states it is like a constant tightness and aching 8/10 and she has been taking Tylenol and Ibuprofen and use hot and cold and nothing helps. She states her face only hurts on her L cheek 5/10 a constant aching burn. Pt denies headache She states when her head hit the dash she may have lost consciousness for a few seconds. 10. : Denies, had tubes tied. Protocols used: Face [id number] [facility] [place]05-06-2024 History of Present illness Narrative* Juanis Waldrop MD - 12/31/2023 7:40 PM EDT Chief Complaint Patient presents with: 6 Month Exam HPI: This Team Access Model visit is a virtual/phone encounter. It required patient-provider interaction for the medical decision making as documented below. Patient was offered a virtual/telemedicine appointment in lieu of an office visit due to recommendations to reduce patient exposure to COVID-19. Patient is aware of limitations of performing the visit without a face to face visit in the office setting and agrees. I have communicated my name and active licensure. The patient's identity and physical location wereverified at the time of this visit. Either the patient or their legal claims customer service representative has been informed of the risks and benefits of -- and alternatives to -- treatment through a remote evaluation andconsents to proceed with the evaluation remotely. Has had Gi illness for 2 days, with vomiting/diarrhea; starting to improve. Uses Prilosec 40 mg daily for reflux sx. No chest pains, dizziness, or SOB. Psych: [facility] where she is prescribed Minipress 1 mg, Trazodone 100 mg, Risperdal 1 mg. Pt states that the [facility] no longer takes her insurance so she is not on any of the psych meds at this time. She is going to go to [facility] and see if they accept her insurance, also getting a lost of providers from her insurance company. Pain: Fibro & Lupus; Taking Gabapentin 600 mg 2 pills AM, 2 pills at lunch, and 3 pills at bedtime. Does not follow with any Rheumatologists. BRIGITTE & RLS: Follows with Neuro Dr. King. COPD: Follows with Pulm Dr. Bui, using Breo Ellipta inhaler daily and Albuterol inhaler prn. Has nebulizer to use prn. Quit smoking. Past medical history, appointments, medications, allergies reviewed. Previous Medical History PAST MEDICAL HISTORY Diagnosis Date Bipolar disease, chronic (HCC) Bronchitis, chronic (HCC) Fibromyalgia Hiatal hernia Lupus (HCC) Paranoid schizophrenia (HCC) Simple chronic bronchitis (HCC) Sleep apnea Tobacco use disorder Previous Surgical History PAST SURGICAL HISTORY Procedure Laterality Date LAPAROSCOPY SURG CHOLECYSTECTOMY 2003 Cholecystectomy, lap LIG/TRNSXJ FLP TUBE ABDL/VAG APPR UNI/BI OOPHORECTOMY PARTIAL/TOTAL UNI/BI 1993 Oophorectomy- right for cancer PAST SURGICAL HISTORY OF Right 2017 ORIF right 5th [facility] fx, done in [place], [place] TONSILLECTOMY PRIMARY/SECONDARY <AGE 12 Tonsillectomy Family History FAMILY HISTORY Problem Relation Age of Onset Arthritis Mother Hypertension Mother Diabetes Father Hypertension Father Ischemic Heart Disease Father Colon Cancer Father Ovarian cancer Sister Cancer Sister unsure of site Breast Cancer Maternal Grandmother 40 Ischemic Heart Disease Maternal Grandfather Ischemic Heart Disease Paternal Grandfather Patient Allergies ALLERGIES Allergen Reactions Morphine Other: See Comments Chest pain Penicillin G Rash Penicillins Hives Tramadol Rash Current Medications Current Outpatient Medications on File Prior to Visit Medication Sig gabapentin (NEURONTIN) 600 mg tablet Take 1 tablet by mouth three times a day for 30 days. Also take 1-2 tablets at bedtime as needed Lactobacillus acidophilus (FLORAJEN ACIDOPHILUS) 20 billion cell capsule Take 1 capsule by mouth once daily. albuterol HFA (VENTOLIN HFA) 90 mcg/actuation inhaler Inhale 2 Puffs as instructed every 4 hours asneeded for wheezing/shortness of breath. fluticasone-vilanterol (BREO ELLIPTA) 200-25 mcg/dose inhaler Inhale 1 Inhalation as instructed once daily. albuterol (PROVENTIL) 2.5 mg /3 mL (0.083 %) nebulizer solution Inhale by nebulizer over 5-15 minutes three (3) to four (4) times a day as needed for wheezing and shortness of breath L. acidophilus-L. rhamnosus (PROBIOTIC) 15 billion cell cap Take 1 capsule by mouth once daily. triamcinolone (KENALOG) 0.025 % cream Apply to affected area twice daily. MULTIVITAMIN ORAL Take by mouth once daily. melatonin 3 mg tablet Take 1 tablet at ~6PM nightly. risperiDONE (RISPERDAL) 1 mg tablet Take 1 tablet by mouth once daily. omeprazole (PRILOSEC) 40 mg capsule Take 1 capsule by mouth once daily. traZODone (DESYREL) 100 mg tablet 2 tablets daily at bedtime. [facility] from [facility] prazosin (MINIPRESS) 1 mg cap Gets from [facility]ing [facility]. Takes 1 capsule during the day and 2 capsules at night. aspirin, enteric coated (ASPIRIN, ENTERIC COATED) 81 mg EC tablet Take 81 mg by mouth once daily. ibuprofen (MOTRIN) 400 mg tablet Take 400 mg by mouth every 6 hours as needed. No current facility-administered medications on file prior to visit. Social History Social History Tobacco Use Smoking status: Every Day Packs/day: 0.20 Years: 20.00 Additional pack years: 0.00 Total pack years: 4.00 Types: Cigarettes Last attempt to quit: 2022 Years since quittin.3 Smokeless tobacco: Never Vaping Use Vaping Use: Never used Substance Use Topics Alcohol use: Not Currently Comment: states has not drank for over a year on 04-26-18 Drug use: No EXAM: LMP (LMP Unknown) NAD. Health Maintenance List Hepatitis B Vaccine(1 of 3 - 19+ 3-dose series) Never done Alpha-1 Antitrypsin Deficiency Screening Never done Pneumococcal Vaccine(2 of 2 - PCV) due on 09/14/2016 Mammogram Screening due on 01/07/2022 Covid-19 Vaccine( season) Never done Behavioral Health Screening Never done Influenza Vaccine(Season Ended) due on 04/27/2024 Annual PCP Team Chronic Disease Visit due on 07/02/2024 Diabetes Screening due on 04/25/2025 Pap Testing due on 01/18/2026 HPV Testing due on 01/18/2026 Colorectal Cancer Screening due on 02/24/2026 Lipid Screening due on 04/25/2027 DTaP,Tdap,Td Vaccine(4 - Td or Tdap) due on 09/19/2028 Spirometry Completed Hepatitis C Screening Completed HIV Screening Completed Data reviewed none ASSESSMENT/PLAN: 1. Fibromyalgia - ICD9: 729.1, ICD10: M79.7 (primary diagnosis) Continue current medications. - GABAPENTIN 600 MG TABLET 2. BRIGITTE (obstructive sleep apnea) - ICD9: 327.23, ICD10: G47.33 3. Chronic obstructive pulmonary disease, unspecified COPD type (HCC) - ICD9: 496, ICD10: J44.9 Follow with Pulm 4. Cigarette smoker - ICD9: 305.1, ICD10: F17.210 Has quit 5. Lupus (HCC) - ICD9: 710.0, ICD10: M32.9 6. Paranoid schizophrenia (HCC) - ICD9: 295.30, ICD10: F20.0 Will refill meds until she can get into Psych - RISPERIDONE 1 MG TABLET 7. Gastroenteritis - ICD9: 558.9, ICD10: K52.9 Continue symptomatic treatment Follow up in 6 months I agree with the Chief Complaint, ROS, and Past Histories independently gathered by the clinical pharmacy retail support specialist and the remaining scribed note accurately describes my personal service to the patient Juanis Waldrop MD The documentation for this note was completed by Renetta Escobar MA acting as scribe for Juanis Waldrop MD. December 31, 2023 7:14 PM. Renetta Escobar MA documented in this encounter[facility] [place] Telephone encounter Note * Telephone Encounter - Renetta Escobar MA - 12/31/2023 8:11 AM EDT See other [facility] message. Pt schedule tonight at 7:40 PM with PCP for VV. Renetta Escobar MA [facility] [place]05-06-2024 Miscellaneous Notes* Telephone Encounter - Renetta Escobar MA - 12/31/2023 8:11 AM EDT See other mychart message. Pt schedule tonight at 7:40 PM with PCP for VV. Renetta Escobar MA * Telephone Encounter - Renetta Escobar MA - 12/28/2023 4:54 PM EDT Offered to help pt set up VV. Awaiting response back on day and time that works for her. Renetta Escobar MA * Telephone Encounter - Juanis Waldrop MD - 12/28/2023 4:50 PM EDT OK for VV Juanis Waldrop MD * Telephone Encounter - Renetta Escobar MA - 12/28/2023 4:38 PM EDT Ok for pt to do a VV? Renetta Escobar MA documented in this encounter[facility] [place] Telephone encounter Note * Telephone Encounter - Renetta Escobar MA - 12/31/2023 8:08 AM EDT Scheduled pt tonight at 7:40 PM with PCP for VV. Pt notified via mychart. Renetta Escobar MA [facility] [place]-06-2024 Miscellaneous Notes* Telephone Encounter - Renetta Escobar MA - 12/31/2023 8:08 AM EDT Scheduled pt tonight at 7:40 PM with PCP for VV. Pt notified via mychart. Renetta Escobar MA documented in this encounter[facility] [place] Telephone encounter Note * Telephone Encounter - Renetta Escobar MA - 12/28/2023 4:54 PM EDT Offered to help pt set up VV. Awaiting response back on day and time that works for her. Renetta Escobar MA [facility] [place]05-03-2024 Telephone encounter Note* Telephone Encounter - Juanis Waldrop MD - 12/28/2023 4:50 PM EDT OK for VV Juanis Waldrop MD [facility] [place]05-03-2024 Telephone encounter Note* Telephone Encounter - Renetta Escobar MA - 12/28/2023 4:38 PM EDT Ok for pt to do a VV? Renetta Escobar MA [facility] [place]04-04-2024 Miscellaneous Notes* Telephone Encounter - Kenya Bonlila OCCA - 11/29/2023 2:44 PM EDT TC to patient who verbalized understanding. Patient now rescheduled for 12/02 with Darion Woods at 1:40per patient preference. ZULEYMA Jamil * Telephone Encounter - Juanis Waldrop MD - 11/29/2023 2:22 PM EDT OK for 30 days Needs to reschedule appt Juanis Waldrop MD * Telephone Encounter - Kenya Bonilla OCCA - 11/29/2023 11:58 AM EDT MANAN (VV) 07/02/23 Appointment cancelled today with Darion Woods NOV not scheduled * Telephone Encounter - Ellen Agosto - 11/29/2023 9:57 AM EDT Patient has been identified by name and date of : Yes, Provider [facility] Patient phones for refill(s): Requested Prescriptions Pending Prescriptions Disp Refills gabapentin (NEURONTIN) 600 mg tablet 150 tablet 5 Sig: Take 1 tablet by mouth three times a day for 90 days. Also take 1-2 tablets at bedtime as needed Date of last office visit in primary care: 11/21/2022 Date of next office visit in primary care: Visit date not found Please advise. Thank you. Ellen Aogsto. documented in this encounterSelect [facility] [place] History of Present illness Narrative* John Mckeon MD - 11/03/2023 1:57 PM EST Patient presents with: Derm Problem: R side of face by ear, 3 small lumps under skin, painful x 3 weeks Face breaking out x 1 wk HPI: Skin Lesion: Location: in front of the right ear, left chin, and left cheek Duration: 1 week, feels it started after using coconut cream Pruritis/Pain: tender Change: Drainage/blister/pustule/ulceration: open sores, no drainage Treatment: Antibiotic cream. Reports left neck tender bumps under the skin for the last 3 weeks. She is also lost weight. She lost her mother in August. She does have a healthy appetite and eats quite a bit. MEDICATIONS: Lactobacillus acidophilus (FLORAJEN ACIDOPHILUS) 20 billion cell capsule Take 1 capsule by mouth once daily. gabapentin (NEURONTIN) 600 mg tablet Take 1 tablet by mouth three times a day for 90 days. Also take 1-2 tablets at bedtime as needed albuterol HFA (VENTOLIN HFA) 90 mcg/actuation inhaler Inhale 2 Puffs as instructed every 4 hours asneeded for wheezing/shortness of breath. fluticasone-vilanterol (BREO ELLIPTA) 200-25 mcg/dose inhaler Inhale 1 Inhalation as instructed once daily. albuterol (PROVENTIL) 2.5 mg /3 mL (0.083 %) nebulizer solution Inhale by nebulizer over 5-15 minutes three (3) to four (4) times a day as needed for wheezing and shortness of breath L. acidophilus-L. rhamnosus (PROBIOTIC) 15 billion cell cap Take 1 capsule by mouth once daily. triamcinolone (KENALOG) 0.025 % cream Apply to affected area twice daily. MULTIVITAMIN ORAL Take by mouth once daily. melatonin 3 mg tablet Take 1 tablet at ~6PM nightly. risperiDONE (RISPERDAL) 1 mg tablet Take 1 tablet by mouth once daily. omeprazole (PRILOSEC) 40 mg capsule Take 1 capsule by mouth once daily. traZODone (DESYREL) 100 mg tablet 2 tablets daily at bedtime. [facility] prazosin (MINIPRESS) 1 mg cap [facility] from [facility]. Takes 1 capsule during the day and 2 capsules at night. aspirin, enteric coated (ASPIRIN, ENTERIC COATED) 81 mg EC tablet Take 81 mg by mouth once daily. ibuprofen (MOTRIN) 400 mg tablet Take 400 mg by mouth every 6 hours as needed. ALLERGIES: ALLERGIES Allergen Reactions Morphine Other: See Comments Chest pain Penicillin G Rash Penicillins Hives Tramadol Rash VITALS: BP 126/77 Pulse 60 Temp 36.6 C (97.9 F) Resp 22 Wt 68 kg (149 lb 14.6 oz) LMP (LMP Unknown) SpO2 99% BMI 25.89 kg/m Last 6 Encounter Wt Readings: Date: Wt: 11/03/2023 68 kg (149 lb 14.6 oz) 02/04/2023 81.1 kg (178 lb 12.8 oz) 11/21/2022 80.7 kg (178 lb) 11/07/2022 81.9 kg (180 lb 9.6 oz) 11/02/2022 82.6 kg (182 lb 3.2 oz) 09/04/2022 87.1 kg (192 lb) PHYSICAL EXAM: GEN: pleasant, no acute distress, alert HEENT: PERRL, EOMI, MMM, TMs and canals clear SKIN: 1cm dry base shallow ulceration left mid cheek in line with the pupil. 1.5cm shallow ulceration with dry base left submental area. 1.5 cm ulceration with dry eschar anterior to the right tragussurrounded by tender erythema, no fluctuance NECK: supple, tender anterior right chain lymphadenopathy, left chain is also tender without discrete lymphadenopathy, no thyromegaly HEART: regular rate, regular rhythm, no murmurs LUNGS: clear to auscultation, no wheezes or crackles, no increased WOB ASSESSMENT/PLAN: 1. Cellulitis, face - ICD9: 682.0, ICD10: L03.211 (primary diagnosis) - DOXYCYCLINE HYCLATE 100 MG CAPSULE Probable reactive lymphadenopathy from open sores. 2. Weight loss - ICD9: 783.21, ICD10: R63.4 Walked to checkout to schedule follow up with PCP. John Mckeon MD documented in this encounterSelect [facility] [place] Discharge summary Author Garrett Kumar [facility] August 01, 2023 7:32am Note Date/Time August 01, 2023 6 :35am [facility] Medical Records Department [address] [place] [address] Emergency Department Summary 08/01/23 MR#: [id number] Acct: [id number] Name: MEREDITH LYNCH Rep #:[id number] : 1975 47 From: Garrett Kumar DO PCP: Dr. Juanis Waldrop MD Status:RE G ER Location: ED HPI History of Present Illness Chief Complaint: Shortness of Breath Informant: patient Narrative Narrative: Patient is a 47-year-old female with past medical history of COPD fibromyalgia and SLE. She states only medication she takes is gabapentin for the fibromyalgia and denies any other medications for her lupus. She states that she quit smoking roughly 1 month ago as well. She reports for the last 3 days she has had increased congestion and cough that has been slowly worsening and causing increased shortness of breath despite taking her home inhaler. She has concern for development of pneumonia once again as she has had this in the past and therefore comes in for evaluation. She denies any recent travel surgery or history of DVT/PE. [facility] Medical History Acute (undifferentiated) schizophrenia Continuous tobacco abuse COPD (chronic obstructive pulmonary disease) Depression Fibromyalgia Hiatal hernia Lupus Shortness of breath SLE (systemic lupus erythematosus) Home Medications albuterol sulfate 90 mcg/actuation aerosol inhaler 1 - 2 puff inhalation Q4H PRNPRN Wheezing ##1 05/29/20 [Rx Last Taken Unknown] omeprazole 40 mg capsule,delayed release 1 cap PO DAILY ##30 05/29/20 [Rx Last Taken Unknown] prazosin 1 mg capsule (Minipress) 1 mg PO QHS 05/29/20 [History Last Taken Unknown] risperidone 4 mg tablet 1 tab PO DAILY Check with primary doctor 05/29/20 [History Last Taken Unknown] trazodone 100 mg tablet 100 mg PO PRN PRN Sleep 05/29/20 [History Last Taken Unknown] carbamazepine 200 mg tablet 400 mg PO DAILY Check with primary doctor 05/02/22 [History Last Taken 05/01/22 20:00] fluticasone furoate 200 mcg-vilanterol 25 mcg/dose inhalation powder (Breo Ellipta) 1 inh inhalation DAILY Check with primary doctor 05/02/22 [History Last Taken Unknown] gabapentin 600 mg tablet 600 mg PO TID Check with primary doctor 05/02/22 [History Last Taken Unknown] gabapentin 600 mg tablet (Neurontin) 600 mg PO QHS Check with primary doctor 05/02/22 [History Last Taken Unknown] azithromycin 250 mg tablet See Rx Instructions PO .COMPLEX 10 days #12 tabs 08/01/23 [Rx Last Taken Unknown] doxycycline hyclate 100 mg capsule 100 mg PO BID 10 days #20 caps 08/01/23 [Rx Last Taken Unknown] ipratropium 0.5 mg-albuterol 3 mg (2.5 mg base)/3 mL nebulization soln 3 ml inhalation 4X/DAY PRN PRN shortness of breath or wheezing #180 mL 08/01/23 [Rx Last Taken Unknown] Allergy/AdvReac Type Severity Reaction Status Date / Time Penicillins Allergy Hives Verified 08/01/23 06:14 morphine AdvReac Rash Verified 08/01/23 06:14 Family History Father Bipolar 1 disorder Rheumatoid arthritis Heart disease Alcohol abuse Cancer Lung and liver Colon cancer Hyperlipidemia Mother Rheumatoid arthritis Sister Cancer Ovarian Rheumatoid arthritis Surgical History History of carpal tunnel surgery of right wrist History of cholecystectomy History of dilatation and curettage History of LEEP (loop electrosurgical excision procedure) of cervix complicatingpregnancy History of right oophorectomy History of tubal ligation Social History household members: none Smoking Status: Former smoker Tobacco: How many years used: 17 second hand exposure: Yes alcohol intake: never substance use type: does not use caffeine: Yes what type of physical activity do you participate in: none ROS ROS ED Constitutional Constitutional ED: Denies chills or fever(s) ENT ENT ED: Denies sore throat Cardiovascular Cardiovascular: Reports chest pain Respiratory/Chest Respiratory/Chest: Reports cough and dyspnea Gastrointestinal Gastrointestinal: Denies abdominal pain, diarrhea, nausea or vomiting Genitourinary Genitourinary ED: Denies dysuria Musculoskeletal Musculoskeletal: Reports myalgias Integumentary Denies rash Neurologic Neurologic: Denies headache(s) Hematologic/Lymphatic Hematologic/Lymphatic: Denies easy bleeding or easy bruising EXAM Physical Exam Const Vital Signs: 08/01/23 06:15 08/01/23 06:15 08/01/23 06:43 Temperature 96.9 F L Temperature Source Temporal Pulse Rate 72 59 L Respiratory Rate 26 H 18 Respiratory Effort Short of Breath Respiratory Pattern Tachypnea Normal Blood Pressure 122/82 H Blood Pressure Mean 95 Pulse Ox 99 Positive well nourished and well developed General Appearance ED: well developed; Negative for pallor HEENT Reports moist mucous membranes HEENT Narrative: No tongue or lip swelling No oral lesions or airway edema noted No signs of infection noted in the posterior pharynx Eyes PERRL and EOMs intact bilaterally Neck supple and no JVD Chest Wall Chest Narrative: There is reproducible pain on palpation of the anterior chest wall near the costal joints without bony deformity or crepitance Resp Resp Narrative: Patient is tachypneic and breath sounds are diminished throughout with faint rhonchi noted in bilateral lower lobes. Otherwise no nasal flaring or retractions or accessory muscle use Cardio regular rate and regular rhythm Rate: other Other Details: Heart is regular rate and rhythm without murmurs rubsor gallop Radial and carotid pulses are equal and symmetric GI normal to inspection, nondistended, normoactive bowel sounds, non-tender, non-distended and no masses GI Narrative: No voluntary guarding or rigidity No pulsatile mass or fluid wave Auscultation: normoactive bowel sounds Palpation: soft Extremity normal to inspection Extremity Narrative: No asymmetric edema no pitting edema negative Homans' sign bilaterally Neuro oriented x3, CN's II-XII intact bilaterally and no sensory deficits noted Sensorium / Orientation: alert Motor Exam: strength 5/5 throughout Psych mental status grossly normal Skin no rashes or lesions noted General Skin Exam: Negative for jaundice or pallor MDM MDM MDM Narrative Medical decision making narrative: Patient presented to the ER tachypneic but otherwise in no acute respiratory distress satting in the high to mid 90s on room air. She has previous history of COPD and smoking as well as previous pneumonia and with her immunosuppressionfrom lupus there is concern for developing infection once again. As she also reported chest discomfort occurring after cough different diagnosis is for acutecoronary syndrome versus pulmonary embolus versus pneumonia versus pneumothorax versus pleural effusion/congestive heart failure. Basic labs were ordered on with COVID and flu testing. Patient's chest x-ray did show hazy opacities concerning for infection versus pulmonary edema. However her vital signs do notsuggest systemic infection/sepsis and therefore I do not feel there is need for reflexive blood cultures or lactic acid at this time. The patient's white countis not elevated she does not have signs of acute kidney injury her troponin is normal at 5 going against acute coronary syndrome. As the patient's chest x-raysuggest persistent residual pneumonia she will be treated with Rocephin and Zithromax by IV route in the ER. However at this time as she is not showing signs of acute coronary syndrome or sepsis and there is no need for supplementaloxygen I do not feel she needs to stay in the hospital and she will be discharged home on symptomatic medications History & Record Review Discussion w/independent historian: Patient Lab Data Attestation: I reviewed the patient's lab results. Labs: Laboratory Results - last 24 hr 08/01/23 06:54 WBC 10.0 RBC 4.53 Hgb 13.9 Hct 42.5 MCV 93.8 MCH 30.7 MCHC 32.7 RDW Std Deviation 40.3 RDW Coeff of Kemar 11.7 Plt Count 328 MPV 10.1 Immature Gran % (Auto) 0.300 Neut % (Auto) 57.8 Lymph % (Auto) 28.7 Mcdowell % (Auto) 5.9 Eos % (Auto) 6.8 H Baso % (Auto) 0.5 Absolute Neuts (auto) 5.7 Absolute Lymphs (auto) 2.86 Nucleated RBC % 0 D-Dimer Quant (PE/DVT) 0.45 Sodium 139 Potassium 4.0 Chloride 108 H Carbon Dioxide 25.0 Anion Gap 6 BUN 7 Creatinine 0.85 Estim Creat Clear Calc 64.71 Est GFR (MDRD) Af Amer 93 Est GFR (MDRD) Non-Af 76 BUN/Creatinine Ratio 8.3 L Glucose 118 H Calcium 9.2 Magnesium 2.3 Troponin I High Sens 5 Radiography Diagnostic Testing: Clinical Impression(s) from Imaging Studies Chest X-Ray 08/01/23 06:35 IMPRESSION: Persistent mild diffuse interstitial thickening and coarsening with superimposed hazy airspace opacification, mildly decreased from May 02, 2022. Would consider underlying chronic interstitial lung disease as well as edema or recurrent or residual pneumonia. Consider high-resolution chest CT characterization. Electronically Signed: Toy Neumann MD at 7:15 EST Reading Location ID and State: [facility] / [place] Tel , Service support , 2 view chest x-ray as interpreted by the emergency medicine physician reveals hazy opacities in the bilateral lower lobes concerning for developing infiltrateversus pulmonary edema Discharge Plan Triage Chief Complaint: Shortness of Breath ED Provider: Garrett Kumar Dx/Rx/DC Orders Clinical Impression: COPD (chronic obstructive pulmonary disease), Pneumonia, SLE (systemic lupus erythematosus), Fibromyalgia Instructions: COPD: Wheezing and Chest Tightness, ED Pneumonia (Adult) Prescriptions: New doxycycline hyclate 100 mg capsule 100 mg PO BID 10 Days Qty: 20 0RF azithromycin 250 mg tablet See Rx Instructions .ROUTE .COMPLEX 10 Days Qty: 12 0RF Rx Instructions: For 250 mg dose pack: take 500 mg today (day 1), then 250 mg for 4 days (days2- 5) ipratropium-albuterol 0.5 mg-3 mg(2.5 mg base)/3 mL solution for nebulization 3 ml inhalation 4X/DAY PRN PRN (Reason: shortness of breath or wheezing) Qty:180 0RF No Action risperidone 4 mg tablet 1 tab PO DAILY Patient Comments: TAKE 1 TABLET EVERY DAY AT BEDTIME prazosin [Minipress] 1 MG capsule 1 mg PO QHS trazodone 100 MG tablet 100 mg PO PRN PRN (Reason: Sleep) albuterol sulfate 1 INHALER inhaler 1 - 2 puff inhalation Q4H PRN PRN (Reason: Wheezing) Qty: 1 0RF omeprazole 40 MG capsule,delayed release(DR/EC) 1 cap PO DAILY Qty: 30 0RF gabapentin 600 mg tablet 600 mg PO TID Patient Comments: TAKE 1 TABLET BY MOUTH THREE TIMES DAILY FOR 90 DAYS, TAKE 1 TO 2 TABLETS AT BEDTIME NEEDED gabapentin [Neurontin] 600 mg tablet 600 mg PO QHS Patient Comments: TAKE 1 TABLET BY MOUTH THREE TIMES DAILY FOR 90 DAYS, TAKE 1 TO 2 TABLETS AT BEDTIME NEEDED Rx Instructions: 600mg to 1200 mg carbamazepine 200 mg tablet 400 mg PO DAILY Patient Comments: Take 2 Tablet By Oral Route Per at bedtime fluticasone furoate-vilanterol [Breo Ellipta] 200-25 mcg/dose blister with device 1 inh INHALATION DAILY Patient Comments: Inhale 1 Inhalation as instructed once daily. Primary Care Provider: Juanis Waldrop Referrals: Juanis Waldrop MD [Primary Care Provider] - Activity Restrictions/Additional Instructions: Please take the doxycycline and azithromycin as directed to help resolve your pneumonia and use the DuoNeb nebulizer treatments to help with shortness of breath/wheeze. If you have worsening of symptoms or any further concerns pleasereturn to the ER for repeat evaluation Disposition Disposition: Home, Self Care What to do if you have Problems For any increased pain, shortness of breath, bleeding, nausea or vomiting, chestpain, or any unexpected problems, contact your Primary Care Provider. Call [facility] ([phone]) or report to the closest Emergency Room. Call 911 if necessary. 08/01/23 0732 <Electronically signed by Garrett Kumar DO> Cosigner Signature (if applicable): CC: Dr. Juanis Waldrop MD ~ Signed [facility] Work Phone: 1(180) 338-763712-05-2023 History of Present illness Narrative* Allison Taveras APRN.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 - 07/31/2023 7:53 PM EST Called to triage patient by [facility]SS staff Patient complaining of difficulty breathing and SOB Upon exam patient is tachypnic @ 34 a minute Tears in eyes related to painful breathing Denies CP Discussed limitations of express care, Referred to ED Declines EMS documented in this encounterSelect [facility] [place] History of Present illness Narrative* Juanis Waldrop MD - 07/02/2023 7:20 PM EST Chief Complaint Patient presents with: 6 Month Exam HPI: This Team Access Model visit is a virtual/phone encounter. It required patient-provider interaction for the medical decision making as documented below. Patient was offered a virtual/telemedicine appointment in lieu of an office visit due to recommendations to reduce patient exposure to COVID-19. Patient is aware of limitations of performing the visit without a face to face visit in the office setting and agrees. I have communicated my name and active licensure. The patient's identity and physical location wereverified at the time of this visit. Either the patient or their legal claims customer service representative has been informed of the risks and benefits of -- and alternatives to -- treatment through a remote evaluation andconsents to proceed with the evaluation remotely. 6 month follow up. Quit smoking 3 weeks ago, her friend has been helping her, won't let her smoke. No bowel, gi, or urinary issues. No chest pains, dizziness, or unusual SOB. Fibro & Lupus: Stable with ibuprofen and Gabapentin 600 mg TID. No Aluminum Container Tester. COPD: Follows with PulmDr. Bui. Has Spirometry done in Aug 2022. Uses Breo Ellipta inhaler daily and Albuterol prn. BRIGITTE & RLS: Follows with Dr. King, Neuro for BRIGITTE. Is waiting for a new CPAP machine from [employer], she states it doesn't really help much anyway, having the mask on makes her feel like she is suffocating and causes anxiety. Uses Trazodone. [facility], Jessika Martinez for psych meds. She is scheduled to get labs done Past medical history, appointments, medications, allergies reviewed. Previous Medical History PAST MEDICAL HISTORY Diagnosis Date Bipolar disease, chronic (HCC) Bronchitis, chronic (HCC) Fibromyalgia Hiatal hernia Lupus (HCC) Paranoid schizophrenia (HCC) Simple chronic bronchitis (HCC) Sleep apnea Tobacco use disorder Previous Surgical History PAST SURGICAL HISTORY Procedure Laterality Date LAPAROSCOPY SURG CHOLECYSTECTOMY 2003 Cholecystectomy, lap LIG/TRNSXJ FLP TUBE ABDL/VAG APPR UNI/BI OOPHORECTOMY PARTIAL/TOTAL UNI/BI 1993 Oophorectomy- right for cancer PAST SURGICAL HISTORY OF Right 2017 ORIF right 5th [facility] fx, done in [place], [place] TONSILLECTOMY PRIMARY/SECONDARY <AGE 12 Tonsillectomy Family History FAMILY HISTORY Problem Relation Age of Onset Arthritis Mother Hypertension Mother Diabetes Father Hypertension Father Ischemic Heart Disease Father Colon Cancer Father Ovarian cancer Sister Cancer Sister unsure of site Breast Cancer Maternal Grandmother 40 Ischemic Heart Disease Maternal Grandfather Ischemic Heart Disease Paternal Grandfather Patient Allergies ALLERGIES Allergen Reactions Morphine Other: See Comments Chest pain Penicillin G Rash Penicillins Hives Tramadol Rash Current Medications Current Outpatient Medications on File Prior to Visit Medication Sig gabapentin (NEURONTIN) 600 mg tablet Take 1 tablet by mouth three times daily for 90 days. Also take 1-2 tablets at bedtime as needed albuterol HFA (VENTOLIN HFA) 90 mcg/actuation inhaler Inhale 2 Puffs as instructed every 4 hours asneeded for wheezing/shortness of breath. fluticasone-vilanterol (BREO ELLIPTA) 200-25 mcg/dose inhaler Inhale 1 Inhalation as instructed once daily. albuterol (PROVENTIL) 2.5 mg /3 mL (0.083 %) nebulizer solution Inhale by nebulizer over 5-15 minutes three (3) to four (4) times a day as needed for wheezing and shortness of breath Lactobacillus acidophilus (FLORAJEN ACIDOPHILUS) 20 billion cell cap Take 460 mg by mouth once daily. L. acidophilus-L. rhamnosus (PROBIOTIC) 15 billion cell cap Take 1 capsule by mouth once daily. triamcinolone (KENALOG) 0.025 % cream Apply to affected area twice daily. MULTIVITAMIN ORAL Take by mouth once daily. melatonin 3 mg tablet Take 1 tablet at ~6PM nightly. risperiDONE (RISPERDAL) 1 mg tablet Take 1 tablet by mouth once daily. omeprazole (PRILOSEC) 40 mg capsule Take 1 capsule by mouth once daily. traZODone (DESYREL) 100 mg tablet 2 tablets daily at bedtime. [facility] prazosin (MINIPRESS) 1 mg cap Gets from [facility]. Takes 1 capsule during the day and 2 capsules at night. aspirin, enteric coated (ASPIRIN, ENTERIC COATED) 81 mg EC tablet Take 81 mg by mouth once daily. ibuprofen (MOTRIN) 400 mg tablet Take 400 mg by mouth every 6 hours as needed. No current facility-administered medications on file prior to visit. Social History Social History Tobacco Use Smoking status: Every Day Packs/day: 0.20 Years: 20.00 Additional pack years: 0.00 Total pack years: 4.00 Types: Cigarettes Last attempt to quit: 2022 Years since quittin.8 Smokeless tobacco: Never Vaping Use Vaping Use: Never used Substance Use Topics Alcohol use: Not Currently Comment: states has not drank for over a year on 04-26-18 Drug use: No EXAM: LMP (LMP Unknown) Health Maintenance List Hepatitis B Vaccine(1 of 3 - 3-dose series) Never done Covid-19 Vaccine(1) Never done Alpha-1 Antitrypsin Deficiency Screening Never done Pneumococcal Vaccine(2 - PCV) due on 09/14/2016 Mammogram Screening due on 01/07/2022 Influenza Vaccine(1) due on 04/27/2023 Annual PCP Team Chronic Disease Visit due on 11/22/2023 Diabetes Screening due on 04/25/2025 Pap Testing due on 01/18/2026 HPV Testing due on 01/18/2026 Colorectal Cancer Screening due on 02/24/2026 Lipid Screening due on 04/25/2027 DTaP,Tdap,Td Vaccine(4 - Td or Tdap) due on 09/19/2028 Spirometry Completed Depression Assessment Completed Hepatitis C Screening Completed HIV Screening Completed Data reviewed none ASSESSMENT/PLAN: 1. Fibromyalgia - ICD9: 729.1, ICD10: M79.7 (primary diagnosis) Continue current medications. - GABAPENTIN 600 MG TABLET 2. Encounter for screening mammogram for malignant neoplasm of breast - ICD9: V76.12, ICD10: Z12.31 - EUGENIA SCREENING 3. Cigarette smoker - ICD9: 305.1, ICD10: F17.210 - Cessation encouraged. - Physiologic and physical aspects of tobacco addiction as well as strategies for quitting were discussed. - Counseling was given focusing on the harmful effects of this addiction especially given the patient's medical condition(s) which will be worsened because of the chemicals in tobacco. 4. Paranoid schizophrenia (HCC) - ICD9: 295.30, ICD10: F20.0 Follow with Psychiatry 5. BRIGITTE (obstructive sleep apnea) - ICD9: 327.23, ICD10: G47.33 Follow with Neuro 6. Chronic obstructive pulmonary disease, unspecified COPD type (HCC) - ICD9: 496, ICD10: J44.9 Follow with Pulm Follow up in 6 months I agree with the Chief Complaint, ROS, and Past Histories independently gathered by the clinical pharmacy retail support specialist and the remaining scribed note accurately describes my personal service to the patient. Juanis Waldrop MD The documentation for this note was completed by Renetta Escobar Ma acting as scribe for Juanis Waldrop MD. July 02, 2023 7:16 PM. Renetta Escobar Ma documented in this encounterSelect [facility] [place]-27[facility]23 Miscellaneous Notes* Telephone Encounter - Renetta Escobar Ma - 06/22/2023 5:03 PM EDT Pt called back. Renetta Escobar Ma * Telephone Encounter - Renetta Escobar Ma - 06/22/2023 3:37 PM EDT Message left for pt to call back. Please assist her with setting her mom up for an establish care appt with Dr. Waldrop MUST BE 40 MINUTES. * Telephone Encounter - Juanis Waldrop MD - 06/22/2023 3:17 PM EDT Yes Juanis Waldrop MD * Telephone Encounter - Shanice Huff RN - 06/22/2023 8:55 AM EDT Patient asking if Dr. Waldrop would accept her mother, Teresa Pritchard, as a new patient? Please call Meredith with reply at [phone] Thank you. documented in this encounterSelect Medical [facility], [place]08-04-2023 Miscellaneous Notes* Telephone Encounter - Denisha Cisneros RN - 03/30/2023 12:24 PM EDT Patient returns call and requests that letter be placed in mail to be sent to home address. Verified current address as: [address] [place] [id number] Placed in out-going mail. Denisha Cisneros RN * Telephone Encounter - Renetta Escobar Ma - 03/30/2023 12:06 PM EDT Message left that letter ready at med rec. Renetta Escobar Ma * Telephone Encounter - Juanis Waldrop MD - 03/30/2023 11:56 AM EDT OK to refill as ordered Letter done Juanis Waldrop MD * Telephone Encounter - Leeann Herman RN - 03/30/2023 10:07 AM EDT Pt reports she will be getting an apartment on [facility] and was asking if provider would be able to write a for her stating that her dog is an emotional support animal. Please call and advise Pt. Patient has been identified by name and date of : Yes, Provider Dr Waldrop Date 03/30/23 [id number]. Patient phones for refill(s): Requested Prescriptions Pending Prescriptions Disp Refills gabapentin (NEURONTIN) 600 mg tablet 150 tablet 2 Sig: Take 1 tablet by mouth three times daily for 90 days. Also take 1-2 tablets at bedtime as needed Date of last office visit in primary care: 11/21/22 Future visit: 05/25/23 Last 2 Encounter Wt Readings: Date: Wt: 02/04/2023 81.1 kg (178 lb 12.8 oz) 11/21/2022 80.7 kg (178 lb) Previous labs/tests for medication: Blood Pressure: BUN (mg/dL) Date Value 04/25/2022 12 04/18/2021 6 Sodium (mmol/L) Date Value 04/25/2022 140 04/18/2021 137 Last 1 Encounter BP Readings: Date: BP: 02/04/2023 138/88 Liver Function: ALT (U/L) Date Value 04/25/2022 88 04/18/2021 60 AST (U/L) Date Value 04/25/2022 63 04/18/2021 41 Please advise. Thank you. Leeann Herman RN documented in this encounterSelect Medical [facility] [place]06-30-2023 Miscellaneous Notes* Telephone Encounter - Allison Ward LPN - 02/23/2023 11:22 AM EDT Pt scheduled in 20 minute slot. Has not been seen in 1 year. TC to pt to reschedule into 1 hour slot. Pt agreeable, appointment cancelled and rescheduled. Allison Ward LPN documented in this encounterSelect Medical [facility], [place]06-11-2023 History of Present illness Narrative* Bird Welsh APRN.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 - 02/04/2023 9:24 AM EDT Images from the original note were not included. Subjective HPI HPI Meredith Lynch is a 47 year old female who presents today for CC of dental pain. This started 3 days ago. Has tried otc medication for relief. Symptoms are worsened by nothing. Risk factors hx of dental pain/infections. Has dentist appointment in 1 month. .Patient presents with: Dental Problem: Pt reported tooth pain (RT) lower x3 days. PAST MEDICAL HISTORY Diagnosis Date Bipolar disease, chronic (HCC) Bronchitis, chronic (HCC) Fibromyalgia Hiatal hernia Lupus (HCC) Paranoid schizophrenia (HCC) Simple chronic bronchitis (HCC) Sleep apnea Tobacco use disorder PAST SURGICAL HISTORY Procedure Laterality Date LAPAROSCOPY SURG CHOLECYSTECTOMY 2003 Cholecystectomy, lap LIG/TRNSXJ FLP TUBE ABDL/VAG APPR UNI/BI OOPHORECTOMY PARTIAL/TOTAL UNI/BI 1993 Oophorectomy- right for cancer PAST SURGICAL HISTORY OF Right 2017 ORIF right 5th [facility] fx, done in [place], [place] TONSILLECTOMY PRIMARY/SECONDARY <AGE 12 Tonsillectomy ALLERGIES Morphine, Penicillin G, Penicillins, and Tramadol MEDICATIONS albuterol HFA (VENTOLIN HFA) 90 mcg/actuation inhaler Inhale 2 Puffs as instructed every 4 hours asneeded for wheezing/shortness of breath. fluticasone-vilanterol (BREO ELLIPTA) 200-25 mcg/dose inhaler Inhale 1 Inhalation as instructed once daily. albuterol (PROVENTIL) 2.5 mg /3 mL (0.083 %) nebulizer solution Inhale by nebulizer over 5-15 minutes three (3) to four (4) times a day as needed for wheezing and shortness of breath gabapentin (NEURONTIN) 600 mg tablet Take 1 tablet by mouth three times daily for 90 days. Also take 1-2 tablets at bedtime as needed Lactobacillus acidophilus (FLORAJEN ACIDOPHILUS) 20 billion cell cap Take 460 mg by mouth once daily. triamcinolone (KENALOG) 0.025 % cream Apply to affected area twice daily. MULTIVITAMIN ORAL Take by mouth once daily. melatonin 3 mg tablet Take 1 tablet at ~6PM nightly. risperiDONE (RISPERDAL) 1 mg tablet Take 1 tablet by mouth once daily. omeprazole (PRILOSEC) 40 mg capsule Take 1 capsule by mouth once daily. traZODone (DESYREL) 100 mg tablet 2 tablets daily at bedtime. [facility] prazosin (MINIPRESS) 1 mg cap [facility] from [facility]. Takes 1 capsule during the day and 2 capsules at night. aspirin, enteric coated (ASPIRIN, ENTERIC COATED) 81 mg EC tablet Take 81 mg by mouth once daily. ibuprofen (MOTRIN) 400 mg tablet Take 400 mg by mouth every 6 hours as needed. clindamycin (CLEOCIN) 150 mg capsule Take 2 capsules by mouth three times daily for 10 days. L. acidophilus-L. rhamnosus (PROBIOTIC) 15 billion cell cap Take 1 capsule by mouth once daily. FAMILY HISTORY Problem Relation Age of Onset Arthritis Mother Hypertension Mother Diabetes Father Hypertension Father Ischemic Heart Disease Father Colon Cancer Father Ovarian cancer Sister Cancer Sister unsure of site Breast Cancer Maternal Grandmother 40 Ischemic Heart Disease Maternal Grandfather Ischemic Heart Disease Paternal Grandfather Social History Tobacco Use Smoking status: Every Day Packs/day: 0.20 Years: 20.00 Pack years: 4.00 Types: Cigarettes Last attempt to quit: 2022 Years since quittin.4 Smokeless tobacco: Never Vaping Use Vaping Use: Never used Substance Use Topics Alcohol use: Not Currently Comment: states has not drank for over a year on 04-26-18 Drug use: No Review of Systems Constitutional: Negative for fever. Objective Blood pressure 138/88, pulse 75, temperature 36.8 C (98.2 F), temperature source Tympanic, resp. rate 18, weight 81.1 kg (178 lb 12.8 oz), SpO2 98 %. Physical Exam Constitutional: General: She is not in acute distress. Appearance: She is not toxic-appearing or diaphoretic. HENT: Head: Normocephalic and atraumatic. Mouth/Throat: Pulmonary: Effort: Pulmonary effort is normal. No accessory muscle usage or respiratory distress. Lymphadenopathy: Cervical: No cervical adenopathy. Right cervical: No superficial cervical adenopathy. Left cervical: No superficial cervical adenopathy. Neurological: Mental Status: She is alert and oriented to person, place, and time. ASSESSMENT/PLAN: 1. Pain, dental - ICD9: 525.9, ICD10: K08.89 Take medication as ordered See dentist juan antonio Follow up if signs of infection worsen - CLINDAMYCIN HCL 150 MG CAPSULE No problem-specific Assessment & Plan notes found for this encounter. documented in this encounterSelect [facility] [place]05-08-2023 Miscellaneous Notes* Telephone Encounter - Juanis Waldrop MD - 01/01/2023 1:19 PM EDT OK to refill as ordered Juanis Waldrop MD documented in this encounterSelect [facility] [place]03-28-2023 History of Present illness Narrative* Juanis Waldrop MD - 11/21/2022 10:40 AM EDT Chief Complaint Patient presents with: F/U 6 Month HPI Meredith Lynch is a 46 year old female who presents here today for a 6 month follow up. Pt here today for a 6 month follow up. Pt has cancelled recent appt's. Has been seen multiple timessince last OV for Hospital f/u, EC and other Specialists. Tobacco - Smoking one cigarette per day, trying to quit. Did quit for about 2 months, then in the past 2 weeks started again. Has had 1 cigarette in the past 3 days. GERD - On current regimen of Prilosec 40 mg once daily. Does still have intermittent episodes. Willuse Tums which helps as well. Insomnia/RLS - Following with Neuro, Dr. King. On current regimen of Trazodone 100 mg 2 tabs po once daily and Melatonin. Pt scheduled to have PSG Titration completed, this would be her second one due to PSG showing BRIGITTE. States her sleep stinks. Fibro - Reports that she's been taking more OTC Ibuprofen then usual in addition to her Gabapentin 600 mg 1 caps po TID to QID. Pain waxes and wanes. Tries to do 10 minutes of stretching and walk [facility] 1 block every other day. COPD - Follows with Dr. Hao Estes. Trying to quit smoking. Feels breathing is overall stable on current regimen of Breo Ellipta inhaler daily and Albuterol solution prn. Rheum - Hx of Lupus and Fibro. Currently not following with anyone due to not being able to get to [place] and there's no one locally. Reports swelling in joints in arms, knees and ankles. Pain - Would like to have b/l thumbs looked at due to pain and not being able to bend them a times.R>L pain. At times her fingers will get locked and she will have to pull on them. This has been going on for 2 months. Radiates down into thumb joint/wrist. This occurs with writing. Has used heat, ice and stretching with no improvement. Uses Ibuprofen. Psych - Follows with Jessika Martinez for psych medications. Denies any labs being completed at thistime Past medical history, appointments, medications, allergies reviewed. Previous Medical History PAST MEDICAL HISTORY Diagnosis Date Bipolar disease, chronic (HCC) Bronchitis, chronic (HCC) Fibromyalgia Hiatal hernia Lupus (HCC) Paranoid schizophrenia (HCC) Simple chronic bronchitis (HCC) Sleep apnea Tobacco use disorder Previous Surgical History PAST SURGICAL HISTORY Procedure Laterality Date LAPAROSCOPY SURG CHOLECYSTECTOMY 2003 Cholecystectomy, lap LIG/TRNSXJ FLP TUBE ABDL/VAG APPR UNI/BI OOPHORECTOMY PARTIAL/TOTAL UNI/BI 1993 Oophorectomy- right for cancer PAST SURGICAL HISTORY OF Right 2017 ORIF right 5th [facility] fx, done in [place], [place] TONSILLECTOMY PRIMARY/SECONDARY <AGE 12 Tonsillectomy Family History FAMILY HISTORY Problem Relation Age of Onset Arthritis Mother Hypertension Mother Diabetes Father Hypertension Father Ischemic Heart Disease Father Colon Cancer Father Ovarian cancer Sister Cancer Sister unsure of site Breast Cancer Maternal Grandmother 40 Ischemic Heart Disease Maternal Grandfather Ischemic Heart Disease Paternal Grandfather Patient Allergies ALLERGIES Allergen Reactions Morphine Other: See Comments Chest pain Penicillin G Rash Penicillins Hives Tramadol Rash Current Medications Current Outpatient Medications on File Prior to Visit Medication Sig Lactobacillus acidophilus (FLORAJEN ACIDOPHILUS) 20 billion cell cap Take 460 mg by mouth once daily. gabapentin (NEURONTIN) 600 mg tablet Take 1 tablet by mouth three times daily for 90 days. Also take 1-2 tablets at bedtime as needed L. acidophilus-L. rhamnosus (PROBIOTIC) 15 billion cell cap Take 1 capsule by mouth once daily. triamcinolone (KENALOG) 0.025 % cream Apply to affected area twice daily. MULTIVITAMIN ORAL Take by mouth once daily. fluticasone-vilanterol (BREO ELLIPTA) 200-25 mcg/dose inhaler Inhale 1 Inhalation as instructed once daily. albuterol (PROVENTIL) 2.5 mg /3 mL (0.083 %) nebulizer solution Inhale by nebulizer over 5-15 minutes three (3) to four (4) times a day as needed for wheezing and shortness of breath albuterol HFA (VENTOLIN HFA) 90 mcg/actuation inhaler Inhale 2 Puffs as instructed every 4 hours asneeded for wheezing/shortness of breath. melatonin 3 mg tablet Take 1 tablet at ~6PM nightly. risperiDONE (RISPERDAL) 1 mg tablet Take 1 tablet by mouth once daily. omeprazole (PRILOSEC) 40 mg capsule Take 1 capsule by mouth once daily. traZODone (DESYREL) 100 mg tablet 2 tablets daily at bedtime. [facility] prazosin (MINIPRESS) 1 mg cap Gets from [facility]. Takes 1 capsule during the day and 2 capsules at night. aspirin, enteric coated (ASPIRIN, ENTERIC COATED) 81 mg EC tablet Take 81 mg by mouth once daily. ibuprofen (MOTRIN) 400 mg tablet Take 400 mg by mouth every 6 hours as needed. No current facility-administered medications on file prior to visit. Social History Social History Tobacco Use Smoking status: Every Day Packs/day: 0.20 Years: 20.00 Pack years: 4.00 Types: Cigarettes Last attempt to quit: 2022 Years since quittin.2 Smokeless tobacco: Never Vaping Use Vaping Use: Never used Substance Use Topics Alcohol use: Not Currently Comment: states has not drank for over a year on 04-26-18 Drug use: No EXAM: BP 134/86 (BP Site: Right Arm, BP Position: Sitting, BP Cuff Size: Regular Adult) Pulse 66 Resp20 Wt 80.7 kg (178 lb) LMP 12/25/1993 (Within Months) BMI 30.75 kg/m General Appearance: Well appearing, alert, in no acute distress, well-hydrated, well nourished. andOverweight. Lungs: Lungs clear to auscultation. No wheezing, rhonchi, rales.. Heart: RRR without murmur, gallop, or rubs. No ectopy. Extremities: B/L thumbs examined. Pain to palpate along flexor tendons; pain with motion Health Maintenance List HEPATITIS B(1 of 3 - 3-dose series) Never done ALPHA-1 ANTITRYPSIN DEFICIENCY SCREENING Never done PNEUMOCOCCAL(2 - PCV) due on 09/14/2016 MAMMOGRAM due on 01/07/2022 INFLUENZA(1) due on 04/27/2022 DEPRESSION ASSESSMENT Never done COVID-19 VACCINE(1) due on 04/24/2023 ANNUAL PCP TEAM CHRONIC DISEASE VISIT due on 05/10/2023 DIABETES SCREEN due on 04/25/2025 PAP TESTING due on 01/18/2026 HPV TESTING due on 01/18/2026 COLORECTAL CANCER SCREENING due on 02/24/2026 LIPID SCREEN due on 04/25/2027 DTAP,TDAP,TD(4 - Td or Tdap) due on 09/19/2028 SPIROMETRY Completed HEPATITIS C SCREENING Completed HIV SCREENING Completed Data reviewed None ASSESSMENT/PLAN: 1. Fibromyalgia - ICD9: 729.1, ICD10: M79.7 (primary diagnosis) - Stable on regimen - Continue current medication regimen. 2. GERD without esophagitis - ICD9: 530.81, ICD10: K21.9 - Continue current medication regimen. 3. Lupus (HCC) - ICD9: 710.0, ICD10: M32.9 - Stable, f/u with Rheum 4. RLS (restless legs syndrome) - ICD9: 333.94, ICD10: G25.81 - Stable - Cont f/u with Neuro 5. Insomnia, unspecified type - ICD9: 780.52, ICD10: G47.00 - F/u with Neuro 6. BRIGITTE (obstructive sleep apnea) - ICD9: 327.23, ICD10: G47.33 - F/u with Neuro 7. Chronic obstructive pulmonary disease, unspecified COPD type (HCC) - ICD9: 496, ICD10: J44.9 - F/u with Pulm -- Continue current medication regimen. - Quit smoking. 8. Cigarette smoker - ICD9: 305.1, ICD10: F17.210 - Cessation encouraged. - Physiologic and physical aspects of tobacco addiction as well as strategies for quitting were discussed. - Counseling was given focusing on the harmful effects of this addiction especially given the patient's medical condition(s) which will be worsened because of the chemicals in tobacco. 9. Paranoid schizophrenia (HCC) - ICD9: 295.30, ICD10: F20.0 - Cont f/u with Psych 10. Bilateral thumb pain - ICD9: 729.5, ICD10: M79.644, M79.645 - Cont home exercises, ice/heat and NSAID - Offered PT; she declined at this time 6 mo f/u I agree with the Chief Complaint, ROS, and Past Histories independently gathered by the clinical pharmacy retail support specialist and the remaining scribed note accurately describes my personal service to the patient. Medical Decision Making: Problems: Low: Acute, uncomplicated illness or injury Moderate: 2+ stable chronic illnesses Risk: Moderate: Drug management Medical Decision Making Level: 4 - Moderate Juanis Waldrop MD The documentation for this note was completed by Dilia Bender Ma acting as scribe for Juanis Waldrop MD. November 21, 2022 10:38 AM. Dilia Bender Ma documented in this encounterSelect Medical [facility] [place]03-14-2023 History of Present illness Narrative* Felix Taylor APRN.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 - 11/07/2022 10:48 AM EDT Images from the original note were not included. Subjective HPI Nontoxic-appearing female presents urgent care chief complaint dental pain. Duration of symptoms ongoing for over a week. Patient was seen by me on November 02. Placed on antibiotics. Completed antibiotics as instructed. Presents today due to persistent pain. Patient states swelling has improved. Gum redness has improved. Has reach out to dentist has an appointment but not till the end of the month. Denies any new symptoms. Denies any difficulty swallowing handling secretions decreased range of motion of neck trismus difficulty opening jaw fully or pain of floor mouth. Denies chance of .Denies any fever body aches chills productive cough chest pain shortness of breath pleuritic pain he moptysis nausea vomiting abdominal pain change in bowel or bladder habits. Past medical history prescription medication use and allergies reviewed. .Patient presents with: Pain: Pt reported recent ATB completed, continued tooth pain (RT) lower. PAST MEDICAL HISTORY Diagnosis Date Bipolar disease, chronic (HCC) Bronchitis, chronic (HCC) Fibromyalgia Hiatal hernia Lupus (HCC) Paranoid schizophrenia (HCC) Simple chronic bronchitis (HCC) Sleep apnea Tobacco use disorder PAST SURGICAL HISTORY Procedure Laterality Date LAPAROSCOPY SURG CHOLECYSTECTOMY 2003 Cholecystectomy, lap LIG/TRNSXJ FLP TUBE ABDL/VAG APPR UNI/BI OOPHORECTOMY PARTIAL/TOTAL UNI/BI 1993 Oophorectomy- right for cancer PAST SURGICAL HISTORY OF Right 2017 ORIF right 5th fx, done in [place], [place] TONSILLECTOMY PRIMARY/SECONDARY <AGE 12 Tonsillectomy ALLERGIES Morphine, Penicillin G, Penicillins, and Tramadol MEDICATIONS clindamycin (CLEOCIN) 150 mg capsule Take 2 capsules by mouth three times daily for 5 days. Lactobacillus acidophilus (FLORAJEN ACIDOPHILUS) 20 billion cell cap Take 460 mg by mouth once daily. gabapentin (NEURONTIN) 600 mg tablet Take 1 tablet by mouth three times daily for 90 days. Also take 1-2 tablets at bedtime as needed L. acidophilus-L. rhamnosus (PROBIOTIC) 15 billion cell cap Take 1 capsule by mouth once daily. triamcinolone (KENALOG) 0.025 % cream Apply to affected area twice daily. MULTIVITAMIN ORAL Take by mouth once daily. fluticasone-vilanterol (BREO ELLIPTA) 200-25 mcg/dose inhaler Inhale 1 Inhalation as instructed once daily. albuterol (PROVENTIL) 2.5 mg /3 mL (0.083 %) nebulizer solution Inhale by nebulizer over 5-15 minutes three (3) to four (4) times a day as needed for wheezing and shortness of breath albuterol HFA (VENTOLIN HFA) 90 mcg/actuation inhaler Inhale 2 Puffs as instructed every 4 hours asneeded for wheezing/shortness of breath. melatonin 3 mg tablet Take 1 tablet at ~6PM nightly. risperiDONE (RISPERDAL) 1 mg tablet Take 1 tablet by mouth once daily. omeprazole (PRILOSEC) 40 mg capsule Take 1 capsule by mouth once daily. traZODone (DESYREL) 100 mg tablet 2 tablets daily at bedtime. [facility] prazosin (MINIPRESS) 1 mg cap Gets from Counseling center. Takes 1 capsule during the day and 2 capsules at night. aspirin, enteric coated (ASPIRIN, ENTERIC COATED) 81 mg EC tablet Take 81 mg by mouth once daily. ibuprofen (MOTRIN) 400 mg tablet Take 400 mg by mouth every 6 hours as needed. FAMILY HISTORY Problem Relation Age of Onset Arthritis Mother Hypertension Mother Diabetes Father Hypertension Father Ischemic Heart Disease Father Colon Cancer Father Ovarian cancer Sister Cancer Sister unsure of site Breast Cancer Maternal Grandmother 40 Ischemic Heart Disease Maternal Grandfather Ischemic Heart Disease Paternal Grandfather Social History Tobacco Use Smoking status: Every Day Packs/day: 0.20 Years: 20.00 Pack years: 4.00 Types: Cigarettes Last attempt to quit: 2022 Years since quittin.1 Smokeless tobacco: Never Vaping Use Vaping Use: Never used Substance Use Topics Alcohol use: Not Currently Comment: states has not drank for over a year on 04-26-18 Drug use: No BP 122/74 Pulse 84 Temp 36.8 C (98.2 F) (Tympanic) Resp 16 Wt 81.9 kg (180 lb 9.6 oz) LMP12/25/1993 (Within Months) SpO2 98% BMI 31.19 kg/m Review of Systems Constitutional: Negative for chills, fever and malaise/fatigue. HENT: Negative for congestion, ear discharge, ear pain, sinus pain and sore throat. Eyes: Negative for blurred vision, pain, discharge and redness. Respiratory: Negative for cough, hemoptysis, sputum production, shortness of breath, wheezing and stridor. Cardiovascular: Negative for chest pain. Gastrointestinal: Negative for abdominal pain, diarrhea, nausea and vomiting. Musculoskeletal: Negative for myalgias. Skin: Negative for itching and rash. Neurological: Negative for dizziness and headaches. Objective Physical Exam Constitutional: General: She is not in acute distress. Appearance: She is not diaphoretic. HENT: Head: Normocephalic. Jaw: No trismus, tenderness, swelling or pain on movement. Mouth/Throat: Lips: [place]. Mouth: Mucous membranes are moist. Dentition: Abnormal dentition. Dental tenderness and dental caries present. No gingival swelling ordental abscesses. Pharynx: Oropharynx is clear. No pharyngeal swelling, oropharyngeal exudate, posterior oropharyngeal erythema or uvula swelling. Comments: No facial swelling or erythema noted. Eyes: Conjunctiva/sclera: Conjunctivae normal. Pupils: Pupils are equal, round, and reactive to light. Cardiovascular: Rate and Rhythm: Normal rate and regular rhythm. Heart sounds: Normal heart sounds. Pulmonary: Effort: Pulmonary effort is normal. No tachypnea, accessory muscle usage or respiratory distress. Breath sounds: Normal breath sounds. No stridor. No wheezing, rhonchi or rales. Musculoskeletal: Cervical back: Normal range of motion and neck supple. No rigidity or tenderness. No pain with movement. Normal range of motion. Lymphadenopathy: Cervical: No cervical adenopathy. Skin: General: Skin is warm and dry. Neurological: Mental Status: She is alert and oriented to person, place, and time. ASSESSMENT/PLAN: 1. Pain, dental - ICD9: 525.9, ICD10: K08.89 Diagnosed with dental pain. No evidence of bacterial infection noted. Follow-up with dentist as scheduled. OTC medications discussed with patient. Red flags for reevaluation discussed. Patient was educated on supportive therapies. Patient will follow up with primary care provider as needed. Patientwas instructed to immediately proceed to emergency room for any new, worsening, or symptoms lastinglonger than anticipated. The patient's clinical presentation is otherwise unremarkable at this time. Based on exam and clinical finding, the patient is stable for discharge. Plan of care was discussed with patient. Patient verbalizes understanding and agrees to plan of care. This note was generated using MDCapsule software. It may contain errors in wording, punctuation, or spelling. Felix Taylor APRN.APOLINAR documented in this encounterSelect [facility] [place] History of Present illness Narrative* Felix Taylor APRN.CNP - 11/02/2022 9:53 AM EST Images from the original note were not included. Subjective HPI Nontoxic-appearing female presents urgent care chief plaint dental pain. Duration of symptoms 2 days. Associated symptoms of mild facial swelling pain. Patient states she broke her tooth off late last year. Has had dental infections ever since. Does have a follow-up with a dentist but not for a fewweeks. Denies any OTC medications. States pain is worse with eating. Denies any difficulty swallowing handling secretions decreased range of motion of neck trismus difficulty opening jaw fully or pain of floor mouth. Denies chance of . Denies any fever body aches chills productive cough chest pain shortness of breath pleuritic pain hemoptysis nausea vomiting abdominal pain change in bowel or bladder habits. Past medical history prescription medication use and allergies reviewed. .Patient presents with: Dental Problem: Pt reported (RT) lower tooth pain, x2 days. PAST MEDICAL HISTORY Diagnosis Date Bipolar disease, chronic (HCC) Bronchitis, chronic (HCC) Fibromyalgia Hiatal hernia Lupus (HCC) Paranoid schizophrenia (HCC) Simple chronic bronchitis (HCC) Sleep apnea Tobacco use disorder PAST SURGICAL HISTORY Procedure Laterality Date LAPAROSCOPY SURG CHOLECYSTECTOMY 2003 Cholecystectomy, lap LIG/TRNSXJ FLP TUBE ABDL/VAG APPR UNI/BI OOPHORECTOMY PARTIAL/TOTAL UNI/BI 1993 Oophorectomy- right for cancer PAST SURGICAL HISTORY OF Right 2017 ORIF right [facility] fx, done in [place], [place] TONSILLECTOMY PRIMARY/SECONDARY <AGE 12 Tonsillectomy ALLERGIES Morphine, Penicillin G, Penicillins, and Tramadol MEDICATIONS gabapentin (NEURONTIN) 600 mg tablet Take 1 tablet by mouth three times daily for 90 days. Also take 1-2 tablets at bedtime as needed triamcinolone (KENALOG) 0.025 % cream Apply to affected area twice daily. MULTIVITAMIN ORAL Take by mouth once daily. fluticasone-vilanterol (BREO ELLIPTA) 200-25 mcg/dose inhaler Inhale 1 Inhalation as instructed once daily. albuterol (PROVENTIL) 2.5 mg /3 mL (0.083 %) nebulizer solution Inhale by nebulizer over 5-15 minutes three (3) to four (4) times a day as needed for wheezing and shortness of breath albuterol HFA (VENTOLIN HFA) 90 mcg/actuation inhaler Inhale 2 Puffs as instructed every 4 hours asneeded for wheezing/shortness of breath. melatonin 3 mg tablet Take 1 tablet at ~6PM nightly. risperiDONE (RISPERDAL) 1 mg tablet Take 1 tablet by mouth once daily. omeprazole (PRILOSEC) 40 mg capsule Take 1 capsule by mouth once daily. traZODone (DESYREL) 100 mg tablet 2 tablets daily at bedtime. [facility] ([facility]IPRESS) 1 mg cap [facility]. Takes 1 capsule during the day and 2 capsules at night. aspirin, enteric coated (ASPIRIN, ENTERIC COATED) 81 mg EC tablet Take 81 mg by mouth once daily. ibuprofen (MOTRIN) 400 mg tablet Take 400 mg by mouth every 6 hours as needed. L. acidophilus-L. rhamnosus (PROBIOTIC) 15 billion cell cap Take 1 capsule by mouth once daily. FAMILY HISTORY Problem Relation Age of Onset Arthritis Mother Hypertension Mother Diabetes Father Hypertension Father Ischemic Heart Disease Father Colon Cancer Father Ovarian cancer Sister Cancer Sister unsure of site Breast Cancer Maternal Grandmother 40 Ischemic Heart Disease Maternal Grandfather Ischemic Heart Disease Paternal Grandfather Social History Tobacco Use Smoking status: Every Day Packs/day: 0.20 Years: 20.00 Pack years: 4.00 Types: Cigarettes Last attempt to quit: 2022 Years since quittin.1 Smokeless tobacco: Never Vaping Use Vaping Use: Never used Substance Use Topics Alcohol use: Not Currently Comment: states has not drank for over a year on 04-26-18 Drug use: No BP 128/78 Pulse 74 Temp 37 C (98.6 F) (Tympanic) Resp 18 Wt 82.6 kg (182 lb 3.2 oz) LMP 12/25/1993 (Within Months) SpO2 98% BMI 31.47 kg/m Review of Systems Constitutional: Negative for chills, fever and malaise/fatigue. HENT: Negative for congestion, ear discharge, ear pain, sinus pain and sore throat. Eyes: Negative for blurred vision, pain, discharge and redness. Respiratory: Negative for cough, hemoptysis, sputum production, shortness of breath, wheezing and stridor. Cardiovascular: Negative for chest pain. Gastrointestinal: Negative for abdominal pain, diarrhea, nausea and vomiting. Musculoskeletal: Negative for myalgias. Skin: Negative for itching and rash. Neurological: Negative for dizziness and headaches. Objective Physical Exam Constitutional: General: She is not in acute distress. Appearance: She is not diaphoretic. HENT: Head: Normocephalic. Mouth/Throat: Mouth: Mucous membranes are moist. Dentition: Abnormal dentition. Dental tenderness and dental caries present. No dental abscesses. Pharynx: Oropharynx is clear. Uvula midline. No pharyngeal swelling, oropharyngeal exudate, posterior oropharyngeal erythema or uvula swelling. Eyes: Conjunctiva/sclera: Conjunctivae normal. Pupils: Pupils are equal, round, and reactive to light. Cardiovascular: Rate and Rhythm: Normal rate and regular rhythm. Heart sounds: Normal heart sounds. Pulmonary: Effort: Pulmonary effort is normal. No tachypnea, accessory muscle usage or respiratory distress. Breath sounds: Normal breath sounds. No stridor. No wheezing, rhonchi or rales. Abdominal: Palpations: Abdomen is soft. Tenderness: There is no abdominal tenderness. Musculoskeletal: Cervical back: Normal range of motion and neck supple. No edema, erythema, rigidity or tenderness. No pain with movement. Normal range of motion. Lymphadenopathy: Cervical: No cervical adenopathy. Skin: General: Skin is warm and dry. Neurological: Mental Status: She is alert and oriented to person, place, and time. ASSESSMENT/PLAN: 1. Dental infection - ICD9: 522.4, ICD10: K04.7 Diagnosed with dental infection. Placed on clindamycin. Has tolerated this antibiotic in the past. We discussed drug side effects and risk. Follow-up with dentist as scheduled. Red flags prompt reevaluation discussed. Patient was educated on supportive therapies. Patient will follow up with primary care provider as needed. Patient was instructed to immediately proceed to emergency room for any new, worsening, or symptoms lasting longer than anticipated. The patient's clinical presentation is otherwise unremarkable at this time. Based on exam and clinical finding, the patient is stable for discharge. Plan of care was discussed with patient. Patient verbalizes understanding and agrees to plan of care. This note was generated using MDCapsule software. It may contain errors in wording, punctuation, or spelling. Felix Taylor APRN.APOLINAR documented in this encounterSelect [facility] [place]01-09-2023 Procedure note* ORALIA Cabral - 09/04/2022 10:05 AM ESTAssociated Order(s): NITRIC OXIDE, EXHALED RESPIRATORY THERAPY ORAL EXHALED NITRIC OXIDE SERVICE DATE: 09/04/2022 SERVICE TIME: 10:05 AM Oral Exhaled Nitric Oxide measurement: 5.0 (ppb) Normal: Adult 5-20 ppb, pediatric (<12 years) 5-15 ppb High Normal / Increased: Adult 20-35 ppb, pediatric (<12 years) 15-25 ppb Moderately raised exhaled Nitric Oxide may indicate underlying inflammation, but note that: Cold and influenza can raise exhaled Nitric Oxide and some patients have higher baseline exhaled Nitric Oxide levels than others. High: Adult >35 ppb, pediatric (<12 years) >25 ppb Indicative of ongoing eosinophilic inflammation. Symptomatic patient likely to respond to steroids. Possible causes (if already on steroids): Poor compliance, recent allergen exposure, steroid dose inadequate, and steroid resistance. Note that not all patients with high exhaled nitric oxide levels display symptoms. Oral Exhaled Nitric Oxide measurement (Previous Encounters) Test Date Oral Exhaled Nitric Oxide (ppb) 09/04/2022 5.0 NAME: ORALIA Cabral PATIENT NAME: Meredith Lynch DATE: September 04, 2022 TIME: 10:05 AM documented in this encounterSelect [facility] [place]01-09-2023 History of Present illness Narrative* ORALIA Cabral - 09/04/2022 9:50 AM EST PULM FUNCTION SMARTBLOCK: Provider: Basia Bui MD Assisting Tech: ORALIA Cabral Spirometry: 1 Exhaled Nitric Oxide: 1 documented in this encounterSelect Medical [facility], [place]12-09-2022 History of Present illness Narrative* Alyssa Guerrero PA-C - 08/04/2022 7:34 AM EST This note was created using Patient Home Monitoringriter. Subjective Meredith Lynch is a 46 year old female. HPI Patient presents with dental pain over the past 2 days. She was seen on 07/17 and given 5 days of clindamycin. She did finish that. She states the past 2 days her face has been painful and more swollen today. No fever or nausea. She did feel little better while she was on the antibiotic. Review of Systems HENT: Positive for facial swelling. All other systems reviewed and are negative. PAST MEDICAL HISTORY Diagnosis Date Bipolar disease, chronic (HCC) Fibromyalgia Hiatal hernia Lupus (HCC) Paranoid schizophrenia (HCC) Simple chronic bronchitis (HCC) Sleep apnea Tobacco use disorder Current Outpatient Medications Medication Sig Dispense Refill gabapentin (NEURONTIN) 600 mg tablet Take 1 tablet by mouth three times daily for 90 days. Also take 1-2 tablets at bedtime as needed 150 tablet 2 triamcinolone (KENALOG) 0.025 % cream Apply to affected area twice daily. 30 g 2 MULTIVITAMIN ORAL Take by mouth. fluticasone-vilanterol (BREO ELLIPTA) 200-25 mcg/dose inhaler Inhale 1 Inhalation as instructed once daily. 1 Each 11 albuterol (PROVENTIL) 2.5 mg /3 mL (0.083 %) nebulizer solution Inhale by nebulizer over 5-15 minutes three (3) to four (4) times a day as needed for wheezing and shortness of breath 120 Vial 5 albuterol HFA (VENTOLIN HFA) 90 mcg/actuation inhaler Inhale 2 Puffs as instructed every 4 hours asneeded for wheezing/shortness of breath. 18 g 11 melatonin 3 mg tablet Take 1 tablet at ~6PM nightly. 30 tablet 2 risperiDONE (RISPERDAL) 1 mg tablet Take 1 tablet by mouth once daily. omeprazole (PRILOSEC) 40 mg capsule Take 1 capsule by mouth once daily. traZODone (DESYREL) 100 mg tablet 2 tablets daily at bedtime. [facility] 1 prazosin (MINIPRESS) 1 mg cap [facility] from [facility]. Takes 1 capsule during the day and 2 capsules at night. 1 aspirin, enteric coated (ASPIRIN, ENTERIC COATED) 81 mg EC tablet Take 81 mg by mouth once daily. ibuprofen (MOTRIN) 400 mg tablet Take 400 mg by mouth. clindamycin (CLEOCIN) 150 mg capsule Take 2 capsules by mouth three times daily for 10 days. 60 capsule 0 L. acidophilus-L. rhamnosus (PROBIOTIC) 15 billion cell cap Take 1 capsule by mouth once daily. 30 capsule 0 No current facility-administered medications for this visit. PAST SURGICAL HISTORY Procedure Laterality Date LAPAROSCOPY SURG CHOLECYSTECTOMY 2003 Cholecystectomy, lap LIG/TRNSXJ FLP TUBE ABDL/VAG APPR UNI/BI OOPHORECTOMY PARTIAL/TOTAL UNI/BI 1993 Oophorectomy- right for cancer PAST SURGICAL HISTORY OF Right 2017 ORIF right [facility] fx, done in [place], [place] TONSILLECTOMY PRIMARY/SECONDARY <AGE 12 Tonsillectomy FAMILY HISTORY Problem Relation Age of Onset Arthritis Mother Hypertension Mother Diabetes Father Hypertension Father Ischemic Heart Disease Father Colon Cancer Father Ovarian cancer Sister Cancer Sister unsure of site Breast Cancer Maternal Grandmother 40 Ischemic Heart Disease Maternal Grandfather Ischemic Heart Disease Paternal Grandfather Social History Tobacco Use Smoking status: Every Day Packs/day: 0.20 Years: 20.00 Pack years: 4.00 Types: Cigarettes Smokeless tobacco: Never Tobacco comments: 2 cigs a day, prior 1 ppd Vaping Use Vaping Use: Never used Substance Use Topics Alcohol use: Not Currently Comment: states has not drank for over a year on 04-26-18 Drug use: No Objective BP 122/84 Pulse 60 Temp 36.4 C (97.5 F) (Tympanic) Resp 18 Wt 92.1 kg (203 lb) LMP 09/30/2012 SpO2 97% BMI 37.13 kg/m Physical Exam Vitals reviewed. Constitutional: Appearance: Normal appearance. HENT: Head: Comments: Patient has moderate facial swelling on the left side of her cheek extending up to the lower eyelid. No induration. Some mild erythema. She does have a broken tooth on the upper left #13. No sign of drainable abscess. Neurological: Mental Status: She is alert. Assessment and Plan ASSESSMENT/PLAN: 1. Dental infection - ICD9: 522.4, ICD10: K04.7 Patient has an appointment with [facility] dentist in August. Discussed keeping this appointment. Red flags to be seen again discussed. Patient agreeable. Alyssa Guerrero PA-C documented in this encounterSelect Medical [facility], [place]11-11-2022 Miscellaneous Notes* Telephone Encounter - Jonas Harrison APRN.CNP - 07/07/2022 11:50 AM EST The following approved medication requests have been transmitted electronically. Requested Prescriptions Pending Prescriptions Disp Refills gabapentin (NEURONTIN) 600 mg tablet 150 tablet 2 Sig: Take 1 tablet by mouth three times daily for 90 days. Also take 1-2 tablets at bedtime as needed Jonas Harrison APRN.APOLINAR * Telephone Encounter - Ofelia Del Rio RN - 07/07/2022 11:06 AM EST Last Office Visit: 05/10/2022 Future Office Visit: 10/24/2022 Requested Prescriptions Pending Prescriptions Disp Refills gabapentin (NEURONTIN) 600 mg tablet 150 tablet 2 Sig: Take 1 tablet by mouth three times daily for 90 days. Also take 1-2 tablets at bedtime as needed Date of Last Labs: 04/25/2022 documented in this [facility]10-26-2022 Miscellaneous Notes* Telephone Encounter - Hoa Mckay LPN - 06/21/2022 1:09 PM EDT Patient notified of results, verbalizes understanding of instructions. Hoa Mckay LPN * Telephone Encounter - Ellen Woods APRN.CNP - 06/21/2022 1:06 PM EDT Can you please call the patient and let her know that her chest x-ray was normal. No signs of residual pneumonia noted. Please let me know if she has any questions. Thank you. Ellen Woods APRN.CNP documented in this encounterSelect Medical [facility], [place]10-24-2022 History of Present illness Narrative* Ruben Degroot RT(Garcia) - 06/19/2022 8:00 AM EDT Radiology Service Progress Note PATIENT NAME: Meredith Lynch DATE OF SERVICE: June 19, 2022 TIME: 8:06 AM PATIENT IDENTITY VERIFICATION COMPLETED USING TWO (2) IDENTIFIERS: Name and Date of confirmedby patient verbally. FALL SCREENING: Has the patient had 2 falls in the last year or 1 fall with injury or currently using an Ambulatory Assistive Device (Walker, Cane, Wheelchair, Crutches, etc.)? No PATIENT GENDER DATA: Female. status: : No status: NO. PATIENT RELEVANT IMPLANT DATA REVIEWED: Not Applicable RADIOLOGY DEPARTMENT: General X-ray: Exam(s) Completed: Chest X-Ray PERIPHERAL IV DATA: Not applicable SIGNED BY: RT Leonard(Garcia) June 19, 2022 8:06 AM documented in this encounterSelect Medical [facility], [place]09-14-2022 Instructions* Patient Instructions* Ellen Woods APRN.CNP - 05/10/2022 3:05 PM EDT 1.) Get repeat chest xray in 1 month. 06/09/2022 2.) Continue to take all medication as prescribed. 3.) May use any over the counter cold and cough medication as needed for symptoms management. 4.) Red flag symptoms go to ER. 5.) Follow up as needed. Work note provider documented in this encounterSelect [facility], [place]09-14-2022 History of Present illness Narrative* Ellen Woods APRN.CNP - 05/10/2022 2:40 PM EDT This is a 46 year old female who presents today with: Patient presents with: Follow Up: Hosp follow up from [facility] HISTORY OF PRESENT ILLNESS: Meredith Lynch is a 46 year old female. Patient presents with: Follow Up: Hosp follow up from [facility] HOSPITAL/ER FOLLOW UP: Reason for visit: SOB Which facility: [facility] ER Date of visit: 05/02/2022-05/04/2022 Diagnosis: Acute dyspnea, pneumonia, COPD with acute exacerbation Testing done: Chest x-ray showed patchy groundglass opacities in both lungs more prominent in the prevascular region suggesting pulmonary edema. Treatment given: Discharged on Levaquin 750 mg daily for 5 days and prednisone burst 40 mg daily for 5 days. Was given oxygen in the hospital and weaned off. Current symptoms: Just finished the antibiotic and has a couple more days of prednisone. Still having some mild chest pressure with exertion. Having ongoing fatigue. Symptoms improve with rest. 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 Will get dizzy at times with certain movements. Cut back to 1 cigarette per day with a goal to quit by next week. No cough, fever, or chills. Refers that at the hospital there was concern for possible CHF and was told to follow-up with cardiology. PAST MEDICAL HISTORY: PAST MEDICAL HISTORY Diagnosis Date Bipolar disease, chronic (HCC) Fibromyalgia Hiatal hernia Lupus (HCC) Paranoid schizophrenia (HCC) Simple chronic bronchitis (HCC) Sleep apnea Tobacco use disorder PAST SURGICAL HISTORY Procedure Laterality Date LAPAROSCOPY SURG CHOLECYSTECTOMY 2003 Cholecystectomy, lap LIG/TRNSXJ FLP TUBE ABDL/VAG APPR UNI/BI OOPHORECTOMY PARTIAL/TOTAL UNI/BI 1993 Oophorectomy- right for cancer PAST SURGICAL HISTORY OF Right 2017 ORIF right [facility] fx, done in [place], [place] TONSILLECTOMY PRIMARY/SECONDARY <AGE 12 Tonsillectomy ALLERGIES Morphine, Penicillin G, and Tramadol MEDICATIONS Current Outpatient Medications Medication Sig triamcinolone (KENALOG) 0.025 % cream Apply to affected area twice daily. gabapentin (NEURONTIN) 600 mg tablet Take 1 tablet by mouth three times daily for 90 days. Also take 1-2 tablets at bedtime as needed MULTIVITAMIN ORAL Take by mouth. fluticasone-vilanterol (BREO ELLIPTA) 200-25 mcg/dose inhaler Inhale 1 Inhalation as instructed once daily. albuterol (PROVENTIL) 2.5 mg /3 mL (0.083 %) nebulizer solution Inhale by nebulizer over 5-15 minutes three (3) to four (4) times a day as needed for wheezing and shortness of breath albuterol HFA (VENTOLIN HFA) 90 mcg/actuation inhaler Inhale 2 Puffs as instructed every 4 hours asneeded for wheezing/shortness of breath. melatonin 3 mg tablet Take 1 tablet at ~6PM nightly. risperiDONE (RISPERDAL) 1 mg tablet Take 1 tablet by mouth once daily. omeprazole (PRILOSEC) 40 mg capsule Take 1 capsule by mouth once daily. traZODone (DESYREL) 100 mg tablet 2 tablets daily at bedtime. [facility] prazosin (MINIPRESS) 1 mg cap [facility]. Takes 1 capsule during the day and 2 capsules at night. aspirin, enteric coated (ASPIRIN, ENTERIC COATED) 81 mg EC tablet Take 81 mg by mouth once daily. ibuprofen (MOTRIN) 400 mg tablet Take 400 mg by mouth. No current facility-administered medications for this visit. FAMILY HISTORY Problem Relation Age of Onset Arthritis Mother Hypertension Mother Diabetes Father Hypertension Father Ischemic Heart Disease Father Colon Cancer Father Ovarian cancer Sister Cancer Sister unsure of site Breast Cancer Maternal Grandmother 40 Ischemic Heart Disease Maternal Grandfather Ischemic Heart Disease Paternal Grandfather Social History Tobacco Use Smoking status: Every Day Packs/day: 0.20 Years: 20.00 Pack years: 4.00 Types: Cigarettes Smokeless tobacco: Never Tobacco comments: 2 cigs a day, prior 1 ppd Vaping Use Vaping Use: Never used Substance Use Topics Alcohol use: Not Currently Comment: states has not drank for over a year on 04-26-18 Drug use: No REVIEW OF SYSTEMS GENERAL: No weight loss, malaise or fevers/chills HEENT: Negative for frequent or significant headaches, No changes in hearing or vision. NECK: Negative for lumps, goiter, pain and significant neck swelling RESPIRATORY: Negative for cough, hemoptysis, wheezing, dyspnea or shortness of breath CARDIOVASCULAR: + Chest Pressure with exertion GI: No nausea, vomiting, or diarrhea/constipation. No hematochezia/melena. No heartburn or reflux symptoms. : No history of dysuria, frequency or incontinence MUSCULOSKELETAL: Negative for joint pain or swelling. SKIN: Negative for lesions, rash, and itching ENDOCRINE: Negative for cold or heat intolerance, polyuria, polydipsia and goiter NEURO: No history of headaches, syncope, paralysis, seizures or tremors MOOD: Negative for depression, anxiety, or suicidal ideation. EXAM: BP 116/78 Pulse 106 Resp 20 Wt 83 kg (183 lb) LMP 09/30/2012 SpO2 96% BMI 33.47 kg/m PHYSICAL EXAM: General Appearance: Well appearing, alert, in no acute distress, well-hydrated, well nourished. Skin: Skin color, texture, turgor normal, no suspicious rashes or lesions. Head: Normocephalic, no masses, lesions, tenderness or abnormalities. Eyes: Anicteric sclera. Extraocular movements are intact. Lungs: Lungs clear to auscultation. No wheezing, rhonchi, rales. Heart: RRR without murmur, gallop, or rubs. No ectopy. Extremities: No deformities, edema, skin discoloration, clubbing or cyanosis. Good capillary refill. Peripheral Pulses: Normal, Capillary refill <2secs, strong peripheral pulses, Pulses palpable. Neurologic: Gait normal. Reflexes normal and symmetric. Sensation grossly intact. ASSESSMENT/PLAN: 1. Hospital discharge follow-up - ICD9: V67.59, ICD10: Z09 (primary diagnosis) - Symptoms are improving since discharge. - Denies wanting consult to cardiology to discuss possible CHF, would like to wait until repeat chest x-ray is completed. 2. History of pneumonia - ICD9: V12.61, ICD10: Z87.01 - Continue to take all medication as prescribed. - Get repeat chest xray in 1 month. - Red flag symptoms given to patient, she verbalizes understanding when to seek emergency care. - XR CHEST 2V FRONTAL/LAT Follow-up pending test results or sooner as needed. Discussed treatment plan and patient voices understanding. Patient's questions answered appropriately. Medications and potential side effects were discussed and patient voices understanding. Ellen Woods APRN.CNP This note was partially generated using MDCapsule voice recognition system. Note was reviewed for accuracy. There may be minor misspellings or grammar miscues with creadson voice recognition. documented in this encounterSelect Medical [facility] [place]-12-2022 Miscellaneous Notes* Telephone Encounter - Kiarra Waldron MA - 05/08/2022 1:03 PM EDT Patient active MyChart. Patient notified via Hachiko message. Kiarra Waldron MA * Telephone Encounter - Jonas Harrison APRN.CNP - 05/08/2022 12:19 PM EDT Patient would need a visit with a provider or go to express care if openings do not go with her availability. Jonas Harrison APRN.CNP documented in this encounterSelect Medical [facility], [place]09-09-2022 Miscellaneous Notes* Telephone Encounter - Hoa Mckay LPN - 05/05/2022 10:27 AM EDT TRANSITION CARE MANAGEMENT (TCM) INITIAL CONTACT Continuous Improvement Manager Outreach Provider Action/FYI: LM for pt to call. Attempt #1 Initial contact with patient post discharge, spoke to remarks: LM for pt to call . Patient identified by name and . TRANSITION CARE MANAGEMENT INITIAL OUTREACH DOCUMENTATION: LM for pt to call SUMMARY: -Pt discharged from [facility] on 05/04/22. -Admitted for: Acute Dspnea, PNE, Hypoxia Do you have a hospital follow up appointment with your PCP? Appointment on 05/10/22 with Darion Woods. Yes. Remind patient of appointment date, time, and location. If not within 14 calendar days of discharge - please reschedule accordingly. MEDICATIONS: Many patients have questions or concerns about their medications once they are home. Were you prescribed any new medications? Yes Were you told to hold any medications? No Were any of your medications discontinued? No Do you have any questions about getting or taking your medications? No Your discharge instructions/After visit Summary (AVS) are important in guiding you through the recovery process. Is there anything I might help you understand? No Do you have all the necessary equipment and supplies at home? Yes Medical records from recent hospitalization: Requested from outside hospital documented in this encounterSelect Medical [facility] [place]09-08-2022 Miscellaneous Notes* Telephone Encounter - Venita Osei - 05/04/2022 8:39 AM EDT Called patient ph number on file. Spoke with pt mother. She stated that Meredith is currently still in hospital and should be released today or tomorrow. She will call back to schedule GI. Venita Osei * Telephone Encounter - Jonas Harrison APRN.CNP - 05/04/2022 7:52 AM EDT Referral filed. Jonas Harrison APRN.APOLINAR * Telephone Encounter - Dilia Bender Ma - 05/03/2022 1:01 PM EDT Please file GI order. Once filed, route to scheduling to contact pt to assist. Dilia Bender Ma * Telephone Encounter - Antonia De Souza LPN - 05/03/2022 8:38 AM EDT Pt has been notified of results & referral information, pt verbalizes understanding. Please call to schedule with GI when referral has been signed. Antonia De Souza LPN * Telephone Encounter - Dilia Bender Ma - 05/02/2022 3:58 PM EDT Pt currently admitted at [facility] due to sob due to COPD. Please see PCP's message. Can you file consult that's been ordered. Dilia Bender Ma * Telephone Encounter - Kiarra Leyva Cma - 05/02/2022 8:57 AM EDT Left message for patient to return call to office Kiarra Leyva Cma * Telephone Encounter - Juanis Waldrop MD - 04/28/2022 5:22 PM EDT Please notify patient that her lab results show that she is positive for Hepatitis C. I would suggest GI consult for further evaluation and possible treatment for this. Juanis Waldrop MD documented in this encounterSelect Medical [facility], [place]09-02-2022 Miscellaneous Notes* Telephone Encounter - Leeann Herman RN - 04/28/2022 9:57 AM EDT Pt called in and reports she was not able to do her Cpap titration because her insurance was messedup. Talked with Dr King's nurse and she said to have her do appointment as set up she would call her back if needed to reschedule. Phone dropped call. Called her mother to give her the message. * Telephone Encounter - Teena Dumont LPN - 04/28/2022 9:57 AM EDT Patient returned call and stated that due to insurance she cancelled the study. * Telephone Encounter - Teena Dumont LPN - 04/28/2022 9:41 AM EDT Patient was to have a CPAP titration completed at [facility] Sleep Lab. Contact the sleep lab and patient no showed on 03/08/22. Attempted to reach patient but not available at this time. Asked that she calls office back. Question if she had titration completed else where. documented in this encounterSelect Medical [facility], [place]08-29-2022 History of Present illness Narrative* Juanis Waldrop MD - 04/24/2022 2:00 PM EDT Chief Complaint Patient presents with: F/U 6 months HPI Meredith Lynch is a 46 year old female who presents here today for a 6 month follow up. Pt here today for a 6 month follow up. Denies doing too much this summer. Tobacco - Smoking two cigarettes per day, trying to quit. States that there are days that she doesn't smoke at all. GERD - On current regimen of Prilosec 40 mg once daily. At times she will have a burning sensation when swallowing. Notes that about once a week she will vomit. Insomnia/RLS - Following with Neuro, Dr. King. On current regimen of Trazodone 100 mg 2 tabs po once daily and Melatonin. Pt scheduled to have PSG Titration completed, this would be her second one due to PSG showing BRIGITTE. States her sleep stinks. Fibro - Reports that she's been taking more OTC Ibuprofen then usual in addition to her Gabapentin 600 mg 1 caps po TID to QID. Pain waxes and wanes. COPD - Follows with Pulm, Dr. Bui. Trying to quit smoking. Feels breathing is stable on current regimen of Breo Ellipta inhaler daily and Albuterol solution prn. Derm - Reports bumps/rash on b/l arms that have not improved or changed. Denies much itching, but she itches it due to feeling the bumps. Sometimes notes some pain, like a stabbing/burning pain if she touches it. Has used OTC Cortisone cream. Denies any change in her regimen. Did have an area on her lower legs, but this has resolved. Unsure if this is related to her Lupus. Rheum - Hx of Lupus and Fibro. Currently not following with anyone due to not being able to get to [place] and there's no one locally. Reports swelling in joints in arms, knees and ankles. Psych - Follows with Jessika Martinez for psych medications. Denies any labs being completed at thistime. HM - Declines Covid vaccines. Agrees to Hep C and HIV Screening. Mammogram ordered. Past medical history, appointments, medications, allergies reviewed. Previous Medical History PAST MEDICAL HISTORY Diagnosis Date Bipolar disease, chronic (HCC) Fibromyalgia Hiatal hernia Lupus (HCC) Paranoid schizophrenia (HCC) Simple chronic bronchitis (HCC) Sleep apnea Tobacco use disorder Previous Surgical History PAST SURGICAL HISTORY Procedure Laterality Date LAPAROSCOPY SURG CHOLECYSTECTOMY 2003 Cholecystectomy, lap LIG/TRNSXJ FLP TUBE ABDL/VAG APPR UNI/BI OOPHORECTOMY PARTIAL/TOTAL UNI/BI 1993 Oophorectomy- right for cancer PAST SURGICAL HISTORY OF Right 2017 ORIF right [facility]th [facility] fx, done in [place], [place] TONSILLECTOMY PRIMARY/SECONDARY <AGE 12 Tonsillectomy Family History FAMILY HISTORY Problem Relation Age of Onset Arthritis Mother Hypertension Mother Diabetes Father Hypertension Father Ischemic Heart Disease Father Colon Cancer Father Ovarian cancer Sister Cancer Sister unsure of site Breast Cancer Maternal Grandmother 40 Ischemic Heart Disease Maternal Grandfather Ischemic Heart Disease Paternal Grandfather Patient Allergies ALLERGIES Allergen Reactions Morphine Other: See Comments Chest pain Penicillin G Rash Tramadol Rash Current Medications Current Outpatient Medications on File Prior to Visit Medication Sig gabapentin (NEURONTIN) 600 mg tablet Take 1 tablet by mouth three times daily for 90 days. Also take 1-2 tablets at bedtime as needed benzonatate (TESSALON PERLES) 100 mg capsule Take 2 capsules by mouth three times daily as needed. clindamycin (CLEOCIN) 300 mg capsule Take 1 capsule by mouth four times daily. MULTIVITAMIN ORAL Take by mouth. fluticasone-vilanterol (BREO ELLIPTA) 200-25 mcg/dose inhaler Inhale 1 Inhalation as instructed once daily. albuterol (PROVENTIL) 2.5 mg /3 mL (0.083 %) nebulizer solution Inhale by nebulizer over 5-15 minutes three (3) to four (4) times a day as needed for wheezing and shortness of breath albuterol HFA (VENTOLIN HFA) 90 mcg/actuation inhaler Inhale 2 Puffs as instructed every 4 hours asneeded for wheezing/shortness of breath. melatonin 3 mg tablet Take 1 tablet at ~6PM nightly. risperiDONE (RISPERDAL) 1 mg tablet Take 1 tablet by mouth once daily. omeprazole (PRILOSEC) 40 mg capsule Take 1 capsule by mouth once daily. traZODone (DESYREL) 100 mg tablet 2 tablets daily at bedtime. [facility] prazosin (MINIPRESS) 1 mg cap [facility] from [facility]. Takes 1 capsule during the day and 2 capsules at night. aspirin, enteric coated (ASPIRIN, ENTERIC COATED) 81 mg EC tablet Take 81 mg by mouth once daily. ibuprofen (MOTRIN) 400 mg tablet Take 400 mg by mouth. No current facility-administered medications on file prior to visit. Social History Social History Tobacco Use Smoking status: Every Day Packs/day: 0.20 Years: 20.00 Pack years: 4.00 Types: Cigarettes Smokeless tobacco: Never Tobacco comments: 2 cigs a day, prior 1 ppd Vaping Use Vaping Use: Never used Substance Use Topics Alcohol use: Not Currently Comment: states has not drank for over a year on 04-26-18 Drug use: No EXAM: BP 124/72 (BP Site: Left Arm, BP Position: Sitting, BP Cuff Size: Regular Adult) Pulse 84 Resp 20 Wt 81.6 kg (180 lb) LMP 09/30/2012 BMI 32.92 kg/m General Appearance: Well appearing, alert, in no acute distress, well-hydrated, well nourished. andOverweight. Skin: Red bumps noted on bilateral arms on exam. Lungs: Lungs clear to auscultation. No wheezing, rhonchi, rales. Heart: RRR without murmur, gallop, or rubs. No ectopy. Health Maintenance List HEPATITIS B(1 of 3 - 3-dose series) Never done HEPATITIS C SCREENING Never done HIV SCREENING Never done ALPHA-1 ANTITRYPSIN DEFICIENCY SCREENING Never done PNEUMOCOCCAL(2 - PCV) due on 09/14/2016 LIPID SCREEN due on 12/17/2020 MAMMOGRAM due on 01/07/2022 COVID-19 VACCINE(1) due on 04/21/2022 DEPRESSION SCREENING due on 04/21/2022 INFLUENZA(1) due on 04/27/2022 ANNUAL PCP TEAM CHRONIC DISEASE VISIT due on 10/24/2022 DIABETES SCREEN due on 04/18/2024 PAP TESTING due on 01/18/2026 HPV TESTING due on 01/18/2026 COLORECTAL CANCER SCREENING due on 02/24/2026 DTAP,TDAP,TD(4 - Td or Tdap) due on 09/19/2028 SPIROMETRY Completed Data reviewed None ASSESSMENT/PLAN: 1. Fibromyalgia - ICD9: 729.1, ICD10: M79.7 (primary diagnosis) Continue current medications. 2. GERD without esophagitis - ICD9: 530.81, ICD10: K21.9 3. RLS (restless legs syndrome) - ICD9: 333.94, ICD10: G25.81 Continue current medications. 4. Insomnia, unspecified type - ICD9: 780.52, ICD10: G47.00 5. BRIGITTE (obstructive sleep apnea) - ICD9: 327.23, ICD10: G47.33 6. Lupus (HCC) - ICD9: 710.0, ICD10: M32.9 7. Chronic obstructive pulmonary disease, unspecified COPD type (HCC) - ICD9: 496, ICD10: J44.9 8. Paranoid schizophrenia (HCC) - ICD9: 295.30, ICD10: F20.0 9. Cigarette smoker - ICD9: 305.1, ICD10: F17.210 10. Skin inflammation - ICD9: 686.9, ICD10: L08.9 - Kenalog cream 11. Screening for HIV (human immunodeficiency virus) - ICD9: V73.89, ICD10: Z11.4 12. Need for hepatitis C screening test - ICD9: V73.89, ICD10: Z11.59 Check labs; notify of results 6 month follow up. I agree with the Chief Complaint, ROS, and Past Histories independently gathered by the clinical pharmacy retail support specialist and the remaining scribed note accurately describes my personal service to the patient. Medical Decision Making: Problems: Moderate: 2+ stable chronic illnesses Data: Unique test(s) ordered: 3+ Risk: Moderate: Drug management Medical Decision Making Level: 4 - Moderate Juanis Waldrop MD The documentation for this note was completed by Dilia Bender Ma acting as scribe for Juanis Waldrop MD. April 24, 2022 2:33 PM. Dilia Bender Ma documented in this encounterSelect Medical [facility], [place]08-11-2022 Miscellaneous Notes* Telephone Encounter - Juanis Waldrop MD - 04/06/2022 4:30 PM EDT OK to refill as ordered Juanis Waldrop MD * Telephone Encounter - Dilia Bender Ma - 04/06/2022 3:17 PM EDT Upcoming appt scheduled 04/24/22 Last Rx: 01/02/22 #150 w/2. Dilia Bender Ma * Telephone Encounter - Leeann Lucas - 04/06/2022 2:59 PM EDT Patient has been identified by name and date of : Yes Last office visit in this department: 10/24/2021 RX INSTRUCTIONS: Patient aware RX will be sent to pharmacy. No need to notify patient. Patient phones requesting refills as follows: Requested Prescriptions Pending Prescriptions Disp Refills gabapentin (NEURONTIN) 600 mg tablet 150 tablet 2 Sig: Take 1 tablet by mouth three times daily for 90 days. Also take 1-2 tablets at bedtime as needed Please review and advise. Leeann Lucas documented in this encounterSelect Medical [facility], [place]07-21-2022 Miscellaneous Notes* Telephone Encounter - GERRI Jamil - 03/16/2022 2:50 PM EDT Called [facility] Sleep Lab to request results of patient's PSG scheduled on 03/08. Patient was a no show for appointment. GERRI Jamil documented in this encounterSelect Medical [facility], [place]05-28-2022 History of Present illness Narrative* Alyssa Guerrero PA-C - 01/21/2022 12:19 PM EDT This note was created using [employer]. Subjective Meredith Lynch is a 46 year old female. HPI Patient presents with cough and congestion over the past 2 days. She has been wheezing. She does have a history of COPD. She has had to use her rescue inhaler. She is also on Breo. She does continue to smoke. No fever. No chest pain or shortness of breath. Her daughter is here with similar symptoms. No vomiting or diarrhea. She has not had COVID recently. Review of Systems Constitutional: Negative. HENT: Positive for congestion and sore throat. Negative for ear pain. Respiratory: Positive for cough and wheezing. Negative for shortness of breath. Cardiovascular: Negative. Gastrointestinal: Negative. Genitourinary: Negative. Musculoskeletal: Negative. All other systems reviewed and are negative. PAST MEDICAL HISTORY Diagnosis Date Bipolar disease, chronic (HCC) Fibromyalgia Hiatal hernia Lupus (HCC) Paranoid schizophrenia (HCC) Simple chronic bronchitis (HCC) Sleep apnea Tobacco use disorder Current Outpatient Medications Medication Sig Dispense Refill gabapentin (NEURONTIN) 600 mg tablet Take 1 tablet by mouth three times daily for 90 days. Also take 1-2 tablets at bedtime as needed 150 tablet 2 clindamycin (CLEOCIN) 300 mg capsule Take 1 capsule by mouth four times daily. 40 capsule 0 MULTIVITAMIN ORAL Take by mouth. fluticasone-vilanterol (BREO ELLIPTA) 200-25 mcg/dose inhaler Inhale 1 Inhalation as instructed once daily. 1 Each 11 albuterol (PROVENTIL) 2.5 mg /3 mL (0.083 %) nebulizer solution Inhale by nebulizer over 5-15 minutes three (3) to four (4) times a day as needed for wheezing and shortness of breath 120 Vial 5 albuterol HFA (VENTOLIN HFA) 90 mcg/actuation inhaler Inhale 2 Puffs as instructed every 4 hours asneeded for wheezing/shortness of breath. 18 g 11 melatonin 3 mg tablet Take 1 tablet at ~6PM nightly. 30 tablet 2 risperiDONE (RISPERDAL) 1 mg tablet Take 1 tablet by mouth once daily. omeprazole (PRILOSEC) 40 mg capsule Take 1 capsule by mouth once daily. traZODone (DESYREL) 100 mg tablet 2 tablets daily at bedtime. Gets from [facility] 1 prazosin (MINIPRESS) 1 mg cap [facility]. Takes 1 capsule during the day and 2 capsules at night. 1 aspirin, enteric coated (ASPIRIN, ENTERIC COATED) 81 mg EC tablet Take 81 mg by mouth once daily. ibuprofen (MOTRIN) 400 mg tablet Take 400 mg by mouth. predniSONE (DELTASONE) 20 mg tablet Take 2 tablets by mouth once daily for 5 days. 10 tablet 0 benzonatate (TESSALON PERLES) 100 mg capsule Take 2 capsules by mouth three times daily as needed. 30 capsule 0 guaiFENesin (MUCINEX) 600 mg 12 hr tablet Take 2 tablets by mouth twice daily for 5 days. 20 tablet0 No current facility-administered medications for this visit. PAST SURGICAL HISTORY Procedure Laterality Date LAPAROSCOPY SURG CHOLECYSTECTOMY 2003 Cholecystectomy, lap LIG/TRNSXJ FLP TUBE ABDL/VAG APPR UNI/BI OOPHORECTOMY PARTIAL/TOTAL UNI/BI 1993 Oophorectomy- right for cancer PAST SURGICAL HISTORY OF Right 2017 ORIF right [facility] fx, done in [place], [place] TONSILLECTOMY PRIMARY/SECONDARY <AGE 12 Tonsillectomy FAMILY HISTORY Problem Relation Age of Onset Arthritis Mother Hypertension Mother Diabetes Father Hypertension Father Ischemic Heart Disease Father Colon Cancer Father Ovarian cancer Sister Cancer Sister unsure of site Breast Cancer Maternal Grandmother 40 Ischemic Heart Disease Maternal Grandfather Ischemic Heart Disease Paternal Grandfather Social History Tobacco Use Smoking status: Current Every Day Smoker Packs/day: 0.20 Years: 20.00 Pack years: 4.00 Types: Cigarettes Smokeless tobacco: Never Used Tobacco comment: 2 cigs a day, prior 1 ppd Vaping Use Vaping Use: Never used Substance Use Topics Alcohol use: Not Currently Comment: states has not drank for over a year on 04-26-18 Drug use: No Objective BP 122/76 Pulse 77 Temp 36.4 C (97.6 F) Resp 18 Wt 85.5 kg (188 lb 9.6 oz) LMP 09/30/2012 SpO2 98% BMI 34.50 kg/m Physical Exam Vitals reviewed. Constitutional: Appearance: Normal appearance. HENT: Head: Normocephalic and atraumatic. Right Ear: Tympanic membrane, ear canal and external ear normal. Left Ear: Tympanic membrane, ear canal and external ear normal. Nose: Congestion present. Mouth/Throat: Mouth: Mucous membranes are moist. Pharynx: Oropharynx is clear. Cardiovascular: Rate and Rhythm: Normal rate and regular rhythm. Heart sounds: Normal heart sounds. Pulmonary: Effort: Pulmonary effort is normal. Breath sounds: Normal breath sounds. Musculoskeletal: Cervical back: Neck supple. Skin: General: Skin is warm and dry. Neurological: Mental Status: She is alert. Assessment and Plan ASSESSMENT/PLAN: 1. Viral URI - ICD9: 465.9, ICD10: J06.9 - Discussed viral etiology and rationale for treatment. - Symptomatic treatment with prn analgesia - Supportive care with fluids and rest - Follow up in 3-5 days if symptoms persist or sooner if worsening of symptoms - COVID WITH FLUA+B, ROUTINE Alyssa Guerrero PA-C documented in this encounterSelect Medical [facility], [place]05-09-2022 Miscellaneous Notes* Telephone Encounter - Renetta Escobar Ma - 01/02/2022 3:30 PM EDT Last office visit: 10/24/21 F/u scheduled: 04/24/22 Last refilled on: Gabapentin #150 with 2 refills on 10/05/21 Renetta Escobar Ma documented in this encounterSelect Medical [facility], [place]05-09-2022 Miscellaneous Notes* Telephone Encounter - Kellee Madrigal LPN - 01/02/2022 2:46 PM EDT Received fax from [facility] Sleep disorder center stating patient had no showed sleep study. Spoke with patient and she requested [facility] call her to reschedule appointment. Faxed request back to [facility] Sleep disorder lab to call patient and assist in re- scheduling sleep study. Kellee Madrigal LPN documented in this encounterSelect Medical [facility], [place]04-20-2022 Miscellaneous Notes* Telephone Encounter - Renetta Escobar Ma - 12/14/2021 12:34 PM EDT Pt notified. Renetta Escobar Ma * Telephone Encounter - Juanis Waldrop MD - 12/14/2021 12:15 PM EDT OK for Clindamycin as ordered Juanis Waldrop MD * Telephone Encounter - Leeann Herman RN - 12/14/2021 8:30 AM EDT Pt called in and reports she has an infected tooth and she goes to the [facility] and they can't get her in until February. She reports she has an 8/10 sharp achy pain in her front teeth. States it is hard to eat and drink and her throat is sore. Pt report the side of her tongue is red and sore. Pt denies any facial/jaw/throat swelling, fever, or pus. Pt is asking if provider would send an antibiotic to [facility] in [place] for her. Please call and advise. documented in this encounterSelect Medical [facility], [place]03-31-2022 Miscellaneous Notes* Telephone Encounter - Yarely Streeter RN - 11/24/2021 1:46 PM EDT Mammogram scheduled for 11/28/2021. Yarely Streeter RN * Telephone Encounter - Yarely Streeter RN - 11/01/2021 2:11 PM EST Meredith was originally scheduled for a 6 month follow up mammogram and ultrasound (if needed) on 10/10/2021, that appointment was rescheduled to 10/31/2021. The 10/31/2021 appointment was cancelled and not rescheduled. Left voicemail ([phone]) for Meredith to please call to get the imaging studies rescheduled. Yarely Streeter RN documented in this encounterSelect Medical Cleveland [facility], [place]07-22-2021 NoteHNO ID: [id number] Author: JOJO Campbell) Service: ? Author Type: Compressor Station Chief Engineer Type: Progress Notes Filed: 03/17/2021 12:35 PM Note Text: Radiology Service Progress Note PATIENT NAME: Meredith Lynch DATE OF SERVICE: March 17, 2021 TIME: 12:35 PM PATIENT IDENTITY VERIFICATION COMPLETED USING TWO (2) IDENTIFIERS: Name and Date of confirmed by patient verbally. FALL SCREENING: Has the patient had 2 falls in the last year or 1 fall with injury or currently using an Ambulatory Assistive Device (Walker, Cane, Wheelchair, Crutches, etc.)? No PATIENT GENDER DATA: Female. status: : No status: NO. PATIENT RELEVANT IMPLANT DATA REVIEWED: Not Applicable RADIOLOGY DEPARTMENT: Biopsy PERIPHERAL IV DATA: Not applicable SIGNED BY: RT Adrian(R) March 17, 2021 12:35 [facility]07-22-2021 NoteHNO ID: [id number] Author: JOJO Figueredo) Service: ? Author Type: Compressor Station Chief Engineer Type: Progress Notes Filed: 03/17/2021 12:22 PM Note Text: Radiology Service Progress Note PATIENT NAME: Meredith Lynch DATE OF SERVICE: March 17, 2021 TIME: 12:21 PM PATIENT IDENTITY VERIFICATION COMPLETED USING TWO (2) IDENTIFIERS: Name and Date of confirmed by patient verbally. FALL SCREENING: Has the patient had 2 falls in the last year or 1 fall with injury or currently using an Ambulatory Assistive Device (Walker, Cane, Wheelchair, Crutches, etc.)? No PATIENT GENDER DATA: Female. status: : No status: NO. PATIENT RELEVANT IMPLANT DATA REVIEWED: Not Applicable RADIOLOGY DEPARTMENT: Mammography PERIPHERAL IV DATA: Not applicable SIGNED BY: RT Bea(R) March 17, 2021 12:21 [facility]07-22-2021 NoteHNO ID: [id number] Author: RT Adrian(R) Service: ? Author Type: Compressor Station Chief Engineer Type: Progress Notes Filed: 03/17/2021 10:52 AM Note Text: Radiology Service Progress Note PATIENT NAME: Meredith Lynch DATE OF SERVICE: March 17, 2021 TIME: 10:52 AM PATIENT IDENTITY VERIFICATION COMPLETED USING TWO (2) IDENTIFIERS: Name and Date of confirmed by patient verbally. FALL SCREENING: Has the patient had 2 falls in the last year or 1 fall with injury or currently using an Ambulatory Assistive Device (Walker, Cane, Wheelchair, Crutches, etc.)? No PATIENT GENDER DATA: Female. status: : No status: NO. PATIENT RELEVANT IMPLANT DATA REVIEWED: Not Applicable RADIOLOGY DEPARTMENT: Ultrasound PERIPHERAL IV DATA: Not applicable SIGNED BY: RT Adrian(R) March 17, 2021 10:52 [facility]07-22-2021 NoteHNO ID: [id number] Author: RT Bea(R) Service: ? Author Type: Compressor Station Chief Engineer Type: Progress Notes Filed: 03/17/2021 10:10 AM Note Text: Radiology Service Progress Note PATIENT NAME: Meredith Lynch DATE OF SERVICE: March 17, 2021 TIME: 10:10 AM PATIENT IDENTITY VERIFICATION COMPLETED USING TWO (2) IDENTIFIERS: Name and Date of confirmed by patient verbally. FALL SCREENING: Has the patient had 2 falls in the last year or 1 fall with injury or currently using an Ambulatory Assistive Device (Walker, Cane, Wheelchair, Crutches, etc.)? No PATIENT GENDER DATA: Female. status: : No status: NO. PATIENT RELEVANT IMPLANT DATA REVIEWED: Not Applicable RADIOLOGY DEPARTMENT: Mammography PERIPHERAL IV DATA: Not applicable SIGNED BY: RT Bea(R) March 17, 2021 10:10 [facility]06-16-2021 NoteHNO ID: [id number] Author: Elvie Alcaraz MD Service: ? Author Type: Physician Type: Progress Notes Filed: 02/09/2021 4:04 PM Note Text: Request by Dr. Mariaa Ledezma for right breast ultrasound guided core biopsy. Imaging from [facility] was reviewed (dated 02/01/2021). There is an asymmetry on the right MLO view upper breast posterior depth. A lobulated hypoechoic mass is also demonstrated by ultrasound at 12:00 2 cm FN, right breast. It is unclear if the mammographic/sonographic findings correlate. Recommend further workup with additional diagnostic mammographic views and repeat ultrasound with biopsy slot held. The patient will be contacted to schedule the recommended imaging and biopsy.[facility]04-20-2021 History of Past illness Narrative* Problem Noted Date Resolved Date Chronic obstructive pulmonary disease 12/14/2020 04/22/2021 documented as of this encounter (statuses as of 11/24/2021) [address]20-2021 History of Past illness Narrative* Problem Noted Date Resolved Date Chronic obstructive pulmonary disease 12/14/2020 04/22/2021 documented as of this encounter (statuses as of 12/14/2021) [address]20-2021 History of Past illness Narrative* Problem Noted Date Resolved Date Chronic obstructive pulmonary disease 12/14/2020 04/22/2021 documented as of this encounter (statuses as of 01/02/2022) [address]20-2021 History of Past illness Narrative* Problem Noted Date Resolved Date Chronic obstructive pulmonary disease 12/14/2020 04/22/2021 documented as of this encounter (statuses as of 01/02/2022) [address]20-2021 History of Past illness Narrative* Problem Noted Date Resolved Date Chronic obstructive pulmonary disease 12/14/2020 04/22/2021 documented as of this encounter (statuses as of 01/21/2022) [address]20-2021 History of Past illness Narrative* Problem Noted Date Resolved Date Chronic obstructive pulmonary disease 12/14/2020 04/22/2021 documented as of this encounter (statuses as of 02/13/2022) [address]20-2021 History of Past illness Narrative* Problem Noted Date Resolved Date Chronic obstructive pulmonary disease 12/14/2020 04/22/2021 documented as of this encounter (statuses as of 03/16/2022) [address]20-2021 History of Past illness Narrative* Problem Noted Date Resolved Date Chronic obstructive pulmonary disease 12/14/2020 04/22/2021 documented as of this encounter (statuses as of 04/06/2022) [address]20-2021 History of Past illness Narrative* Problem Noted Date Resolved Date Chronic obstructive pulmonary disease 12/14/2020 04/22/2021 documented as of this encounter (statuses as of 04/25/2022) [address]20-2021 History of Past illness Narrative* Problem Noted Date Resolved Date Chronic obstructive pulmonary disease 12/14/2020 04/22/2021 documented as of this encounter (statuses as of 05/04/2022) [address]20-2021 History of Past illness Narrative* Problem Noted Date Resolved Date Chronic obstructive pulmonary disease 12/14/2020 04/22/2021 documented as of this encounter (statuses as of 05/08/2022) [address]20-2021 History of Past illness Narrative* Problem Noted Date Resolved Date Chronic obstructive pulmonary disease 12/14/2020 04/22/2021 documented as of this encounter (statuses as of 05/10/2022) [address]20-2021 History of Past illness Narrative* Problem Noted Date Resolved Date Chronic obstructive pulmonary disease 12/14/2020 04/22/2021 documented as of this encounter (statuses as of 06/21/2022) [address]20-2021 History of Past illness Narrative* Problem Noted Date Resolved Date Chronic obstructive pulmonary disease 12/14/2020 04/22/2021 documented as of this encounter (statuses as of 07/07/2022) [address]20-2021 History of Past illness Narrative* Problem Noted Date Resolved Date Chronic obstructive pulmonary disease 12/14/2020 04/22/2021 documented as of this encounter (statuses as of 08/04/2022) [address]20-2021 History of Past illness Narrative* Problem Noted Date Resolved Date Chronic obstructive pulmonary disease 12/14/2020 04/22/2021 documented as of this encounter (statuses as of 09/02/2022) [address]20-2021 History of Past illness Narrative* Problem Noted Date Resolved Date Chronic obstructive pulmonary disease 12/14/2020 04/22/2021 documented as of this encounter (statuses as of 09/04/2022) [address]20-2021 History of Past illness Narrative* Problem Noted Date Resolved Date Chronic obstructive pulmonary disease 12/14/2020 04/22/2021 documented as of this encounter (statuses as of 11/02/2022) [address]20-2021 History of Past illness Narrative* Problem Noted Date Resolved Date Chronic obstructive pulmonary disease 12/14/2020 04/22/2021 documented as of this encounter (statuses as of 11/07/2022) [address]20-2021 History of Past illness Narrative* Problem Noted Date Resolved Date Chronic obstructive pulmonary disease 12/14/2020 04/22/2021 documented as of this encounter (statuses as of 11/21/2022) [address]20-2021 History of Past illness Narrative* Problem Noted Date Resolved Date Chronic obstructive pulmonary disease 12/14/2020 04/22/2021 documented as of this encounter (statuses as of 01/01/2023) [address]20-2021 History of Past illness Narrative* Problem Noted Date Resolved Date Chronic obstructive pulmonary disease 12/14/2020 04/22/2021 documented as of this encounter (statuses as of 01/02/2023) [address]20-2021 History of Past illness Narrative* Problem Noted Date Resolved Date Chronic obstructive pulmonary disease 12/14/2020 04/22/2021 documented as of this encounter (statuses as of 02/04/2023) [address]20-2021 History of Past illness Narrative* Problem Noted Date Resolved Date Chronic obstructive pulmonary disease 12/14/2020 04/22/2021 documented as of this encounter (statuses as of 02/23/2023) [address]20-2021 History of Past illness Narrative* Problem Noted Date Diagnosed Date Resolved Date Chronic obstructive pulmonary disease 12/14/2020 04/22/2021 documented as of this encounter (statuses as of 03/30/2023) [address]20-2021 History of Past illness Narrative* Problem Noted Date Diagnosed Date Resolved Date Chronic obstructive pulmonary disease 12/14/2020 04/22/2021 documented as of this encounter (statuses as of 04/13/2023) [address]20-2021 History of Past illness Narrative* Problem Noted Date Diagnosed Date Resolved Date Chronic obstructive pulmonary disease 12/14/2020 04/22/2021 documented as of this encounter (statuses as of 04/20/2023) [place] [address] History of Past illness Narrative* Problem Noted Date Diagnosed Date Resolved Date Chronic obstructive pulmonary disease 12/14/2020 04/22/2021 documented as of this encounter (statuses as of 06/22/2023) [facility] + Plan note No data available for this section [facility] evaluation note* Diagnosis Fibromyalgia Mylagia and myositis, unspecified documented in this encounter [facility] noteNo assessment information availableWChillic[facility] Work Phone: evaluation note* Diagnosis Viral URI- Primary Acute upper respiratory infections of unspecified site documented in this encounter [facility] note* Diagnosis Encounter for screening mammogram for breast cancer documented in this encounter [facility] note* Diagnosis Fibromyalgia Mylagia and myositis, unspecified documented in this encounter [facility] note* Diagnosis Fibromyalgia- Primary Mylagia and myositis, unspecified GERD without esophagitis Esophageal reflux RLS (restless legs syndrome) Restless legs syndrome (RLS) Insomnia, unspecified type BRIGITTE (obstructive sleep apnea) Obstructive sleep apnea (adult) (pediatric) Lupus (HCC) Systemic lupus erythematosus Chronic obstructive pulmonary disease, unspecified COPD type (HCC) Paranoid schizophrenia (HCC) Paranoid schizophrenia, unspecified condition Cigarette smoker Tobacco use disorder Skin inflammation Unspecified local infection of skin and subcutaneous tissue Screening for HIV (human immunodeficiency virus) Special screening examination for other specified viral diseases Need for hepatitis C screening test Special screening examination for other specified viral diseases Medication monitoring encounter Encounter for therapeutic drug monitoring Obesity, Class I, BMI 30-34.9 Obesity, unspecified documented in this encounter [facility] note* Diagnosis Onset Date Resolution Status Acute dyspnea acute Multilobar lung infiltrate a cute History of COPD chronic [facility] Work Phone: evaluation note* Diagnosis Hepatitis C virus infection without hepatic coma, unspecified chronicity- Primary documented in this encounter [facility] note* Diagnosis Hospital discharge follow-up- Primary Other follow-up examination History of pneumonia Personal history of pneumonia (recurrent) documented in this encounter [facility] note* Diagnosis Onset Date Resolution Status Multilobar lung infiltrate a cute History of COPD chronic Acute dyspnea resolved [facility] Work Phone: Evaluation note* Diagnosis Fibromyalgia Mylagia and myositis, unspecified [facility] Diagnosis Dental infection- Primary Acute apical periodontitis of pulpal origin [facility] Diagnosis Simple chronic bronchitis (HCC) Simple chronic bronchitis [facility]* Diagnosis Simple chronic bronchitis (HCC) Simple chronic bronchitis documented in this encounter [facility]* Diagnosis Dental infection- Primary Acute apical periodontitis of pulpal origin documented in this encounter [facility]* Diagnosis Pain, dental- Primary Unspecified disorder of the teeth and supporting structures documented in this encounter [facility]* Diagnosis Fibromyalgia- Primary Mylagia and myositis, unspecified GERD without esophagitis Esophageal reflux Lupus (HCC) Systemic lupus erythematosus RLS (restless legs syndrome) Restless legs syndrome (RLS) Insomnia, unspecified type BRIGITTE (obstructive sleep apnea) Obstructive sleep apnea (adult) (pediatric) Chronic obstructive pulmonary disease, unspecified COPD type (HCC) Cigarette smoker Tobacco use disorder Paranoid schizophrenia (HCC) Paranoid schizophrenia, unspecified condition Bilateral thumb pain [facility] this encounter [facility]* Diagnosis Cough Simple chronic bronchitis (HCC) Simple chronic bronchitis Cigarette smoker Tobacco use disorder documented [facility] this [facility]* Diagnosis Pain, dental- Primary Unspecified disorder of the teeth and supporting structures documented in this encounter [facility]* Diagnosis Fibromyalgia Mylagia and myositis, unspecified documented in this encounter [facility]* Diagnosis Fibromyalgia- Primary Mylagia and myositis, unspecified Encounter for screening mammogram for malignant neoplasm of breast Other screening mammogram Cigarette smoker Tobacco use disorder Paranoid schizophrenia (HCC) Paranoid schizophrenia, unspecified condition BRIGITTE (obstructive sleep apnea) Obstructive sleep apnea (adult) (pediatric) Chronic obstructive pulmonary disease, unspecified COPD type (HCC) documented in this encounter [facility]* Diagnosis Dyspnea, unspecified type- Primary Tachypnea documented in this encounter [facility]* Diagnosis Cellulitis, face- Primary Cellulitis and abscess of face Weight loss Loss of weight documented in this encounter [facility]* Diagnosis Fibromyalgia Mylagia and myositis, unspecified Fibromyalgia- Primary Mylagia and myositis, unspecified Lupus (HCC) Systemic lupus erythematosus BRIGITTE (obstructive sleep apnea) Obstructive sleep apnea (adult) (pediatric) Paranoid schizophrenia (HCC) Paranoid schizophrenia, unspecified condition Chronic obstructive pulmonary disease, unspecified COPD type (HCC) documented in this encounter [facility]* Diagnosis Fibromyalgia- Primary Mylagia and myositis, unspecified BRIGITTE (obstructive sleep apnea) Obstructive sleep apnea (adult) (pediatric) Chronic obstructive pulmonary disease, unspecified COPD type (HCC) Cigarette smoker Tobacco use disorder Lupus (HCC) Systemic lupus erythematosus Paranoid schizophrenia (HCC) Paranoid schizophrenia, unspecified condition Gastroenteritis Other and unspecified noninfectious gastroenteritis and colitis documented in this encounter [facility]* Diagnosis Toothache- Primary Unspecified disorder of the teeth and supporting structures documented [facility] this [facility]* Diagnosis Cough Simple chronic bronchitis (HCC) Simple chronic bronchitis Cigarette smoker Tobacco use disorder [facility] Diagnosis Fibromyalgia Mylagia and myositis, unspecified Paranoid schizophrenia (HCC) Paranoid schizophrenia, unspecified condition [facility]* Diagnosis History of pneumonia Personal history of pneumonia (recurrent) [facility]* Diagnosis Medicare annual wellness visit, subsequent- Primary Routine general medical examination at a health care facility Weight gain Abnormal weight gain Enlarged thyroid Goiter, unspecified Plantar wart of left foot Plantar wart Paranoid schizophrenia (HCC) Paranoid schizophrenia, unspecified condition Fibromyalgia Mylagia and myositis, unspecified Systemic lupus erythematosus, unspecified SLE type, unspecified organ involvement status (HCC) BRIGITTE (obstructive sleep apnea) Obstructive sleep apnea (adult) (pediatric) RLS (restless legs syndrome) Restless legs syndrome (RLS) Chronic obstructive pulmonary disease, unspecified COPD type (HCC) Mixed hyperlipidemia Cigarette smoker Tobacco use disorder Screening for depression Encounter for screening examination for other mental health and behavioral disorders [facility]* Diagnosis Encounter for screening mammogram for breast cancer documented in this encounter [facility]* Diagnosis Fibromyalgia Mylagia and myositis, unspecified documented in this encounter [facility]* Diagnosis Weight gain Abnormal weight gain Enlarged thyroid Goiter, unspecified documented in this encounter [facility]* Diagnosis Hospital discharge follow-up- Primary Other follow-up examination Chronic obstructive pulmonary disease, unspecified COPD type (HCC) Chest pain, unspecified type SOB (shortness of breath) Shortness of breath Gastroesophageal reflux disease without esophagitis Esophageal reflux Dysphagia, unspecified type Tobacco use Tobacco use disorder Paranoid schizophrenia (HCC) Paranoid schizophrenia, unspecified condition [facility] Additional Instructions Please take the doxycycline and azithromycin as directed to help resolve your pneumonia and use the DuoNeb nebulizer treatments to help with shortness of breath/wheeze. If you have worsening of symptoms or any further concerns please return to the ER for repeat evaluation [facility] Work Phone: Hospital Discharge instructions No data available for this section [facility] Hospital Discharge instructions Additional Instructions You tested positive for influenza A. Your urine shows some slight changes which could be consistent with urinary tract infection. Will place on antibiotics will cover for UTI as well as possible pneumonia however I suspect respiratory symptoms are more likely from bronchitis/viral infection from flu. He been put on medication to treat influenza (Tamiflu). You have been given a stomach medicine to take daily for your hiatal hernia (omeprazole). Continue to alternate ibuprofen and Tylenol as needed for fever and pain control. Use breathing treatments at home every 4-6 hours. Follow with your primary care doctor. Return if given progression or worsening symptoms.[facility] Work Phone: Hospital Discharge instructions Additional Instructions Your cardiac workup negative. D-dimer negative. Chest x-ray negative. Finish steroids as prescribed. Continue to quit smoking. Follow-up with your doctor.[facility] Work Phone: Progress note No data available for this section [facility] Reason for referral (narrative)* Diagnostic Procedure Only (Routine) - Pending Review Specialty Diagnoses / Procedures Referred By Suzanne t Referred To Contact [facility] Diagnoses Encounter for screening mammogram for breast cancer Procedures EUGENIA SCREENING SCREENING MAMMOGRAPHY BI 2-VIEW BREAST INC Juanis Womack MD [address] [place] [address] [facility] [address] [place] [address] Referral ID Status Reason Start Date Expiration Date Visits Requested Visits Authorized [id number] Pending Review Auto-Generat ed Referral 02/08/2022 03/10/2023 1 1 [facility] for referral (narrative)* Diagnostic Procedure Only (Routine) - Pending Review Specialty Diagnoses / Procedures Referred By Suzanne metzger Referred To Contact [facility] Diagnoses Encounter for screening mammogram for malignant neoplasm of breast Procedures EUGENIA SCREENING SCREENING MAMMOGRAPHY BI 2-VIEW BREAST INC Juanis Womack MD [address] [place] [address] [facility] [address] [place] [address] Referral ID Status Reason Start Date Expiration Date Visits Requested Visits Authorized [id number] Pending Review Auto-Generat ed Referral 07/02/2023 07/31/2024 1 1 [facility] for referral (narrative)* Diagnostic Procedure Only (Routine) - New Request Specialty Diagnoses / Procedures Referred By Suzanne metzger Referred To Contact [facility] Diagnoses Encounter for screening mammogram for breast cancer Procedures EUGENIA SCREENING W JACQUELINE SCREENING DIGITAL BREAST TOMOSYNTHESIS BI SCREENING MAMMOGRAPHY BI 2-VIEW BREAST INC Juanis Womack MD [address] [place] [address] [facility] [address] [place] [address] Referral ID Status Reason Start Date Expiration Date Visits Requested Visits Authorized [id number] New Request Auto-Generat ed Referral 07/11/2025 1 1 T [facility] for referral (narrative)No reason for referral information availableWChillicothe Hospital Work Phone: Reason for visit Narrative* Diagnostic Procedure Only (Routine) - Closed Specialty Diagnoses / Procedures Referred By Contac t Referred To Contact [facility] Diagnoses Weight gain Enlarged thyroid Procedures US THYROID/PARATHYROID US SOFT TISSUE HEAD & NECK REAL TIME IMGE SHALAM Ellen [place], HEEL 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.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 [address] [place] [address] Phone: tel: [place] [phone] Referral ID Status Reason Start Date Expiration Date V isits Requested Visits Authorized [id number] Closed Auto-Generate d Referral 06/09/2024 07/09/2025 1 1 [facility] Summary Purpose Family History Relationship Condition Age at Onset Recorded Date/T martina father Bipolar I disorder Unknown Rheumatoid arthritis Unknown Cardiac disease Unknown Alcohol abuse Unknown Malignant neoplasm Unknown Malignant neoplasm of colon Unknown Hyperlipidemia Unknown mother Rheumatoid arthritis Unknown sister Malignant neoplasm Unknown Advance Directives Documents on File Type Date Recorded 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 Engine 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 Expl anation Advance Directive(s) 02/24/2021 8:20 AM Advance Directive Response Recorded Date/ Time Living Will No August 30 2:43am Power of Hooker Off No August 30 2:43am Documents on File Type Date Recorded 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 Engine 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 Expl anation Advance Directive(s) 02/24/2021 8:20 AM Advance Directive Response Recorded Date/ Time Living Will No May 02 10:00am Power of Hooker Off No May 02, 2022 10:00am Advance Directive Response Recorded Date/ Time Living Will No May 02 1:37pm Power of Hooker Off No May 02, 2022 1:37pm Advance Directive Response Recorded Date/ Time Living Will No May 02 12:37pm Power of Hooker Off No May 02, 2022 12:37pm Advance Directive Response Recorded Date/ Time Living Will No August 01 6:15am Power of Hooker Off No August 01, 2023 6:15am Advance Directive Response Recorded Date/ Time Living Will No December 01, 2024 1:02pm Do you have a Healthcare Power of Hooker Off? No December 01, 2024 1:02pm Advance Directive Response Recorded Date/ Time Living Will No December 01, 2024 1:02pm Do you have a Healthcare Power of Hooker Off? No December 01, 2024 1:02pm Do you have a Healthcare Power of Hooker Off? No December 16, 2024 1:58pm Chief Complaint and Reason for Visit Chief Complaint BRIGITTE; 01/09 ANS HUNG U P & 01/11 ANS Chief Complaint BRIGITTE; / ANS HUNG U P & 01/11 ANS PNEUMONIA Reason for Visit Acute dyspnea Multilobar lung infiltrate History of COPD Chief Complaint BRIGITTE; / ANS HUNG U P & 01/11 ANS PNEUMONIA Pneumonia Pneumonia Pneumonia Reason for Visit Acute dyspnea Multilobar lung infiltrate History of COPD Chief Complaint PNEUMONIA Pneumonia Pneumonia Pneumonia BRIGITTE Reason for Visit Multilobar lung infi ltrate History of COPD Acute dyspnea Chief Complaint PNEUMONIA Pneumonia Pneumonia Pneumonia BRIGITTE BRIGITTE; AUTO BIPAP *INVENTORY TAGGED Reason for Visit Multilobar lung infi ltrate History of COPD Acute dyspnea Chief Complaint sob Chief Complaint Admit Date chest pain December 01, 2024 12:2 2pm Chief Complaint Admit Date chest pain December 01, 2024 12:2 2pm SOB December 16, 2024 1:3 4pm Reason for Referral Specialty Diagnoses / Procedures Referred By Contac t Referred To Contact Gastroenterology Diagnoses Hepatitis C virus infection without hepatic coma, unspecified chronicity Procedures CONSULT TO GASTROENTEROLOGY OFFICE/OUTPATIENT [facility] 60-74 MINUTES Jonas Harrison, HEEL SCORER.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 [address] [place] [address] Referral ID Status Reason Start Date Expiration Date Visits Requested Visits Authorized [id number] Authorized PCP Requested Referral 05/04/2022 04/28/2023 1 1 Specialty Diagnoses / Procedures Referred By Contac t Referred To Contact Podiatry Diagnoses Plantar wart of left foot Procedures CONSULT TO PODIATRY OFFICE/OUTPATIENT [facility] MDM 60 MINUTES Ellen Woods, HEEL SCORER.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 [address] [place] [address] Referral ID Status Reason Start Date Expiration Date Visits Requested Visits Authorized [id number] Authorized PCP Requested Referral 06/09/2025 1 1 Specialty Diagnoses / Procedures Referred By Contac t Referred To Contact US IMAGING Diagnoses Weight gain Enlarged thyroid Procedures US THYROID/PARATHYROID US SOFT TISSUE HEAD & NECK REAL TIME IMGE DOCEllen Live, HEEL SCORER.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 [address] [place] [address] [place] [address] Referral ID Status Reason Start Date Expiration Date Visits Requested Visits Authorized [id number] New Request Auto-Generat ed Referral 07/09/2025 1 1 Additional Source Comments INFORMATION SOURCE (unrecogn ized section and content) DATE CREATED AUTHOR 03/23/2021 [facility] DATE CREATED AUTHOR AUTHOR'S ORGANIZ ATION 03/04/2022 [facility] DATE CREATED AUTHOR AUTHOR'S ORGANIZ ATION 11/10/2023 [facility] ([place]) DATE CREATED AUTHOR AUTHOR'S ORGANIZ ATION 12/23/2024 [facility] DATE CREATED AUTHOR AUTHOR'S ORGANIZ ATION 01/09/2025 [facility] Source Comments (unrecognize d section and content) In the event this informatio n is protected by the Federal Confidentiality of Alcohol and Drug Abuse Patient Records regulations: The Federal rules restrict any use of the information to criminally investigate or prosecute any alcohol or drug abuse patient.[facility] [place] the event this information is protected by the Federal Confidentiality of Alcohol and Drug Abuse Patient Records regulations: The Federal rules restrict any use of the information to criminally investigate or prosecute any alcohol or drug abuse patient.[facility], [place]In the event this information is protected by the Federal Confidentiality of Alcohol and Drug Abuse Patient Records regulations: The Federal rules restrict any use of the information to criminally investigate or prosecute any alcohol or drug abuse patient.[facility], [place]In the event this information is protected by the Federal Confidentiality of Alcohol and Drug Abuse Patient Records regulations: The Federal rules restrict any use of the information to criminally investigate or prosecute any alcohol or drug abuse patient.[facility], [place]In the event this information is protected by the Federal Confidentiality of Alcohol and Drug Abuse Patient Records regulations: The Federal rules restrict any use of the information to criminally investigate or prosecute any alcohol or drug abuse patient.[facility], [place]In the event this information is protected by the Federal Confidentiality of Alcohol and Drug Abuse Patient Records regulations: The Federal rules restrict any use of the information to criminally investigate or prosecute any alcohol or drug abuse patient.[facility], [place]In the event this information is protected by the Federal Confidentiality of Alcohol and Drug Abuse Patient Records regulations: The Federal rules restrict any use of the information to criminally investigate or prosecute any alcohol or drug abuse patient.[facility], [place]In the event this information is protected by the Federal Confidentiality of Alcohol and Drug Abuse Patient Records regulations: The Federal rules restrict any use of the information to criminally investigate or prosecute any alcohol or drug abuse patient.[facility], [place]In the event this information is protected by the Federal Confidentiality of Alcohol and Drug Abuse Patient Records regulations: The Federal rules restrict any use of the information to criminally investigate or prosecute any alcohol or drug abuse patient.[facility], [place]In the event this information is protected by the Federal Confidentiality of Alcohol and Drug Abuse Patient Records regulations: The Federal rules restrict any use of the information to criminally investigate or prosecute any alcohol or drug abuse patient.[facility], [place]woodIn the event this information is protected by the Federal Confidentiality of Alcohol and Drug Abuse Patient Records regulations: The Federal rules restrict any use of the information to criminally investigate or prosecute any alcohol or drug abuse patient.[facility], [place]woodIn the event this information is protected by the Federal Confidentiality of Alcohol and Drug Abuse Patient Records regulations: The Federal rules restrict any use of the information to criminally investigate or prosecute any alcohol or drug abuse patient.[facility], [place]woodIn the event this information is protected by the Federal Confidentiality of Alcohol and Drug Abuse Patient Records regulations: The Federal rules restrict any use of the information to criminally investigate or prosecute any alcohol or drug abuse patient.[facility], [place]woodIn the event this information is protected by the Federal Confidentiality of Alcohol and Drug Abuse Patient Records regulations: The Federal rules restrict any use of the information to criminally investigate or prosecute any alcohol or drug abuse patient.[facility], [place]woodIn the event this information is protected by the Federal Confidentiality of Alcohol and Drug Abuse Patient Records regulations: The Federal rules restrict any use of the information to criminally investigate or prosecute any alcohol or drug abuse patient.[facility], [place]woodIn the event this information is protected by the Federal Confidentiality of Alcohol and Drug Abuse Patient Records regulations: The Federal rules restrict any use of the information to criminally investigate or prosecute any alcohol or drug abuse patient.[facility], [place]woodIn the event this information is protected by the Federal Confidentiality of Alcohol and Drug Abuse Patient Records regulations: The Federal rules restrict any use of the information to criminally investigate or prosecute any alcohol or drug abuse patient.[facility], [place]woodIn the event this information is protected by the Federal Confidentiality of Alcohol and Drug Abuse Patient Records regulations: The Federal rules restrict any use of the information to criminally investigate or prosecute any alcohol or drug abuse patient.[facility], [place]woodIn the event this information is protected by the Federal Confidentiality of Alcohol and Drug Abuse Patient Records regulations: The Federal rules restrict any use of the information to criminally investigate or prosecute any alcohol or drug abuse patient.[facility] the event this information is protected by the Federal Confidentiality of Alcohol and Drug Abuse Patient Records regulations: The Federal rules restrict any use of the information to criminally investigate or prosecute any alcohol or drug abuse patient.[facility], [place]In the event this information is protected by the Federal Confidentiality of Alcohol and Drug Abuse Patient Records regulations: The Federal rules restrict any use of the information to criminally investigate or prosecute any alcohol or drug abuse patient.[facility], [place]woodIn the event this information is protected by the Federal Confidentiality of Alcohol and Drug Abuse Patient Records regulations: The Federal rules restrict any use of the information to criminally investigate or prosecute any alcohol or drug abuse patient.[facility] the event this information is protected by the Federal Confidentiality of Alcohol and Drug Abuse Patient Records regulations: The Federal rules restrict any use of the information to criminally investigate or prosecute any alcohol or drug abuse patient.[facility], [place]In the event this information is protected by the Federal Confidentiality of Alcohol and Drug Abuse Patient Records regulations: The Federal rules restrict any use of the information to criminally investigate or prosecute any alcohol or drug abuse patient.[facility], [place]In the event this information is protected by the Federal Confidentiality of Alcohol and Drug Abuse Patient Records regulations: The Federal rules restrict any use of the information to criminally investigate or prosecute any alcohol or drug abuse patient.[facility], [place]In the event this information is protected by the Federal Confidentiality of Alcohol and Drug Abuse Patient Records regulations: The Federal rules restrict any use of the information to criminally investigate or prosecute any alcohol or drug abuse patient.[facility], [place]In the event this information is protected by the Federal Confidentiality of Alcohol and Drug Abuse Patient Records regulations: The Federal rules restrict any use of the information to criminally investigate or prosecute any alcohol or drug abuse patient.[facility], [place]In the event this information is protected by the Federal Confidentiality of Alcohol and Drug Abuse Patient Records regulations: The Federal rules restrict any use of the information to criminally investigate or prosecute any alcohol or drug abuse patient.[facility], [place]In the event this information is protected by the Federal Confidentiality of Alcohol and Drug Abuse Patient Records regulations: The Federal rules restrict any use of the information to criminally investigate or prosecute any alcohol or drug abuse patient.[facility], [place]In the event this information is protected by the Federal Confidentiality of Alcohol and Drug Abuse Patient Records regulations: The Federal rules restrict any use of the information to criminally investigate or prosecute any alcohol or drug abuse patient.[facility], [place]In the event this information is protected by the Federal Confidentiality of Alcohol and Drug Abuse Patient Records regulations: The Federal rules restrict any use of the information to criminally investigate or prosecute any alcohol or drug abuse patient.[facility], [place]In the event this information is protected by the Federal Confidentiality of Alcohol and Drug Abuse Patient Records regulations: The Federal rules restrict any use of the information to criminally investigate or prosecute any alcohol or drug abuse patient.[facility], [place]In the event this information is protected by the Federal Confidentiality of Alcohol and Drug Abuse Patient Records regulations: The Federal rules restrict any use of the information to criminally investigate or prosecute any alcohol or drug abuse patient.[facility], [place]In the event this information is protected by the Federal Confidentiality of Alcohol and Drug Abuse Patient Records regulations: The Federal rules restrict any use of the information to criminally investigate or prosecute any alcohol or drug abuse patient.[facility], [place]In the event this information is protected by the Federal Confidentiality of Alcohol and Drug Abuse Patient Records regulations: The Federal rules restrict any use of the information to criminally investigate or prosecute any alcohol or drug abuse patient.[facility], [place]In the event this information is protected by the Federal Confidentiality of Alcohol and Drug Abuse Patient Records regulations: The Federal rules restrict any use of the information to criminally investigate or prosecute any alcohol or drug abuse patient.[facility], [place]In the event this information is protected by the Federal Confidentiality of Alcohol and Drug Abuse Patient Records regulations: The Federal rules restrict any use of the information to criminally investigate or prosecute any alcohol or drug abuse patient.[facility], [place]In the event this information is protected by the Federal Confidentiality of Alcohol and Drug Abuse Patient Records regulations: The Federal rules restrict any use of the information to criminally investigate or prosecute any alcohol or drug abuse patient.[facility], [place]In the event this information is protected by the Federal Confidentiality of Alcohol and Drug Abuse Patient Records regulations: The Federal rules restrict any use of the information to criminally investigate or prosecute any alcohol or drug abuse patient.[facility], [place]In the event this information is protected by the Federal Confidentiality of Alcohol and Drug Abuse Patient Records regulations: The Federal rules restrict any use of the information to criminally investigate or prosecute any alcohol or drug abuse patient.[facility], [place]In the event this information is protected by the Federal Confidentiality of Alcohol and Drug Abuse Patient Records regulations: The Federal rules restrict any use of the information to criminally investigate or prosecute any alcohol or drug abuse patient.[facility], [place]woodIn the event this information is protected by the Federal Confidentiality of Alcohol and Drug Abuse Patient Records regulations: The Federal rules restrict any use of the information to criminally investigate or prosecute any alcohol or drug abuse patient.[facility], [place]woodIn the event this information is protected by the Federal Confidentiality of Alcohol and Drug Abuse Patient Records regulations: The Federal rules restrict any use of the information to criminally investigate or prosecute any alcohol or drug abuse patient.[facility], [place]In the event this information is protected by the Federal Confidentiality of Alcohol and Drug Abuse Patient Records regulations: The Federal rules restrict any use of the information to criminally investigate or prosecute any alcohol or drug abuse patient.[facility], [place]woodIn the event this information is protected by the Federal Confidentiality of Alcohol and Drug Abuse Patient Records regulations: The Federal rules restrict any use of the information to criminally investigate or prosecute any alcohol or drug abuse patient.[facility], [place]woodIn the event this information is protected by the Federal Confidentiality of Alcohol and Drug Abuse Patient Records regulations: The Federal rules restrict any use of the information to criminally investigate or prosecute any alcohol or drug abuse patient.[facility], [place]woodIn the event this information is protected by the Federal Confidentiality of Alcohol and Drug Abuse Patient Records regulations: The Federal rules restrict any use of the information to criminally investigate or prosecute any alcohol or drug abuse patient.[facility], [place]In the event this information is protected by the Federal Confidentiality of Alcohol and Drug Abuse Patient Records regulations: The Federal rules restrict any use of the information to criminally investigate or prosecute any alcohol or drug abuse patient.[facility], [place]woodIn the event this information is protected by the Federal Confidentiality of Alcohol and Drug Abuse Patient Records regulations: The Federal rules restrict any use of the information to criminally investigate or prosecute any alcohol or drug abuse patient.[facility], [place]woodIn the event this information is protected by the Federal Confidentiality of Alcohol and Drug Abuse Patient Records regulations: The Federal rules restrict any use of the information to criminally investigate or prosecute any alcohol or drug abuse patient.[facility] [place] Reason for Visit (unrecogniz ed section and content) Reason Comments Established Patient Follow-Up 6 month fo llow up breast imaging and ov Reason Comments Infected tooth Reason Comments PSG no show at [facility] Reason Comments Cough Dx COPD increased SO B, denied chest pain Sore Throat pain rated 4 x3 days Reason Comments Results Reason Onset Date Comments Refill Request 04/06/2022 Reason Comments F/U 6 months Reason Comments Results, Lab Reason Comments Follow Up Hosp follow up from [facility] Reason Comments Results Chest Xray Reason Onset Date Comments Refill Request 07/07/2022 Reason Comments Dental Problem Tooth pain x 2 days Reason Comments sleep titration Reason Comments Spirometry Specialty Diagnoses / Procedures Referred By Contac t Referred To Contact [facility] Diagnoses Simple chronic bronchitis (HCC) Procedures SPIROMETRY WITH DILATOR IF OBSTRUCTED BRNCDILAT RSPSE SPMTRY PRE&POST-BRNCDILAT ADMN Basia Bui MD [address] [place] [address] [facility] [place] [address] [place] [id number] Referral ID Status Reason Start Date Expiration Date V isits Requested Visits Authorized [id number] Closed Auto-Generate d Referral 11/01/2021 12/01/2022 1 1 Specialty Diagnoses / Procedures Referred By Contcandido t Referred To Contact [facility] Diagnoses Simple chronic bronchitis (HCC) Procedures NITRIC OXIDE, EXHALED NITRIC OXIDE GAS DETERMINATION Basia Bui MD [address] [place] [address] [address] Referral ID Status Reason Start Date Expiration Date V isits Requested Visits Authorized [id number] Closed Auto-Generate d Referral 11/01/2021 12/01/2022 1 1 Reason Comments Dental Problem Pt reported (RT) low er tooth pain, x2 days. Reason Comments Pain Pt reported recent A TB completed, continued tooth pain (RT) lower. Reason Comments F/U 6 Month Reason Onset Date Comments Refill Request 12/31/2022 Reason Comments Dental Problem Pt reported tooth pa in (RT) lower x3 days. Reason Comments Appointment Reason Onset Date Comments Refill Request 03/30/2023 Reason Comments Transition Of Care Reason Comments Patient Question Reason Comments 6 Month Exam Reason Comments Derm Problem R side of face by ea r, 3 small lumps under skin, painful x 3 weeksFace breaking out x 1 wk Reason Onset Date Comments Refill Request 11/29/2023 Reason Comments 6 Month Exam Reason Comments Head Injury Reason Comments Dental Problem Pt states has infect ion left lower side in back, x 2 days, has dental appts set to have extractions Reason Onset Date Comments Refill Request 05/19/2024 Reason Comments Medicare Wellness Exam Reason Onset Date Comments Refill Request 12/24/2024 Reason Comments Hospital Follow Up Reason Comments Forms [facility] Teams (unrecognized sec tion and content) Governor Assembler Relationship Specialty Start Date End Date Juanis Waldrop MD [address] [place] [address] PCP - General Family Practice 09/19/18 [place] [facility] [address] [id number] Orthopedics 01/12/17 Governor Assembler Relationship Specialty Start Date End Date Juanis Waldrop MD [address] [place], [place] [id number] PCP - General Family Practice 09/19/18 [place] [facility]bour [address] [id number] Orthopedics 01/12/17 Governor Assembler Relationship Specialty Start Date End Date Juanis Waldrop MD [address] [place] [address] PCP - General Family Practice 09/19/18 [place] [facility]bour [address] [address] Orthopedics 01/12/17 Governor Assembler Relationship Specialty Start Date End Date Juanis Waldrop MD [address] [place] [address] PCP - General Family Practice 09/19/18 [place] [facility]bour [address] [address] Orthopedics 01/12/17 Governor Assembler Relationship Specialty Start Date End Date Juanis Waldrop MD [address] [place] [address] PCP - General Family Practice 09/19/18 [place] [facility]bour [address] [address] Orthopedics 01/12/17 Governor Assembler Relationship Specialty Start Date End Date Juanis Waldrop MD [address] [place] [address] PCP - General Family Practice 09/19/18 [place] [facility]bour [address] [address] Orthopedics 01/12/17 Governor Assembler Relationship Specialty Start Date End Date Juanis Waldrop MD [address] [place] [address] PCP - General Family Practice 09/19/18 [place] [facility] [address] [address] Orthopedics 01/12/17 Governor Assembler Relationship Specialty Start Date End Date Juanis Waldrop MD [address] [facility] [place] [address] PCP - General Family Practice 09/19/18 [place] Barbour [id number] [address] Orthopedics 01/12/17 Governor Assembler Relationship Specialty Start Date End Date Juanis Waldrop MD [address] [place] [address] PCP - General Family Practice 09/19/18 [place] [facility] [address] [address] Orthopedics 01/12/17 Governor Assembler Relationship Specialty Start Date End Date Juanis Waldrop MD [address] [place] [address] PCP - General Family Practice 09/19/18 [place] [facility]bour [id number] [address] Orthopedics 01/12/17 Governor Assembler Relationship Specialty Start Date End Date Juanis Waldrop MD [address] [place] [address] PCP - General Family Practice 09/19/18 [place] [facility]bour [id number] [address] Orthopedics 01/12/17 Governor Assembler Relationship Specialty Start Date End Date Juanis Waldrop MD [address] [place] [address] PCP - General Family Medicine 09/19/18 Fransisco Barbour [address] [address] Orthopedics 01/12/17 Governor Assembler Relationship Specialty Start Date End Date Juanis Waldrop MD [address] [place] [address] PCP - General Family Medicine 09/19/18 Fransisco Barbour [address] [address] Orthopedics 01/12/17 Governor Assembler Relationship Specialty Start Date End Date Juanis Waldrop MD [address] [place] [address] PCP - General Family Medicine 09/19/18 Fransisco Barbour [address] [address] Orthopedics 01/12/17 Governor Assembler Relationship Specialty Start Date End Date Juanis Waldrop MD [address] [place] [address] PCP - General Family Medicine 09/19/18 Fransisco Barbour [address] [address] Orthopedics 01/12/17 Governor Assembler Relationship Specialty Start Date End Date Juanis Waldrop MD [address] [place] [address] PCP - General Family Medicine 09/19/18 Fransisco Barbour [address] [address] Orthopedics 01/12/17 Governor Assembler Relationship Specialty Start Date End Date Juanis Waldrop MD [address] [place] [address] PCP - General Family Medicine 09/19/18 Fransisco Barbour [address] [address] Orthopedics 01/12/17 Governor Assembler Relationship Specialty Start Date End Date Juanis Waldrop MD [address] [place] [address] PCP - General Family Medicine 09/19/18 Fransisco Barbour [address] [address] Orthopedics 01/12/17 Governor Assembler Relationship Specialty Start Date End Date Juanis Waldrop MD [address] [place] [address] PCP - General Family Medicine 09/19/18 Fransisco Barbour [address] [address] Orthopedics 01/12/17 Governor Assembler Relationship Specialty Start Date End Date Juanis Waldrop MD [address] [place] [address] PCP - General Family Medicine 09/19/18 Fransisco Barbour [address] [place] [address] Orthopedics 01/12/17 Governor Assembler Relationship Specialty Start Date End Date Juanis Waldrop MD [address] [place] [address] PCP - General Family Medicine 09/19/18 Fransisco Barbour [address] [place] [address] Orthopedics 01/12/17 Governor Assembler Relationship Specialty Start Date End Date Juanis Waldrop MD [address] [place], [place] 266961 PCP - General Family Medicine 09/19/18 Fransisco Barbour [address] [id number] Orthopedics 01/12/17 Governor Assembler Relationship Specialty Start Date End Date Juanis Waldrop MD [address] [place], [place] 886081 PCP - General Family Medicine 09/19/18 Fransisco Barbour [address] [address] Orthopedics 01/12/17 Governor Assembler Relationship Specialty Start Date End Date Juanis Waldrop MD [address] [place], [place] 4[address]81 PCP - General Family Medicine 09/19/18 Fransisco Barbour [address] 007114 Orthopedics 01/12/17 Governor Assembler Relationship Specialty Start Date End Date Juanis Waldrop MD [address] [place], [place] 605911 PCP - General Family Medicine 09/19/18 Fransisco Barbour [address] [place] [address] Orthopedics 01/12/17 Team Status: Active Member Role Status Dates Dr. Juanis Waldrop MD Family Provider Active Dr. Juanis Waldrop MD Primary Care Provider Active Team Status: Inactive Member Role Status Dates Dr. Juanis Waldrop MD Primary Care Provider Active Dr. Garrett Kumar DO Referring Provider, Emergency Pr ovider Active Governor Assembler Relationship Specialty Start Date End Date Juanis Waldrop MD [address] [place] [address] PCP - General Family Medicine 09/19/18 Fransisco Barbour [address]61 [facility] [address] [place] [address] Orthopedics 01/12/17 Governor Assembler Relationship Specialty Start Date End Date Juanis Waldrop MD [address] [place] [address] PCP - General Family Medicine 09/19/18 Fransisco Barbour [address] 266924 Orthopedics 01/12/17 Governor Assembler Relationship Specialty Start Date End Date Juanis Waldrop MD [address] [place] [address] PCP - General Family Medicine 09/19/18 Fransisco Barbour [address] [place] [address] Orthopedics 01/12/17 Governor Assembler Relationship Specialty Start Date End Date Juanis Waldrop MD [address] [place] [address] PCP - General Family Medicine 09/19/18 Fransisco Barbour [address] [place] [address] Orthopedics 01/12/17 Governor Assembler Relationship Specialty Start Date End Date Juanis Waldrop MD [address] [place], [place] 332311 PCP - General Family Medicine 09/19/18 Fransisco Barbour [address] [place] [address] Orthopedics 01/12/17 Governor Assembler Relationship Specialty Start Date End Date Juanis Waldrop MD [address] [place], [place] 841581 PCP - General Family Medicine 09/19/18 Fransisco Barbour [address] [place] [address] Orthopedics 01/12/17 Governor Assembler Relationship Specialty Start Date End Date Juanis Waldrop MD [address] [place], [place] 083171 PCP - General Family Medicine 09/19/18 Fransisco Barbour [address] [place] [address] Orthopedics 01/12/17 Governor Assembler Relationship Specialty Start Date End Date Juanis Waldrop MD [address] [place], [place] 968871 PCP - General Family Medicine 09/19/18 Fransisco Barbour [address] [place] [address] 807314 Orthopedics 01/12/17 Governor Assembler Relationship Specialty Start Date End Date Juanis Waldrop MD [address] [place], [place] 239201 PCP - General Family Medicine 09/19/18 Fransisco Barbour [address] [address] Orthopedics 01/12/17 Governor Assembler Relationship Specialty Start Date End Date Juanis Waldrop MD [address] [place], [place] [id number] PCP - General Family Medicine 09/19/18 Fransisco Barbour [address] [address] Orthopedics 01/12/17 Ellen Woods APRN.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 [address] [place], [place] [address]39[address] Plastic Molding Operator Family Medicine 08/03/24 Jonas Harrison APRN.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 [address] [place], [place] [id number] Plastic Molding Operator Family Medicine 08/12/24 Team Status: Active Member Role Status Dates Dr. Juanis Waldrop MD Primary Care Provider Active Team Status: Inactive Member Role Status Dates Dr. Juanis Waldrop MD Primary Care Provider Active Start: December 01, 2024 End: December 01, 2024 Dr. Joann Douglas DO Emergency Provider Active Start: December 01, 2024 End: December 01, 2024 Team Status: Inactive Member Role Status Dates Dr. Juanis Waldrop MD Primary Care Provider Active Start: December 01, 2024 End: December 01, 2024 Dr. Joann Douglas DO Attending Provider Active Start: December 01, 2024 End: December 01, 2024 Dr. Joann Douglas DO Emergency Provider Active Start: December 01, 2024 End: December 01, 2024 Team Status: Inactive Member Role Status Dates Dr. Juanis Waldrop MD Primary Care Provider Active Start: December 16, 2024 End: December 16, 2024 Dr. Shemar Butt DO Emergency Provider Active Start : December 16, 2024 End: December 16, 2024 Governor Assembler Relationship Specialty Start Date End Date Juanis Waldrop MD [address] [place] [address] PCP - General Family Medicine 09/19/18 Fransisco Barbour [address] [facility] [address] [place] [address] Orthopedics 01/12/17 Ellen Woods, HEEL SCORER.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 [address] [place] [address] Plastic Molding Operator Family Medicine 08/03/24 Jonas Harrison HEEL SCORER.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 [address] [place] [address] Plastic Molding Operator Family Medicine 08/12/24 Governor Assembler Relationship Specialty Start Date End Date Juanis Waldrop MD [address] [place] [address] PCP - General Family Medicine 09/19/18 Fransisco Barbour [address] [facility] [address] [place] [address] Orthopedics 01/12/17 Ellen Woods, HEEL SCORER.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 [address] [place] [address] Plastic Molding Operator Family Medicine 08/03/24 Jonas Harrison APRN.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 [address] [place] [address] Plastic Molding Operator Family Medicine 08/12/24 Governor Assembler Relationship Specialty Start Date End Date Juanis Waldrop MD [address] [place] [address] PCP - General Family Medicine 09/19/18 Fransisco Barbour [address] [address] Orthopedics 01/12/17 Ellen Woods APRN.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 [address] [place] [address] Plastic Molding Operator Family Medicine 08/03/24 Jonas Harrison APRN.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 [address] [place] [address] Plastic Molding Operator Family Medicine 08/12/24 Governor Assembler Relationship Specialty Start Date End Date Juanis Waldrop MD [address] [place] [address] PCP - General Family Medicine 09/19/18 Fransisco Barbour [address] [address] Orthopedics 01/12/17 Jonas Harrison HEEL SCORER.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 [address] [place] [address] Plastic Molding Operator Family Medicine 08/12/24 Governor Assembler Relationship Specialty Start Date End Date Juanis Waldrop MD [address] [facility] [place] [address] PCP - General Family Medicine 09/19/18 Fransisco Barbour [address] [address] Orthopedics 01/12/17 Ellen Woods APRN.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 [address] [place] [address] [facility] 08/03/24 01/07/25 Jonas Harrison APRN.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 [address] [place], [place] 209[address] [facility] 08/12/24 Goals (unrecognized section and content) Goals may be documented in a n alternate sectionGoals may be documented in an alternate sectionGoals may be documented in an alternate section No data available for this sectionGoals may be documented in an alternate sectionGoals may be documented in an alternate section FOR RECORDS PERTAINING TO PATIENTS WHO ARE OR HAVE BEEN ENROLLED IN A CHEMICAL DEPENDENCY/SUBSTANCEABUSE PROGRAM, SOME INFORMATION MAY BE OMITTED. This clinical summary was aggregated from multiple sources. Caution should be exercised in using it in the provision of clinical care. This summary normalizes information from multiple sources, and as a consequence, information in this document may materially change the coding, format and clinical context of patient data. In addition, data may be omitted in some cases. CLINICAL DECISIONS SHOULD BE BASED ON THE PRIMARY CLINICAL RECORDS. [facility]. provides no warranty or guarantee of the accuracy or completeness of information in this document.
--- NOTE | 2025-03-27 22:35 | EDS_ITS ---
HPI History of Present Illness Chief Complaint: Lower Extremity Injury Detail of Chief Complaint: Injury to left foot Narrative Narrative: Patient presents to the emergency department with complaint of an injury to her left foot that occurred around 5 PM tonvictor m. She was working in her room and rolled her foot and she heard a pop. Now she hurts every time she steps on it or moves it. Patient denies any other injuries. [facility] Medical History RSV (respiratory syncytial virus pneumonia) Lupus Acute (undifferentiated) schizophrenia Depression Fibromyalgia Continuous tobacco abuse SLE (systemic lupus erythematosus) COPD (chronic obstructive pulmonary disease) Hiatal hernia Shortness of breath Home Medications ?Medication ?Instructions ?Recorded ?Last Taken ?Type gabapentin 600 mg tablet 600 mg PO BID Check with adelfo koehler 05/02/22 12/13/24 History doctor gabapentin 600 mg tablet 1,200 mg PO QHS Check with efren christine 05/02/22 12/13/24 History (Neurontin) doctor albuterol sulfate 90 mcg/actuation 1 - 2 puff inhalati on Q4H PRN PRN 12/16/24 Unknown Rx aerosol inhaler (Ventolin HFA) Wheezing ##1 prednisone 20 mg tablet 60 mg (3 x 20 mg) PO DAILY # 15 12/16/24 Unknown Rx TABLETS hydrocodone-acetaminophen 5-325mg 1 tab PO Q4H PRN PRN Pain 2 days 03/27/25 Unknown Rx 5mg-325mg #10 TABLETS Allergy/AdvReac Type Severity Reaction Status Date / Time Penicillins Allergy Hives Verified 03/27/25 22:04 morphine AdvReac Rash Verified 03/27/25 22:04 Family History Father Bipolar 1 disorder Rheumatoid arthritis Heart disease Alcohol abuse Cancer Lung and liver Colon cancer Hyperlipidemia Mother Rheumatoid arthritis Sister Cancer Ovarian Rheumatoid arthritis Surgical History History of tubal ligation History of dilatation and curettage History of right oophorectomy History of cholecystectomy History of carpal tunnel surgery of right wrist History of LEEP (loop electrosurgical excision procedure) of cervix complicating Social History household members: none Smoking Status: Former smoker Tobacco: How many years used: 17 second hand exposure: Yes alcohol intake: never substance use type: does not use caffeine: Yes what type of physical activity do you participate in: none ROS ROS ED Review of Systems ROS Unobtainable: other Constitutional Constitutional ED: Reports lethargy; Denies chills, fever(s), sweats or weight loss Eyes Eyes: Denies blurry vision, change in vision or diplopia ENT ENT ED: Denies rhinorrhea or sore throat Cardiovascular Cardiovascular: Denies chest pain, orthopnea or racing heartbeat Respiratory/Chest Respiratory/Chest: Denies cough, dyspnea, dyspnea on exertion, orthopnea or sputum Gastrointestinal Gastrointestinal: Denies abdominal pain, diarrhea, nausea or vomiting Genitourinary Genitourinary ED: Denies dysuria, hematuria or urinary frequency Musculoskeletal Musculoskeletal: Reports other Details: Left foot injury ; Denies arthralgias, back pain, myalgias or neck pain Integumentary Denies abscess, Abrasions or rash Neurologic Neurologic: Denies headache(s) or weakness Psychiatric Psychiatric: Denies anxiety, depression or suicidal thoughts Endocrine Endocrinology: Denies polydipsia, polyphagia or polyuria Hematologic/Lymphatic Hematologic/Lymphatic: Denies easy bleeding, easy bruising or lymphadenopathy Allergic/Immunologic Allergic/Immunologic ED: Denies mouth swelling, tongue swelling or urticaria EXAM Physical Exam Const Vital Signs: 03/27/25 22:03 Temperature 98 F Temperature Source Temporal Pulse Rate 111 H Respiratory Rate 18 Blood Pressure 151/98 H Blood Pressure Mean 115 Pulse Ox 99 Positive well nourished and well developed General Appearance ED: well developed and NAD HEENT Reports TM's clear and moist mucous membranes normocephalic and atraumatic; Negative for trauma or tenderness Tympanic Membrane ED: Yes TM's clear Eyes PERRL and EOMs intact bilaterally General Eye ED: Negative for pale conjunctiva or scleral icterus Neck no lymphadenopathy, supple and no JVD General: Negative for tenderness Chest Wall inspection of chest normal and palpation of chest normal Chest: Negative for tenderness Resp normal respiratory effort and clear to auscultation bilaterally Effort and Inspection: Negative for respiratory distress or pain with movement Auscultation: Negative for rhonchi, wheezes or diminished lung sounds Cardio regular rate, regular rhythm, S1 normal heart sound, S2 normal heart sound and no murmurs Peripheral Pulses: pulses 2+ throughout GI normal to inspection, nondistended, normoactive bowel sounds, soft to palpation, non-tender, non-distended and no masses Back/Spine no CVA tenderness and no thoracic nor lumbar tenderness Extremity Extremity Narrative: Left foot-patient has diffuse soft tissue swelling over the dorsal lateral aspect of the distal foot. She has pain to palpation over the fifth metatarsal. Neurovascular intact distally. No broken skin. No pain at the ankle. General Extremety ED: Negative for edema General Extremity: Negative for edema Neuro oriented x3, CN's II-XII intact bilaterally, no sensory deficits noted and gait normal Sensorium / Orientation: awake, alert, oriented to person, oriented to place and oriented to time Motor Exam: strength 5/5 throughout and strength abnormal Psych mental status grossly normal Skin no rashes or lesions noted and no wounds MDM MDM MDM Narrative Medical decision making narrative: Patient with injury to her left foot. X-rays ordered by nursing staff from triage by protocol. X-rays show fracture of the fifth metatarsal. Patient was given a walking boot and crutches. She will be referred to foot and ankle specialist Dr. Alex for follow-up. Radiography Diagnostic Testing: Three-view x-rays of the left foot obtained interpreted by myself as nondisplaced spiral fracture through the distal half of the fifth metatarsal. Discharge Plan Triage Chief Complaint: Lower Extremity Injury ED Provider: Jasmyn Bethea Dx/Rx/DC Orders Clinical Impression: Foot fracture Instructions: ED Fracture, Foot Prescriptions: New hydrocodone-acetaminophen 5-325 mg tablet 1 tab PO Q4H PRN PRN (Reason: Pain) 2 Days Qty: 10 0RF No Action gabapentin 600 mg tablet 600 mg PO BID Rx Instructions: 600MG AM AND NOON, 1200MG HS gabapentin [Neurontin] 600 mg tablet 1,200 mg PO QHS Rx Instructions: 600MG AM AND NOON, 1200MG HS prednisone 20 mg tablet 60 mg PO DAILY Qty: 15 0RF albuterol sulfate [Ventolin HFA] 90 mcg/actuation HFA aerosol inhaler 1 - 2 puff inhalation Q4H PRN PRN (Reason: Wheezing) Qty: 1 0RF Primary Care Provider: Isra Waldrop Referrals: Isra Waldrop MD [Primary Care Provider] - Dejan Alex DPM [Med Staff - Active Staff] - 3-5 Days Print Language: Greek Disposition Disposition: Home, Self Care
[2025-03-27 23:14] VITALS: BP 146/84; PULSE 99; RESP 16; TEMP 36.9; O2SAT 100
== END 2025-03-27 23:14 | disposition home or self-care (01) ==
PROVIDERS: Emergency Provider Emergency Medicine; PCP Family Medicine; Referring Provider Emergency Medicine; Visit Provider Emergency Medicine
DX: S92.355A Nondisplaced fracture of fifth metatarsal bone, left foot, initial encounter for closed fracture (principal); X50.1XXA Overexertion from prolonged static or awkward postures, initial encounter; Z87.891 Personal history of nicotine dependence
CPT/HCPCS: 73630; 99284